=== PATIENT | male | born 1945 | race Caucasian/White ===

== ENCOUNTER → 2020-09-25 08:56 | Outpatient (BNVA) | payer OTHER, MEDICARE, SELFPAY | PROVIDERS: Visit Provider Internal Medicine Cardiovascular Disease ==

== ENCOUNTER → 2021-03-17 08:00 | Outpatient (REF) | payer OTHER, SELFPAY ==
--- NOTE | 2021-03-17 08:06 | CA_ITS ---
Transthoracic Echocardiogram Patient (Last, First, Middle): Mikal Khan L Gender: Male Date of : 1945 Age: 75 Procedure Date: 03/17/2021 Procedure Type: Transthoracic Echocardiogram Location: OP Height: 180.34 cm Weight: 126.1 kg BSA: 2.43 m2 Heart Rate: bpm BP: 122 / 60 mmHg Transit Man: Referring MD: Roberto Kemp MD Symptoms: I48.0 - Paroxysmal atrial fibrillation Study Quality: Technically Difficult due to obesity ECG Rhythm: Sinus Conclusions: - Visually estimated LVEF possibly about 50%. Due to suboptimal images in spite of contrast use, limited confidence in interpretation. - Mildly increased right ventricular cavity size. - No obvious valvular pathology seen on this study. Findings Procedure Information Contrast agent, definity, is being given per protocol without apparent complications. Left Ventricle Normal left ventricular cavity size. There is mildly increased left ventricular wall thickness. Diastolic function is normal for age. Visually estimated LVEF possibly about 50%. Due to suboptimal images in spite of contrast use, limited confidence in interpretation. Right Ventricle Mildly increased right ventricular cavity size. There is normal right ventricular systolic function. RV basal diameter 4.47cm. TAPSE 2.38cm. Atria Both atria are normal in size. Aortic Valve The aortic valve was not well visualized. There is no aortic valve stenosis. There is no aortic valve regurgitation. Mitral Valve The mitral valve appears normal. There is no mitral valve regurgitation. There is no mitral valve stenosis. Pulmonic Valve The pulmonic valve was not well visualized. Tricuspid Valve There is trace tricuspid valve regurgitation. The pulmonary artery systolic pressure is normal. Great Vessels The aortic annulus, sinuses of valsalva, and asc aorta are normal in size. Venous The inferior vena cava is mildly dilated and collapses greater than 50% with inspiration. Pericardium/Pleural There is no evidence of pericardial effusion. Prior Study Comparison No significant change compared to prior study dated: 05/03/2018. Recommendations, Care & Conclusions No obvious valvular pathology seen on this study. Measurements 2D Linear Measurements IVSd: 1.26 0.6-0.9/0.6-1.0 cm LVIDd: 4.70 3.9-5.3/4.2-5.9 cm LVIDd Index: 1.93 2.4-3.2/2.2-3.1 cm/m2 LVIDs: 3.48 2.0-3.6 cm LVPWd: 1.23 0.7-1.1 cm Ao Root: 3.70 2.1-3.5 cm LA Diam: 5.10 2.7-3.8/3.0-4.0 cm LAIDs Index: 2.10 1.5-2.3 cm/m2 LV Mass: 278.59 67-162/88-224 g LV Mass Index: 114.64 43-95/49-115 g/m2 LVOT Diam: 2.60 3.0+(-)1.3 cm 2D Systolic Function EF 4C: 46.60 >55% EF 2C: 46.10 >55% EF BiP: 46.90 >55% Mitral Valve MV Pk E: 0.72 MV PK A: 0.96 MV Decel Time: 153.00 E/A: 0.70 E'Lateral: 10.20 E'Medial: 6.74 E/E' Med: 10.60 E/E' Lat: 7.00 PHT: 45.00 MVA PHT: 4.89 Decel Mora: 4.67 Aortic Valve AoV Pk Serge: 1.19 AoV Mn Serge: 0.82 AoV VTI: 0.26 AoV Pk Grad: 6.00 Aov Mn Grad: 3.00 LVOT LVOT Diam: 2.60 LVOT Area: 5.31 Diastolic Function MV Pk E: 0.72 MV Pk A: 0.96 E/A: 0.70 E'Medial: 6.74 E/E' Med: 10.60 E' Laterial: 10.20 E/E' Lat: 7.00 Right Ventricle TAPSE (mm): 24.00 TVS' Serge: 11.00 Tricuspid Valve TR Pk Serge: 1.82 TR Pk Grad: 13.00 Great Vessels Aorta Ao Root-2D: 3.70 2.0-3.7 cm Ao Asc: 3.60 2.1-3.4 cm Pulmonary Valve PV Pk Serge: 0.96 Peak PV Grad: 4.00 Updated in Other Vendor System with Status of Final Nicola Morejon MD electronically signed on 03/17/2021 4:42:01 PM with status of Final
== END ==
LOC: HO.CARD 08:00
PROVIDERS: Visit Provider Internal Medicine Cardiovascular Disease
DX: I10 Essential (primary) hypertension (principal); I25.10 Atherosclerotic heart disease of native coronary artery without angina pectoris; I48.0 Paroxysmal atrial fibrillation
CPT/HCPCS: 93306; Q9957

== ENCOUNTER → 2021-04-02 08:20 | Outpatient (BNVA) | payer OTHER, SELFPAY | PROVIDERS: Visit Provider Internal Medicine Cardiovascular Disease | DX: I48.0 Paroxysmal atrial fibrillation (principal); I25.10 Atherosclerotic heart disease of native coronary artery without angina pectoris | CPT/HCPCS: 93005; 99212 ==

== ENCOUNTER → 2021-05-29 10:38 | Outpatient (REF) | payer OTHER, SELFPAY ==
--- NOTE | 2021-05-29 10:42 | HM_ITS ---
REASON FOR TEST: Paroxysmal atrial fibrillation. FINDINGS: The patient was monitored for a total period of 05/29/2021 to 06/28/2021 for a total period of 30 days. Only 1 rhythm strip was performed which shows sinus rhythm at 88 beats per minute. The patient, there were no reported symptoms. There were no episodes of atrial fibrillation. CONCLUSION: 1. Baseline rhythm was normal sinus rhythm. 2. No episodes of atrial fibrillation the patient underwent. Roberto Kemp MD NRS/MODL / [id number]
== END ==
LOC: HO.CARD 10:38
PROVIDERS: Visit Provider Internal Medicine Cardiovascular Disease
DX: I48.0 Paroxysmal atrial fibrillation (principal)
CPT/HCPCS: 93270

== ENCOUNTER → 2021-10-06 08:11 | Outpatient (BNVA) | payer OTHER, SELFPAY | PROVIDERS: Visit Provider Internal Medicine Cardiovascular Disease | DX: I25.10 Atherosclerotic heart disease of native coronary artery without angina pectoris (principal); I48.0 Paroxysmal atrial fibrillation | CPT/HCPCS: 99212 ==

== ENCOUNTER → 2022-03-24 07:20 | Outpatient (REF) | payer OTHER, SELFPAY ==
--- NOTE | 2022-03-24 07:23 | CA_ITS ---
Transthoracic Echocardiogram Patient (Last, First, Middle): Mikal Khan L Gender: Male Date of : 1945 Age: 76 Procedure Date: 03/24/2022 Procedure Type: Transthoracic Echocardiogram Location: OP Height: 180.34 cm Weight: 129.28 kg BSA: 2.45 m2 Heart Rate: 67 bpm BP: 145 / 75 mmHg Tanning Solution Maker: WILMER Pinon MD: Roberto Kemp MD Labor Relations Specialist: Roberto Kemp MD Symptoms: I48.0 - Paroxysmal atrial fibrillation Study Quality: Technically Difficult/Contrast ECG Rhythm: Sinus Conclusions: - 1. Technically limited study despite use of contrast agent 2. Normal LV systolic function with impaired relaxation filling pattern 3. Limited visualization of cardiac valves with mild mitral regurgitation 4. Normal measured RV systolic pressure Findings Procedure Information Contrast agent, definity, is being given per protocol without apparent complications. Left Ventricle Normal left ventricular size, thickness, and systolic function. The visually estimated ejection fraction is between 60-65%. Spectral Doppler is indicative of an impaired relaxation filling pattern. E/E prime ratio is between 8 and 15 consistent with indeterminate filling pressures. Right Ventricle The right ventricle was not well visualized. There is normal right ventricular systolic function. Atria The left atrium is likely dilated. Interatrial shunt cannot be excluded. The right atrium was not well visualized. Aortic Valve The aortic valve was not well visualized. There is no aortic valve stenosis. There is no aortic valve regurgitation. Mitral Valve The mitral valve was not well visualized. There is mild mitral valve regurgitation. There is no mitral valve stenosis. Pulmonic Valve The pulmonic valve was not well visualized. Tricuspid Valve The tricuspid valve was not well visualized. There is trace tricuspid valve regurgitation. There is no evidence of pulmonary hypertension. Great Vessels The aorta was not well visualized. The pulmonary artery was not well visualized. Venous The inferior vena cava is normal in size. Pericardium/Pleural The pericardium was not well visualized. Prior Study Comparison Changes noted compared to prior study dated: 03/17/2021. LV systolic measured on this study is 60-65% Measurements 2D Linear Measurements IVSd: 0.93 0.6-0.9/0.6-1.0 cm LVIDd: 6.03 3.9-5.3/4.2-5.9 cm LVIDd Index: 2.46 2.4-3.2/2.2-3.1 cm/m2 LVIDs: 4.70 2.0-3.6 cm LVPWd: 0.99 0.7-1.1 cm LA Diam: 5.20 2.7-3.8/3.0-4.0 cm LAIDs Index: 2.12 1.5-2.3 cm/m2 LV Mass: 294.14 67-162/88-224 g LV Mass Index: 120.06 43-95/49-115 g/m2 LVOT Diam: 2.50 3.0+(-)1.3 cm 2D Systolic Function EF 4C: 57.50 >55% EF 2C: 63.50 >55% EF BiP: 61.20 >55% Mitral Valve MV Pk E: 0.92 MV PK A: 1.08 MV Decel Time: 228.00 E/A: 0.80 E'Lateral: 9.57 E'Medial: 6.85 E/E' Med: 13.40 E/E' Lat: 9.60 PHT: 67.00 MVA PHT: 3.28 Decel [place]: 4.03 Aortic Valve AoV Pk Serge: 1.26 AoV Mn Serge: 0.81 AoV VTI: 0.29 AoV Pk Grad: 6.00 Aov Mn Grad: 3.00 EL Cont.VTI: 3.71 LVOT LVOT Pk Serge: 0.92 LVOT Mn Serge: 0.59 LVOT VTI: 0.22 LVOT Pk Grad: 3.00 LVOT Mn Grad: 2.00 LVOT Diam: 2.50 LVOT Area: 4.91 Diastolic Function MV Pk E: 0.92 MV Pk A: 1.08 E/A: 0.80 E'Medial: 6.85 E/E' Med: 13.40 E' Laterial: 9.57 E/E' Lat: 9.60 Right Ventricle TAPSE (mm): 20.30 TVS' Serge: 10.60 Tricuspid Valve TR Pk Serge: 2.05 TR Pk Grad: 17.00 RA Press: 3.00 RVSP: 20.00 Great Vessels Aorta Sinus of Valsalva: 4.30 2.0-3.5 cm Ao Asc: 3.70 2.1-3.4 cm Pulmonary Valve PV Pk Serge: 1.05 Peak PV Grad: 4.00 Updated in Other Vendor System with Status of Final Roberto Kemp MD electronically signed on 03/26/2022 10:50:23 AM with status of Final
== END ==
LOC: HO.CARD 07:20
PROVIDERS: Visit Provider Internal Medicine Cardiovascular Disease
DX: I48.0 Paroxysmal atrial fibrillation (principal)
CPT/HCPCS: 93306; Q9957

== ENCOUNTER → 2022-04-13 08:20 | Outpatient (BNVA) | payer OTHER, SELFPAY | PROVIDERS: PCP Internal Medicine; Referring Provider Internal Medicine; Visit Provider Internal Medicine Cardiovascular Disease | DX: I25.10 Atherosclerotic heart disease of native coronary artery without angina pectoris (principal); I48.0 Paroxysmal atrial fibrillation; Z79.82 Long term (current) use of aspirin; Z79.899 Other long term (current) drug therapy | CPT/HCPCS: 93005; 99212 ==

== ENCOUNTER 2022-05-27 08:45 | Outpatient (REF) | payer OTHER, SELFPAY ==
--- NOTE | ~2022-05-27 | MR_ITS ---
EXAMINATION: MR KNEE WITHOUT CONTRAST, LEFT CLINICAL INFORMATION: Left knee pain. Patient reports prior surgery 2019. COMPARISON: X-ray of the left knee 07/24/2019. MRI of the left knee 08/18/2019. TECHNIQUE: MRI of the knee without contrast was performed using routine sequences on a high-field scanner. FINDINGS: The exam is slightly limited because of image degrading motion artifact MENISCI: Medial Meniscus: Intact. Lateral Meniscus: There is heterogeneity of the medial aspect of the posterior horn at the meniscofemoral ligament attachment. Findings are compatible degenerative change or degenerative tearing. This appears new compared to prior allowing for differences in imaging technique. Findings are suspicious but not definitive for degenerative tearing. There is linear horizontal/oblique increased signal in the body of the meniscus possibly extending to the tibial articular surface. This could reflect meniscal tear or postsurgical result given the patient's history of prior surgery. LIGAMENTS: Cruciate: Intact. Collateral: Intact. EXTENSOR MECHANISM: Intact. ARTICULAR CARTILAGE/BONE: Patellofemoral Compartment: Mild cartilage heterogeneity in the lateral facet of the patella. The evaluation is slightly limited because of motion artifact. Suspect at least mild cartilage heterogeneity of the central trochlea. Findings are indicative of mild patellofemoral arthrosis, probably unchanged. Medial Compartment: Evaluation is limited because of motion artifact. There is cartilage loss along the lateral aspect of the weightbearing femoral articular cartilage similar to prior. Overall, mild arthrosis. There is also a linear focus of abnormal signal along the posterior rim of the medial plateau with surrounding edema having the appearance of a nondisplaced subchondral fracture, new compared to prior. Lateral Compartment: Mild cartilage heterogeneity with subchondral edema in the posterior weightbearing tibial articular surface. Findings are indicative of mild arthrosis which appears new compared to prior. JOINT FLUID AND BURSAE: There is a mild joint effusion. MR/MR knee LT wo con IMPRESSION: 1. The exam is slightly limited because of image degrading motion artifact. 2. Equivocal findings in the lateral meniscus could reflect meniscal tear, grade 2 signal or postsurgical result given the patient's history of prior surgery. 3. Mild arthrosis of the patellofemoral compartment and medial compartment. 4. Mild arthrosis of the lateral compartment. 5. Subchondral fracture along the posterior rim of the medial plateau with surrounding edema. This is new compared to prior. 6. Mild joint effusion.
== END 2022-05-27 08:46 | disposition home or self-care (01) ==
LOC: HO.MRI 08:45
PROVIDERS: Visit Provider Internal Medicine
DX: M25.562 Pain in left knee (principal)
CPT/HCPCS: 73721

== ENCOUNTER → 2022-06-22 09:10 | Outpatient (BNVA) | payer OTHER, SELFPAY | PROVIDERS: PCP Internal Medicine; Referring Provider Internal Medicine; Visit Provider Surgery | DX: K59.00 Constipation, unspecified (principal); K40.90 Unilateral inguinal hernia, without obstruction or gangrene, not specified as recurrent | CPT/HCPCS: 99202 ==

== ENCOUNTER 2022-07-01 07:34 | Outpatient (REF) | payer OTHER, SELFPAY | END 2022-07-01 07:35 | disposition home or self-care (01) | LOC: HO.CT 07:34 | PROVIDERS: Visit Provider Surgery | DX: Z13.89 Encounter for screening for other disorder (principal) ==

== ENCOUNTER 2022-07-07 07:11 | Outpatient (REF) | payer OTHER, SELFPAY ==
--- NOTE | ~2022-07-07 | CT_ITS ---
EXAMINATION: CT ABDOMEN AND PELVIS WITHOUT CONTRAST CLINICAL INFORMATION: Ventral hernia COMPARISON: Previous CT of the abdomen and pelvis April 2018 TECHNIQUE: Multidetector volumetric imaging was performed from the superior aspect of the liver through the pubic symphysis. Sagittal and coronal reformatted images were obtained on the technologist's workstation. This CT examination was performed using dose optimization techniques as appropriate, variously including the following: *Automated exposure control *Adjustment of mA and/or kV according to patient size (this includes techniques or standardized protocols for targeted exams where dose is matched to indication/reason for exam; i.e. extremities or head) *Use of iterative reconstruction technique DLP: 1117 mGy-cm FINDINGS: LUNG BASES: There is a 7 mm calcified right lower lobe nodule that is stable. The lung bases are otherwise clear. LIVER, GALLBLADDER, AND BILIARY TREE: The liver is normal in size, shape, and attenuation. Small calcifications in the liver probably related to old granulomatous disease. Small low-attenuation lesion measuring 8 mm in the peripheral left lobe axial image 19 series 3 is stable and may represent a small cyst. No other focal liver lesion. Dependent high attenuation material in the gallbladder probably representing gallstones. No biliary duct dilatation. PANCREAS: Unremarkable. SPLEEN: Calcifications in the spleen probably related to old granulomatous disease. ADRENAL GLANDS: Unremarkable. KIDNEYS AND URETERS: 4 cm cyst in the lower pole the right kidney. No imaging follow-up. Question tiny 1 mm stone in the upper pole of the right kidney, axial image 295 series 6 and sagittal reconstructed image 167. Kidneys are otherwise unremarkable. BLADDER: Unremarkable. GASTROINTESTINAL TRACT: Diverticulosis of the colon. The small and large bowel are otherwise unremarkable. The appendix is unremarkable. ABDOMINAL WALL: Left lateral abdominal wall or spigelian hernia containing left colon. No evidence of obstruction. Small umbilical hernia containing fat. LYMPH NODES: Normal. VASCULAR: Unremarkable. PELVIC VISCERA: Unremarkable. OSSEOUS STRUCTURES: Degenerative changes of the spine. CT/CT abdomen pelvis wo IV con IMPRESSION: Large left lateral abdominal wall or spigelian hernia containing left colon. No evidence of obstruction. Diverticulosis of the colon. Evidence of old granulomatous disease. Probable gallstones. Right renal cyst. Question small right renal stone. Fleischner guidelines were followed.
== END 2022-07-07 07:12 | disposition home or self-care (01) ==
LOC: HO.CT 07:11
PROVIDERS: Visit Provider Surgery
DX: K43.9 Ventral hernia without obstruction or gangrene (principal); K59.00 Constipation, unspecified
CPT/HCPCS: 74176

== ENCOUNTER 2022-10-18 10:40 | Inpatient (IN) | payer OTHER, SELFPAY ==
--- NOTE | ~2022-10-18 | CT_ITS ---
EXAMINATION: CT ABDOMEN AND PELVIS WITHOUT CONTRAST CLINICAL INFORMATION: Mid/right upper quadrant abdominal pain COMPARISON: CT abdomen pelvis 07/07/2022 TECHNIQUE: Multidetector volumetric imaging was performed from the superior aspect of the liver through the pubic symphysis. Sagittal and coronal reformatted images were obtained on the technologist's workstation. This CT examination was performed using dose optimization techniques as appropriate, variously including the following: *Automated exposure control *Adjustment of mA and/or kV according to patient size (this includes techniques or standardized protocols for targeted exams where dose is matched to indication/reason for exam; i.e. extremities or head) *Use of iterative reconstruction technique DLP: 1208 mGy-cm FINDINGS: Visualized lung bases are well aerated. Similar calcified granuloma the posterior right lung base. The liver is normal in size but demonstrates diffusely decreased attenuation. A few punctate calcifications are present throughout the liver. A few subcentimeter hepatic hypodensities are stable yet are too small to accurately characterize. Gallstones are noted within otherwise unremarkable appearing gallbladder. The pancreas is normal in appearance. The spleen is normal in size. Numerous calcified granulomas are scattered throughout the spleen. The adrenal glands are unremarkable. The kidneys are symmetric in size. No renal calculi or hydronephrosis of either kidney. There is a 3 cm cyst off the lower pole of the right kidney. The stomach is mildly distended and debris/fluid filled. Proximal loops of small bowel are dilated measuring up to approximately 4.8 cm and contains several scattered air-fluid levels. Distal small bowel is normal in caliber. A definitive transition zone is not well identified. There is a moderate stool burden throughout the colon. The appendix is normal. Again noted is a loop of nonobstructed descending colon within a left spigelian hernia. Mild to moderate colonic diverticulosis without CT evidence to suggest active diverticulitis. Normal caliber abdominal aorta demonstrating mild to moderate atherosclerotic disease. No retroperitoneal lymphadenopathy. The bladder is normal in appearance. The prostate gland is normal in size. No gross free pelvic fluid. No inguinal lymphadenopathy. Moderate diffuse degenerative changes of the spine. Sternotomy wires are partially visualized. CT/CT abdomen pelvis wo IV con IMPRESSION: 1. CT findings most suggestive of a partial small bowel obstruction. A definitive transition zone is not well identified. 2. Cholelithiasis. 3. Colonic diverticulosis. 4. Evidence of prior granulomatous disease. 5. Hepatic steatosis. 6. Right renal cyst. 7. Left Spigelian hernia containing a loop of nonobstructed descending colon. Fleischner guidelines were followed.
--- NOTE | ~2022-10-18 | XR_ITS ---
EXAMINATION: XR ABDOMEN KUB CLINICAL INDICATION: Partial SBO. Obstipation. COMPARISON: CT abdomen of October 18, 2022 TECHNIQUE: AP portable views of the abdomen. FINDINGS: There is a large amount stool seen within the transverse and left colon. No significantly dilated loops of bowel are appreciated. No secondary signs of free air. No pneumatosis intestinalis. Bowel is seen about the left inferior abdomen/pelvis related to bowel within left inguinal hernia. This is not completely imaged on this study. There appears be osteopenia of visualized bones. Multilevel degenerative disc disease is seen within the thoracic spine and L4 through S1. XR/XR KUB IMPRESSION: No definite findings of ileus or obstruction. Bowel seen within a left inguinal hernia. Moderate stool burden within the transverse and left colon.
[2022-10-18 10:49] VITALS: BP 160/94; PULSE 105; RESP 20; TEMP 37; O2SAT 96; BMI 40.4
--- NOTE | 2022-10-18 11:18 | ECG_ITS ---
Test Reason : epigastric pain Blood Pressure : / mmHG Vent. Rate : 095 BPM Atrial Rate : 095 BPM P-R Int : 188 ms QRS Dur : 114 ms QT Int : 396 ms P-R-T Axes : 057 -25 082 degrees QTc Int : 497 ms Normal sinus rhythm Cannot rule out Anterior infarct , age undetermined Abnormal ECG When compared with ECG of 22-NOV-2018 12:41, No significant changes seen Referred By: Rosalind Burton Electronically Signed By:SYLVESTER FLAHERTY
--- NOTE | 2022-10-18 11:19 | ED.ABDPAIN ---
HPI - Abdominal Pain General Chief Complaint: Abdominal Pain Stated Complaint: ABD PAIN,BLOATED,BURPING PER EMS Time Seen by Provider: 10/18/22 10:55 Source: patient and family () Mode of arrival: ambulatory History of Present Illness HPI narrative: 77-year-old male with presentation of abdominal discomfort since Tuesday and reports nausea but denies any fever or chills or vomiting. Patient states that he is also experiencing obstipation and endorses known left inguinal hernia. Related Data Home Medications Medication Instructions Recorded Confirmed albuterol sulfate 2.5 mg/3 mL 2.5 mg inhalation Q4-6H PRN 09/25/20 06/22/22 (0.083 %) solution for nebulization allopurinol 300 mg tablet 300 mg PO DAILY 09/25/20 06/22/22 aspirin 81 mg tablet,delayed 81 mg PO DAILY 09/25/20 06/22/22 release (Adult Aspirin Regimen) atorvastatin 80 mg tablet 40 mg PO BEDTIME 09/25/20 06/22/22 bupropion HCl 200 mg tablet,12 hr 200 mg PO BID 09/25/20 06/22/22 sustained-release cetirizine 10 mg tablet (All Day 10 mg PO DAILY PRN 09/25/20 06/22/22 Allergy (cetirizine)) dicyclomine 20 mg tablet 20 mg PO BID PRN 09/25/20 06/22/22 docusate sodium 100 mg capsule 100 mg PO DAILY 09/25/20 06/22/22 (Stool Softener) fluticasone propionate 50 1 spray intranasal DAILY 09/25/20 06/22/22 mcg/actuation nasal spray,suspension levothyroxine 50 mcg capsule 50 mcg PO DAILY 09/25/20 06/22/22 metformin 500 mg tablet 500 mg PO BID 09/25/20 06/22/22 mometasone 200 mcg/actuation HFA 1 puff inhalation BEDTIME 09/25/20 06/22/22 aerosol inhaler (Asmanex HFA) omeprazole 20 mg capsule,delayed 20 mg PO DAILY 09/25/20 06/22/22 release oxybutynin chloride 10 mg 10 mg PO DAILY 09/25/20 06/22/22 tablet,extended release 24 hr tamsulosin 0.4 mg capsule 0.4 mg PO BEDTIME 09/25/20 06/22/22 tiotropium 2.5 mcg-olodaterol 2.5 2 puff inhalation DAILY 09/25/20 06/22/22 mcg/actuation mist for inhalation (Stiolto Respimat) verapamil 360 mg 24 hr 360 mg PO .twice a day 09/25/20 06/22/22 capsule,extended release zafirlukast 20 mg tablet (Accolate) 20 mg PO BID 09/25/20 06/22/22 Allergies Allergy/AdvReac Type Severity Reaction Status Date / Time amoxicillin [From Augmentin] Allergy Mild NAUSEA & Unverified 06/22/22 09:43 VOMITING, HIVES clavulanic acid Allergy Mild NAUSEA & Unverified 06/22/22 09:43 [From Augmentin] VOMITING, HIVES piperacillin [From ZOSYN] Allergy Unknown LIVER Unverified 06/22/22 09:43 FAILURE tazobactam [From ZOSYN] Allergy Unknown LIVER Unverified 06/22/22 09:43 FAILURE Review of Systems Review of Systems Pertinent positives and negatives as stated in HPI [facility] Past Medical History Source: nursing notes reviewed Medical History CAD (coronary artery disease) COPD (chronic obstructive pulmonary disease) Diabetes mellitus HTN (hypertension) Hyperlipidemia Iron deficiency anemia FARHAD (obstructive sleep apnea) Paroxysmal atrial fibrillation Surgical History History of back surgery History of esophagogastroduodenoscopy (EGD) Hx of CABG Hx of cardiac cath Hx of colonoscopy Hx of hand surgery Hx of knee surgery Family History Family History Father Sudden cardiac Mother Sudden cardiac Social History Social History Smoked in Last 30 Days: No Use of substances other than those prescribed or required for medical reasons: No Any prior treatment program specific to substance use: No Advance Directives: Yes Advance Directives Information Provided: No Advance Directives on File: No Physical Exam ED Vital Signs: Vital Signs - 24 hr 10/18/22 10:49 Temperature 98.6 F Pulse Rate 105 H Respiratory Rate 20 Blood Pressure 160/94 H Pulse Oximetry 96 Oxygen Delivery Method Room Air BMI result Body Mass Index 40.4 VITAL SIGNS: Reviewed. GENERAL: Elevated BMI, Well developed, well nourished, in no acute distress. HEAD: Normocephalic/atraumatic EYES: PERRLA, EOMI EARS: Ext canals without abnormality OROPHARYNX: no oral lesions noted, posterior pharynx clear NECK: Supple, no adenopathy LUNGS: Normal breath sounds. No adventitious sounds or accessory muscle use. SpO2<96> CARDIOVASCULAR: Regular rate and rhythm without noted murmurs, no JVD or lower extremity edema. ABDOMEN: Soft, diffuse tenderness without rebound, distended with hypoactive bowel sounds, body habitus limits complete examination as I do not appreciate hernia. MUSCULOSKELETAL: No tenderness, deformities, or effusions noted on gross inspection. EXTREMITIES: No cyanosis, clubbing or edema. SKIN: Inspection of the skin reveals no rashes NEUROLOGIC: Alert and oriented x 4. Strength and sensation to light touch were grossly intact x 4. Medical Decision Making Medical Decision Making MDM Narrative: 77-year-old male with multiple medical comorbidities who presents with suspicion for SBO with the obstipation but given the location of the pain possibility of cholecystitis but otherwise hemodynamically stable. Review of all investigations in my interpretation is this patient has a partial small-bowel obstruction and agree with Radiology that the transition point is not clear but does not appear to be associated with patient has known hernia. He is hemodynamically stable, will give him some IV fluids, consult to surgery has been placed and I did discuss the case briefly with surgery who will follow-up on the patient. 1336: I discussed the case with inpatient hospitalist, placed med reconciliation referral and patient will be admitted. No NG at this time due to no vomiting and partial small-bowel obstruction. The mild leukocytosis is noted and felt to be secondary to stress/reactive. Differential Diagnosis Please see the discussion above Consult Healthcare Provider Please see the discussion above Lab Data Please see the discussion above 10/18/22 11:57 10/18/22 11:57 Labs: Lab Results 10/18/22 10/18/22 10/18/22 Range/Units 11:57 11:57 11:57 WBC 11.5 H (4.8-10.8) X10*3/uL RBC 4.11 L (4.60-5.80) X10*6/uL Hgb 12.5 L (14.0-18.0) g/dl Hct 38.0 L (42.0-52.0) % MCV 92.5 (80.0-98.0) fL MCH 30.4 (27.0-33.0) pg MCHC 32.9 (31.0-36.0) g/dl RDW 15.0 (11.0-16.0) % Plt Count 241 (160-400) X10*3/uL MPV 9.5 (9.4-12.4) fL Immature Gran % (Auto) 0.4 (0.0-0.4) % Neut % (Auto) 73.9 H (45-73) % Lymph % (Auto) 14.9 L (20-40) % [place] % (Auto) 9.2 (2-11) % Eos % (Auto) 1.2 (0-4) % Baso % (Auto) 0.4 (0-2) % Lymph # (Auto) 1.7 (1.2-4.9) X10*3/uL [place] # (Auto) 1.1 (0.1-1.2) X10*3/uL Eos # (Auto) 0.1 (0.0-0.4) X10*3/uL Baso # (Auto) 0.1 (0.0-0.2) X10*3/uL Abs Immat Gran (auto) 0.05 H (0.00-0.03) X10*3/uL Absolute Neuts (auto) 8.5 H (2.0-8.3) x10*3/uL Absolute Nucleated RBC 0.000 (0.0-0.012) X10*3/uL Nucleated RBC % (auto) 0.0 (0.0-0.2) /100WBC PT 11.0 (10.0-13.1) SEC INR 1.0 (0.9-1.1) Sodium 138 (135-145) mmol/L Potassium 3.7 (3.3-5.1) mmol/L Chloride 103 (96-108) mmol/L Carbon Dioxide 24 (22-29) mmol/L Anion Gap 15 (12-20) BUN 20 H (9-16) mg/dL Creatinine 1.17 (0.5-1.4) mg/dL Estim Creat Clear Calc 75.4 Estimated GFR > 60 Random Glucose 122 H (60-115) mg/dL Calcium 9.5 (8.4-10.2) mg/dL Total Bilirubin 0.8 (0.0-1.0) mg/dL AST 13 (5-37) U/L ALT 15 (0-40) U/L Alkaline Phosphatase 154 H (39-117) U/L Troponin I High Sens (<3.5-35.0) ng/L Total Protein 6.7 (6.5-8.0) g/dL Albumin 4.2 (3.5-5.0) g/dL 10/18/22 Range/Units 11:57 WBC (4.8-10.8) X10*3/uL RBC (4.60-5.80) X10*6/uL Hgb (14.0-18.0) g/dl Hct (42.0-52.0) % MCV (80.0-98.0) fL MCH (27.0-33.0) pg MCHC (31.0-36.0) g/dl RDW (11.0-16.0) % Plt Count (160-400) X10*3/uL MPV (9.4-12.4) fL Immature Gran % (Auto) (0.0-0.4) % Neut % (Auto) (45-73) % Lymph % (Auto) (20-40) % [place] % (Auto) (2-11) % Eos % (Auto) (0-4) % Baso % (Auto) (0-2) % Lymph # (Auto) (1.2-4.9) X10*3/uL [place] # (Auto) (0.1-1.2) X10*3/uL Eos # (Auto) (0.0-0.4) X10*3/uL Baso # (Auto) (0.0-0.2) X10*3/uL Abs Immat Gran (auto) (0.00-0.03) X10*3/uL Absolute Neuts (auto) (2.0-8.3) x10*3/uL Absolute Nucleated RBC (0.0-0.012) X10*3/uL Nucleated RBC % (auto) (0.0-0.2) /100WBC PT (10.0-13.1) SEC INR (0.9-1.1) Sodium (135-145) mmol/L Potassium (3.3-5.1) mmol/L Chloride (96-108) mmol/L Carbon Dioxide (22-29) mmol/L Anion Gap (12-20) BUN (9-16) mg/dL Creatinine (0.5-1.4) mg/dL Estim Creat Clear Calc Estimated GFR Random Glucose (60-115) mg/dL Calcium (8.4-10.2) mg/dL Total Bilirubin (0.0-1.0) mg/dL AST (5-37) U/L ALT (0-40) U/L Alkaline Phosphatase (39-117) U/L Troponin I High Sens < 3.5 (<3.5-35.0) ng/L Total Protein (6.5-8.0) g/dL Albumin (3.5-5.0) g/dL Independent Interpretation I performed an independent interpretation of an: EKG Interpretation: Normal sinus rhythm, HR-95, no STEMI, GA is within normal limits. Radiology Impression Radiologist Impression: My interpretation is in agreement with radiology's impression of the imaging studies. External Record Review External record reviewed: Outpatient record and Prior outpatient labs Chronic Conditions Patient?s care impacted by: Diabetes and Hypertension Medications Administered Generic Name Dose Route Start Last Admin Trade Name Freq PRN Reason Stop Dose Admin Sodium Chloride 500 mls @ 999 mls/hr 10/18/22 13:45 10/18/22 13:43 Ns IV 10/18/22 14:15 999 mls/hr .Q31M [facility] Administration Discharge Plan Discharge Clinical Impression: Partial small bowel obstruction, Abdominal distension Patient Disposition: Admitted As Inpatient Prescriptions: No Action verapamil 360 mg capsule,ext rel. pellets 24 hr 360 mg PO .twice a day cetirizine [All Day Allergy (cetirizine)] 10 mg tablet 10 mg PO DAILY PRN bupropion HCl 200 mg tablet sustained-release 12 hr 200 mg PO BID levothyroxine 50 mcg capsule 50 mcg PO DAILY metformin 500 mg tablet 500 mg PO BID zafirlukast [Accolate] 20 mg tablet 20 mg PO BID Rx Instructions: must be taken on empty stomach, at least 1 hr before or 2 hrs after a meal/food allopurinol 300 mg tablet 300 mg PO DAILY omeprazole 20 mg capsule,delayed release(DR/EC) 20 mg PO DAILY atorvastatin 80 mg tablet 40 mg PO BEDTIME albuterol sulfate 2.5 mg /3 mL (0.083 %) solution for nebulization 2.5 mg inhalation Q4-6H PRN tamsulosin 0.4 mg capsule 0.4 mg PO BEDTIME oxybutynin chloride 10 mg tablet extended release 24hr 10 mg PO DAILY dicyclomine 20 mg tablet 20 mg PO BID PRN Stiolto Respimat 2.5-2.5 mcg/actuation mist 2 puff inhalation DAILY Asmanex HFA 200 mcg/actuation HFA aerosol inhaler 1 puff inhalation BEDTIME aspirin [Adult Aspirin Regimen] 81 mg tablet,delayed release (DR/EC) 81 mg PO DAILY fluticasone propionate 50 mcg/actuation spray,suspension 1 spray intranasal DAILY Rx Instructions: administer into each nostril docusate sodium [Stool Softener] 100 mg capsule 100 mg PO DAILY
--- NOTE | 2022-10-18 11:40 | PC.NURSE ---
Patient to CT scan
[2022-10-18 12:02] LABS: MANUAL DIFF FLAG NO
[2022-10-18 12:04] LABS: Basophils Absolute Auto 0.1 X10*3/uL (0.0-0.2); Basophils Percent Auto 0.4 % (0-2); Eosinophils Absolute Auto 0.1 X10*3/uL (0.0-0.4); Eosinophils Percent Auto 1.2 % (0-4); Hemoglobin 12.5 g/dl (14.0-18.0); Imm Gran Abs Auto 0.05 X10*3/uL (0.00-0.03); Imm Gran Pct Auto 0.4 % (0.0-0.4); Lymphocytes Absolute Auto 1.7 X10*3/uL (1.2-4.9); Lymphocytes Percent Auto 14.9 % (20-40); Mean Corpuscular HGB Conc 32.9 g/dl (31.0-36.0); Mean Corpuscular Hemoglobin 30.4 pg (27.0-33.0); Mean Corpuscular Volume 92.5 fL (80.0-98.0); Mean Platelet Volume 9.5 fL (9.4-12.4); Monocytes Absolute Auto 1.1 X10*3/uL (0.1-1.2); Monocytes Percent Auto 9.2 % (2-11); Neutrophils Absolute Auto 8.5 x10*3/uL (2.0-8.3); Neutrophils Percent Auto 73.9 % (45-73); Platelet Count 241 X10*3/uL (160-400); Red Blood Count 4.11 X10*6/uL (4.60-5.80); White Blood Count 11.5 X10*3/uL (4.8-10.8)
[2022-10-18 12:21] LABS: Alanine Aminotransferase 15 U/L (0-40); Albumin Level 4.2 g/dL (3.5-5.0); Alkaline Phosphatase 154 U/L (39-117); Anion Gap 15 (12-20); Aspartate Amino Transferase 13 U/L (5-37); Bilirubin Total 0.8 mg/dL (0.0-1.0); Blood Urea Nitrogen 20 mg/dL (9-16); Calcium 9.5 mg/dL (8.4-10.2); Carbon Dioxide 24 mmol/L (22-29); Chloride 103 mmol/L (96-108); Creatinine Clr Calc Pharmacy 75.4; Estimated Glomerular Filt Rate > 60; Glucose Random 122 mg/dL (60-115); Potassium 3.7 mmol/L (3.3-5.1); Sodium 138 mmol/L (135-145); Total Protein 6.7 g/dL (6.5-8.0)
--- NOTE | 2022-10-18 12:26 | HE.PHANOTE ---
RE: medications Faxed [facility] for med list 10/18/22 @[id number]
[2022-10-18 12:40] LABS: Troponin-I High Sensitivity < 3.5 ng/L (<3.5-35.0)
[2022-10-18] MEDS: 0.9 % Sodium Chloride 500 ML 999 ML IV (13:43)
--- NOTE | 2022-10-18 13:47 | PM.IMHP ---
History of Present Illness Date of Service: 10/18/22 Attending physician on admission: Josue Salgado Chief Complaint: abd pain 77-year-old male with history of coronary artery disease s/p CABG x3, COPD, [id number] type 2 diabetes, hypertension, paroxysmal atrial fibrillation with Watchman device, hyperlipidemia, hypothyroidism, left inguinal hernia, FARHAD compliant with BiPAP presented to the ED for evaluation of diffuse severe abdominal pain ongoing for 2 days. He states the pain is worst in the right upper quadrant but is diffuse across the abdomen radiating bilaterally to the mid back. He states he feels abdominal bloating with increased reflux and belching as well as nausea and anorexia. No vomiting. Reports last BM was 3 days ago and was very small. On arrival, pt hypertensive to 160/95, mild tachycardia 105, vitals otherwise normal, patient afebrile. WBC 11.5, renal function normal, electrolytes normal. CT abdomen/pelvis with findings suggestive of a partial small-bowel obstruction without any definitive transition zone identified. There is also cholelithiasis, diverticulosis, evidence of prior granulomatous disease, hepatic steatosis, right renal cyst, and left spigelian hernia containing a loop of nonobstructed descending colon. In ED, given 500 mL IV NS. Review of Systems Review of Systems: General: No fevers, malaise, unintentional weight loss HEENT: No blurred vision, diplopia. No sore throat, nasal congestion, rhinorrhea, sinus pain, ear pain Cardiovascular: No chest pain, palpitations, or leg edema Respiratory: No shortness of breath, wheezing, cough GI: +abd pain, +nausea, +constipation. No vomiting, diarrhea, melena, hematochezia : No dysuria, hematuria, increased urinary frequency, decreased urinary output MSK: No myalgia, back pain Neuro: No headaches, weakness, paresthesias Skin: No rashes or lesions [facility] Medical History (Updated 10/18/22 @ 15:03 by EDITA Childers) Anemia, chronic disease CAD (coronary artery disease) COPD (chronic obstructive pulmonary disease) Diabetes mellitus History of iron deficiency anemia HTN (hypertension) Hyperlipidemia Hypothyroidism FARHAD (obstructive sleep apnea) Paroxysmal atrial fibrillation Family History Father Sudden cardiac Mother Sudden cardiac Surgical History History of back surgery History of esophagogastroduodenoscopy (EGD) Hx of CABG Hx of cardiac cath Hx of colonoscopy Hx of hand surgery Hx of knee surgery Social History Patient Tobacco Use Status: Never used Tobacco Smoked in Last 30 Days: No Use of substances other than those prescribed or required for medical reasons: No Any prior treatment program specific to substance use: No Advance Directives: Yes Advance Directives Information Provided: No Advance Directives on File: No Nutrition Risks: No Nutritional Risk Meds Allergies Allergy/AdvReac Type Severity Reaction Status Date / Time amoxicillin [From Augmentin] Allergy Mild NAUSEA & Verified 10/18/22 14:19 VOMITING, HIVES clavulanic acid Allergy Mild NAUSEA & Verified 10/18/22 14:19 [From Augmentin] VOMITING, HIVES piperacillin [From ZOSYN] Allergy Unknown LIVER Verified 10/18/22 14:19 FAILURE tazobactam [From ZOSYN] Allergy Unknown LIVER Verified 10/18/22 14:19 FAILURE Active Medications: Current Medications Sodium Chloride (Ns) 500 mls @ 999 mls/hr IV .Q31M CASANDRA Stop: 10/18/22 14:15 Last Admin: 10/18/22 13:43 Dose: 999 mls/hr Pharmacy Consult (Consult Rx Perform Med Rec) 1 each MISCELLANE ONCE PRN PRN Reason: Consult order Home Medications Medication Instructions Recorded Confirmed Last Taken Type albuterol sulfate 2.5 mg/3 mL 2.5 mg inhalation TID PRN Wheezing 09/25/20 10/18/22 Unknown History (0.083 %) solution for nebulization allopurinol 300 mg tablet 300 mg PO DAILY 09/25/20 10/18/22 Unknown History aspirin 81 mg tablet,delayed 81 mg PO DAILY 09/25/20 10/18/22 Unknown History release (Adult Aspirin Regimen) atorvastatin 80 mg tablet 40 mg PO BEDTIME 09/25/20 10/18/22 Unknown History bupropion HCl 200 mg tablet,12 hr 200 mg PO BID 09/25/20 10/18/22 Unknown History sustained-release cetirizine 10 mg tablet (All Day 10 mg PO BEDTIME 09/25/20 10/18/22 Unknown History Allergy (cetirizine)) dicyclomine 20 mg tablet 20 mg PO Q6H PRN Spasms 09/25/20 10/18/22 Unknown History docusate sodium 100 mg capsule 100 mg PO DAILY 09/25/20 06/22/22 Unknown History (Stool Softener) fluticasone propionate 50 1 spray intranasal BID 09/25/20 10/18/22 Unknown History mcg/actuation nasal spray,suspension levothyroxine 50 mcg capsule 50 mcg PO DAILY@0600 09/25/20 10/18/22 Unknown History metformin 500 mg tablet 500 mg PO BID 09/25/20 10/18/22 Unknown History mometasone 200 mcg/actuation HFA 2 puff inhalation BEDTIME 09/25/20 10/18/22 Unknown History aerosol inhaler (Asmanex HFA) omeprazole 20 mg capsule,delayed 20 mg PO BID@0630,1630 09/25/20 10/18/22 Unknown History release tamsulosin 0.4 mg capsule 0.4 mg PO BID 09/25/20 10/18/22 Unknown History tiotropium 2.5 mcg-olodaterol 2.5 2 puff inhalation DAILY 09/25/20 10/18/22 Unknown History mcg/actuation mist for inhalation (Stiolto Respimat) verapamil 360 mg 24 hr 360 mg PO BID 09/25/20 10/18/22 Unknown History capsule,extended release zafirlukast 20 mg tablet (Accolate) 20 mg PO BID 09/25/20 10/18/22 Unknown History albuterol sulfate 90 mcg/actuation 2 puff inhalation QID PRN Wheezing 10/18/22 10/18/22 Unknown History aerosol inhaler ascorbic acid (vitamin C) 250 mg 250 mg PO DAILY 10/18/22 10/18/22 Unknown History tablet gabapentin 600 mg tablet 1,200 mg PO DAILY@1900 10/18/22 10/18/22 Unknown History gabapentin 600 mg tablet 600 mg PO BID@0800,1200 10/18/22 10/18/22 Unknown History niacinamide 500 mg tablet 500 mg PO BID 10/18/22 10/18/22 Unknown History oxybutynin chloride 15 mg 15 mg PO BEDTIME 10/18/22 10/18/22 Unknown History tablet,extended release 24 hr triamterene 37.5 1 tab PO DAILY 10/18/22 10/18/22 Unknown History mg-hydrochlorothiazide 25 mg tablet Physical Exam Vital Signs and Narrative: Vital Signs: Last Vital Signs Temp 98.6 F 10/18/22 10:49 Pulse 105 H 10/18/22 10:49 Resp 20 10/18/22 10:49 BP 160/94 H 10/18/22 10:49 Pulse Ox 96 10/18/22 10:49 O2 Del Method Room Air 10/18/22 10:49 BMI result Body Mass Index 40.4 Constitutional - Awake and Alert, No apparent distress Eyes - PERRLA, EOMI Cardiovascular - S1S2, RRR, No edema Respiratory - Normal lung expansion, Normal respiratory effort, No respiratory distress, CTA bilaterally Gastrointestinal - mildly distended, diffuse abd ttp worse in RUQ no guarding or rebound. +BS; no palpable masses/hernias, but exam limited by body habitus Extremities - no calf tenderness bilaterally, no swelling Skin - Warm/Dry Neurological - Alert & oriented x3 Psychological - Appropriate affect Results Labs 10/18/22 11:57 10/18/22 11:57 Labs: Laboratory Results - last 24 hr 10/18/22 10/18/22 10/18/22 11:57 11:57 11:57 MCV 92.5 MCH 30.4 MCHC 32.9 RDW 15.0 Plt Count 241 MPV 9.5 Immature Gran % (Auto) 0.4 Neut % (Auto) 73.9 H Lymph % (Auto) 14.9 L [place] % (Auto) 9.2 Eos % (Auto) 1.2 Baso % (Auto) 0.4 Lymph # (Auto) 1.7 [place] # (Auto) 1.1 Eos # (Auto) 0.1 Baso # (Auto) 0.1 Abs Immat Gran (auto) 0.05 H Absolute Neuts (auto) 8.5 H Absolute Nucleated RBC 0.000 Nucleated RBC % (auto) 0.0 PT 11.0 INR 1.0 Anion Gap 15 Estim Creat Clear Calc 75.4 Estimated GFR > 60 Random Glucose 122 H Calcium 9.5 Total Bilirubin 0.8 AST 13 ALT 15 Alkaline Phosphatase 154 H Troponin I High Sens Total Protein 6.7 Albumin 4.2 10/18/22 11:57 MCV MCH MCHC RDW Plt Count MPV Immature Gran % (Auto) Neut % (Auto) Lymph % (Auto) [place] % (Auto) Eos % (Auto) Baso % (Auto) Lymph # (Auto) [place] # (Auto) Eos # (Auto) Baso # (Auto) Abs Immat Gran (auto) Absolute Neuts (auto) Absolute Nucleated RBC Nucleated RBC % (auto) PT INR Anion Gap Estim Creat Clear Calc Estimated GFR Random Glucose Calcium Total Bilirubin AST ALT Alkaline Phosphatase Troponin I High Sens < 3.5 Total Protein Albumin Imaging Radiologist's Impressions: Impressions Abdomen/Pelvis CT 10/18/22 11:48 IMPRESSION: 1. CT findings most suggestive of a partial small bowel obstruction. A definitive transition zone is not well identified. 2. Cholelithiasis. 3. Colonic diverticulosis. 4. Evidence of prior granulomatous disease. 5. Hepatic steatosis. 6. Right renal cyst. 7. Left Spigelian hernia containing a loop of nonobstructed descending colon. Fleischner guidelines were followed. Assessment and Plan (1) Partial small bowel obstruction: Status: Acute Plan 77-year-old male with history of coronary artery disease s/p CABG x3, COPD, [id number] type 2 diabetes, hypertension, paroxysmal atrial fibrillation with Watchman device, hyperlipidemia, hypothyroidism, left inguinal hernia, FARHAD compliant with BiPAP admitted for partial SBO. #Partial SBO -CT with findings suggestive of partial SBO, no definitive transition zone -keep NPO for bowel rest -hold on NG tube for now unless patient vomiting -ondansetron p.r.n. for nausea -Apprecaite gen surgery input # [id number] type 2 diabetes -POC glucose -transition to diabetic diet -Humalog on sliding scale p.r.n. for hyperglycemia -hold metformin # CAD-no anginal chest pain -continue asa, statin, CCB # paroxysmal atrial fibrillation- rate controlled -Has watchman device, no anticoagulation -continue verapamil # COPD-without acute exacerbation -continue maintenance inhalers -albuterol p.r.n. # hypothyroidism -continue levothyroxine # FARHAD -BiPAP at bedtime with 2 L O2 # left-sided inguinal hernia -nonobstructing -appreciate general surgery input DVT prophylaxis-Lovenox Full code Patient requires inpatient stay of at least 2 midnights for management partial small-bowel obstruction, patient currently NPO, requires explore consultation monitoring for any worsening obstruction Time Spent With Patient Time: Total time managing care of this patient today ____ minutes. Quality Stroke Does the patient have a stroke diagnosis?: No VTE Prior VTE?: No VTE Risk Level:: Medical - moderate - high VTE Device Contraindication: Treatment Not Indicated VTE Drug Contraindication: N/A - Med Ordered
[2022-10-18 14:11] LABS: COVID-19 Test Negative (Negative); IDNOW Serial# BCCEAD1C
--- NOTE | 2022-10-18 14:26 | HE.PHANOTE ---
RE: med list Called [facility] and left message with medical records; sent a second fax request
[2022-10-18] MEDS: Lactated Ringers 1,000 ML 100 ML IVCONT (15:18)
[2022-10-18] MEDS: Enoxaparin Sodium 40 MG/0.4 ML SYRINGE SUBCUT (15:18)
[2022-10-18] MEDS: 0.9 % Sodium Chloride Flush 3 ML SYRINGE IVFLUSH (15:18)
--- NOTE | 2022-10-18 15:20 | PHA.MEDREC ---
Pharmacy Consult ? Medication Reconciliation Pharmacy has completed the medication reconciliation. [facility], patient was able to pull up med list at bedside, but there were some duplicates. Notified second shift pharmacist to keep and eye out for fax list from [facility] to confirm
--- NOTE | 2022-10-18 15:21 | PM.CNGS ---
History of Present Illness Consult details Consult date: 10/18/22 Narrative: 77-year-old male referred for question of small-bowel obstruction. He has multiple medical problems including coronary disease, morbid obesity, paroxysmal atrial fibrillation, and obstructive sleep apnea. He has had this left inguinal hernia for years. He says that this really does not bother him. He has been seen by multiple surgeons in the past for this. He stated that he started to have abdominal pain, mostly on the upper abdomen 2 days ago. This had persisted so he came to under urgent care center this morning and he was sent to the ER for this. He denies any vomiting although he admits to having little bit of nausea. He also has a history of reflux disease so he feels he has acid in his throat. He has a history of chronic constipation. He says his last bowel movement was 4 days ago and this is not unusual for him to have no bowel movement for several days. He says he remembers passing flatus last Tuesday. He also says that he has had some relief of his pain since he came to the emergency room. He also says that he had seen Dr. Ordoñez last year for his inguinal hernia. He has a history of CABG in 2018. Review of Systems Constitutional: Constitutional: Denies chills and Denies fever(s) Cardiovascular: Cardiovascular: Denies chest pain, Denies dyspnea and Reports dyspnea on exertion Respiratory: Respiratory: Denies cough, Denies dyspnea and Reports dyspnea on exertion Gastrointestinal: Gastrointestinal: Denies hematochezia, Denies change in bowel habits and Reports constipation Genitourinary: Genitourinary: Denies hematuria and Denies difficulty urinating Musculoskeletal: Musculoskeletal: Denies back pain and Denies limited range of motion Neurologic: Denies focal weakness and Denies convulsions Psychiatric: Psychiatric: Denies depression and Denies mood swings PMFSH Past Medical History Medical History Anemia, chronic disease CAD (coronary artery disease) COPD (chronic obstructive pulmonary disease) Diabetes mellitus History of iron deficiency anemia HTN (hypertension) Hyperlipidemia Hypothyroidism FARHAD (obstructive sleep apnea) Paroxysmal atrial fibrillation Family History Family History Father Sudden cardiac Mother Sudden cardiac Surgical History Surgical History History of back surgery History of esophagogastroduodenoscopy (EGD) Hx of CABG Hx of cardiac cath Hx of colonoscopy Hx of hand surgery Hx of knee surgery Social History Social History Household Members: Spouse Housing: House Do you presently have visiting nurse or other home services: No Patient Tobacco Use Status: Never used Tobacco Advance Directives Date on File: 10/18/22 service: Yes Current occupational status: retired Meds Allergies Allergy/AdvReac Type Severity Reaction Status Date / Time amoxicillin [From Augmentin] Allergy Mild NAUSEA & Verified 10/18/22 14:19 VOMITING, HIVES clavulanic acid Allergy Mild NAUSEA & Verified 10/18/22 14:19 [From Augmentin] VOMITING, HIVES piperacillin [From ZOSYN] Allergy Unknown LIVER Verified 10/18/22 14:19 FAILURE tazobactam [From ZOSYN] Allergy Unknown LIVER Verified 10/18/22 14:19 FAILURE Active Medications: Current Medications Acetaminophen (Acetaminophen 325 Mg Tablet) 650 mg PO Q6H PRN PRN Reason: Pain, Mild (Pain Scale 1-3) Calcium Carbonate (Calcium Carbonate 750 Mg Tab.Chew) 750 mg PO Q4H PRN PRN Reason: acid reflux Enoxaparin Sodium (Enoxaparin Sodium 40 Mg/0.4 Ml Syringe) 40 mg SUBCUT Q24H [facility] Last Admin: 10/18/22 15:18 Dose: 40 mg Glucose (Glucose Gel 15 Gm Gel..Gram.) 15 gm PO Q15M PRN; Protocol PRN Reason: per Hypoglycemia Standing Ord. Lactated Ringer's (Lr) 1,000 mls @ 100 mls/hr IVCONT .Q10H [facility] Last Admin: 10/18/22 15:18 Dose: 100 mls/hr Dextrose (D10) 250 mls @ 750 mls/hr IV Q15M PRN; Protocol PRN Reason: per Hypoglycemia Standing Ord. Insulin Human Lispro (Insulin Lispro 100 Unit/Ml 3 Ml Vial) 0 unit SUBCUT QIDACHS CASANDRA; Protocol Ondansetron HCl (Ondansetron Hcl 4 Mg/2 Ml Vial) 4 mg IVPUSH Q8H PRN PRN Reason: Nausea and Vomiting Pharmacy Consult (Consult Rx Perform Med Rec) 1 each MISCELLANE ONCE PRN PRN Reason: Consult order Sodium Chloride (0.9 % Sodium Chloride Flush 3 Ml Syringe) 3 ml IVFSH QSHIFT [facility] Last Admin: 10/18/22 15:18 Dose: 3 ml Home Medications Medication Instructions Recorded Confirmed Last Taken Type albuterol sulfate 2.5 mg/3 mL 2.5 mg inhalation TID PRN Wheezing 09/25/20 10/18/22 Unknown History (0.083 %) solution for nebulization allopurinol 300 mg tablet 300 mg PO DAILY 09/25/20 10/18/22 Unknown History aspirin 81 mg tablet,delayed 81 mg PO DAILY 09/25/20 10/18/22 Unknown History release (Adult Aspirin Regimen) atorvastatin 80 mg tablet 40 mg PO BEDTIME 09/25/20 10/18/22 Unknown History bupropion HCl 200 mg tablet,12 hr 200 mg PO BID 09/25/20 10/18/22 Unknown History sustained-release cetirizine 10 mg tablet (All Day 10 mg PO BEDTIME 09/25/20 10/18/22 Unknown History Allergy (cetirizine)) dicyclomine 20 mg tablet 20 mg PO Q6H PRN Spasms 09/25/20 10/18/22 Unknown History fluticasone propionate 50 1 spray intranasal BID 09/25/20 10/18/22 Unknown History mcg/actuation nasal spray,suspension levothyroxine 50 mcg capsule 50 mcg PO DAILY@0600 09/25/20 10/18/22 Unknown History metformin 500 mg tablet 500 mg PO BID 09/25/20 10/18/22 Unknown History mometasone 200 mcg/actuation HFA 2 puff inhalation BEDTIME 09/25/20 10/18/22 Unknown History aerosol inhaler (Asmanex HFA) omeprazole 20 mg capsule,delayed 20 mg PO BID@0630,1630 09/25/20 10/18/22 Unknown History release tamsulosin 0.4 mg capsule 0.4 mg PO BID 09/25/20 10/18/22 Unknown History tiotropium 2.5 mcg-olodaterol 2.5 2 puff inhalation DAILY 09/25/20 10/18/22 Unknown History mcg/actuation mist for inhalation (Stiolto Respimat) verapamil 360 mg 24 hr 360 mg PO BID 09/25/20 10/18/22 Unknown History capsule,extended release zafirlukast 20 mg tablet (Accolate) 20 mg PO BID 09/25/20 10/18/22 Unknown History albuterol sulfate 90 mcg/actuation 2 puff inhalation QID PRN Wheezing 10/18/22 10/18/22 Unknown History aerosol inhaler ascorbic acid (vitamin C) 250 mg 250 mg PO DAILY 10/18/22 10/18/22 Unknown History tablet gabapentin 600 mg tablet 1,200 mg PO DAILY@1900 10/18/22 10/18/22 Unknown History gabapentin 600 mg tablet 600 mg PO BID@0800,1200 10/18/22 10/18/22 Unknown History niacinamide 500 mg tablet 500 mg PO BID 10/18/22 10/18/22 Unknown History oxybutynin chloride 15 mg 15 mg PO BEDTIME 10/18/22 10/18/22 Unknown History tablet,extended release 24 hr triamterene 37.5 1 tab PO DAILY 10/18/22 10/18/22 Unknown History mg-hydrochlorothiazide 25 mg tablet montelukast 10 mg tablet 10 mg PO DAILY 10/19/22 10/19/22 Unknown History Physical Exam Vital Signs: Vital Signs: Last Vital Signs Temp 98.6 F 10/18/22 10:49 Pulse 105 H 10/18/22 10:49 Resp 20 10/18/22 10:49 BP 160/94 H 10/18/22 10:49 Pulse Ox 96 10/18/22 10:49 O2 Del Method Room Air 10/18/22 10:49 BMI result Body Mass Index 40.4 Const: Other: Appears morbidly obese General: comfortable and no acute distress Orientation/consciousness: patient oriented x3 Neck: Neck: Yes no lymphadenopathy Resp: Auscultation: clear to auscultation bilaterally Cardio: Rhythm: regular rhythm GI: Other: left lower abdomen hernia, near the groin, reducible, nontender he has the very benign exam, and seems to have mild tenderness on the right side of his abdomen with deep palpation Palpation (GI): Soft to palpation, nontender, no guarding and not rigid Neuro: General: patient oriented x3 Results Labs 10/18/22 11:57 10/18/22 11:57 Labs: Abnormal lab results 10/18/22 10/18/22 Range/Units 11:57 11:57 WBC 11.5 H (4.8-10.8) X10*3/uL RBC 4.11 L (4.60-5.80) X10*6/uL Hgb 12.5 L (14.0-18.0) g/dl Hct 38.0 L (42.0-52.0) % Neut % (Auto) 73.9 H (45-73) % Lymph % (Auto) 14.9 L (20-40) % Abs Immat Gran (auto) 0.05 H (0.00-0.03) X10*3/uL Absolute Neuts (auto) 8.5 H (2.0-8.3) x10*3/uL BUN 20 H (9-16) mg/dL Random Glucose 122 H (60-115) mg/dL Alkaline Phosphatase 154 H (39-117) U/L Short CBC 10/18/22 Range/Units 11:57 WBC 11.5 H (4.8-10.8) X10*3/uL Hgb 12.5 L (14.0-18.0) g/dl Hct 38.0 L (42.0-52.0) % Plt Count 241 (160-400) X10*3/uL BMP 10/18/22 11:57 Sodium 138 Potassium 3.7 Chloride 103 Carbon Dioxide 24 BUN 20 H Creatinine 1.17 Calcium 9.5 Liver Function 10/18/22 Range/Units 11:57 Total Bilirubin 0.8 (0.0-1.0) mg/dL AST 13 (5-37) U/L ALT 15 (0-40) U/L Alkaline Phosphatase 154 H (39-117) U/L Albumin 4.2 (3.5-5.0) g/dL All other labs normal. Laboratory Results WBC 11.5 X10*3/uL (4.8-10.8) H 10/18/22 11:57 RBC 4.11 X10*6/uL (4.60-5.80) L 10/18/22 11:57 Hgb 12.5 g/dl (14.0-18.0) L 10/18/22 11:57 Hct 38.0 % (42.0-52.0) L 10/18/22 11:57 MCV 92.5 fL (80.0-98.0) 10/18/22 11:57 MCH 30.4 pg (27.0-33.0) 10/18/22 11:57 MCHC 32.9 g/dl (31.0-36.0) 10/18/22 11:57 RDW 15.0 % (11.0-16.0) 10/18/22 11:57 Plt Count 241 X10*3/uL (160-400) 10/18/22 11:57 MPV 9.5 fL (9.4-12.4) 10/18/22 11:57 Immature Gran % (Auto) 0.4 % (0.0-0.4) 10/18/22 11:57 Neut % (Auto) 73.9 % (45-73) H 10/18/22 11:57 Lymph % (Auto) 14.9 % (20-40) L 10/18/22 11:57 [place] % (Auto) 9.2 % (2-11) 10/18/22 11:57 Eos % (Auto) 1.2 % (0-4) 10/18/22 11:57 Baso % (Auto) 0.4 % (0-2) 10/18/22 11:57 Lymph # (Auto) 1.7 X10*3/uL (1.2-4.9) 10/18/22 11:57 [place] # (Auto) 1.1 X10*3/uL (0.1-1.2) 10/18/22 11:57 Eos # (Auto) 0.1 X10*3/uL (0.0-0.4) 10/18/22 11:57 Baso # (Auto) 0.1 X10*3/uL (0.0-0.2) 10/18/22 11:57 Abs Immat Gran (auto) 0.05 X10*3/uL (0.00-0.03) H 10/18/22 11:57 Absolute Neuts (auto) 8.5 x10*3/uL (2.0-8.3) H 10/18/22 11:57 Absolute Nucleated RBC 0.000 X10*3/uL (0.0-0.012) 10/18/22 11:57 Nucleated RBC % (auto) 0.0 /100WBC (0.0-0.2) 10/18/22 11:57 PT 11.0 SEC (10.0-13.1) 10/18/22 11:57 INR 1.0 (0.9-1.1) 10/18/22 11:57 Sodium 138 mmol/L (135-145) 10/18/22 11:57 Potassium 3.7 mmol/L (3.3-5.1) 10/18/22 11:57 Chloride 103 mmol/L (96-108) 10/18/22 11:57 Carbon Dioxide 24 mmol/L (22-29) 10/18/22 11:57 Anion Gap 15 (12-20) 10/18/22 11:57 BUN 20 mg/dL (9-16) H 10/18/22 11:57 Creatinine 1.17 mg/dL (0.5-1.4) 10/18/22 11:57 Estim Creat Clear Calc 75.4 10/18/22 11:57 Estimated GFR > 60 10/18/22 11:57 Random Glucose 122 mg/dL (60-115) H 10/18/22 11:57 Calcium 9.5 mg/dL (8.4-10.2) 10/18/22 11:57 Total Bilirubin 0.8 mg/dL (0.0-1.0) 10/18/22 11:57 AST 13 U/L (5-37) 10/18/22 11:57 ALT 15 U/L (0-40) 10/18/22 11:57 Alkaline Phosphatase 154 U/L (39-117) H 10/18/22 11:57 Troponin I High Sens < 3.5 ng/L (<3.5-35.0) 10/18/22 11:57 Total Protein 6.7 g/dL (6.5-8.0) 10/18/22 11:57 Albumin 4.2 g/dL (3.5-5.0) 10/18/22 11:57 COVID-19 (SUN) Negative (Negative) 10/18/22 13:42 COVID-19 Clin Com See Note 10/18/22 13:42 Impressions Abdomen/Pelvis CT 10/18/22 11:48 IMPRESSION: 1. CT findings most suggestive of a partial small bowel obstruction. A definitive transition zone is not well identified. 2. Cholelithiasis. 3. Colonic diverticulosis. 4. Evidence of prior granulomatous disease. 5. Hepatic steatosis. 6. Right renal cyst. 7. Left Spigelian hernia containing a loop of nonobstructed descending colon. Fleischner guidelines were followed. Assessment and Plan (1) Partial small bowel obstruction: Status: Acute Review of his CT scan shows that he has diffusely dilated small bowel loops, no identifiable transition point. He has good amount of air in stool in his colon as well. He does have a hernia on the left lower quadrant that does not to be inguinal but could be from the lateral abdominal wall or a spigelian but this is not obstructing. This seems to be unchanged from his previous CT scans. I am uncertain as to status also of his small-bowel obstruction but cannot rule out an ongoing ileus as well as no identifiable transition point is seen. He has a very benign exam. I would keep him NPO for now with IV fluids.He has minimal tenderness on the right side if at all. The hernia does not to be seem to be tender. We will follow along while he is in the hospital. He did state that he had requested Dr. Ordoñez to follow him has he had seen him in the past for his hernia. Time Spent With Patient Time: Total time managing care of this patient today ____ minutes. Procedures Date of Service Date of Service: 10/18/22
[2022-10-18 15:33] VITALS: BP 167/73; PULSE 97; RESP 16; TEMP 36.4; O2SAT 96
[2022-10-18 15:48] VITALS: BMI 40.7
[2022-10-18 16:30] LABS: Glucose, Whole Blood 117 mg/dL (60-115)
[2022-10-18] MEDS: Calcium Carbonate 750 MG TAB.CHEW PO ×2 (17:30→22:19)
[2022-10-18 19:16] VITALS: BP 142/71; PULSE 84; RESP 17; TEMP 36.9; O2SAT 96
[2022-10-18] MEDS: Gabapentin 600 MG TABLET 1200 MG PO (19:25)
[2022-10-18 20:51] LABS: Glucose, Whole Blood 117 mg/dL (60-115)
[2022-10-18] MEDS: oxyBUTYnin chloride ER 5 MG TAB.ER.24 15 MG PO (20:51)
[2022-10-18] MEDS: Montelukast Sodium 10 MG TABLET PO (20:52)
[2022-10-18] MEDS: Tamsulosin HCL 0.4 MG CAPSULE PO (20:52)
[2022-10-18] MEDS: VerapamiL HCL SR 180 MG TABLET.ER 360 MG PO (20:52)
[2022-10-18] MEDS: Fluticasone Propionate Nasal 16 GM SPRAY 1 SPRAY NOSTRIL-B (20:55)
[2022-10-18] MEDS: Acetaminophen 325 MG TABLET 650 MG PO (22:19)
[2022-10-18 22:31] VITALS: RESP 16; O2SAT 96
[2022-10-18 22:41] LABS: Appearance Urine Clear; Color Urine Yellow; Glucose Urine UA Negative (Negative); Leukocyte Esterase Urine Negative (Negative); Nitrite Urine Negative (Negative); Urine Blood Negative (Negative); Urine Ketones Negative (Negative); Urine Protein Negative (Neg-Trace)
[2022-10-19] MEDS: Lactated Ringers 1,000 ML 100 ML IVCONT (01:10)
[2022-10-19 03:20] VITALS: BP 107/58; PULSE 59; RESP 18; TEMP 36.4; O2SAT 96
[2022-10-19] MEDS: Levothyroxine Sodium 50 MCG TABLET PO (05:40)
[2022-10-19 06:40] LABS: MANUAL DIFF FLAG NO
[2022-10-19 06:43] LABS: Basophils Percent Auto 0.4 % (0-2); Eosinophils Absolute Auto 0.2 X10*3/uL (0.0-0.4); Hematocrit 31.9 % (42.0-52.0); Hemoglobin 10.5 g/dl (14.0-18.0); Imm Gran Abs Auto 0.03 X10*3/uL (0.00-0.03); Imm Gran Pct Auto 0.4 % (0.0-0.4); Lymphocytes Percent Auto 26.3 % (20-40); Mean Corpuscular HGB Conc 32.9 g/dl (31.0-36.0); Mean Corpuscular Hemoglobin 31.3 pg (27.0-33.0); Mean Corpuscular Volume 94.9 fL (80.0-98.0); Mean Platelet Volume 10.2 fL (9.4-12.4); Monocytes Absolute Auto 0.8 X10*3/uL (0.1-1.2); Monocytes Percent Auto 10.3 % (2-11); Neutrophils Absolute Auto 4.6 x10*3/uL (2.0-8.3); Neutrophils Percent Auto 60.6 % (45-73); Platelet Count 206 X10*3/uL (160-400); Red Blood Count 3.36 X10*6/uL (4.60-5.80); Red Cell Distribution Width 15.1 % (11.0-16.0); White Blood Count 7.6 X10*3/uL (4.8-10.8)
[2022-10-19 07:19] LABS: Anion Gap 13 (12-20); Blood Urea Nitrogen 18 mg/dL (9-16); Calcium 8.5 mg/dL (8.4-10.2); Carbon Dioxide 26 mmol/L (22-29); Chloride 107 mmol/L (96-108); Creatinine Clr Calc Pharmacy 94.3; Estimated Glomerular Filt Rate > 60; Glucose Random 99 mg/dL (60-115); Potassium 3.8 mmol/L (3.3-5.1); Sodium 142 mmol/L (135-145)
[2022-10-19 07:35] LABS: Glucose, Whole Blood 101 mg/dL (60-115)
[2022-10-19 08:00] VITALS: BP 150/66; PULSE 59; RESP 18; TEMP 36.3; O2SAT 96
--- NOTE | 2022-10-19 08:19 | PM.PNGS ---
Subjective Subjective Date of Service: 10/19/22 Interval history: Feels a little improved. No further nausea, acid reflux. Now passing some flatus. Pain somewhat improved and remains in right side, mid to upper abdomen. Physical Exam Vital Signs: Vital Signs: Last Vital Signs Temp 97.5 F 10/19/22 03:20 Pulse 59 10/19/22 03:20 Resp 18 10/19/22 03:20 BP 107/58 L 10/19/22 03:20 Pulse Ox 96 10/19/22 03:20 O2 Del Method CPAP 10/19/22 03:20 BMI result Body Mass Index 40.7 Const: General: comfortable, no acute distress, well developed and alert Orientation/consciousness: patient oriented x3 Resp: Other: CPAP on Effort & Inspection: normal respiratory effort GI: Inspection: Yes distended Palpation (GI): Soft to palpation, Tenderness to palpation present (GI) (mid to upper abdomen on right, mild) Lazar's sign negative, no guarding and not rigid Percussion: Yes tympanic to percussion Skin: General skin exam: no rashes or lesions noted Neuro: General: patient oriented x3 Objective Data Active Medications Acetaminophen (Acetaminophen 325 Mg Tablet) 650 mg PO Q6H PRN PRN Reason: Pain, Mild (Pain Scale 1-3) Last Admin: 10/18/22 22:19 Dose: 650 mg Documented By: ALEXSANDER Albuterol Sulfate (Albuterol Sulfate (0.083%) 2.5 Mg/3 Ml Vial.Neb) 2.5 mg INHALE TID PRN PRN Reason: Wheezing Allopurinol (Allopurinol 300 Mg Tablet) 300 mg PO DAILY [facility] Bupropion HCl (Bupropion Hcl Xl 150 Mg Tab.Er.24h) 450 mg PO DAILY [facility] Calcium Carbonate (Calcium Carbonate 750 Mg Tab.Chew) 750 mg PO Q4H PRN PRN Reason: acid reflux Last Admin: 10/18/22 22:19 Dose: 750 mg Documented By: ALEXSANDER Dicyclomine HCl (Dicyclomine Hcl 10 Mg Capsule) 20 mg PO Q6H PRN PRN Reason: Spasms Enoxaparin Sodium (Enoxaparin Sodium 40 Mg/0.4 Ml Syringe) 40 mg SUBCUT Q24H [facility] Last Admin: 10/18/22 15:18 Dose: 40 mg Documented By: LOIDA Fluticasone Propionate (Fluticasone Propionate Nasal 16 Gm [place]) 1 spray NOSTRIL-B BID [facility] Last Admin: 10/18/22 20:55 Dose: 1 spray Documented By: ALEXSANDER Gabapentin (Gabapentin 600 Mg Tablet) 600 mg PO BID@0800,1200 [facility] Gabapentin (Gabapentin 600 Mg Tablet) 1,200 mg PO DAILY@1900 [facility] Last Admin: 10/18/22 19:25 Dose: 1,200 mg Documented By: ALEXSANDER Glucose (Glucose Gel 15 Gm Gel..Gram.) 15 gm PO Q15M PRN; Protocol PRN Reason: per Hypoglycemia Standing Ord. Lactated Ringer's (Lr) 1,000 mls @ 100 mls/hr IVCONT .Q10H [facility] Last Admin: 10/19/22 01:10 Dose: 100 mls/hr Documented By: ALEXSANDER Dextrose (D10) 250 mls @ 750 mls/hr IV Q15M PRN; Protocol PRN Reason: per Hypoglycemia Standing Ord. Insulin Human Lispro (Insulin Lispro 100 Unit/Ml 3 Ml Vial) 0 unit SUBCUT QIDACHS [facility]; Protocol Last Admin: 10/18/22 20:59 Dose: Not Given Documented By: ALEXSANDER Non-Admin Reason: No Insulin Coverage Levothyroxine Sodium (Levothyroxine Sodium 50 Mcg Tablet) 50 mcg PO DAILY@0600 [facility] Last Admin: 10/19/22 05:40 Dose: 50 mcg Documented By: ALEXSANDER Montelukast Sodium (Montelukast Sodium 10 Mg Tablet) 10 mg PO BEDTIME [facility] Last Admin: 10/18/22 20:52 Dose: 10 mg Documented By: ALEXSANDER Non-Formulary Medication (Mometasone [Asmanex Hfa]) 2 puff INHALE BEDTIME [facility] Non-Formulary Medication (Tiotropium-Olodaterol [Stiolto Respimat]) 2 puff INHALE DAILY [facility] Ondansetron HCl (Ondansetron Hcl 4 Mg/2 Ml Vial) 4 mg IVPUSH Q8H PRN PRN Reason: Nausea and Vomiting Oxybutynin Chloride (Oxybutynin Chloride Er 5 Mg Tab.Er.24) 15 mg PO BEDTIME [facility] Last Admin: 10/18/22 20:51 Dose: 15 mg Documented By: ALEXSANDER Pharmacy Consult (Consult Rx Perform Med Rec) 1 each MISCELLANE ONCE PRN PRN Reason: Consult order Sodium Chloride (0.9 % Sodium Chloride Flush 3 Ml Syringe) 3 ml IVFLUSH QSHIFT [facility] Last Admin: 10/18/22 20:53 Dose: Not Given Documented By: ALEXSANDER Non-Admin Reason: IV Running Tamsulosin HCl (Tamsulosin Hcl 0.4 Mg Capsule) 0.4 mg PO BID [facility] Last Admin: 10/18/22 20:52 Dose: 0.4 mg Documented By: ALEXSANDER Verapamil HCl (Verapamil Hcl Sr 180 Mg Tablet.Er) 360 mg PO BID [facility]; Protocol Last Admin: 10/18/22 20:52 Dose: 360 mg Documented By: ALEXSANDER Labs 10/19/22 05:07 10/19/22 05:07 Labs: Laboratory Results - last 24 hr 10/18/22 10/18/22 10/18/22 11:57 11:57 11:57 MCV 92.5 MCH 30.4 MCHC 32.9 RDW 15.0 Plt Count 241 MPV 9.5 Immature Gran % (Auto) 0.4 Neut % (Auto) 73.9 H Lymph % (Auto) 14.9 L [place] % (Auto) 9.2 Eos % (Auto) 1.2 Baso % (Auto) 0.4 Lymph # (Auto) 1.7 [place] # (Auto) 1.1 Eos # (Auto) 0.1 Baso # (Auto) 0.1 Abs Immat Gran (auto) 0.05 H Absolute Neuts (auto) 8.5 H Absolute Nucleated RBC 0.000 Nucleated RBC % (auto) 0.0 PT 11.0 INR 1.0 Anion Gap 15 Estim Creat Clear Calc 75.4 Estimated GFR > 60 POC Glucose Random Glucose 122 H Calcium 9.5 Total Bilirubin 0.8 AST 13 ALT 15 Alkaline Phosphatase 154 H Troponin I High Sens Total Protein 6.7 Albumin 4.2 Urine Color Urine Appearance Urine pH Ur Specific [place] Urine Protein Urine Glucose (UA) Urine Ketones Urine Blood Urine Nitrite Ur Leukocyte Esterase COVID-19 (SUN) COVID-19 Clin Com 10/18/22 10/18/22 10/18/22 11:57 13:42 16:26 MCV MCH MCHC RDW Plt Count MPV Immature Gran % (Auto) Neut % (Auto) Lymph % (Auto) [place] % (Auto) Eos % (Auto) Baso % (Auto) Lymph # (Auto) [place] # (Auto) Eos # (Auto) Baso # (Auto) Abs Immat Gran (auto) Absolute Neuts (auto) Absolute Nucleated RBC Nucleated RBC % (auto) PT INR Anion Gap Estim Creat Clear Calc Estimated GFR POC Glucose 117 H Random Glucose Calcium Total Bilirubin AST ALT Alkaline Phosphatase Troponin I High Sens < 3.5 Total Protein Albumin Urine Color Urine Appearance Urine pH Ur Specific [place] Urine Protein Urine Glucose (UA) Urine Ketones Urine Blood Urine Nitrite Ur Leukocyte Esterase COVID-19 (SUN) Negative COVID-19 Clin Com See Note 10/18/22 10/18/22 10/19/22 20:34 22:30 05:07 MCV 94.9 MCH 31.3 MCHC 32.9 RDW 15.1 Plt Count 206 MPV 10.2 Immature Gran % (Auto) 0.4 Neut % (Auto) 60.6 Lymph % (Auto) 26.3 [place] % (Auto) 10.3 Eos % (Auto) 2.0 Baso % (Auto) 0.4 Lymph # (Auto) 2.0 [place] # (Auto) 0.8 Eos # (Auto) 0.2 Baso # (Auto) 0.0 Abs Immat Gran (auto) 0.03 Absolute Neuts (auto) 4.6 Absolute Nucleated RBC 0.000 Nucleated RBC % (auto) 0.0 PT INR Anion Gap Estim Creat Clear Calc Estimated GFR POC Glucose 117 H Random Glucose Calcium Total Bilirubin AST ALT Alkaline Phosphatase Troponin I High Sens Total Protein Albumin Urine Color Yellow Urine Appearance Clear Urine pH 6.0 Ur Specific [place] 1.020 Urine Protein Negative Urine Glucose (UA) Negative Urine Ketones Negative Urine Blood Negative Urine Nitrite Negative Ur Leukocyte Esterase Negative COVID-19 (SUN) COVID-19 Clin Com 10/19/22 10/19/22 05:07 07:12 MCV MCH MCHC RDW Plt Count MPV Immature Gran % (Auto) Neut % (Auto) Lymph % (Auto) [place] % (Auto) Eos % (Auto) Baso % (Auto) Lymph # (Auto) [place] # (Auto) Eos # (Auto) Baso # (Auto) Abs Immat Gran (auto) Absolute Neuts (auto) Absolute Nucleated RBC Nucleated RBC % (auto) PT INR Anion Gap 13 Estim Creat Clear Calc 94.3 Estimated GFR > 60 POC Glucose 101 Random Glucose 99 Calcium 8.5 D Total Bilirubin AST ALT Alkaline Phosphatase Troponin I High Sens Total Protein Albumin Urine Color Urine Appearance Urine pH Ur Specific [place] Urine Protein Urine Glucose (UA) Urine Ketones Urine Blood Urine Nitrite Ur Leukocyte Esterase COVID-19 (SUN) COVID-19 Clin Com Procedures Date of Service Date of Service: 10/19/22 Progress Note: A&P Assessment and plan (1) Partial small bowel obstruction: Status: Acute Plan 77 year old male who presented for right sided abd pain for [address] scan showing diffusely dilated small bowel loops without identifiable transition point. Abd pain, distention more likely secondary to ileus. Appears to be unrelated to inguinal hernia. He now has some return of GI function with resolution of nausea. VSS. Abd is relatively benign. He was encouraged OOB and ambulation. Can begin clear liquids and then advance as tolerated. Plan discussed with the patient who is in agreement. Time Spent With Patient Time: Total time managing care of this patient today ____ minutes. Quality Stroke Does the patient have a stroke diagnosis?: No VTE Prior VTE?: No VTE Risk Level:: Medical - moderate - high VTE Device Contraindication: Treatment Not Indicated VTE Drug Contraindication: N/A - Med Ordered
[2022-10-19] MEDS: buPROPion HCl XL 150 MG TAB.ER.24H 450 MG PO (09:16)
[2022-10-19] MEDS: allopurinoL 300 MG TABLET PO (09:17)
[2022-10-19] MEDS: Gabapentin 600 MG TABLET PO (09:17)
[2022-10-19] MEDS: Tamsulosin HCL 0.4 MG CAPSULE PO ×2 (09:17→19:53)
[2022-10-19] MEDS: VerapamiL HCL SR 180 MG TABLET.ER 360 MG PO ×2 (09:18→19:52)
[2022-10-19] MEDS: Fluticasone Propionate Nasal 16 GM SPRAY 1 SPRAY NOSTRIL-B ×2 (09:23→21:38)
--- NOTE | 2022-10-19 09:58 | P.PNIM_ITS ---
Subjective Subjective Date of Service: 10/19/22 Interval History: Seen in follow-up for partial small-bowel obstruction Interval history: Improvement right upper quadrant pain and bloating. Denies any ongoing nausea, reflux, belching. Still no BM. Review of Systems Review of Systems: Yes all other systems are reviewed and are negative Physical Exam Vital Signs: Vital Signs: Last Vital Signs Temp 97.4 F 10/19/22 08:00 Pulse 59 10/19/22 08:00 Resp 18 10/19/22 08:00 BP 150/66 H 10/19/22 08:00 Pulse Ox 96 10/19/22 08:00 O2 Del Method CPAP 10/19/22 08:00 BMI result Body Mass Index 40.7 Constitutional - Awake and Alert, No apparent distress Eyes - PERRLA, EOMI Cardiovascular - S1S2, RRR, No edema Respiratory - Normal lung expansion, Normal respiratory effort, No respiratory distress, CTA bilaterally Gastrointestinal - mild ruq ttp, ND; +BS; No rebound or guarding Extremities - no calf tenderness bilaterally, no swelling Skin - Warm/Dry Neurological - Alert & oriented x3 Psychological - Appropriate affect Objective Data Active Medications Acetaminophen (Acetaminophen 325 Mg Tablet) 650 mg PO Q6H PRN PRN Reason: Pain, Mild (Pain Scale 1-3) Last Admin: 10/18/22 22:19 Dose: 650 mg Documented By: ALEXSANDER Albuterol Sulfate (Albuterol Sulfate (0.083%) 2.5 Mg/3 Ml Vial.Neb) 2.5 mg INHALE TID PRN PRN Reason: Wheezing Allopurinol (Allopurinol 300 Mg Tablet) 300 mg PO DAILY [facility] Last Admin: 10/19/22 09:17 Dose: 300 mg Documented By: CHATA Bupropion HCl (Bupropion Hcl Xl 150 Mg Tab.Er.24h) 450 mg PO DAILY [facility] Last Admin: 10/19/22 09:16 Dose: 450 mg Documented By: CHATA Calcium Carbonate (Calcium Carbonate 750 Mg Tab.Chew) 750 mg PO Q4H PRN PRN Reason: acid reflux Last Admin: 10/18/22 22:19 Dose: 750 mg Documented By: ALEXSANDER Dicyclomine HCl (Dicyclomine Hcl 10 Mg Capsule) 20 mg PO Q6H PRN PRN Reason: Spasms Enoxaparin Sodium (Enoxaparin Sodium 40 Mg/0.4 Ml Syringe) 40 mg SUBCUT Q24H [facility] Last Admin: 10/18/22 15:18 Dose: 40 mg Documented By: LOIDA Fluticasone Propionate (Fluticasone Propionate Nasal 16 Gm [place]) 1 spray NOSTRIL-B BID [facility] Last Admin: 10/19/22 09:23 Dose: 1 spray Documented By: CHATA Gabapentin (Gabapentin 600 Mg Tablet) 600 mg PO BID@0800,1200 [facility] Last Admin: 10/19/22 09:17 Dose: 600 mg Documented By: CHATA Gabapentin (Gabapentin 600 Mg Tablet) 1,200 mg PO DAILY@1900 [facility] Last Admin: 10/18/22 19:25 Dose: 1,200 mg Documented By: ALEXSANDER Glucose (Glucose Gel 15 Gm Gel..Gram.) 15 gm PO Q15M PRN; Protocol PRN Reason: per Hypoglycemia Standing Ord. Lactated Ringer's (Lr) 1,000 mls @ 100 mls/hr IVCONT .Q10H [facility] Last Admin: 10/19/22 01:10 Dose: 100 mls/hr Documented By: ALEXSANDER Dextrose (D10) 250 mls @ 750 mls/hr IV Q15M PRN; Protocol PRN Reason: per Hypoglycemia Standing Ord. Insulin Human Lispro (Insulin Lispro 100 Unit/Ml 3 Ml Vial) 0 unit SUBCUT QIDACHS [facility]; Protocol Last Admin: 10/19/22 09:16 Dose: Not Given Documented By: CHATA Non-Admin Reason: No Insulin Coverage Levothyroxine Sodium (Levothyroxine Sodium 50 Mcg Tablet) 50 mcg PO DAILY@0600 [facility] Last Admin: 10/19/22 05:40 Dose: 50 mcg Documented By: ALEXSANDER Montelukast Sodium (Montelukast Sodium 10 Mg Tablet) 10 mg PO BEDTIME [facility] Last Admin: 10/18/22 20:52 Dose: 10 mg Documented By: ALEXSANDER Non-Formulary Medication (Mometasone [Asmanex Hfa]) 2 puff INHALE BEDTIME [facility] Non-Formulary Medication (Tiotropium-Olodaterol [Stiolto Respimat]) 2 puff INHALE DAILY [facility] Ondansetron HCl (Ondansetron Hcl 4 Mg/2 Ml Vial) 4 mg IVPUSH Q8H PRN PRN Reason: Nausea and Vomiting Oxybutynin Chloride (Oxybutynin Chloride Er 5 Mg Tab.Er.24) 15 mg PO BEDTIME [facility] Last Admin: 10/18/22 20:51 Dose: 15 mg Documented By: ALEXSANDER Pharmacy Consult (Consult Rx Perform Med Rec) 1 each MISCELLANE ONCE PRN PRN Reason: Consult order Sodium Chloride (0.9 % Sodium Chloride Flush 3 Ml Syringe) 3 ml IVFLUSH QSHIFT [facility] Last Admin: 10/19/22 09:18 Dose: Not Given Documented By: CHATA Non-Admin Reason: IV Running Tamsulosin HCl (Tamsulosin Hcl 0.4 Mg Capsule) 0.4 mg PO BID [facility] Last Admin: 10/19/22 09:17 Dose: 0.4 mg Documented By: CHATA Verapamil HCl (Verapamil Hcl Sr 180 Mg Tablet.Er) 360 mg PO BID [facility]; Protocol Last Admin: 10/19/22 09:18 Dose: 360 mg Documented By: CHATA Labs 10/19/22 05:07 10/19/22 05:07 Labs: Laboratory Results - last 24 hr 10/18/22 10/18/22 10/18/22 11:57 11:57 11:57 MCV 92.5 MCH 30.4 MCHC 32.9 RDW 15.0 Plt Count 241 MPV 9.5 Immature Gran % (Auto) 0.4 Neut % (Auto) 73.9 H Lymph % (Auto) 14.9 L [place] % (Auto) 9.2 Eos % (Auto) 1.2 Baso % (Auto) 0.4 Lymph # (Auto) 1.7 [place] # (Auto) 1.1 Eos # (Auto) 0.1 Baso # (Auto) 0.1 Abs Immat Gran (auto) 0.05 H Absolute Neuts (auto) 8.5 H Absolute Nucleated RBC 0.000 Nucleated RBC % (auto) 0.0 PT 11.0 INR 1.0 Anion Gap 15 Estim Creat Clear Calc 75.4 Estimated GFR > 60 POC Glucose Random Glucose 122 H Calcium 9.5 Total Bilirubin 0.8 AST 13 ALT 15 Alkaline Phosphatase 154 H Troponin I High Sens Total Protein 6.7 Albumin 4.2 Urine Color Urine Appearance Urine pH Ur Specific [place] Urine Protein Urine Glucose (UA) Urine Ketones Urine Blood Urine Nitrite Ur Leukocyte Esterase COVID-19 (SUN) COVID-19 Clin Com 10/18/22 10/18/22 10/18/22 11:57 13:42 16:26 MCV MCH MCHC RDW Plt Count MPV Immature Gran % (Auto) Neut % (Auto) Lymph % (Auto) [place] % (Auto) Eos % (Auto) Baso % (Auto) Lymph # (Auto) [place] # (Auto) Eos # (Auto) Baso # (Auto) Abs Immat Gran (auto) Absolute Neuts (auto) Absolute Nucleated RBC Nucleated RBC % (auto) PT INR Anion Gap Estim Creat Clear Calc Estimated GFR POC Glucose 117 H Random Glucose Calcium Total Bilirubin AST ALT Alkaline Phosphatase Troponin I High Sens < 3.5 Total Protein Albumin Urine Color Urine Appearance Urine pH Ur Specific [place] Urine Protein Urine Glucose (UA) Urine Ketones Urine Blood Urine Nitrite Ur Leukocyte Esterase COVID-19 (SUN) Negative COVID-19 Clin Com See Note 10/18/22 10/18/22 10/19/22 20:34 22:30 05:07 MCV 94.9 MCH 31.3 MCHC 32.9 RDW 15.1 Plt Count 206 MPV 10.2 Immature Gran % (Auto) 0.4 Neut % (Auto) 60.6 Lymph % (Auto) 26.3 [place] % (Auto) 10.3 Eos % (Auto) 2.0 Baso % (Auto) 0.4 Lymph # (Auto) 2.0 [place] # (Auto) 0.8 Eos # (Auto) 0.2 Baso # (Auto) 0.0 Abs Immat Gran (auto) 0.03 Absolute Neuts (auto) 4.6 Absolute Nucleated RBC 0.000 Nucleated RBC % (auto) 0.0 PT INR Anion Gap Estim Creat Clear Calc Estimated GFR POC Glucose 117 H Random Glucose Calcium Total Bilirubin AST ALT Alkaline Phosphatase Troponin I High Sens Total Protein Albumin Urine Color Yellow Urine Appearance Clear Urine pH 6.0 Ur Specific [place] 1.020 Urine Protein Negative Urine Glucose (UA) Negative Urine Ketones Negative Urine Blood Negative Urine Nitrite Negative Ur Leukocyte Esterase Negative COVID-19 (SUN) COVID-19 Clin Com 10/19/22 10/19/22 05:07 07:12 MCV MCH MCHC RDW Plt Count MPV Immature Gran % (Auto) Neut % (Auto) Lymph % (Auto) [place] % (Auto) Eos % (Auto) Baso % (Auto) Lymph # (Auto) [place] # (Auto) Eos # (Auto) Baso # (Auto) Abs Immat Gran (auto) Absolute Neuts (auto) Absolute Nucleated RBC Nucleated RBC % (auto) PT INR Anion Gap 13 Estim Creat Clear Calc 94.3 Estimated GFR > 60 POC Glucose 101 Random Glucose 99 Calcium 8.5 D Total Bilirubin AST ALT Alkaline Phosphatase Troponin I High Sens Total Protein Albumin Urine Color Urine Appearance Urine pH Ur Specific [place] Urine Protein Urine Glucose (UA) Urine Ketones Urine Blood Urine Nitrite Ur Leukocyte Esterase COVID-19 (SUN) COVID-19 Clin Com Assessment and Plan (1) Partial small bowel obstruction: Status: Acute Plan 77-year-old male with history of coronary artery disease s/p CABG x3, COPD, [id number] type 2 diabetes, hypertension, paroxysmal atrial fibrillation with Watchman device, hyperlipidemia, hypothyroidism, left inguinal hernia, FARHAD compliant with BiPAP admitted for partial SBO. #Partial SBO vs ileus- clinically improving -CT with findings suggestive of partial SBO, no definitive transition zone -Advance to clears. Advance as tolerated per gen surgery -ondansetron p.r.n. for nausea -Appreciate gen surgery input -Tums and simethicone prn reflux, gas/bloating #Chronic constipation -resume miralax, add miralax if tolerating clears # [id number] type 2 diabetes -POC glucose -transition to diabetic diet -Humalog on sliding scale p.r.n. for hyperglycemia -hold metformin # CAD-no anginal chest pain -continue asa, statin, CCB # paroxysmal atrial fibrillation- rate controlled -Has watchman device, no anticoagulation -continue verapamil # COPD-without acute exacerbation -continue maintenance inhalers -albuterol p.r.n. # hypothyroidism -continue levothyroxine # FARHAD -BiPAP at bedtime with 2 L O2 # left-sided inguinal hernia -nonobstructing -appreciate general surgery input DVT prophylaxis-Lovenox Full code Ongoing inpt stay: Partial SBO vs ileus requiring diet advancement and monitoring of bowel function to ensure resolution Time Spent With Patient Time: Total time managing care of this patient today ____ minutes. Quality Stroke Does the patient have a stroke diagnosis?: No VTE Prior VTE?: No VTE Risk Level:: Medical - moderate - high VTE Device Contraindication: Treatment Not Indicated VTE Drug Contraindication: N/A - Med Ordered
--- NOTE | 2022-10-19 11:01 | MHC.CM.PN ---
pt lives with his they had no previous servcies and do not expect to need services when dcd pt is covid vax x 5 has own ride hjome dc plan home no servcies
[2022-10-19 11:32] LABS: Glucose, Whole Blood 97 mg/dL (60-115)
[2022-10-19] MEDS: Enoxaparin Sodium 40 MG/0.4 ML SYRINGE SUBCUT (14:56)
[2022-10-19] MEDS: 0.9 % Sodium Chloride Flush 3 ML SYRINGE IVFLUSH ×2 (14:56→19:53)
[2022-10-19] MEDS: polyethylene glycoL 3350 17 GM POWD.PACK PO (14:56)
[2022-10-19] MEDS: Lidocaine 4 % Patch ADH..PATCH 1 PATCH TRANSDERMA (14:56)
[2022-10-19] MEDS: Sennosides 8.6 MG TABLET 17.2 MG PO (14:56)
[2022-10-19] MEDS: Simethicone 80 MG TAB.CHEW PO (15:04)
[2022-10-19 15:47] VITALS: BP 128/59; PULSE 65; RESP 18; TEMP 36.2; O2SAT 94
[2022-10-19 16:39] LABS: Glucose, Whole Blood 91 mg/dL (60-115)
[2022-10-19 19:05] VITALS: BP 149/68; PULSE 79; RESP 18; TEMP 36.5; O2SAT 96
[2022-10-19] MEDS: Montelukast Sodium 10 MG TABLET PO (19:52)
[2022-10-19] MEDS: oxyBUTYnin chloride ER 5 MG TAB.ER.24 15 MG PO (19:53)
[2022-10-19] MEDS: Gabapentin 600 MG TABLET 1200 MG PO (19:53)
[2022-10-19 20:32] LABS: Glucose, Whole Blood 87 mg/dL (60-115)
[2022-10-19 20:47] VITALS: RESP 18
--- NOTE | 2022-10-20 03:09 | PC.NURSE ---
Pt claimed he felt nauseous haflway his dinner, no vomiting, very mild right sided abdl discomfort, Dr. Mai was made aware, IVF discontinued as ordered.
[2022-10-20 03:24] VITALS: BP 145/75; PULSE 75; RESP 18; TEMP 36.8; O2SAT 96
[2022-10-20] MEDS: Levothyroxine Sodium 50 MCG TABLET PO (05:46)
[2022-10-20 06:33] LABS: Anion Gap 14 (12-20); Blood Urea Nitrogen 13 mg/dL (9-16); Calcium 8.7 mg/dL (8.4-10.2); Carbon Dioxide 25 mmol/L (22-29); Chloride 108 mmol/L (96-108); Creatinine Clr Calc Pharmacy 100.7; Estimated Glomerular Filt Rate > 60; Glucose Random 99 mg/dL (60-115); Potassium 3.6 mmol/L (3.3-5.1); Sodium 143 mmol/L (135-145)
[2022-10-20 07:39] LABS: Glucose, Whole Blood 109 mg/dL (60-115)
[2022-10-20] MEDS: VerapamiL HCL SR 180 MG TABLET.ER 360 MG PO ×2 (07:44→20:18)
[2022-10-20 07:45] VITALS: BP 141/68; PULSE 69; RESP 16; TEMP 36.6; O2SAT 96
[2022-10-20] MEDS: allopurinoL 300 MG TABLET PO (07:45)
[2022-10-20] MEDS: Tamsulosin HCL 0.4 MG CAPSULE PO ×2 (07:46→20:19)
[2022-10-20] MEDS: Sennosides 8.6 MG TABLET 17.2 MG PO (07:46)
[2022-10-20] MEDS: 0.9 % Sodium Chloride Flush 3 ML SYRINGE IVFLUSH ×3 (07:47→20:19)
[2022-10-20] MEDS: buPROPion HCl XL 150 MG TAB.ER.24H 450 MG PO (07:47)
[2022-10-20] MEDS: polyethylene glycoL 3350 17 GM POWD.PACK PO (07:49)
[2022-10-20] MEDS: Fluticasone Propionate Nasal 16 GM SPRAY 1 SPRAY NOSTRIL-B ×2 (10:18→21:20)
[2022-10-20] MEDS: Lidocaine 4 % Patch ADH..PATCH 1 PATCH TRANSDERMA (10:18)
[2022-10-20 11:45] LABS: Glucose, Whole Blood 110 mg/dL (60-115)
--- NOTE | 2022-10-20 13:39 | HO.PM.IMPN ---
Subjective Subjective Date of Service: 10/20/22 Interval History: Seen in follow-up for partial small-bowel obstruction Interval history: Improvement right upper quadrant pain and bloating. Tolerating small amount of clears, but reports fullness and has no desire to continue with meal. Denies N/V. Still no BM, but is passing flatus Review of Systems Review of Systems: Yes all other systems are reviewed and are negative Physical Exam Vital Signs: Vital Signs: Last Vital Signs Temp 97.8 F 10/20/22 07:45 Pulse 69 10/20/22 07:45 Resp 16 10/20/22 07:45 BP 141/68 H 10/20/22 07:45 Pulse Ox 96 10/20/22 07:45 O2 Del Method Nasal Cannula 10/20/22 07:45 BMI result Body Mass Index 40.7 Constitutional - Awake and Alert, No apparent distress Eyes - PERRLA, EOMI Cardiovascular - S1S2, RRR, No edema Respiratory - Normal lung expansion, Normal respiratory effort, No respiratory distress, CTA bilaterally Gastrointestinal - NT, ND; +BS; No rebound or guarding Extremities - no calf tenderness bilaterally, no swelling Skin - Warm/Dry Neurological - Alert & oriented x3 Psychological - Appropriate affect Objective Data Active Medications Acetaminophen (Acetaminophen 325 Mg Tablet) 650 mg PO Q6H PRN PRN Reason: Pain, Mild (Pain Scale 1-3) Last Admin: 10/18/22 22:19 Dose: 650 mg Documented By: ALEXSANDER Albuterol Sulfate (Albuterol Sulfate (0.083%) 2.5 Mg/3 Ml Vial.Neb) 2.5 mg INHALE TID PRN PRN Reason: Wheezing Allopurinol (Allopurinol 300 Mg Tablet) 300 mg PO DAILY [facility] Last Admin: 10/20/22 07:45 Dose: 300 mg Documented By: THANH Bupropion HCl (Bupropion Hcl Xl 150 Mg Tab.Er.24h) 450 mg PO DAILY [facility] Last Admin: 10/20/22 07:47 Dose: 450 mg Documented By: THANH Calcium Carbonate (Calcium Carbonate 750 Mg Tab.Chew) 750 mg PO Q4H PRN PRN Reason: acid reflux Last Admin: 10/18/22 22:19 Dose: 750 mg Documented By: ALEXSANDER Dicyclomine HCl (Dicyclomine Hcl 10 Mg Capsule) 20 mg PO Q6H PRN PRN Reason: Spasms Enoxaparin Sodium (Enoxaparin Sodium 40 Mg/0.4 Ml Syringe) 40 mg SUBCUT Q24H [facility] Last Admin: 10/19/22 14:56 Dose: 40 mg Documented By: CHATA Fluticasone Propionate (Fluticasone Propionate Nasal 16 Gm [place]) 1 spray NOSTRIL-B BID [facility] Last Admin: 10/20/22 10:18 Dose: 1 spray Documented By: THANH Gabapentin (Gabapentin 600 Mg Tablet) 600 mg PO BID@0800,1200 [facility] Last Admin: 10/20/22 12:36 Dose: Not Given Documented By: KWESI Non-Admin Reason: Patient Refused Gabapentin (Gabapentin 600 Mg Tablet) 1,200 mg PO DAILY@1900 [facility] Last Admin: 10/19/22 19:53 Dose: 1,200 mg Documented By: MAJOR Glucose (Glucose Gel 15 Gm Gel..Gram.) 15 gm PO Q15M PRN; Protocol PRN Reason: per Hypoglycemia Standing Ord. Dextrose (D10) 250 mls @ 750 mls/hr IV Q15M PRN; Protocol PRN Reason: per Hypoglycemia Standing Ord. Insulin Human Lispro (Insulin Lispro 100 Unit/Ml 3 Ml Vial) 0 unit SUBCUT QIDACHS [facility]; Protocol Last Admin: 10/20/22 12:21 Dose: Not Given Documented By: KWESI Non-Admin Reason: No Insulin Coverage Levothyroxine Sodium (Levothyroxine Sodium 50 Mcg Tablet) 50 mcg PO DAILY@0600 [facility] Last Admin: 10/20/22 05:46 Dose: 50 mcg Documented By: MAJOR Lidocaine (Lidocaine 4 % Patch Adh..Patch) 1 patch TRANSDERMA DAILY [facility]; Protocol Last Admin: 10/20/22 10:18 Dose: 1 patch Documented By: THANH Montelukast Sodium (Montelukast Sodium 10 Mg Tablet) 10 mg PO BEDTIME [facility] Last Admin: 10/19/22 19:52 Dose: 10 mg Documented By: MAJOR Non-Formulary Medication (Mometasone [Asmanex Hfa]) 2 puff INHALE BEDTIME [facility] Non-Formulary Medication (Tiotropium-Olodaterol [Stiolto Respimat]) 2 puff INHALE DAILY [facility] Ondansetron HCl (Ondansetron Hcl 4 Mg/2 Ml Vial) 4 mg IVPUSH Q8H PRN PRN Reason: Nausea and Vomiting Oxybutynin Chloride (Oxybutynin Chloride Er 5 Mg Tab.Er.24) 15 mg PO BEDTIME [facility] Last Admin: 10/19/22 19:53 Dose: 15 mg Documented By: MAJOR Pharmacy Consult (Consult Rx Perform Med Rec) 1 each MISCELLANE ONCE PRN PRN Reason: Consult order Polyethylene Glycol (Polyethylene Glycol 3350 17 Gm Powd.Pack) 17 gm PO DAILY [facility] Last Admin: 10/20/22 07:49 Dose: 17 gm Documented By: THANH Senna (Sennosides 8.6 Mg Tablet) 17.2 mg PO DAILY [facility] Last Admin: 10/20/22 07:46 Dose: 17.2 mg Documented By: THANH Simethicone (Simethicone 80 Mg Tab.Chew) 80 mg PO QIDWMHS PRN PRN Reason: gas and bloating Last Admin: 10/19/22 15:04 Dose: 80 mg Documented By: CHATA Sodium Chloride (0.9 % Sodium Chloride Flush 3 Ml Syringe) 3 ml IVFLUSH QSHIFT [facility] Last Admin: 10/20/22 07:47 Dose: 3 ml Documented By: THANH Tamsulosin HCl (Tamsulosin Hcl 0.4 Mg Capsule) 0.4 mg PO BID [facility] Last Admin: 10/20/22 07:46 Dose: 0.4 mg Documented By: THANH Verapamil HCl (Verapamil Hcl Sr 180 Mg Tablet.Er) 360 mg PO BID [facility]; Protocol Last Admin: 10/20/22 07:44 Dose: 360 mg Documented By: THANH Labs 10/19/22 05:07 10/20/22 05:10 Labs: Laboratory Results - last 24 hr 10/19/22 10/19/22 10/20/22 16:35 20:27 05:10 Anion Gap 14 Estim Creat Clear Calc 100.7 Estimated GFR > 60 POC Glucose 91 87 Random Glucose 99 Calcium 8.7 10/20/22 10/20/22 07:15 11:27 Anion Gap Estim Creat Clear Calc Estimated GFR POC Glucose 109 110 Random Glucose Calcium Assessment and Plan (1) Partial small bowel obstruction: Status: Acute Plan 77-year-old male with history of coronary artery disease s/p CABG x3, COPD, [id number]-wuffgxosl type 2 diabetes, hypertension, paroxysmal atrial fibrillation with Watchman device, hyperlipidemia, hypothyroidism, left inguinal hernia, FARHAD compliant with BiPAP admitted for partial SBO. #Partial SBO vs ileus- clinically improving -CT with findings suggestive of partial SBO, no definitive transition zone -Tolerating clears without n/v, but reporting fullness/bloating. Continue clears, advance as tolerated. Continue KUB tomorrow if no improvement -ondansetron p.r.n. for nausea -Appreciate gen surgery input -Tums and simethicone prn reflux, gas/bloating #Chronic constipation -Continue miralax, add miralax # [id number] type 2 diabetes -POC glucose -transition to diabetic diet -Humalog on sliding scale p.r.n. for hyperglycemia -hold metformin # CAD-no anginal chest pain -continue asa, statin, CCB # paroxysmal atrial fibrillation- rate controlled -Has watchman device, no anticoagulation -continue verapamil # COPD-without acute exacerbation -continue maintenance inhalers -albuterol p.r.n. # hypothyroidism -continue levothyroxine # FARHAD -BiPAP at bedtime with 2 L O2 # left-sided inguinal hernia -nonobstructing -appreciate general surgery input #Morbid obesity with BMI >40 -related to excess calories -Weight loss efforts encouraged DVT prophylaxis-Lovenox Full code Ongoing inpt stay: Partial SBO vs ileus requiring diet advancement and monitoring of bowel function to ensure resolution Time Spent With Patient Time: Total time managing care of this patient today ____ minutes. Quality Stroke Does the patient have a stroke diagnosis?: No VTE Prior VTE?: No VTE Risk Level:: Medical - moderate - high VTE Device Contraindication: Treatment Not Indicated VTE Drug Contraindication: N/A - Med Ordered
[2022-10-20 15:12] VITALS: BP 136/65; PULSE 65; RESP 17; TEMP 36.4; O2SAT 96
[2022-10-20] MEDS: Enoxaparin Sodium 40 MG/0.4 ML SYRINGE SUBCUT (15:20)
[2022-10-20 15:33] LABS: Glucose, Whole Blood 124 mg/dL (60-115)
--- NOTE | 2022-10-20 15:56 | MHC.CM.PN ---
per rounds pt possible dc today dc plan remains home no servceis
[2022-10-20 19:07] VITALS: BP 160/71; PULSE 73; RESP 17; TEMP 36.2; O2SAT 95
[2022-10-20 19:20] LABS: Glucose, Whole Blood 118 mg/dL (60-115)
[2022-10-20] MEDS: Montelukast Sodium 10 MG TABLET PO (20:18)
[2022-10-20] MEDS: Gabapentin 600 MG TABLET 1200 MG PO (20:18)
[2022-10-20] MEDS: oxyBUTYnin chloride ER 5 MG TAB.ER.24 15 MG PO (20:18)
[2022-10-20] MEDS: Acetaminophen 325 MG TABLET 650 MG PO (21:41)
[2022-10-20 22:23] VITALS: PULSE 75; RESP 17; O2SAT 99
[2022-10-21 03:00] VITALS: PULSE 76; RESP 17; O2SAT 99
[2022-10-21 03:45] VITALS: BP 127/66; PULSE 57; RESP 17; TEMP 36.5; O2SAT 95
[2022-10-21] MEDS: Levothyroxine Sodium 50 MCG TABLET PO (05:08)
[2022-10-21 06:11] LABS: MANUAL DIFF FLAG NO
[2022-10-21 06:18] LABS: Basophils Percent Auto 0.6 % (0-2); Eosinophils Absolute Auto 0.2 X10*3/uL (0.0-0.4); Eosinophils Percent Auto 2.8 % (0-4); Hematocrit 32.8 % (42.0-52.0); Hemoglobin 10.6 g/dl (14.0-18.0); Imm Gran Abs Auto 0.04 X10*3/uL (0.00-0.03); Imm Gran Pct Auto 0.6 % (0.0-0.4); Lymphocytes Absolute Auto 1.9 X10*3/uL (1.2-4.9); Lymphocytes Percent Auto 27.2 % (20-40); Mean Corpuscular HGB Conc 32.3 g/dl (31.0-36.0); Mean Corpuscular Hemoglobin 30.3 pg (27.0-33.0); Mean Corpuscular Volume 93.7 fL (80.0-98.0); Mean Platelet Volume 9.9 fL (9.4-12.4); Monocytes Absolute Auto 0.6 X10*3/uL (0.1-1.2); Neutrophils Absolute Auto 4.3 x10*3/uL (2.0-8.3); Neutrophils Percent Auto 59.8 % (45-73); Platelet Count 208 X10*3/uL (160-400); White Blood Count 7.1 X10*3/uL (4.8-10.8)
[2022-10-21 06:33] LABS: Anion Gap 13 (12-20); Blood Urea Nitrogen 11 mg/dL (9-16); Calcium 8.7 mg/dL (8.4-10.2); Carbon Dioxide 25 mmol/L (22-29); Chloride 109 mmol/L (96-108); Creatinine Clr Calc Pharmacy 98.5; Estimated Glomerular Filt Rate > 60; Glucose Random 100 mg/dL (60-115); Potassium 3.5 mmol/L (3.3-5.1); Sodium 143 mmol/L (135-145)
[2022-10-21 07:24] VITALS: BP 156/74; PULSE 70; RESP 16; TEMP 36.1; O2SAT 97
[2022-10-21 07:52] LABS: Glucose, Whole Blood 100 mg/dL (60-115)
[2022-10-21] MEDS: polyethylene glycoL 3350 17 GM POWD.PACK PO (08:27)
[2022-10-21] MEDS: buPROPion HCl XL 150 MG TAB.ER.24H 450 MG PO (08:28)
[2022-10-21] MEDS: Tamsulosin HCL 0.4 MG CAPSULE PO ×2 (08:28→20:03)
[2022-10-21] MEDS: Triamterene/HCTZ 37.5/25 TABLET 1 TAB PO (08:28)
[2022-10-21] MEDS: VerapamiL HCL SR 180 MG TABLET.ER 360 MG PO ×2 (08:28→20:03)
[2022-10-21] MEDS: Sennosides 8.6 MG TABLET 17.2 MG PO (08:28)
[2022-10-21] MEDS: Lidocaine 4 % Patch ADH..PATCH 1 PATCH TRANSDERMA (08:29)
[2022-10-21] MEDS: Simethicone 80 MG TAB.CHEW PO ×4 (08:29→21:14)
[2022-10-21] MEDS: 0.9 % Sodium Chloride Flush 3 ML SYRINGE IVFLUSH ×3 (08:29→20:04)
[2022-10-21] MEDS: allopurinoL 300 MG TABLET PO (08:40)
[2022-10-21] MEDS: Fluticasone Propionate Nasal 16 GM SPRAY 1 SPRAY NOSTRIL-B ×2 (09:40→20:06)
--- NOTE | 2022-10-21 10:41 | P.PNIM_ITS ---
Subjective Subjective Date of Service: 10/21/22 Interval History: Seen in follow-up for partial small-bowel obstruction Interval history: Feeling better. Tolerating clears. Large, hard BM this am. No n/v, abd pain Review of Systems Review of Systems: Yes all other systems are reviewed and are negative Physical Exam Vital Signs: Vital Signs: Last Vital Signs Temp 96.9 F 10/21/22 07:24 Pulse 70 10/21/22 07:24 Resp 16 10/21/22 07:24 BP 156/74 H 10/21/22 07:24 Pulse Ox 97 10/21/22 07:24 O2 Del Method Room Air 10/21/22 07:24 BMI result Body Mass Index 40.7 Constitutional - Awake and Alert, No apparent distress Eyes - PERRLA, EOMI Cardiovascular - S1S2, RRR, No edema Respiratory - Normal lung expansion, Normal respiratory effort, No respiratory distress, CTA bilaterally Gastrointestinal - NT, ND; +BS; No rebound or guarding Extremities - no calf tenderness bilaterally, no swelling Skin - Warm/Dry Neurological - Alert & oriented x3 Psychological - Appropriate affect Objective Data Active Medications Acetaminophen (Acetaminophen 325 Mg Tablet) 650 mg PO Q6H PRN PRN Reason: Pain, Mild (Pain Scale 1-3) Last Admin: 10/20/22 21:41 Dose: 650 mg Documented By: JANEL Albuterol Sulfate (Albuterol Sulfate (0.083%) 2.5 Mg/3 Ml Vial.Neb) 2.5 mg INHALE TID PRN PRN Reason: Wheezing Allopurinol (Allopurinol 300 Mg Tablet) 300 mg PO DAILY [facility] Last Admin: 10/21/22 08:40 Dose: 300 mg Documented By: KRISTEL Bupropion HCl (Bupropion Hcl Xl 150 Mg Tab.Er.24h) 450 mg PO DAILY [facility] Last Admin: 10/21/22 08:28 Dose: 450 mg Documented By: KRISTEL Calcium Carbonate (Calcium Carbonate 750 Mg Tab.Chew) 750 mg PO Q4H PRN PRN Reason: acid reflux Last Admin: 10/18/22 22:19 Dose: 750 mg Documented By: ALEXSANDER Dicyclomine HCl (Dicyclomine Hcl 10 Mg Capsule) 20 mg PO Q6H PRN PRN Reason: Spasms Enoxaparin Sodium (Enoxaparin Sodium 40 Mg/0.4 Ml Syringe) 40 mg SUBCUT Q24H [facility] Last Admin: 10/20/22 15:20 Dose: 40 mg Documented By: KWESI Fluticasone Propionate (Fluticasone Propionate Nasal 16 Gm [place]) 1 spray NOSTRIL-B BID [facility] Last Admin: 10/21/22 09:40 Dose: 1 spray Documented By: KRISTEL Gabapentin (Gabapentin 600 Mg Tablet) 600 mg PO BID@0800,1200 [facility] Last Admin: 10/21/22 08:28 Dose: Not Given Documented By: KRISTEL Non-Admin Reason: Patient Refused Gabapentin (Gabapentin 600 Mg Tablet) 1,200 mg PO DAILY@1900 [facility] Last Admin: 10/20/22 20:18 Dose: 1,200 mg Documented By: JANEL Glucose (Glucose Gel 15 Gm Gel..Gram.) 15 gm PO Q15M PRN; Protocol PRN Reason: per Hypoglycemia Standing Ord. Dextrose (D10) 250 mls @ 750 mls/hr IV Q15M PRN; Protocol PRN Reason: per Hypoglycemia Standing Ord. Insulin Human Lispro (Insulin Lispro 100 Unit/Ml 3 Ml Vial) 0 unit SUBCUT QIDACHS [facility]; Protocol Last Admin: 10/21/22 08:08 Dose: Not Given Documented By: KRISTEL Non-Admin Reason: No Insulin Coverage Levothyroxine Sodium (Levothyroxine Sodium 50 Mcg Tablet) 50 mcg PO DAILY@0600 [facility] Last Admin: 10/21/22 05:08 Dose: 50 mcg Documented By: JANEL Lidocaine (Lidocaine 4 % Patch Adh..Patch) 1 patch TRANSDERMA DAILY [facility]; Protocol Last Admin: 10/21/22 08:29 Dose: 1 patch Documented By: KRISTEL Montelukast Sodium (Montelukast Sodium 10 Mg Tablet) 10 mg PO BEDTIME [facility] Last Admin: 10/20/22 20:18 Dose: 10 mg Documented By: AJNEL Non-Formulary Medication (Mometasone [Asmanex Hfa]) 2 puff INHALE BEDTIME [facility] Non-Formulary Medication (Tiotropium-Olodaterol [Stiolto Respimat]) 2 puff INHALE DAILY [facility] Ondansetron HCl (Ondansetron Hcl 4 Mg/2 Ml Vial) 4 mg IVPUSH Q8H PRN PRN Reason: Nausea and Vomiting Oxybutynin Chloride (Oxybutynin Chloride Er 5 Mg Tab.Er.24) 15 mg PO BEDTIME [facility] Last Admin: 10/20/22 20:18 Dose: 15 mg Documented By: JANEL Pharmacy Consult (Consult Rx Perform Med Rec) 1 each MISCELLANE ONCE PRN PRN Reason: Consult order Polyethylene Glycol (Polyethylene Glycol 3350 17 Gm Powd.Pack) 17 gm PO DAILY [facility] Last Admin: 10/21/22 08:27 Dose: 17 gm Documented By: KRISTEL Senna (Sennosides 8.6 Mg Tablet) 17.2 mg PO DAILY [facility] Last Admin: 10/21/22 08:28 Dose: 17.2 mg Documented By: KRISTEL Simethicone (Simethicone 80 Mg Tab.Chew) 80 mg PO QIDWMHS [facility] Last Admin: 10/21/22 08:29 Dose: 80 mg Documented By: KRISTEL Sodium Chloride (0.9 % Sodium Chloride Flush 3 Ml Syringe) 3 ml IVFLUSH QSHIFT [facility] Last Admin: 10/21/22 08:29 Dose: 3 ml Documented By: KRISTEL Tamsulosin HCl (Tamsulosin Hcl 0.4 Mg Capsule) 0.4 mg PO BID [facility] Last Admin: 10/21/22 08:28 Dose: 0.4 mg Documented By: KRISTEL Triamterene/Hydrochlorothiazide (Triamterene/Hctz 37.5/25 Tablet) 1 tab PO DAILY [facility]; Protocol Last Admin: 10/21/22 08:28 Dose: 1 tab Documented By: KRISTEL Verapamil HCl (Verapamil Hcl Sr 180 Mg Tablet.Er) 360 mg PO BID [facility]; Protocol Last Admin: 10/21/22 08:28 Dose: 360 mg Documented By: KRISTEL Labs 10/21/22 05:06 10/21/22 05:06 Labs: Laboratory Results - last 24 hr 10/20/22 10/20/22 10/20/22 11:27 15:15 19:08 MCV MCH MCHC RDW Plt Count MPV Immature Gran % (Auto) Neut % (Auto) Lymph % (Auto) [place] % (Auto) Eos % (Auto) Baso % (Auto) Lymph # (Auto) [place] # (Auto) Eos # (Auto) Baso # (Auto) Abs Immat Gran (auto) Absolute Neuts (auto) Absolute Nucleated RBC Nucleated RBC % (auto) Anion Gap Estim Creat Clear Calc Estimated GFR POC Glucose 110 124 H 118 H Random Glucose Calcium 10/21/22 10/21/22 10/21/22 05:06 05:06 07:28 MCV 93.7 MCH 30.3 MCHC 32.3 RDW 15.0 Plt Count 208 MPV 9.9 Immature Gran % (Auto) 0.6 H Neut % (Auto) 59.8 Lymph % (Auto) 27.2 [place] % (Auto) 9.0 Eos % (Auto) 2.8 Baso % (Auto) 0.6 Lymph # (Auto) 1.9 [place] # (Auto) 0.6 Eos # (Auto) 0.2 Baso # (Auto) 0.0 Abs Immat Gran (auto) 0.04 H Absolute Neuts (auto) 4.3 Absolute Nucleated RBC 0.000 Nucleated RBC % (auto) 0.0 Anion Gap 13 Estim Creat Clear Calc 98.5 Estimated GFR > 60 POC Glucose 100 Random Glucose 100 Calcium 8.7 Assessment and Plan (1) Partial small bowel obstruction: Status: Acute Plan 77-year-old male with history of coronary artery disease s/p CABG x3, COPD, [id number] type 2 diabetes, hypertension, paroxysmal atrial fibrillation with Watchman device, hyperlipidemia, hypothyroidism, left inguinal hernia, FARHAD compliant with BiPAP admitted for partial SBO. #Partial SBO vs ileus- clinically improving -Tolerating clears but with nausea, large hard BM this am -ondansetron p.r.n. for nausea -Appreciate gen surgery input -Tums and simethicone prn reflux, gas/bloating -Advance diet as tolerated #Chronic constipation -Continue miralax, senna -Add 1 time dose dulcolax given hard BM this am # [id number] type 2 diabetes -POC glucose -transition to diabetic diet -Humalog on sliding scale p.r.n. for hyperglycemia -hold metformin # CAD-no anginal chest pain -continue asa, statin, CCB # paroxysmal atrial fibrillation- rate controlled -Has watchman device, no anticoagulation -continue verapamil # COPD-without acute exacerbation -continue maintenance inhalers -albuterol p.r.n. # hypothyroidism -continue levothyroxine # FARHAD -BiPAP at bedtime with 2 L O2 # left-sided inguinal hernia -nonobstructing -appreciate general surgery input #Morbid obesity with BMI >40 -related to excess calories -Weight loss efforts encouraged DVT prophylaxis-Lovenox Full code Ongoing inpt stay: Partial SBO vs ileus requiring diet advancement and monitoring of bowel function to ensure resolution, plan for discharge home tomorrow pending diet tolerance Time Spent With Patient Time: Total time managing care of this patient today ____ minutes. Quality Stroke Does the patient have a stroke diagnosis?: No VTE Prior VTE?: No VTE Risk Level:: Medical - moderate - high VTE Device Contraindication: Treatment Not Indicated VTE Drug Contraindication: N/A - Med Ordered
[2022-10-21 11:18] LABS: Glucose, Whole Blood 124 mg/dL (60-115)
[2022-10-21] MEDS: Gabapentin 600 MG TABLET PO (11:36)
[2022-10-21] MEDS: Enoxaparin Sodium 40 MG/0.4 ML SYRINGE SUBCUT (13:50)
[2022-10-21] MEDS: bisacodyL 10 MG SUPP.RECT PR (14:47)
[2022-10-21 16:00] VITALS: BP 139/62; PULSE 72; RESP 20; TEMP 36.4; O2SAT 96
[2022-10-21 17:04] LABS: Glucose, Whole Blood 93 mg/dL (60-115)
[2022-10-21 19:48] VITALS: PULSE 89; RESP 20; TEMP 36.7; O2SAT 98
[2022-10-21] MEDS: Gabapentin 600 MG TABLET 1200 MG PO (20:02)
[2022-10-21] MEDS: Montelukast Sodium 10 MG TABLET PO (20:02)
[2022-10-21] MEDS: oxyBUTYnin chloride ER 5 MG TAB.ER.24 15 MG PO (20:03)
[2022-10-21 20:24] LABS: Glucose, Whole Blood 122 mg/dL (60-115)
[2022-10-21 23:26] VITALS: PULSE 62; RESP 16; O2SAT 98
[2022-10-22 03:58] VITALS: BP 144/69; RESP 18; TEMP 36.7; O2SAT 97
[2022-10-22] MEDS: Levothyroxine Sodium 50 MCG TABLET PO (05:01)
[2022-10-22 07:24] VITALS: BP 116/59; PULSE 70; RESP 16; TEMP 36.8; O2SAT 92
[2022-10-22 07:32] LABS: Glucose, Whole Blood 123 mg/dL (60-115)
[2022-10-22] MEDS: buPROPion HCl XL 150 MG TAB.ER.24H 450 MG PO (10:45)
[2022-10-22] MEDS: Lidocaine 4 % Patch ADH..PATCH 1 PATCH TRANSDERMA (10:45)
[2022-10-22] MEDS: Triamterene/HCTZ 37.5/25 TABLET 1 TAB PO (10:45)
[2022-10-22] MEDS: allopurinoL 300 MG TABLET PO (10:45)
[2022-10-22] MEDS: polyethylene glycoL 3350 17 GM POWD.PACK PO (10:46)
[2022-10-22] MEDS: 0.9 % Sodium Chloride Flush 3 ML SYRINGE IVFLUSH ×3 (10:46→20:40)
[2022-10-22] MEDS: Sennosides 8.6 MG TABLET 17.2 MG PO (10:46)
[2022-10-22] MEDS: Fluticasone Propionate Nasal 16 GM SPRAY 1 SPRAY NOSTRIL-B ×2 (10:46→20:40)
[2022-10-22] MEDS: VerapamiL HCL SR 180 MG TABLET.ER 360 MG PO ×2 (10:46→20:43)
[2022-10-22] MEDS: Tamsulosin HCL 0.4 MG CAPSULE PO ×2 (10:46→20:42)
[2022-10-22] MEDS: Simethicone 80 MG TAB.CHEW PO ×3 (10:48→20:42)
[2022-10-22] MEDS: Gabapentin 600 MG TABLET PO (10:53)
[2022-10-22 11:33] LABS: Glucose, Whole Blood 104 mg/dL (60-115)
[2022-10-22 11:54] VITALS: BP 139/79; PULSE 76; RESP 18; TEMP 36.4; O2SAT 95
[2022-10-22] MEDS: Enoxaparin Sodium 40 MG/0.4 ML SYRINGE SUBCUT (13:51)
[2022-10-22] MEDS: bisacodyL 10 MG SUPP.RECT PR (13:51)
--- NOTE | 2022-10-22 14:42 | MHC.CM.PN ---
pt may be dcd today dc plan remains home no servcies
[2022-10-22 15:31] VITALS: BP 131/71; PULSE 80; RESP 18; TEMP 36.3; O2SAT 97
--- NOTE | 2022-10-22 15:38 | HO.PM.IMPN ---
Subjective Subjective Date of Service: 10/22/22 Interval History: seen and examined this morning follow up for partial sbo had small BM this afternoon, still very hard. tolerating diet declines enema Review of Systems Review of Systems: Yes all other systems are reviewed and are negative Constitutional Constitutional: Denies chills and Denies fever(s) Cardiovascular Cardiovascular: Denies chest pain, Denies palpitations and Denies dyspnea Respiratory Respiratory: Denies cough and Denies dyspnea Gastrointestinal Gastrointestinal: Denies abdominal pain Endocrine Endocrine: Denies palpitations Physical Exam Vital Signs: Vital Signs: Last Vital Signs Temp 97.4 F 10/22/22 15:31 Pulse 80 10/22/22 15:31 Resp 18 10/22/22 15:31 BP 131/71 10/22/22 15:31 Pulse Ox 97 10/22/22 15:31 O2 Del Method Room Air 10/22/22 15:31 BMI result Body Mass Index 40.7 Const: General: cooperative, comfortable, no acute distress, alert and awake Nutritional Appearance: overweight Orientation/consciousness: patient oriented x3 Resp: Effort & Inspection: normal respiratory effort, able to speak in complete sentences and no respiratory distress Cardio: Rate: regular rate GI: Palpation (GI): Firmness to palpation present (GI) and nontender Neuro: General: patient oriented x3 and CN's II-XI intact bilaterally Objective Data Active Medications Acetaminophen (Acetaminophen 325 Mg Tablet) 650 mg PO Q6H PRN PRN Reason: Pain, Mild (Pain Scale 1-3) Last Admin: 10/20/22 21:41 Dose: 650 mg Documented By: OZORALB Albuterol Sulfate (Albuterol Sulfate (0.083%) 2.5 Mg/3 Ml Vial.Neb) 2.5 mg INHALE TID PRN PRN Reason: Wheezing Allopurinol (Allopurinol 300 Mg Tablet) 300 mg PO DAILY [facility] Last Admin: 10/22/22 10:45 Dose: 300 mg Documented By: MILKA Bupropion HCl (Bupropion Hcl Xl 150 Mg Tab.Er.24h) 450 mg PO DAILY [facility] Last Admin: 10/22/22 10:45 Dose: 450 mg Documented By: MILKA Calcium Carbonate (Calcium Carbonate 750 Mg Tab.Chew) 750 mg PO Q4H PRN PRN Reason: acid reflux Last Admin: 10/18/22 22:19 Dose: 750 mg Documented By: ALEXSANDER Dicyclomine HCl (Dicyclomine Hcl 10 Mg Capsule) 20 mg PO Q6H PRN PRN Reason: Spasms Enoxaparin Sodium (Enoxaparin Sodium 40 Mg/0.4 Ml Syringe) 40 mg SUBCUT Q24H [facility] Last Admin: 10/22/22 13:51 Dose: 40 mg Documented By: KRISTEL Fluticasone Propionate (Fluticasone Propionate Nasal 16 Gm [place]) 1 spray NOSTRIL-B BID [facility] Last Admin: 10/22/22 10:46 Dose: 1 spray Documented By: MILKA Gabapentin (Gabapentin 600 Mg Tablet) 600 mg PO BID@0800,1200 [facility] Last Admin: 10/22/22 10:53 Dose: 600 mg Documented By: MILKA Gabapentin (Gabapentin 600 Mg Tablet) 1,200 mg PO DAILY@1900 [facility] Last Admin: 10/21/22 20:02 Dose: 1,200 mg Documented By: JANEL Glucose (Glucose Gel 15 Gm Gel..Gram.) 15 gm PO Q15M PRN; Protocol PRN Reason: per Hypoglycemia Standing Ord. Dextrose (D10) 250 mls @ 750 mls/hr IV Q15M PRN; Protocol PRN Reason: per Hypoglycemia Standing Ord. Insulin Human Lispro (Insulin Lispro 100 Unit/Ml 3 Ml Vial) 0 unit SUBCUT QIDACHS [facility]; Protocol Last Admin: 10/22/22 11:34 Dose: Not Given Documented By: KRISTEL Non-Admin Reason: No Insulin Coverage Levothyroxine Sodium (Levothyroxine Sodium 50 Mcg Tablet) 50 mcg PO DAILY@0600 [facility] Last Admin: 10/22/22 05:01 Dose: 50 mcg Documented By: JANEL Lidocaine (Lidocaine 4 % Patch Adh..Patch) 1 patch TRANSDERMA DAILY [facility]; Protocol Last Admin: 10/22/22 10:45 Dose: 1 patch Documented By: MILKA Montelukast Sodium (Montelukast Sodium 10 Mg Tablet) 10 mg PO BEDTIME [facility] Last Admin: 10/21/22 20:02 Dose: 10 mg Documented By: JANEL Non-Formulary Medication (Mometasone [Asmanex Hfa]) 2 puff INHALE BEDTIME [facility] Non-Formulary Medication (Tiotropium-Olodaterol [Stiolto Respimat]) 2 puff INHALE DAILY [facility] Ondansetron HCl (Ondansetron Hcl 4 Mg/2 Ml Vial) 4 mg IVPUSH Q8H PRN PRN Reason: Nausea and Vomiting Oxybutynin Chloride (Oxybutynin Chloride Er 5 Mg Tab.Er.24) 15 mg PO BEDTIME [facility] Last Admin: 10/21/22 20:03 Dose: 15 mg Documented By: JANEL Pharmacy Consult (Consult Rx Perform Med Rec) 1 each MISCELLANE ONCE PRN PRN Reason: Consult order Polyethylene Glycol (Polyethylene Glycol 3350 17 Gm Powd.Pack) 17 gm PO DAILY [facility] Last Admin: 10/22/22 10:46 Dose: 17 gm Documented By: MILKA Senna (Sennosides 8.6 Mg Tablet) 17.2 mg PO DAILY [facility] Last Admin: 10/22/22 10:46 Dose: 17.2 mg Documented By: MILKA Simethicone (Simethicone 80 Mg Tab.Chew) 80 mg PO QIDWMHS [facility] Last Admin: 10/22/22 10:49 Dose: Not Given Documented By: MILKA Non-Admin Reason: previous dose given late Sodium Chloride (0.9 % Sodium Chloride Flush 3 Ml Syringe) 3 ml IVFLUSH QSHIFT [facility] Last Admin: 10/22/22 10:46 Dose: 3 ml Documented By: MILKA Tamsulosin HCl (Tamsulosin Hcl 0.4 Mg Capsule) 0.4 mg PO BID [facility] Last Admin: 10/22/22 10:46 Dose: 0.4 mg Documented By: MILKA Triamterene/Hydrochlorothiazide (Triamterene/Hctz 37.5/25 Tablet) 1 tab PO DAILY [facility]; Protocol Last Admin: 10/22/22 10:45 Dose: 1 tab Documented By: MILKA Verapamil HCl (Verapamil Hcl Sr 180 Mg Tablet.Er) 360 mg PO BID [facility]; Protocol Last Admin: 10/22/22 10:46 Dose: 360 mg Documented By: MILKA Labs 10/21/22 05:06 10/21/22 05:06 Labs: Laboratory Results - last 24 hr 10/21/22 10/21/22 10/22/22 16:39 20:15 07:22 POC Glucose 93 122 H 123 H 10/22/22 11:22 POC Glucose 104 Assessment and Plan (1) Partial small bowel obstruction: Status: Acute Plan 77-year-old male with history of coronary artery disease s/p CABG x3, COPD, [id number]-obkbedxyy type 2 diabetes, hypertension, paroxysmal atrial fibrillation with Watchman device, hyperlipidemia, hypothyroidism, left inguinal hernia, FARHAD compliant with BiPAP admitted for partial SBO. #Partial SBO vs ileus- clinically improving had small bm today, still very hard per patient -ondansetron p.r.n. for nausea -Appreciate gen surgery input -Tums and simethicone prn reflux, gas/bloating -tolearting diet #Chronic constipation -Continue miralax, senna -dulcolax # [id number]-akchvlvek type 2 diabetes -POC glucose -transition to diabetic diet -Humalog on sliding scale p.r.n. for hyperglycemia -hold metformin # CAD-no anginal chest pain -continue asa, statin, CCB # paroxysmal atrial fibrillation- rate controlled -Has watchman device, no anticoagulation -continue verapamil # COPD-without acute exacerbation -continue maintenance inhalers -albuterol p.r.n. # hypothyroidism -continue levothyroxine # FARHAD -BiPAP at bedtime with 2 L O2 # left-sided inguinal hernia -nonobstructing -appreciate general surgery input #Morbid obesity with BMI >40 -related to excess calories -Weight loss efforts encouraged #chronic normocytic anemia H/H appears to be at baseline DVT prophylaxis-Lovenox attending - dr. mahmood Full code Ongoing inpt stay: Partial SBO vs ileus requiring diet advancement and monitoring of bowel function to ensure resolution Time Spent With Patient Time: Total time managing care of this patient today ____ minutes. Quality Stroke Does the patient have a stroke diagnosis?: No VTE Prior VTE?: No VTE Risk Level:: Medical - moderate - high VTE Device Contraindication: Treatment Not Indicated VTE Drug Contraindication: N/A - Med Ordered
[2022-10-22 16:32] LABS: Glucose, Whole Blood 117 mg/dL (60-115)
[2022-10-22] MEDS: Gabapentin 600 MG TABLET 1200 MG PO (18:01)
--- NOTE | 2022-10-22 18:38 | PC.NURSE ---
Soap suds enema given at 5:30pm with minimal results
[2022-10-22 19:43] VITALS: BP 156/74; PULSE 87; RESP 17; TEMP 36.3; O2SAT 94
[2022-10-22 20:31] LABS: Glucose, Whole Blood 133 mg/dL (60-115)
[2022-10-22] MEDS: Montelukast Sodium 10 MG TABLET PO (20:42)
[2022-10-22] MEDS: oxyBUTYnin chloride ER 5 MG TAB.ER.24 15 MG PO (20:42)
[2022-10-22 23:18] VITALS: PULSE 70; RESP 17; O2SAT 99
[2022-10-23 00:48] VITALS: BP 134/71; PULSE 73; RESP 18; TEMP 36.6; O2SAT 95
[2022-10-23] MEDS: Levothyroxine Sodium 50 MCG TABLET PO (05:54)
[2022-10-23 07:22] VITALS: BP 132/63; PULSE 70; RESP 20; TEMP 36; O2SAT 93
[2022-10-23 07:31] LABS: Glucose, Whole Blood 105 mg/dL (60-115)
[2022-10-23 09:05] VITALS: BP 140/60; PULSE 80
[2022-10-23] MEDS: polyethylene glycoL 3350 17 GM POWD.PACK PO (09:13)
[2022-10-23] MEDS: Gabapentin 600 MG TABLET PO (09:14)
[2022-10-23] MEDS: Triamterene/HCTZ 37.5/25 TABLET 1 TAB PO (09:15)
[2022-10-23] MEDS: Tamsulosin HCL 0.4 MG CAPSULE PO (09:15)
[2022-10-23] MEDS: allopurinoL 300 MG TABLET PO (09:15)
[2022-10-23] MEDS: Simethicone 80 MG TAB.CHEW PO (09:15)
[2022-10-23] MEDS: VerapamiL HCL SR 180 MG TABLET.ER 360 MG PO (09:15)
--- NOTE | 2022-10-23 09:16 | P.DS_ITS ---
DS: Providers Provider Date of Service: 10/23/22 Date of admission: 10/18/22 14:39 Primary care physician: Nataly Ashley MD Consults: 10/18/22 13:39 Consult to General Surgery Stat Consulting Provider: [facility] [place] General Surgeons Reason for consultation: pSBO, distended abdomen Has provider been notified: Yes DS: Diagnosis Discharge Diagnosis (1) Partial small bowel obstruction: Status: Acute DS: Summary Hospital Course Hospital Course: HP as per admitting provider 77-year-old male with history of coronary artery disease s/p CABG x3, COPD, [id number] type 2 diabetes, hypertension, paroxysmal atrial fibrillation with Watchman device, hyperlipidemia, hypothyroidism, left inguinal hernia, FARHAD compliant with BiPAP presented to the ED for evaluation of diffuse severe abdominal pain ongoing for 2 days.? He states the pain is worst in the right upper quadrant but is diffuse across the abdomen radiating bilaterally to the mid back.? He states he feels abdominal bloating with increased reflux and belching as well as nausea and anorexia.? No vomiting. Reports last BM was 3 days ago and was very small. On arrival, pt hypertensive to 160/95, mild tachycardia 105, vitals otherwise normal, patient afebrile.? WBC 11.5, renal function normal, electrolytes normal.? CT abdomen/pelvis with findings suggestive of a partial small-bowel obstruction without any definitive transition zone identified.? There is also cholelithiasis, diverticulosis, evidence of prior granulomatous disease, hepatic steatosis, right renal cyst, and left spigelian hernia containing a loop of nonobstructed descending colon.? In ED, given 500 mL IV NS . Partial SBO vs ileus- clinically improved, had small bm. Seen and evaluated by general surgery, no further rec. Diet advanced to regular. Continue home bowel regime Chronic constipation. Continue miralax, colace [id number] type 2 diabetes. Continue home medications CAD-no anginal chest pain. continue asa, statin, CCB paroxysmal atrial fibrillation- rate controlled. Has watchman device, no anticoagulation. continue verapamil COPD-without acute exacerbation. continue maintenance inhalers hypothyroidism. continue levothyroxine FARHAD.continue home therapy left-sided inguinal hernia. nonobstructing Morbid obesity with BMI >40. Weight loss efforts encouraged chronic normocytic anemia. H/H appears to be at baseline Time Spent with Patient Time attestation: Total time managing care of this patient today ____ minutes. Discharge coordination time: Greater than 30 minutes Quality: Safe Use of Opioids Does Pt have an Active Cancer Diagnosis on the Problem List?: No Quality: Stroke Does the patient have a stroke diagnosis?: No Physical Exam Vital Signs: Vital Signs: Last Vital Signs Temp 96.8 F 10/23/22 07:22 Pulse 80 10/23/22 09:05 Resp 20 10/23/22 07:22 BP 140/60 H 10/23/22 09:05 Pulse Ox 93 10/23/22 07:22 O2 Del Method Room Air 10/23/22 07:22 BMI result Body Mass Index 40.7 Appearing in no acute distress head is normocephalic atraumatic eyes pupils are PERRLA sclera is anicteric mouth throat mucous membranes are intact and moist neck is supple no lymphadenopathy, no JVD noted lung sounds are clear to auscultation heart regular rate rhythm, clear S1, S2 positive bowel sounds, abdomen is soft, nontender neuro patient is alert x3, no focal deficits DS: Data Data Completed and Pending Labs on day of discharge: Laboratory Results - last 24 hr 10/22/22 10/22/22 10/22/22 11:22 16:24 20:27 POC Glucose 104 117 H 133 H 10/23/22 07:19 POC Glucose 105 Discharge Plan Discharge Anticipated Discharge Date/Time: 10/23/22 09:07 Patient Disposition: Home, Self-Care Discharge Diagnosis: Partial SBO Referrals: Nataly Ashley MD [Primary Care Provider] - 1 Week Discharge Medications: New polyethylene glycol 3350 17 gram Powder In Packet 17 g PO DAILY Qty: 30 0RF Continued oxybutynin chloride 15 mg Tablet Extended Release 24hr 15 mg PO BEDTIME gabapentin 600 mg Tablet 1,200 mg PO DAILY@1900 gabapentin 600 mg Tablet 600 mg PO BID@0800,1200 ascorbic acid (vitamin C) 250 mg Tablet 250 mg PO DAILY niacinamide 500 mg Tablet 500 mg PO BID triamterene-hydrochlorothiazid 37.5-25 mg Tablet 1 tab PO DAILY albuterol sulfate 90 mcg/actuation Hfa Aerosol Inhaler 2 puff INHALATION QID PRN (Reason: Wheezing) montelukast 10 mg Tablet 10 mg PO DAILY verapamil 360 mg capsule,ext rel. pellets 24 hr 360 mg PO BID cetirizine [All Day Allergy (cetirizine)] 10 mg tablet 10 mg PO BEDTIME bupropion HCl 200 mg tablet sustained-release 12 hr 200 mg PO BID levothyroxine 50 mcg capsule 50 mcg PO DAILY@0600 metformin 500 mg tablet 500 mg PO BID zafirlukast [Accolate] 20 mg tablet 20 mg PO BID Rx Instructions: must be taken on empty stomach, at least 1 hr before or 2 hrs after a meal/food allopurinol 300 mg tablet 300 mg PO DAILY omeprazole 20 mg capsule,delayed release(DR/EC) 20 mg PO BID@0630,1630 atorvastatin 80 mg tablet 40 mg PO BEDTIME albuterol sulfate 2.5 mg /3 mL (0.083 %) solution for nebulization 2.5 mg inhalation TID PRN (Reason: Wheezing) tamsulosin 0.4 mg capsule 0.4 mg PO BID dicyclomine 20 mg tablet 20 mg PO Q6H PRN (Reason: Spasms) Stiolto Respimat 2.5-2.5 mcg/actuation mist 2 puff inhalation DAILY Asmanex HFA 200 mcg/actuation HFA aerosol inhaler 2 puff inhalation BEDTIME aspirin [Adult Aspirin Regimen] 81 mg tablet,delayed release (DR/EC) 81 mg PO DAILY fluticasone propionate 50 mcg/actuation spray,suspension 1 spray intranasal BID Rx Instructions: administer into each nostril Changed docusate sodium [Stool Softener] 100 mg capsule 100 mg PO BID Qty: 60 0RF Discharge Orders: Discharge Order (Routine); Ordered 10/23/22 Ordered By: Keerthi Go Diet: Advance to usual diet Activity on Discharge: As tolerated Stand Alone Forms: Patient Portal Discharge page Care Plan Goals: Complete resolution of symptoms Health Concerns: Partial SBO Plan of Treatment: Follow up with primary care provider as needeed Take all medications as prescribed Assessment: See discharge summary
--- NOTE | 2022-10-23 09:18 | MHC.CM.PN ---
PT WILL DC HOME TODAY WITH NO SERVICES PT TO ARRANGE TRANSPORT
[2022-10-23] MEDS: Fluticasone Propionate Nasal 16 GM SPRAY 1 SPRAY NOSTRIL-B (09:25)
[2022-10-23] MEDS: Sennosides 8.6 MG TABLET 17.2 MG PO (09:28)
[2022-10-23] MEDS: 0.9 % Sodium Chloride Flush 3 ML SYRINGE IVFLUSH (09:32)
== END 2022-10-23 10:45 | disposition home or self-care (01) | DRG 389 ==
LOC: HO.ED 14:07 → HO.EDOVER 14:47 → HO.S3 14:48
PROVIDERS: Physician Assistant Medical; Admitting Provider Physician Assistant; Emergency Provider Student in an Organized Health Care Education/Training Program; PCP Internal Medicine; Visit Provider Nurse Practitioner Acute Care
DX: K56.7 Ileus, unspecified (principal); Z68.41 Body mass index [BMI] 40.0-44.9, adult; Z95.811 Presence of heart assist device; K56.600 Partial intestinal obstruction, unspecified as to cause; I25.10 Atherosclerotic heart disease of native coronary artery without angina pectoris; E78.5 Hyperlipidemia, unspecified; G47.33 Obstructive sleep apnea (adult) (pediatric); E03.9 Hypothyroidism, unspecified; K59.09 Other constipation; E66.01 Morbid (severe) obesity due to excess calories; D64.9 Anemia, unspecified; K43.9 Ventral hernia without obstruction or gangrene; I48.0 Paroxysmal atrial fibrillation; Z20.822 Contact with and (suspected) exposure to COVID-19; Z95.1 Presence of aortocoronary bypass graft; Z88.0 Allergy status to penicillin; Z88.1 Allergy status to other antibiotic agents; Z79.51 Long term (current) use of inhaled steroids; Z79.82 Long term (current) use of aspirin; Z79.899 Other long term (current) drug therapy
CPT/HCPCS: 36415; 74018; 74176; 80048; 80053; 81003; 82947; 84484; 85025; 85610; 87635; 93005; 94660; 99285; J1650

== ENCOUNTER 2022-12-21 16:15 | Emergency (ER) | payer OTHER, SELFPAY ==
--- NOTE | ~2022-12-21 | US_ITS ---
EXAMINATION: US VENOUS ULTRASOUND WITH DOPPLER LOWER EXTREMITY, BILATERAL CLINICAL INFORMATION: Redness and edema. COMPARISON: None available. TECHNIQUE: Ultrasound of the deep veins is performed from the hip to the calf with compression sonography and color and pulse Doppler assessment. Spectral analysis with color-flow imaging is performed. FINDINGS: RIGHT: There is normal venous compression and respiratory variation and augmented flow. The visualized common femoral vein, superficial femoral vein, profunda femoral vein, popliteal vein, and posterior tibialis vein shows no evidence of deep venous thrombosis. The peroneal vein was not visualized. There is no significant popliteal fossa cyst. Soft tissue thickening in the calf. LEFT: There is normal venous compression and respiratory variation and augmented flow. The visualized common femoral vein, superficial femoral vein, profunda femoral vein, popliteal vein, and posterior tibialis vein shows no evidence of deep venous thrombosis. The peroneal vein was not seen. There is no significant popliteal fossa cyst. Soft tissue thickening in the calf. If the patient's symptoms persist, followup ultrasound in 5 days 7 days might be of value to exclude proximal propagation from a non-visualized calf vein. US/US venous duplex LE BI IMPRESSION: No DVT demonstrated in the bilateral lower extremity with the caveat of nonvisualization of the peroneal veins in both calves.
[2022-12-21 16:18] VITALS: BP 163/86; PULSE 92; RESP 9; TEMP 36.8; O2SAT 98; BMI 39.7
--- NOTE | 2022-12-21 16:19 | ED_ITS ---
HPI - Extremity Problem General Chief complaint: General Medical Stated complaint: swollen legs Time Seen by Provider: 12/21/22 21:06 Source: patient Mode of arrival: ambulatory History of Present Illness HPI Narrative: 77-year-old male with history of diabetes, lower extremity swelling, status post Watchman procedure a number of years ago presents with bilateral lower extremity swelling and redness with discomfort on ambulation that he states has worsened over the past 2 days. Related Data Home Medications Medication Instructions Recorded Confirmed albuterol sulfate 2.5 mg/3 mL 2.5 mg inhalation TID PRN Wheezing 09/25/20 10/18/22 (0.083 %) solution for nebulization allopurinol 300 mg tablet 300 mg PO DAILY 09/25/20 10/18/22 aspirin 81 mg tablet,delayed 81 mg PO DAILY 09/25/20 10/18/22 release (Adult Aspirin Regimen) atorvastatin 80 mg tablet 40 mg PO BEDTIME 09/25/20 10/18/22 bupropion HCl 200 mg tablet,12 hr 200 mg PO BID 09/25/20 10/18/22 sustained-release cetirizine 10 mg tablet (All Day 10 mg PO BEDTIME 09/25/20 10/18/22 Allergy (cetirizine)) dicyclomine 20 mg tablet 20 mg PO Q6H PRN Spasms 09/25/20 10/18/22 fluticasone propionate 50 1 spray intranasal BID 09/25/20 10/18/22 mcg/actuation nasal spray,suspension levothyroxine 50 mcg capsule 50 mcg PO DAILY@0600 09/25/20 10/18/22 metformin 500 mg tablet 500 mg PO BID 09/25/20 10/18/22 mometasone 200 mcg/actuation HFA 2 puff inhalation BEDTIME 09/25/20 10/18/22 aerosol inhaler (Asmanex HFA) omeprazole 20 mg capsule,delayed 20 mg PO BID@0630,1630 09/25/20 10/18/22 release tamsulosin 0.4 mg capsule 0.4 mg PO BID 09/25/20 10/18/22 tiotropium 2.5 mcg-olodaterol 2.5 2 puff inhalation DAILY 09/25/20 10/18/22 mcg/actuation mist for inhalation (Stiolto Respimat) verapamil 360 mg 24 hr 360 mg PO BID 09/25/20 10/18/22 capsule,extended release zafirlukast 20 mg tablet (Accolate) 20 mg PO BID 09/25/20 10/18/22 albuterol sulfate 90 mcg/actuation 2 puff inhalation QID PRN Wheezing 10/18/22 10/18/22 aerosol inhaler ascorbic acid (vitamin C) 250 mg 250 mg PO DAILY 10/18/22 10/18/22 tablet gabapentin 600 mg tablet 1,200 mg PO DAILY@1900 10/18/22 10/18/22 gabapentin 600 mg tablet 600 mg PO BID@0800,1200 10/18/22 10/18/22 niacinamide 500 mg tablet 500 mg PO BID 10/18/22 10/18/22 oxybutynin chloride 15 mg 15 mg PO BEDTIME 10/18/22 10/18/22 tablet,extended release 24 hr triamterene 37.5 1 tab PO DAILY 10/18/22 10/18/22 mg-hydrochlorothiazide 25 mg tablet montelukast 10 mg tablet 10 mg PO DAILY 10/19/22 10/19/22 Previous Rx's Medication Instructions Recorded docusate sodium 100 mg capsule 100 mg PO BID #60 caps 10/27/22 (Stool Softener) polyethylene glycol 3350 17 gram 17 g PO DAILY #30 ea 10/27/22 oral powder packet Allergies Allergy/AdvReac Type Severity Reaction Status Date / Time amoxicillin [From Augmentin] Allergy Mild NAUSEA & Verified 12/21/22 16:18 VOMITING, HIVES clavulanic acid Allergy Mild NAUSEA & Verified 12/21/22 16:18 [From Augmentin] VOMITING, HIVES piperacillin [From ZOSYN] Allergy Unknown LIVER Verified 12/21/22 16:18 FAILURE tazobactam [From ZOSYN] Allergy Unknown LIVER Verified 12/21/22 16:18 FAILURE Review of Systems Review of Systems: Pertinent positives and negatives as stated in [facility] Past Medical History Source: nursing notes reviewed Medical History Anemia, chronic disease CAD (coronary artery disease) COPD (chronic obstructive pulmonary disease) Diabetes mellitus History of iron deficiency anemia HTN (hypertension) Hyperlipidemia Hypothyroidism FARHAD (obstructive sleep apnea) Paroxysmal atrial fibrillation Surgical History History of back surgery History of esophagogastroduodenoscopy (EGD) Hx of CABG Hx of cardiac cath Hx of colonoscopy Hx of hand surgery Hx of knee surgery Family History Family History Father Sudden cardiac Mother Sudden cardiac Social History Social History Household Members: Spouse Housing: House Do you presently have visiting nurse or other home services: No Alcohol intake: never Patient Tobacco Use Status: Never used Tobacco Smoked in Last 30 Days: No Use of substances other than those prescribed or required for medical reasons: No Advance Directives: Yes Advance Directives on File: Yes Advance Directives Date on File: 10/18/22 service: Yes Current occupational status: retired Physical Exam Vital Signs: Vital Signs: Last Vital Signs Temp 98.3 F 12/21/22 22:59 Pulse 81 12/21/22 22:59 Resp 16 12/21/22 22:59 BP 145/77 H 12/21/22 22:59 Pulse Ox 97 12/21/22 22:59 O2 Del Method Room Air 12/21/22 22:59 BMI result Body Mass Index 39.7 VITAL SIGNS: Reviewed. GENERAL: Well developed, well nourished, in no acute distress. HEAD: Normocephalic/atraumatic EYES: PERRLA, EOMI EARS: Ext canals without abnormality NOSE: Nares patent bilateral OROPHARYNX: no oral lesions noted, posterior pharynx clear NECK: Supple, no adenopathy LUNGS: Normal breath sounds. No adventitious sounds or accessory muscle use. SpO2<97> CARDIOVASCULAR: Regular rate and rhythm without noted murmurs, no JVD but bilate ral lower extremity edema. ABDOMEN: Soft, non-tender, non-distended with bowel sounds. MUSCULOSKELETAL: No tenderness, deformities, or effusions noted on gross inspection. EXTREMITIES: No cyanosis, clubbing or edema. SKIN: Inspection of the skin reveals no rashes NEUROLOGIC: Alert and oriented x 4. Strength and sensation to light touch were grossly intact x 4. Course Course Course Narrative: RME - 77 y/o male with history of afib not on anticoagulation, s/p Watchmann procedure, HTN, DM, CAD, FARHAD, COPD who presents to the ER for evaluation of bilateral lower extremity pain, redness and swelling for the last 2 days. Told in the past it was eczema, has tried topical hydrocortisone for itching with no improvement. No weight gain. No chest pain, endorses chronic SOB due to COPD. Compliant with home HCTZ 50mg. Plan: lab workup, LE dopplers Medical Decision Making Medical Decision Making MDM Narrative: 77-year-old male with history and clinical presentation consistent with chronic venous stasis and a component of diabetic dermatopathy. I reviewed all investigations and lab work appears to be chronically stable, there is no leukocytosis, patient is afebrile, Kal wraps will be applied to bilateral lower extremities in an attempt to help with swelling in the lower extremities as he does not have the strength at baseline to apply and remove compression stockings. Differential Diagnosis Please see the discussion above Lab Data Please see the discussion above 12/21/22 16:27 12/21/22 16:27 Labs: Lab Results 12/21/22 12/21/22 12/21/22 Range/Units 16:27 16:27 16:27 WBC 10.8 (4.8-10.8) X10*3/uL RBC 3.82 L (4.60-5.80) X10*6/uL Hgb 11.6 L (14.0-18.0) g/dl Hct 35.7 L (42.0-52.0) % MCV 93.5 (80.0-98.0) fL MCH 30.4 (27.0-33.0) pg MCHC 32.5 (31.0-36.0) g/dl RDW 15.2 (11.0-16.0) % Plt Count 223 (160-400) X10*3/uL MPV 9.1 L (9.4-12.4) fL Immature Gran % (Auto) 0.3 (0.0-0.4) % Neut % (Auto) 70.4 (45-73) % Lymph % (Auto) 18.5 L (20-40) % Pl[place] % (Auto) 8.0 (2-11) % Eos % (Auto) 2.2 (0-4) % Baso % (Auto) 0.6 (0-2) % Lymph # (Auto) 2.0 (1.2-4.9) X10*3/uL [place] # (Auto) 0.9 (0.1-1.2) X10*3/uL Eos # (Auto) 0.2 (0.0-0.4) X10*3/uL Baso # (Auto) 0.1 (0.0-0.2) X10*3/uL Abs Immat Gran (auto) 0.03 (0.00-0.03) X10*3/uL Absolute Neuts (auto) 7.6 (2.0-8.3) x10*3/uL Absolute Nucleated RBC 0.000 (0.0-0.012) X10*3/uL Nucleated RBC % (auto) 0.0 (0.0-0.2) /100WBC PT 10.6 (10.0-13.1) SEC INR 0.9 (0.9-1.1) APTT 31.8 (26.0-36.4) SEC Sodium 143 (135-145) mmol/L Potassium 4.1 (3.3-5.1) mmol/L Chloride 104 (96-108) mmol/L Carbon Dioxide 26 (22-29) mmol/L Anion Gap 17 (12-20) BUN 24 H (9-16) mg/dL Creatinine 1.26 (0.5-1.4) mg/dL Estim Creat Clear Calc 69.4 Estimated GFR 56 Random Glucose 114 (60-115) mg/dL Calcium 10.0 D (8.4-10.2) mg/dL Magnesium 1.8 (1.6-2.6) mg/dL Total Bilirubin 0.5 (0.0-1.0) mg/dL Direct Bilirubin 0.2 (0.0-0.5) mg/dL AST 14 (5-37) U/L ALT 18 (0-40) U/L Alkaline Phosphatase 127 H (39-117) U/L B-Natriuretic Peptide (<100) pg/mL Total Protein 6.9 (6.5-8.0) g/dL Albumin 4.1 (3.5-5.0) g/dL 12/21/22 Range/Units 16:27 WBC (4.8-10.8) X10*3/uL RBC (4.60-5.80) X10*6/uL Hgb (14.0-18.0) g/dl Hct (42.0-52.0) % MCV (80.0-98.0) fL MCH (27.0-33.0) pg MCHC (31.0-36.0) g/dl RDW (11.0-16.0) % Plt Count (160-400) X10*3/uL MPV (9.4-12.4) fL Immature Gran % (Auto) (0.0-0.4) % Neut % (Auto) (45-73) % Lymph % (Auto) (20-40) % Plumas % (Auto) (2-11) % Eos % (Auto) (0-4) % Baso % (Auto) (0-2) % Lymph # (Auto) (1.2-4.9) X10*3/uL Pl[place] # (Auto) (0.1-1.2) X10*3/uL Eos # (Auto) (0.0-0.4) X10*3/uL Baso # (Auto) (0.0-0.2) X10*3/uL Abs Immat Gran (auto) (0.00-0.03) X10*3/uL Absolute Neuts (auto) (2.0-8.3) x10*3/uL Absolute Nucleated RBC (0.0-0.012) X10*3/uL Nucleated RBC % (auto) (0.0-0.2) /100WBC PT (10.0-13.1) SEC INR (0.9-1.1) APTT (26.0-36.4) SEC Sodium (135-145) mmol/L Potassium (3.3-5.1) mmol/L Chloride (96-108) mmol/L Carbon Dioxide (22-29) mmol/L Anion Gap (12-20) BUN (9-16) mg/dL Creatinine (0.5-1.4) mg/dL Estim Creat Clear Calc Estimated GFR Random Glucose (60-115) mg/dL Calcium (8.4-10.2) mg/dL Magnesium (1.6-2.6) mg/dL Total Bilirubin (0.0-1.0) mg/dL Direct Bilirubin (0.0-0.5) mg/dL AST (5-37) U/L ALT (0-40) U/L Alkaline Phosphatase (39-117) U/L B-Natriuretic Peptide 59 (<100) pg/mL Total Protein (6.5-8.0) g/dL Albumin (3.5-5.0) g/dL Radiology Impression Radiologist Impression: My interpretation is in agreement with radiology's impression External Record Review External record reviewed: Prior outpatient labs Discharge Plan Discharge Clinical Impression: Chronic venous stasis, 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 Resume all home medications as prescribed. 2. Recommend short follow-up with your primary care provider. 3. You may reapply the Kal wraps in the similar fashion as this evening to use instead of the compression stockings. Return to the ER for any worsening symptoms. Prescriptions: No Action docusate sodium [Stool Softener] 100 mg capsule 100 mg PO BID Qty: 60 0RF polyethylene glycol 3350 17 gram powder in packet 17 g PO DAILY Qty: 30 0RF oxybutynin chloride 15 mg Tablet Extended Release 24hr 15 mg PO BEDTIME gabapentin 600 mg Tablet 1,200 mg PO DAILY@1900 gabapentin 600 mg Tablet 600 mg PO BID@0800,1200 ascorbic acid (vitamin C) 250 mg Tablet 250 mg PO DAILY niacinamide 500 mg Tablet 500 mg PO BID triamterene-hydrochlorothiazid 37.5-25 mg Tablet 1 tab PO DAILY albuterol sulfate 90 mcg/actuation Hfa Aerosol Inhaler 2 puff INHALATION QID PRN (Reason: Wheezing) montelukast 10 mg Tablet 10 mg PO DAILY verapamil 360 mg capsule,ext rel. pellets 24 hr 360 mg PO BID cetirizine [All Day Allergy (cetirizine)] 10 mg tablet 10 mg PO BEDTIME bupropion HCl 200 mg tablet sustained-release 12 hr 200 mg PO BID levothyroxine 50 mcg capsule 50 mcg PO DAILY@0600 metformin 500 mg tablet 500 mg PO BID zafirlukast [Accolate] 20 mg tablet 20 mg PO BID Rx Instructions: must be taken on empty stomach, at least 1 hr before or 2 hrs after a meal/ food allopurinol 300 mg tablet 300 mg PO DAILY omeprazole 20 mg capsule,delayed release(DR/EC) 20 mg PO BID@0630,1630 atorvastatin 80 mg tablet 40 mg PO BEDTIME albuterol sulfate 2.5 mg /3 mL (0.083 %) solution for nebulization 2.5 mg inhalation TID PRN (Reason: Wheezing) tamsulosin 0.4 mg capsule 0.4 mg PO BID dicyclomine 20 mg tablet 20 mg PO Q6H PRN (Reason: Spasms) Stiolto Respimat 2.5-2.5 mcg/actuation mist 2 puff inhalation DAILY Asmanex HFA 200 mcg/actuation HFA aerosol inhaler 2 puff inhalation BEDTIME aspirin [Adult Aspirin Regimen] 81 mg tablet,delayed release (DR/EC) 81 mg PO DAILY fluticasone propionate 50 mcg/actuation spray,suspension 1 spray intranasal BID Rx Instructions: administer into each nostril Referrals: Nataly Ashley MD [Primary Care Provider] -
[2022-12-21 16:30] LABS: MANUAL DIFF FLAG NO
[2022-12-21 16:32] LABS: Basophils Absolute Auto 0.1 X10*3/uL (0.0-0.2); Basophils Percent Auto 0.6 % (0-2); Eosinophils Absolute Auto 0.2 X10*3/uL (0.0-0.4); Eosinophils Percent Auto 2.2 % (0-4); Hematocrit 35.7 % (42.0-52.0); Hemoglobin 11.6 g/dl (14.0-18.0); Imm Gran Abs Auto 0.03 X10*3/uL (0.00-0.03); Imm Gran Pct Auto 0.3 % (0.0-0.4); Lymphocytes Percent Auto 18.5 % (20-40); Mean Corpuscular HGB Conc 32.5 g/dl (31.0-36.0); Mean Corpuscular Hemoglobin 30.4 pg (27.0-33.0); Mean Corpuscular Volume 93.5 fL (80.0-98.0); Mean Platelet Volume 9.1 fL (9.4-12.4); Monocytes Absolute Auto 0.9 X10*3/uL (0.1-1.2); Neutrophils Absolute Auto 7.6 x10*3/uL (2.0-8.3); Neutrophils Percent Auto 70.4 % (45-73); Platelet Count 223 X10*3/uL (160-400); Red Blood Count 3.82 X10*6/uL (4.60-5.80); Red Cell Distribution Width 15.2 % (11.0-16.0); White Blood Count 10.8 X10*3/uL (4.8-10.8)
[2022-12-21 16:41] LABS: INTERNATIONAL NORM RATIO 0.9 (0.9-1.1); Prothrombin Time 10.6 SEC (10.0-13.1)
[2022-12-21 16:43] LABS: Partial Thromboplastin Time 31.8 SEC (26.0-36.4)
[2022-12-21 16:57] LABS: Alanine Aminotransferase 18 U/L (0-40); Albumin Level 4.1 g/dL (3.5-5.0); Alkaline Phosphatase 127 U/L (39-117); Anion Gap 17 (12-20); Aspartate Amino Transferase 14 U/L (5-37); Bilirubin Direct 0.2 mg/dL (0.0-0.5); Bilirubin Total 0.5 mg/dL (0.0-1.0); Blood Urea Nitrogen 24 mg/dL (9-16); Carbon Dioxide 26 mmol/L (22-29); Chloride 104 mmol/L (96-108); Creatinine Clr Calc Pharmacy 69.4; Estimated Glomerular Filt Rate 56; Glucose Random 114 mg/dL (60-115); Magnesium 1.8 mg/dL (1.6-2.6); Potassium 4.1 mmol/L (3.3-5.1); Sodium 143 mmol/L (135-145); Total Protein 6.9 g/dL (6.5-8.0)
[2022-12-21 17:02] LABS: B Type Natriuretic Peptide 59 pg/mL (<100)
[2022-12-21 20:43] VITALS: BP 145/71; PULSE 81; RESP 18; TEMP 36.7; O2SAT 99
--- NOTE | 2022-12-21 21:20 | PC.NURSE ---
Pt presenting with new onset redness and swelling in the lower legs, bilaterally. Pt stated swelling started on Tuesday. No pain at rest, but a random sharp pin-like pain will happen occasionally. Pt does have edzema at baseline. Pt reports no new shortness of breath or chest pain. Pt is A&Oxc4, GCS 15, with cool, dry skin. Pt has bilateral lower extremity edema. Pulses, sensation, and movement are all in tact bilaterally.
[2022-12-21 22:59] VITALS: BP 145/77; PULSE 81; RESP 16; TEMP 36.8; O2SAT 97
== END 2022-12-21 23:58 | disposition home or self-care (01) ==
PROVIDERS: Physician Assistant; Emergency Provider Student in an Organized Health Care Education/Training Program; PCP Internal Medicine
DX: I83.12 Varicose veins of left lower extremity with inflammation (principal); I83.11 Varicose veins of right lower extremity with inflammation; E11.69 Type 2 diabetes mellitus with other specified complication; L98.8 Other specified disorders of the skin and subcutaneous tissue; M79.605 Pain in left leg; M79.604 Pain in right leg; R60.0 Localized edema; R06.02 Shortness of breath; I10 Essential (primary) hypertension; Z79.899 Other long term (current) drug therapy
CPT/HCPCS: 36415; 80048; 80076; 83735; 83880; 85025; 85610; 85730; 93970; 99284

== ENCOUNTER → 2022-12-24 09:17 | Outpatient (REF) | payer OTHER, SELFPAY ==
--- NOTE | ~2022-12-24 | NM_ITS ---
Myocardial perfusion study Indication: CAD surveillance with prior coronary artery bypass grafting Technique: The patient was brought in for a Lexiscan perfusion study on 12/24/2022. Patient performed low-level exercise and was injected 0.4 mg of Lexiscan intravenously. Within a minute of injection, 40 mCi of sestamibi was given intravenously. Images were obtained using the SPECT gamma camera interlaced with the gating device. Images were obtained in supine position. Resting perfusion study was performed on 01/03/2023. Patient was administered 40 mCi of sestamibi intravenously at rest. Images were then obtained in supine position. Images obtained with and without CT attenuation. Total DLP 160 mGy-cm. Images were processed with the software and compared side to side in short axis, horizontal long axis and vertical long axis views. Findings: The stress perfusion study showed non attenuated images show moderately to severely reduced uptake in the inferior wall of the LV myocardium. Remainder of the LV myocardium is normally perfused. Attenuation corrected images show normal uptake of radiotracer in the inferior wall and remainder of the LV myocardium. There is suggestion of left ventricle hypertrophy.. The gated study shows normal LV systolic function with visually estimated LVEF of greater than 50%. LV cavity is normal in size. The gated study shows normal systolic wall thickening and contraction of segments. Resting study shows no change in perfusion pattern compared to stress perfusion study. Gating at rest reveals normal systolic wall motion with ejection fraction at 57%. The findings are consistent with likely normal myocardial perfusion. NM/NM mellisa perf SPECT rest & str Impression: 1. Myocardial perfusion imaging study shows likely normal myocardial perfusion 2. Gated LVEF is 57% 3. Transient ischemic dilatation not present EKG is nondiagnostic for ischemia
--- NOTE | 2022-12-24 09:21 | CA_ITS ---
Acquisition Time: 2022-12-24 09:35:34 Total Exercise Time: 00:02:00 Test Indications: CAD Medications: ALLOPURINOL ALBUTEROL ASA ATORVASTATIN VERAPAMIL Protocol: LEXISCAN Max HR: 100 BPM 68% of Pred: 145 BPM Max BP: 134/062 mmHG Max Work Load: 1.0 METS Pharmacological stress test with Lexiscan injection, while sitting and kicking legs, without anginal symptoms, without arrythmia, with normotensive response to injection, with nondiagnostic EKG for ischemia. In recovery he reported lightheadedness that was treated with aminophylline 75mg IVP to reverse Lexiscan with resolution of symptom. Nuclear images pending. Test reviewed with Dr Kemp Referred By: Roberto Kemp Overread By: MYRA RODRIGUEZ
== END ==
LOC: HO.CARD 09:17
PROVIDERS: PCP Internal Medicine; Visit Provider Internal Medicine Cardiovascular Disease
DX: I25.10 Atherosclerotic heart disease of native coronary artery without angina pectoris (principal)
CPT/HCPCS: 78452; 93017; A9500; J0280; J2785

== ENCOUNTER 2023-02-07 14:22 | Outpatient (AMB) | payer OTHER, SELFPAY ==
[2023-02-07 14:23] VITALS: BP 140/82; PULSE 82; BMI 41.5
--- NOTE | 2023-02-07 14:23 | MHC.OFFVIS ---
Intake Vital Signs 02/07/23 14:23 Height 5 ft 11 in Weight 297 lb 9.985 oz BMI 41.5 BP 140/82 H Blood Pressure Location Lt brachial Position Sitting Pulse 82 Intake Visit Reasons: 10 mth f/up s/p marla Intake Note: Follow-up post marla mibi feeling ok General Education Professor Required: No Allergies amoxicillin [From Augmentin] Allergy (Mild, Verified 12/21/22 16:18) NAUSEA & VOMITING, HIVES clavulanic acid [From Augmentin] Allergy (Mild, Verified 12/21/22 16:18) NAUSEA & VOMITING, HIVES piperacillin [From ZOSYN] Allergy (Unknown, Verified 12/21/22 16:18) LIVER FAILURE tazobactam [From ZOSYN] Allergy (Unknown, Verified 12/21/22 16:18) LIVER FAILURE Medication List - Last Reconciled 02/07/23 by Roberto Kemp MD albuterol sulfate 90 mcg/actuation 2 puffs inhalation QID PRN albuterol sulfate 2.5 mg inhalation TID PRN allopurinol 300 mg PO DAILY ascorbic acid (vitamin C) 250 mg PO DAILY aspirin (Adult Aspirin Regimen) 81 mg PO DAILY atorvastatin 40 mg PO BEDTIME bupropion HCl 200 mg PO BID cetirizine (All Day Allergy (cetirizine)) 10 mg PO BEDTIME dicyclomine 20 mg PO Q6H PRN docusate sodium (Stool Softener) 100 mg PO BID fluticasone propionate 50 mcg/actuation 1 spray intranasal BID gabapentin 1,200 mg PO DAILY@1900 gabapentin 600 mg PO BID@0800,1200 hydrochlorothiazide 50 mg PO DAILY levothyroxine 50 mcg PO DAILY@0600 metformin 500 mg PO BID mometasone 200 mcg/actuation (Asmanex HFA) 2 puffs inhalation BEDTIME montelukast 10 mg PO DAILY niacinamide 500 mg PO BID omeprazole 20 mg PO BID@0630,1630 oxybutynin chloride ER 15 mg PO BEDTIME polyethylene glycol 3350 17 grams PO DAILY tamsulosin 0.4 mg PO BID tiotropium-olodaterol 2.5-2.5 mcg/actuation (Stiolto Respimat) 2 puffs inhalation DAILY verapamil ER 360 mg PO BID zafirlukast (Accolate) 20 mg PO BID HPI HPI Comments History of Present Illness Details Mikal comes for follow-up. Patient has no obvious cardiac symptoms. Occasionally has symptoms of palpitation but these are very infrequent. His smart watch notices atrial fibrillation burden of about less than 2% overall. Recent myocardial perfusion imaging within normal limits. He denies any symptoms of angina. Takes all his medications. Scheduled to undergo teeth extraction in near future. Denies any heart failure symptoms. Did have recent bilateral lower extremity swelling below the knee diagnose as venous insufficiency. Being treated with compression stockings. No orthopnea, PND, abdominal distension. [facility]LY [facility] Medical History Anemia, chronic disease CAD (coronary artery disease) COPD (chronic obstructive pulmonary disease) Diabetes mellitus History of iron deficiency anemia HTN (hypertension) Hyperlipidemia Hypothyroidism FARHAD (obstructive sleep apnea) Paroxysmal atrial fibrillation Surgical History History of back surgery History of esophagogastroduodenoscopy (EGD) Hx of CABG Hx of cardiac cath Hx of colonoscopy Hx of hand surgery Hx of knee surgery Family History Father Sudden cardiac Mother Sudden cardiac Social History Household Members: Spouse Housing: House Do you presently have visiting nurse or other home services: No Alcohol intake: never Patient Tobacco Use Status: Never used Tobacco Advance Directives Date on File: 10/18/22 service: Yes Current occupational status: retired Review of Systems Const Denies chills, Denies fatigue, Denies fever(s), Denies frequent falls, Denies weakness, Denies weight gain and Denies weight loss ENT Denies dizziness Card Denies chest pain, Denies leg edema, Denies lightheadedness, Denies palpitations, Denies dyspnea, Denies dyspnea on exertion, Denies orthopnea and Denies other (loss of consciousness) Resp Denies cough, Denies dyspnea and Denies dyspnea on exertion GI Denies hematochezia and Denies change in stool character Musc Denies abnormal gait, Denies muscle weakness, Denies numbness, Denies radiating pain into limb and Denies tingling Neuro Denies abnormal gait, Denies dizziness, Denies frequent falls, Denies numbness, Denies tingling and Denies weakness Endo Denies fatigue and Denies palpitations Physical Exam Vital Signs: Last Vital Signs Pulse 82 02/07/23 14:23 BP 140/82 H 02/07/23 14:23 BMI result Body Mass Index 41.5 Const General: cooperative, comfortable, no acute distress, alert and awake Nutritional Appearance: obese morbidly obese Orientation/consciousness: patient oriented x3 Limitations: no limitations Neck Neck: Yes trachea midline, Yes supple and Yes no JVD Carotids: no bruits Resp Effort & Inspection: normal respiratory effort Auscultation: clear to auscultation bilaterally and diminished lung sounds Cardio Jugular venous distension: no JVD Palpation: normal PMI Rate: regular rate Rhythm: regular rhythm Heart sounds: S1 normal heart sound present, S2 normal heart sound present, no click, no gallops, no murmurs and Rub heart sound present GI Auscultation: normal bowel sounds Skin General skin exam: no rashes or lesions noted Neuro General: patient oriented x3 and no focal motor deficits Extrem General: No clubbing, No cyanosis and Yes pedal edema Assessment & Plan Assessment & Plan (1) CAD (coronary artery disease): Code(s): I25.10 - Atherosclerotic heart disease of [place] coronary artery without angina pectoris Plan: CAD with remote coronary artery bypass grafting with recent myocardial perfusion imaging within normal limits. Continue aggressive medical therapy. Currently on low-dose aspirin therapy for life. Blood pressure is currently well optimized. Continue current therapy. Importance of good blood pressure control was discussed. Continue participate in weight loss program. Continue high-intensity statin therapy with target goal LDL closer to 60 mg/dL. Continue aggressive management diabetes goal hemoglobin A1c less than 7%. Bilateral lower extremity edema appears to be secondary to venous insufficiency. Continue compression stockings. (2) Paroxysmal atrial fibrillation: Comment: Status post Watchman device due to recurrent iron deficiency anemia suspected to be GI bleed. Code(s): I48.0 - Paroxysmal atrial fibrillation Plan: Fibrillation with low burden of atrial fibrillation. Advised to monitor with EKGs. Continue current verapamil therapy. No indication for antiarrhythmic drug therapy at this point time unless has increasing burden of atrial fibrillation. Status post Watchman device. Continue low-dose aspirin therapy for life. Continue participate in weight loss program. Continue CPAP therapy. Continue aggressive blood pressure control which is currently well optimized. Follow up in the clinic in 1 year's time, sooner [email or web address]. Thank you for allowing me to partake in his care Coding Level of Care Code Est Pt Level 4 (47182) Diagnoses CAD (coronary artery disease) I25.10 Paroxysmal atrial fibrillation I48.0
== END 2023-02-07 14:54 | disposition home or self-care (01) ==
PROVIDERS: Visit Provider Internal Medicine Cardiovascular Disease
DX: I25.10 Atherosclerotic heart disease of native coronary artery without angina pectoris (principal); I48.0 Paroxysmal atrial fibrillation
CPT/HCPCS: 99214

== ENCOUNTER → 2023-02-07 14:22 | Outpatient (BNVA) | payer OTHER, SELFPAY | PROVIDERS: Visit Provider Internal Medicine Cardiovascular Disease | DX: I25.10 Atherosclerotic heart disease of native coronary artery without angina pectoris (principal); I48.0 Paroxysmal atrial fibrillation; Z79.82 Long term (current) use of aspirin; Z79.899 Other long term (current) drug therapy | CPT/HCPCS: 99212 ==

== ENCOUNTER 2023-07-07 01:02 | Inpatient (IN) | payer OTHER, SELFPAY ==
[2023-07-07] VITALS (9 sets, daily range): BP systolic 125–175; BP diastolic 59–96; PULSE 65–97; RESP 16–20; TEMP 36.4–36.8; O2SAT 93–98; BMI 39.0; BMI 40.3
--- NOTE | 2023-07-07 | ECG_ITS ---
Test Reason : ABD PAIN Blood Pressure : / mmHG Vent. Rate : 099 BPM Atrial Rate : 375 BPM P-R Int : 000 ms QRS Dur : 096 ms QT Int : 346 ms P-R-T Axes : 256 -30 048 degrees QTc Int : 444 ms Poor data quality Normal sinus rhythm Cannot rule out Anteroseptal infarct (cited on or before 18-OCT-2022) Abnormal ECG When compared with ECG of 18-OCT-2022 11:27, No significant changes when compared with the previous EKG of Referred By: Generic ED Physician Electronically Signed By:Kenny Cisneros
--- NOTE | ~2023-07-07 | US_ITS ---
EXAMINATION: US ABDOMEN LIMITED CLINICAL INFORMATION: Evaluate gallbladder and pancreas. COMPARISON: CT abdomen pelvis earlier today TECHNIQUE: Real-time imaging of the gallbladder and pancreas. Today's examination is limited secondary to patient body habitus and overlying bowel gas. FINDINGS: PANCREAS: Visualized portions of the pancreas are normal in appearance. The pancreatic tail is poorly visualized due to overlying bowel gas. GALLBLADDER: The gallbladder is physiologically distended. Gallstones are noted. There is no gallbladder wall thickening or pericholecystic fluid appreciated. Negative sonographic Lazar's sign. COMMON BILE DUCT: Normal in caliber measuring 0.5 cm in diameter. US/US abdomen limited IMPRESSION: Cholelithiasis. No other sonographic evidence to suggest acute cholecystitis.
--- NOTE | ~2023-07-07 | CT_ITS ---
EXAMINATION: CT ABDOMEN AND PELVIS WITH CONTRAST CLINICAL INFORMATION: Diffuse abdominal pain COMPARISON: 10/18/2022 TECHNIQUE: Multidetector volumetric images were obtained from the superior aspect of the liver through the pubic symphysis following administration 85 mL of Omnipaque 350 intravenous contrast. Sagittal and coronal reformatted images were obtained on the technologist's workstation. Oral contrast: No This CT examination was performed using dose optimization techniques as appropriate, variously including the following: *Automated exposure control *Adjustment of mA and/or kV according to patient size (this includes techniques or standardized protocols for targeted exams where dose is matched to indication/reason for exam; i.e. extremities or head) *Use of iterative reconstruction technique DLP: 1182 mGy-cm FINDINGS: LUNG BASES: Calcified granuloma, right lower lobe. Coronary calcifications. LIVER, GALLBLADDER, AND BILIARY TREE: The liver is normal in size, shape, and attenuation. There are couple stable benign cysts and scattered calcified granulomata. No intra or extrahepatic biliary ductal dilatation is present. Cholelithiasis. No gallbladder distention or pericholecystic fluid. PANCREAS: Unremarkable. SPLEEN: Normal size. Numerous calcified granulomata. ADRENAL GLANDS: Unremarkable. KIDNEYS AND URETERS: The kidneys are normal in size, shape, and attenuation. No hydronephrosis, hydroureter, or calculi seen. Simple cysts in the right kidney are benign. No follow-up imaging recommended. No perinephric stranding. BLADDER: Unremarkable. GASTROINTESTINAL TRACT: Multiple mildly dilated loops of small bowel redemonstrated similar to that seen on the prior examination. The bowel tapers to relatively collapsed loops in the distal jejunum in the left hemiabdomen, however a cause for this transition point is unclear. Left colonic diverticulosis without evidence of diverticulitis. Stool present throughout the colon. Normal appendix. Stomach unremarkable. ABDOMINAL WALL: Left spigelian hernia containing a nonobstructed, noninflamed segment of the sigmoid colon, stable from prior. LYMPH NODES: Normal. VASCULAR: Aorta is atherosclerotic but normal caliber. PELVIC VISCERA: Unremarkable. OSSEOUS STRUCTURES: Unremarkable. CT/CT abdomen pelvis w IV con IMPRESSION: * Multiple mildly dilated loops of small bowel redemonstrated similar to that seen on the prior examination. The bowel tapers to relatively collapsed loops in the distal jejunum in the left hemiabdomen, however a cause for this transition point is unclear. Favor chronic partial obstruction. * Left colonic diverticulosis without evidence of diverticulitis. 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 * Cholelithiasis. * Evidence of prior granulomatous disease. Fleischner guidelines were followed.
[2023-07-07 01:27] LABS: MANUAL DIFF FLAG NO
--- NOTE | 2023-07-07 01:31 | PC.NURSE ---
Pt A&O, denies any sob or chest pain, pt changed over to hospital attire, labs drawn and sent , iv placed, EkG completed. Provider aware, verbal order for normal saline and zofran.
[2023-07-07] MEDS: 0.9 % Sodium Chloride 1,000 ML 999 ML IV (01:33)
[2023-07-07] MEDS: ondansetron HCL 4 MG/2 ML VIAL IVPUSH ×3 (01:34→06:11)
[2023-07-07 01:43] LABS: Basophils Absolute Auto 0.1 X10*3/uL (0.0-0.2); Basophils Percent Auto 0.4 % (0-2); Eosinophils Absolute Auto 0.1 X10*3/uL (0.0-0.4); Eosinophils Percent Auto 0.6 % (0-4); Hematocrit 38.4 % (42.0-52.0); Hemoglobin 12.8 g/dl (14.0-18.0); Imm Gran Abs Auto 0.09 X10*3/uL (0.00-0.03); Imm Gran Pct Auto 0.6 % (0.0-0.4); Lymphocytes Absolute Auto 1.7 X10*3/uL (1.2-4.9); Lymphocytes Percent Auto 10.9 % (20-40); Mean Corpuscular HGB Conc 33.3 g/dl (31.0-36.0); Mean Corpuscular Hemoglobin 31.1 pg (27.0-33.0); Mean Corpuscular Volume 93.2 fL (80.0-98.0); Mean Platelet Volume 9.5 fL (9.4-12.4); Monocytes Absolute Auto 0.9 X10*3/uL (0.1-1.2); Monocytes Percent Auto 5.6 % (2-11); Neutrophils Percent Auto 81.9 % (45-73); Platelet Count 274 X10*3/uL (160-400); Red Blood Count 4.12 X10*6/uL (4.60-5.80); Red Cell Distribution Width 14.9 % (11.0-16.0); White Blood Count 15.8 X10*3/uL (4.8-10.8)
[2023-07-07 01:54] LABS: Alanine Aminotransferase 16 U/L (0-40); Albumin Level 4.4 g/dL (3.5-5.0); Alkaline Phosphatase 134 U/L (39-117); Anion Gap 17 (12-20); Aspartate Amino Transferase 16 U/L (5-37); Bilirubin Total 0.6 mg/dL (0.0-1.0); Blood Urea Nitrogen 17 mg/dL (9-16); Calcium 10.2 mg/dL (8.4-10.2); Carbon Dioxide 24 mmol/L (22-29); Chloride 99 mmol/L (96-108); Creatinine Clr Calc Pharmacy 65.1; Estimated Glomerular Filt Rate 52; Glucose Random 148 mg/dL (60-115); Lipase 23 U/L (8-78); Potassium 3.3 mmol/L (3.3-5.1); Sodium 137 mmol/L (135-145); Total Protein 7.9 g/dL (6.5-8.0)
[2023-07-07 01:58] LABS: Troponin-I High Sensitivity < 2.7 ng/L (<3.5-35.0)
[2023-07-07] MEDS: Morphine Sulfate 4 MG/ML CARTRIDGE IVPUSH ×2 (02:25→07:27)
[2023-07-07 02:31] LABS: Influenza A PCR NEGATIVE (Negative); Influenza B PCR NEGATIVE (Negative); Resp Syncy Virus RNA Qual PCR NEGATIVE (Negative); SARS COV2 PCR INHOUSE NEGATIVE (Negative)
--- NOTE | 2023-07-07 02:55 | PC.NURSE ---
pt medicated per mar for nausea, pt taken to CT Scan.
[2023-07-07] MEDS: iohexoL 350 MG/ML 100 ML INFUS..BTL IV (03:15)
[2023-07-07] MEDS: HYDROmorphone HCl 1 MG/ML SYRINGE IVPUSH (03:37)
--- NOTE | 2023-07-07 03:59 | ED_ITS ---
HPI - Abdominal Pain General Chief Complaint: Abdominal Pain Stated Complaint: abd pain Time Seen by Provider: 07/07/23 02:02 Source: patient and family (Keerthi) Mode of arrival: EMS Limitations: no limitations History of Present Illness HPI narrative: 77-year-old man with history of hypothyroidism, chronic anemia, FARHAD, COPD, hyperlipidemia, diabetes, hypertension, paroxysmal atrial fibrillation, coronary disease presents emergency department for evaluation of abdominal pain. Patient states that the pain started yesterday afternoon, came on suddenly and got progressively worse. He states that he currently feels bloated any feels like the pain is radiating now to the middle of his back. He had associated nausea and vomiting. He states that he did have a bowel movement yesterday. Patient states the pain is similar to the pain when he had a bowel obstruction in October of 2022. He states that his pain is currently greater than 10/10. Related Data Home Medications Medication Instructions Recorded Confirmed albuterol sulfate 2.5 mg/3 mL 2.5 mg inhalation TID PRN Wheezing 09/25/20 02/07/23 (0.083 %) solution for nebulization allopurinol 300 mg tablet 300 mg PO DAILY 09/25/20 02/07/23 aspirin 81 mg tablet,delayed 81 mg PO DAILY 09/25/20 02/07/23 release (Adult Aspirin Regimen) atorvastatin 80 mg tablet 40 mg PO BEDTIME 09/25/20 02/07/23 bupropion HCl 200 mg tablet,12 hr 200 mg PO BID 09/25/20 02/07/23 sustained-release cetirizine 10 mg tablet (All Day 10 mg PO BEDTIME 09/25/20 02/07/23 Allergy (cetirizine)) dicyclomine 20 mg tablet 20 mg PO Q6H PRN Spasms 09/25/20 02/07/23 fluticasone propionate 50 1 spray intranasal BID 09/25/20 02/07/23 mcg/actuation nasal spray,suspension levothyroxine 50 mcg capsule 50 mcg PO DAILY@0600 09/25/20 02/07/23 metformin 500 mg tablet 500 mg PO BID 09/25/20 02/07/23 mometasone 200 mcg/actuation HFA 2 puff inhalation BEDTIME 09/25/20 02/07/23 aerosol inhaler (Asmanex HFA) omeprazole 20 mg capsule,delayed 20 mg PO BID@0630,1630 09/25/20 02/07/23 release tamsulosin 0.4 mg capsule 0.4 mg PO BID 09/25/20 02/07/23 tiotropium 2.5 mcg-olodaterol 2.5 2 puff inhalation DAILY 09/25/20 02/07/23 mcg/actuation mist for inhalation (Stiolto Respimat) verapamil 360 mg 24 hr 360 mg PO BID 09/25/20 02/07/23 capsule,extended release zafirlukast 20 mg tablet (Accolate) 20 mg PO BID 09/25/20 02/07/23 albuterol sulfate 90 mcg/actuation 2 puff inhalation QID PRN Wheezing 10/18/22 02/07/23 aerosol inhaler ascorbic acid (vitamin C) 250 mg 250 mg PO DAILY 10/18/22 02/07/23 tablet gabapentin 600 mg tablet 1,200 mg PO DAILY@1900 10/18/22 02/07/23 gabapentin 600 mg tablet 600 mg PO BID@0800,1200 10/18/22 02/07/23 niacinamide 500 mg tablet 500 mg PO BID 10/18/22 02/07/23 oxybutynin chloride 15 mg 15 mg PO BEDTIME 10/18/22 02/07/23 tablet,extended release 24 hr montelukast 10 mg tablet 10 mg PO DAILY 10/19/22 02/07/23 hydrochlorothiazide 50 mg tablet 50 mg PO DAILY 02/07/23 02/07/23 Previous Rx's Medication Instructions Recorded docusate sodium 100 mg capsule 100 mg PO BID #60 caps 10/27/22 (Stool Softener) polyethylene glycol 3350 17 gram 17 g PO DAILY #30 ea 10/27/22 oral powder packet Allergies Allergy/AdvReac Type Severity Reaction Status Date / Time amoxicillin [From Augmentin] Allergy Mild NAUSEA & Verified 12/21/22 16:18 VOMITING, HIVES clavulanic acid Allergy Mild NAUSEA & Verified 12/21/22 16:18 [From Augmentin] VOMITING, HIVES piperacillin [From ZOSYN] Allergy Unknown LIVER Verified 12/21/22 16:18 FAILURE tazobactam [From ZOSYN] Allergy Unknown LIVER Verified 12/21/22 16:18 FAILURE Review of Systems Review of Systems Yes all other systems are reviewed and are negative PMFSH Past Medical History [facility]LY [facility] Narrative: Social history: He is , his John is here in the emergency department with him. He denies tobacco, alcohol and drug use. Medical History Anemia, chronic disease CAD (coronary artery disease) COPD (chronic obstructive pulmonary disease) Diabetes mellitus History of iron deficiency anemia HTN (hypertension) Hyperlipidemia Hypothyroidism FARHAD (obstructive sleep apnea) Paroxysmal atrial fibrillation Surgical History History of back surgery History of esophagogastroduodenoscopy (EGD) Hx of CABG Hx of cardiac cath Hx of colonoscopy Hx of hand surgery Hx of knee surgery Family History Family History Father Sudden cardiac Mother Sudden cardiac Social History Social History Household Members: Spouse Housing: House Do you presently have visiting nurse or other home services: No Alcohol intake: never Patient Tobacco Use Status: Never used Tobacco Use of substances other than those prescribed or required for medical reasons: No Advance Directives: Yes Advance Directives on File: Yes Advance Directives Date on File: 10/18/22 service: Yes Current occupational status: retired Physical Exam ED Vital Signs: Vital Signs - 24 hr 07/07/23 01:24 07/07/23 03:22 07/07/23 06:28 Temperature 98.0 F 98.1 F Pulse Rate 94 97 87 Respiratory Rate 20 18 17 Blood Pressure 166/88 H 156/67 H 138/69 Pulse Oximetry 97 97 95 Oxygen Delivery Method Room Air Room Air Room Air 07/07/23 07:27 Temperature Pulse Rate Respiratory Rate 20 Blood Pressure Pulse Oximetry Oxygen Delivery Method BMI result Body Mass Index 39.0 Vital signs revealed an elevated blood pressure of 166/88 Exam General: Awake, alert , in moderate distress secondary to his pain Head: Normocephalic, atraumatic EENT: PERRL, Lids normal, sclera normal, conjunctiva normal, nose normal , ears normal, throat without erythema or exudates Neck: Supple, no adenopathy, no trachea midline or C-spine tenderness Lung: breath sounds symmetric, no wheezing, rales or rhonchi Chest: symmetric movement, nontender Heart: regular rate and rhythm, normal S1, S2 no murmurs or rubs Abdomen: Obese, distended, decreased bowel sounds, moderate diffuse tenderness Back: no vertebral tenderness, no CVAT Extremities: no deformities, moves all extremities symmetrically Neuro: Awake, alert, oriented, normal speech, cranial nerves intact, moves all extremities symmetrically Psych: Pleasant, cooperative Medical Decision Making Medical Decision Making MDM Narrative: 77-year-old man with history of hypothyroidism, chronic anemia, FARHAD, COPD, hyperlipidemia, diabetes, hypertension, paroxysmal atrial fibrillation, coronary disease presents emergency department for evaluation of abdominal pain that started yesterday afternoon and got progressively worse. Patient planes of 10/10 pain, he feels bloated and he states that the pain feels similar to his bowel obstruction from October 2022. Patient's vital signs did reveal an elevated blood pressure. Abdominal exam revealed distension with moderate diffuse tenderness and diminished bowel sounds. Following evaluation was ordered: CBC, CMP, troponin, lipase, uric acid, COVID, flu, RSV, CT scan of the abdomen pelvis with IV contrast, 12 EKG. Patient was treated with morphine 4 mg IV, hydromorphone 1 mg IV, Zofran 4 mg IV x2, normal saline x1 L 04:04 Patient's laboratory evaluation was interpreted by me as follows: Elevated white blood count 77449, elevated glucose 148, alk-phos elevated 134, lipase normal. Troponin below detectable limits. EKG revealed no evidence ischemia or infarction Patient did get improvement with the above treatment CT scan of the abdomen pelvis is concerning for multiple mildly dilated loops of small bowel. Th bowel tapers to relatively collapsed loops in the distal jejunum in the left hemiabdomen without a clear cause for obstruction. Findings are similar to patient's previous CT scan. 05:32 I did discuss the patient's presentation over tiger text with the covering surgeon, Dr. White. He requested a repeat CT scan of the abdomen pelvis with IV and oral contrast with small-bowel follow-through to further evaluate the bowel obstruction. Given the patient's complex medical history, he recommended that the patient be admitted to the hospital service and he will consult for surgery. 05:43 I did discuss the patient's presentation over tiger text with the covering hospitalist, Dr. Espinoza 07:41 Patient was able to drink 1 cup of contrast but then vomited immediately after that, since then he has not been able to hold any contrast down despite getting more anti emetics therefore I canceled the CT scan and did tiger text Dr. White Differential Diagnosis Differential Diagnoses: The differential diagnosis associated with the presentation includes Differential diagnosis includes was not limited to bowel obstruction, ileus, pancreatitis, diverticulitis, kidney stone, electrolyte abnormality, anemia Lab Data See MDM above 07/07/23 01:23 07/07/23 01:23 Labs: Lab Results 07/07/23 07/07/23 Range/Units 01:23 01:51 WBC 15.8 H (4.8-10.8) X10*3/uL RBC 4.12 L (4.60-5.80) X10*6/uL Hgb 12.8 L (14.0-18.0) g/dl Hct 38.4 L (42.0-52.0) % MCV 93.2 (80.0-98.0) fL MCH 31.1 (27.0-33.0) pg MCHC 33.3 (31.0-36.0) g/dl RDW 14.9 (11.0-16.0) % Plt Count 274 (160-400) X10*3/uL MPV 9.5 (9.4-12.4) fL Immature Gran % (Auto) 0.6 H (0.0-0.4) % Neut % (Auto) 81.9 H (45-73) % Lymph % (Auto) 10.9 L (20-40) % [place] % (Auto) 5.6 (2-11) % Eos % (Auto) 0.6 (0-4) % Baso % (Auto) 0.4 (0-2) % Lymph # (Auto) 1.7 (1.2-4.9) X10*3/uL [place] # (Auto) 0.9 (0.1-1.2) X10*3/uL Eos # (Auto) 0.1 (0.0-0.4) X10*3/uL Baso # (Auto) 0.1 (0.0-0.2) X10*3/uL Abs Immat Gran (auto) 0.09 H (0.00-0.03) X10*3/uL Absolute Neuts (auto) 13.0 H (2.0-8.3) x10*3/uL Absolute Nucleated RBC 0.000 (0.0-0.012) X10*3/uL Nucleated RBC % (auto) 0.0 (0.0-0.2) /100WBC Sodium 137 (135-145) mmol/L Potassium 3.3 (3.3-5.1) mmol/L Chloride 99 (96-108) mmol/L Carbon Dioxide 24 (22-29) mmol/L Anion Gap 17 (12-20) BUN 17 H (9-16) mg/dL Creatinine 1.33 (0.5-1.4) mg/dL Estim Creat Clear Calc 65.1 Estimated GFR 52 Random Glucose 148 H (60-115) mg/dL Calcium 10.2 (8.4-10.2) mg/dL Total Bilirubin 0.6 (0.0-1.0) mg/dL AST 16 (5-37) U/L ALT 16 (0-40) U/L Alkaline Phosphatase 134 H (39-117) U/L Troponin I High Sens < 2.7 (<3.5-35.0) ng/L Total Protein 7.9 (6.5-8.0) g/dL Albumin 4.4 (3.5-5.0) g/dL Lipase 23 (8-78) U/L Influenza Type A (PCR) NEGATIVE (Negative) Influenza Type B (PCR) NEGATIVE (Negative) RSV RNA Qual (PCR) NEGATIVE (Negative) SARS-CoV-2 RNA (RT-PCR) NEGATIVE (Negative) Independent Interpretation I performed an independent interpretation of an: EKG Interpretation: My interpretation patient's 12 EKG done at 01:29 hours is as follows: Atrial fibrillation with a rate of 99, normal QRS duration QTC interval, baseline has significant artifact but I do not see any significant ST segment elevation or depression. Radiology Impression Discussion of test interpretation with radiology: I have reviewed the radiologist's reading. Radiologist Impression: CT abdomen pelvis w IV con IMPRESSION: * Multiple mildly dilated loops of small bowel redemonstrated similar to that seen on the prior examination. The bowel tapers to relatively collapsed loops in the distal jejunum in the left hemiabdomen, however a cause for this transition point is unclear. Favor chronic partial obstruction. * Left colonic diverticulosis without evidence of diverticulitis. 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 * Cholelithiasis. * Evidence of prior granulomatous disease. Fleischner guidelines were followed. Dictated By: Steve Maya MD Medications Administered Generic Name Dose Route Start Last Admin Trade Name Freq PRN Reason Stop Dose Admin Lactated Ringer's 1,000 mls @ 125 mls/hr 07/07/23 04:30 07/07/23 04:33 Lr IVCONT 125 mls/hr .Q8H CASANDRA Administration Discontinued Medications Generic Name Dose Route Start Last Admin Trade Name Freq PRN Reason Stop Dose Admin Diatrizoate Meglum/Diatrizoate Sod 30 ml 07/07/23 05:37 07/07/23 05:38 Diatrizoate Meglumine, Sodium 30 Ml Solution PO 07/07/23 05:38 30 ml ONCE ONE Administration Hydromorphone HCl 1 mg 07/07/23 03:25 07/07/23 03:37 Hydromorphone Hcl 1 Mg/Ml Syringe IVPUSH 07/07/23 03:26 1 mg ONCE STA Administration Protocol Sodium Chloride 1,000 mls @ 999 mls/hr 07/07/23 01:30 07/07/23 02:56 Ns IV 07/07/23 02:30 Infused .Q1H1M CASANDRA Infusion Promethazine HCl 12.5 mg/ 50.5 mls @ 202 mls/hr 07/07/23 07:05 07/07/23 07:29 Sodium Chloride IV 07/07/23 07:06 202 mls/hr ONCE ONE Administration Iohexol 100 ml 07/07/23 03:14 07/07/23 03:15 Iohexol 350 Mg/Ml 100 Ml Infus..Btl IV 07/07/23 03:15 100 ml ONCE ONE Administration Morphine Sulfate 4 mg 07/07/23 02:10 07/07/23 02:25 Morphine Sulfate 4 Mg/Ml Cartridge IVPUSH 07/07/23 02:11 4 mg ONCE STA Administration Protocol Morphine Sulfate 4 mg 07/07/23 07:09 07/07/23 07:27 Morphine Sulfate 4 Mg/Ml Cartridge IVPUSH 07/07/23 07:10 4 mg ONCE ONE Administration Protocol Ondansetron HCl 4 mg 07/07/23 01:28 07/07/23 01:34 Ondansetron Hcl 4 Mg/2 Ml Vial IVPUSH 07/07/23 01:29 4 mg ONCE ONE Administration Ondansetron HCl 4 mg 07/07/23 02:43 07/07/23 02:44 Ondansetron Hcl 4 Mg/2 Ml Vial IVPUSH 07/07/23 02:44 4 mg ONCE ONE Administration Ondansetron HCl 4 mg 07/07/23 06:10 07/07/23 06:11 Ondansetron Hcl 4 Mg/2 Ml Vial IVPUSH 07/07/23 06:11 4 mg ONCE ONE Administration Discharge Plan Discharge Clinical Impression: Small bowel obstruction, partial, Abdominal pain Patient Disposition: Admitted As Inpatient
--- NOTE | 2023-07-07 04:28 | PC.NURSE ---
Pt medicated per sep for pain management.
[2023-07-07] MEDS: Lactated Ringers 1,000 ML 125 ML IVCONT ×3 (04:33→19:46)
[2023-07-07] MEDS: Diatrizoate Meglumine, Sodium 30 ML SOLUTION PO (05:38)
--- NOTE | 2023-07-07 06:19 | PC.NURSE ---
Pt medicated per mar .
--- NOTE | 2023-07-07 09:57 | PHA.MEDREC ---
Pharmacy Consult ? Medication Reconciliation Pharmacy has completed the medication reconciliation. Spoke to patient and confirmed medication list. [facility] back and forth between montelukast and zafirlukast, depending on what they can get in stock.
[2023-07-07] MEDS: Enoxaparin Sodium 40 MG/0.4 ML SYRINGE SUBCUT (10:58)
--- NOTE | 2023-07-07 11:14 | PC.NURSE ---
Report given to overflow
--- NOTE | 2023-07-07 12:07 | P.CONGS_ITS ---
History of Present Illness Consult details Consult date: 07/07/23 Requesting physician: Josue Salgado Narrative: 77-year-old man with history of hypothyroidism, chronic anemia, FARHAD, COPD, hyperlipidemia, diabetes, hypertension, paroxysmal atrial fibrillation, coronary artery disease who presents to the ED for abdominal pain. Patient states that the pain started yesterday afternoon. It was in the upper abdomen and radiated to his upper back on both sides, which was different from his previous episodes. The pain is associated with nausea, vomiting and abdominal bloating. He states that he did have a bowel movement yesterday and has been passing some flatus. He [place] [facility] [place] treatment of a small bowel obstruction which resolved on its own. He denies fever, chills, diarrhea. Work up in the ED included CBC, BMP, LFTs which were significant for leukocytosis of 15.8 [address] alk phos 137. [address] scan which showed dilated loops of small bowel with tapering to collapsed loops in the distal jejunum in the left hemiabdomen. He denies previous abdominal surgery. Review of Systems 2 Constitutional: Constitutional: Denies chills and Denies fever(s) ENT: Denies dizziness Cardiovascular: Cardiovascular: Denies chest pain Gastrointestinal: Gastrointestinal: Reports as per HPI and Denies hematemesis Genitourinary: Genitourinary: Denies dysuria Integumentary/Breasts: Skin/Breast: Denies rash and Denies jaundice Neurologic: Denies dizziness PMFSH Past Medical History Medical History Anemia, chronic disease CAD (coronary artery disease) COPD (chronic obstructive pulmonary disease) Diabetes mellitus History of iron deficiency anemia HTN (hypertension) Hyperlipidemia Hypothyroidism FARHAD (obstructive sleep apnea) Paroxysmal atrial fibrillation Family History Family History Father Sudden cardiac Mother Sudden cardiac Surgical History Surgical History History of back surgery History of esophagogastroduodenoscopy (EGD) Hx of CABG Hx of cardiac cath Hx of colonoscopy Hx of hand surgery Hx of knee surgery Social History Social History Household Members: Spouse Housing: House Do you presently have visiting nurse or other home services: No Alcohol intake: never Patient Tobacco Use Status: Never used Tobacco Use of substances other than those prescribed or required for medical reasons: No Advance Directives: No Advance Directives Information Provided: Yes Advance Directives Date on File: 10/18/22 service: Yes Current occupational status: retired Meds Allergies Allergy/AdvReac Type Severity Reaction Status Date / Time amoxicillin [From Augmentin] Allergy Mild NAUSEA & Verified 12/21/22 16:18 VOMITING, HIVES clavulanic acid Allergy Mild NAUSEA & Verified 12/21/22 16:18 [From Augmentin] VOMITING, HIVES piperacillin [From ZOSYN] Allergy Unknown LIVER Verified 12/21/22 16:18 FAILURE tazobactam [From ZOSYN] Allergy Unknown LIVER Verified 12/21/22 16:18 FAILURE Active Medications: Current Medications Acetaminophen (Acetaminophen 325 Mg Tablet) 650 mg PO Q6H PRN PRN Reason: Pain, Mild (Pain Scale 1-3) Enoxaparin Sodium (Enoxaparin Sodium 40 Mg/0.4 Ml Syringe) 40 mg SUBCUT Q24H [facility] Last Admin: 07/07/23 10:58 Dose: 40 mg Lactated Ringer's (Lr) 1,000 mls @ 125 mls/hr IVCONT .Q8H [facility] Last Admin: 07/07/23 04:33 Dose: 125 mls/hr Sodium Chloride (Ns) 1,000 mls @ 100 mls/hr IVCONT .Q10H [facility] Last Admin: 07/07/23 11:15 Dose: Not Given Morphine Sulfate (Morphine Sulfate 4 Mg/Ml Cartridge) 4 mg IVPUSH Q4H PRN; Protocol PRN Reason: Pain, Severe (Pain Scale 7-10) Ondansetron HCl (Ondansetron Hcl 4 Mg/2 Ml Vial) 4 mg IVPUSH Q8H PRN PRN Reason: Nausea and Vomiting Sodium Chloride (0.9 % Sodium Chloride Flush 3 Ml Syringe) 3 ml IVFLUSH QSHIFT [facility] Home Medications Medication Instructions Recorded Confirmed Last Taken Type albuterol sulfate 2.5 mg/3 mL 2.5 mg inhalation TID PRN Wheezing 09/25/20 07/07/23 Unknown History (0.083 %) solution for nebulization allopurinol 300 mg tablet 300 mg PO DAILY 09/25/20 07/07/23 07/06/23 History aspirin 81 mg tablet,delayed 81 mg PO DAILY 09/25/20 07/07/23 07/06/23 History release (Adult Aspirin Regimen) bupropion HCl 200 mg tablet,12 hr 200 mg PO BID 09/25/20 07/07/23 07/06/23 History sustained-release cetirizine 10 mg tablet (All Day 10 mg PO BEDTIME 09/25/20 07/07/23 07/06/23 History Allergy (cetirizine)) dicyclomine 20 mg tablet 20 mg PO Q6H PRN Spasms 09/25/20 07/07/23 Unknown History fluticasone propionate 50 1 spray intranasal BID 09/25/20 07/07/23 07/06/23 History mcg/actuation nasal spray,suspension metformin 500 mg tablet 500 mg PO BID 09/25/20 07/07/23 07/06/23 History mometasone 200 mcg/actuation HFA 2 puff inhalation BEDTIME 09/25/20 07/07/23 07/06/23 History aerosol inhaler (Asmanex HFA) omeprazole 20 mg capsule,delayed 20 mg PO BID@0630,1630 09/25/20 07/07/23 07/06/23 History release tamsulosin 0.4 mg capsule 0.4 mg PO BID 09/25/20 07/07/23 07/06/23 History tiotropium 2.5 mcg-olodaterol 2.5 2 puff inhalation DAILY 09/25/20 07/07/23 07/06/23 History mcg/actuation mist for inhalation (Stiolto Respimat) verapamil 360 mg 24 hr 360 mg PO BID 09/25/20 07/07/23 07/06/23 History capsule,extended release albuterol sulfate 90 mcg/actuation 2 puff inhalation QID PRN Wheezing 10/18/22 07/07/23 Unknown History aerosol inhaler ascorbic acid (vitamin C) 250 mg 250 mg PO DAILY 10/18/22 07/07/23 07/06/23 History tablet gabapentin 600 mg tablet 1,200 mg PO DAILY@1900 10/18/22 07/07/23 07/06/23 History gabapentin 600 mg tablet 600 mg PO BID@0800,1200 10/18/22 07/07/23 07/06/23 History niacinamide 500 mg tablet 500 mg PO BID 10/18/22 07/07/23 07/06/23 History oxybutynin chloride 15 mg 15 mg PO BEDTIME 10/18/22 07/07/23 07/06/23 History tablet,extended release 24 hr montelukast 10 mg tablet 10 mg PO DAILY 10/19/22 07/07/23 Unknown History hydrochlorothiazide 50 mg tablet 50 mg PO DAILY 02/07/23 07/07/23 07/06/23 History atorvastatin 40 mg tablet 40 mg PO BEDTIME 07/07/23 07/07/23 07/06/23 History levothyroxine 50 mcg tablet 50 mcg PO DAILY 07/07/23 07/07/23 07/06/23 History polyethylene glycol 3350 17 8.5 g PO DAILY 07/07/23 07/07/23 07/06/23 History gram/dose oral powder Physical Exam 2 Vital Signs: Vital Signs: Last Vital Signs Temp 97.7 F 07/07/23 11:55 Pulse 79 07/07/23 11:55 Resp 18 07/07/23 11:55 BP 159/79 H 07/07/23 11:55 Pulse Ox 93 07/07/23 11:55 O2 Del Method Room Air 07/07/23 11:55 BMI result Body Mass Index 39.0 Const: General: comfortable, no acute distress and alert Nutritional Appearance: obese Orientation/consciousness: patient oriented x3 Resp: Effort & Inspection: normal respiratory effort GI: Other: corpulent abdomen; exam limited by body habitus Palpation (GI): Soft to palpation, Tenderness to palpation present (GI) (RUQ >LUQ ) in the LUQ and in the RUQ; Lazar's sign negative, no guarding and not rigid Skin: General skin exam: no rashes or lesions noted and no jaundice Neuro: General: patient oriented x3 and moves all extremities Results Labs 07/07/23 01:23 07/07/23 01:23 Labs: Abnormal lab results 07/07/23 Range/Units 01:23 WBC 15.8 H (4.8-10.8) X10*3/uL RBC 4.12 L (4.60-5.80) X10*6/uL Hgb 12.8 L (14.0-18.0) g/dl Hct 38.4 L (42.0-52.0) % Immature Gran % (Auto) 0.6 H (0.0-0.4) % Neut % (Auto) 81.9 H (45-73) % Lymph % (Auto) 10.9 L (20-40) % Abs Immat Gran (auto) 0.09 H (0.00-0.03) X10*3/uL Absolute Neuts (auto) 13.0 H (2.0-8.3) x10*3/uL BUN 17 H (9-16) mg/dL Random Glucose 148 H (60-115) mg/dL Alkaline Phosphatase 134 H (39-117) U/L Short CBC 07/07/23 Range/Units 01:23 WBC 15.8 H (4.8-10.8) X10*3/uL Hgb 12.8 L (14.0-18.0) g/dl Hct 38.4 L (42.0-52.0) % Plt Count 274 (160-400) X10*3/uL BMP 07/07/23 01:23 Sodium 137 Potassium 3.3 Chloride 99 Carbon Dioxide 24 BUN 17 H Creatinine 1.33 Calcium 10.2 Liver Function 07/07/23 Range/Units 01:23 Total Bilirubin 0.6 (0.0-1.0) mg/dL AST 16 (5-37) U/L ALT 16 (0-40) U/L Alkaline Phosphatase 134 H (39-117) U/L Albumin 4.4 (3.5-5.0) g/dL All other labs normal. Imaging Abdomen CT scan report/results: report reviewed and image reviewed Assessment and Plan (1) Abdominal pain: Qualifiers: Abdominal location: generalized Qualified Code(s): R10.84 - Generalized abdominal pain Status: Acute Plan 77 year old male with multiple medical comorbidites who presented with complaints of abdominal pain, nausea and vomiting with CT scan demonstrating dilated small bowel loops with tapering. The patient was admitted to the medical service for further work up. His exam is limited due to his body habitus but he was tender in the upper abdomen R>L and also c/o pain wrapping into his back suggesting possible gallbladder disease. Therefore recommend ABD US. Can continue supportive measures with bowel rest, IVF, PRN antiemetics and analgesics. NGT if vomiting continues. Will continue to follow. Further plan dependent on clinical course. Procedures Date of Service Date of Service: 07/07/23
[2023-07-07 12:46] LABS: Glucose, Whole Blood 105 mg/dL (60-115)
--- NOTE | 2023-07-07 13:17 | P.HPHOSP_ITS ---
History of Present Illness Date of Service: 07/07/23 Chief Complaint: Abdominal pain, nausea A 77 years old lady with PMH of PAF not on AC, CAD, HTN, HLD, COPD among others who presents to ED complaining of abdominal pain and vomiting. The patient reports that he started to have abdominal pain 1 day [employer] that started on the afternoon and continued to worsens. the pain is generalized, colicky associated with bloating and nausea. he vomited few times already. denies any bowel movements. No fever, chills, chest pain, palpitations, SOB, diarrhea or urinary symptoms. he is not passing gas. A CT scan of abdomen was concerning for possible small bowel obstruction. admitted for further evaluation and treatment. Review of Systems 2 Review of Systems: No fever, chills or weakness No chest pain, palpitation No shortness of breath or coughing reporting colicky abdominal pain, with nausea and vomiting No urinary symptoms No any rash or wounds PMFSH Medical History Hypothyroidism Anemia, chronic disease History of iron deficiency anemia FARHAD (obstructive sleep apnea) COPD (chronic obstructive pulmonary disease) Hyperlipidemia Diabetes mellitus HTN (hypertension) Paroxysmal atrial fibrillation CAD (coronary artery disease) Family History Father Sudden cardiac Mother Sudden cardiac Surgical History History of esophagogastroduodenoscopy (EGD) Hx of colonoscopy Hx of hand surgery Hx of knee surgery History of back surgery Hx of CABG Hx of cardiac cath Social History Household Members: Spouse Housing: House Do you presently have visiting nurse or other home services: No Alcohol intake: never Patient Tobacco Use Status: Never used Tobacco Use of substances other than those prescribed or required for medical reasons: No Advance Directives: No Advance Directives Information Provided: Yes Advance Directives Date on File: 10/18/22 Nutrition Risks: Acute nausea or vomiting x1 week service: Yes Current occupational status: retired Meds Allergies Allergy/AdvReac Type Severity Reaction Status Date / Time amoxicillin [From Augmentin] Allergy Mild NAUSEA & Verified 12/21/22 16:18 VOMITING, HIVES clavulanic acid Allergy Mild NAUSEA & Verified 12/21/22 16:18 [From Augmentin] VOMITING, HIVES piperacillin [From ZOSYN] Allergy Unknown LIVER Verified 12/21/22 16:18 FAILURE tazobactam [From ZOSYN] Allergy Unknown LIVER Verified 12/21/22 16:18 FAILURE Active Medications: Current Medications Acetaminophen (Acetaminophen 325 Mg Tablet) 650 mg PO Q6H PRN PRN Reason: Pain, Mild (Pain Scale 1-3) Enoxaparin Sodium (Enoxaparin Sodium 40 Mg/0.4 Ml Syringe) 40 mg SUBCUT Q24H [facility] Last Admin: 07/07/23 10:58 Dose: 40 mg Lactated Ringer's (Lr) 1,000 mls @ 125 mls/hr IVCONT .Q8H [facility] Last Admin: 07/07/23 12:25 Dose: 125 mls/hr Sodium Chloride (Ns) 1,000 mls @ 100 mls/hr IVCONT .Q10H [facility] Last Admin: 07/07/23 11:15 Dose: Not Given Morphine Sulfate (Morphine Sulfate 4 Mg/Ml Cartridge) 4 mg IVPUSH Q4H PRN; Protocol PRN Reason: Pain, Severe (Pain Scale 7-10) Ondansetron HCl (Ondansetron Hcl 4 Mg/2 Ml Vial) 4 mg IVPUSH Q8H PRN PRN Reason: Nausea and Vomiting Sodium Chloride (0.9 % Sodium Chloride Flush 3 Ml Syringe) 3 ml IVFLUSH QSHIFT [facility] Home Medications Medication Instructions Recorded Confirmed Last Taken Type albuterol sulfate 2.5 mg/3 mL 2.5 mg inhalation TID PRN Wheezing 09/25/20 07/07/23 Unknown History (0.083 %) solution for nebulization allopurinol 300 mg tablet 300 mg PO DAILY 09/25/20 07/07/23 07/06/23 History aspirin 81 mg tablet,delayed 81 mg PO DAILY 09/25/20 07/07/23 07/06/23 History release (Adult Aspirin Regimen) bupropion HCl 200 mg tablet,12 hr 200 mg PO BID 09/25/20 07/07/23 07/06/23 History sustained-release cetirizine 10 mg tablet (All Day 10 mg PO BEDTIME 09/25/20 07/07/23 07/06/23 History Allergy (cetirizine)) dicyclomine 20 mg tablet 20 mg PO Q6H PRN Spasms 09/25/20 07/07/23 Unknown History fluticasone propionate 50 1 spray intranasal BID 09/25/20 07/07/23 07/06/23 History mcg/actuation nasal spray,suspension metformin 500 mg tablet 500 mg PO BID 09/25/20 07/07/23 07/06/23 History mometasone 200 mcg/actuation HFA 2 puff inhalation BEDTIME 09/25/20 07/07/23 07/06/23 History aerosol inhaler (Asmanex HFA) omeprazole 20 mg capsule,delayed 20 mg PO BID@0630,1630 09/25/20 07/07/23 07/06/23 History release tamsulosin 0.4 mg capsule 0.4 mg PO BID 09/25/20 07/07/23 07/06/23 History tiotropium 2.5 mcg-olodaterol 2.5 2 puff inhalation DAILY 09/25/20 07/07/23 07/06/23 History mcg/actuation mist for inhalation (Stiolto Respimat) verapamil 360 mg 24 hr 360 mg PO BID 09/25/20 07/07/23 07/06/23 History capsule,extended release albuterol sulfate 90 mcg/actuation 2 puff inhalation QID PRN Wheezing 10/18/22 07/07/23 Unknown History aerosol inhaler ascorbic acid (vitamin C) 250 mg 250 mg PO DAILY 10/18/22 07/07/23 07/06/23 History tablet gabapentin 600 mg tablet 1,200 mg PO DAILY@1900 10/18/22 07/07/23 07/06/23 History gabapentin 600 mg tablet 600 mg PO BID@0800,1200 10/18/22 07/07/23 07/06/23 History niacinamide 500 mg tablet 500 mg PO BID 10/18/22 07/07/23 07/06/23 History oxybutynin chloride 15 mg 15 mg PO BEDTIME 10/18/22 07/07/23 07/06/23 History tablet,extended release 24 hr montelukast 10 mg tablet 10 mg PO DAILY 10/19/22 07/07/23 Unknown History hydrochlorothiazide 50 mg tablet 50 mg PO DAILY 02/07/23 07/07/23 07/06/23 History atorvastatin 40 mg tablet 40 mg PO BEDTIME 07/07/23 07/07/23 07/06/23 History levothyroxine 50 mcg tablet 50 mcg PO DAILY 07/07/23 07/07/23 07/06/23 History polyethylene glycol 3350 17 8.5 g PO DAILY 07/07/23 07/07/23 07/06/23 History gram/dose oral powder Physical Exam 2 Vital Signs and Narrative: Vital Signs: Last Vital Signs Temp 97.7 F 07/07/23 11:55 Pulse 79 07/07/23 11:55 Resp 18 07/07/23 11:55 BP 159/79 H 07/07/23 11:55 Pulse Ox 93 07/07/23 11:55 O2 Del Method Room Air 07/07/23 11:55 BMI result Body Mass Index 39.0 Results Labs 07/07/23 01:23 07/07/23 01:23 Labs: Laboratory Results - last 24 hr 07/07/23 07/07/23 07/07/23 01:23 01:51 12:43 MCV 93.2 MCH 31.1 MCHC 33.3 RDW 14.9 Plt Count 274 MPV 9.5 Immature Gran % (Auto) 0.6 H Neut % (Auto) 81.9 H Lymph % (Auto) 10.9 L [place] % (Auto) 5.6 Eos % (Auto) 0.6 Baso % (Auto) 0.4 Lymph # (Auto) 1.7 [place] # (Auto) 0.9 Eos # (Auto) 0.1 Baso # (Auto) 0.1 Abs Immat Gran (auto) 0.09 H Absolute Neuts (auto) 13.0 H Absolute Nucleated RBC 0.000 Nucleated RBC % (auto) 0.0 Anion Gap 17 Estim Creat Clear Calc 65.1 Estimated GFR 52 POC Glucose 105 Random Glucose 148 H Calcium 10.2 Total Bilirubin 0.6 AST 16 ALT 16 Alkaline Phosphatase 134 H Total Protein 7.9 Albumin 4.4 Lipase 23 Influenza Type A (PCR) NEGATIVE Influenza Type B (PCR) NEGATIVE RSV RNA Qual (PCR) NEGATIVE SARS-CoV-2 RNA (RT-PCR) NEGATIVE Imaging Radiologist's Impressions: Impressions Abdomen/Pelvis CT 07/07/23 03:15 IMPRESSION: * Multiple mildly dilated loops of small bowel redemonstrated similar to that seen on the prior examination. The bowel tapers to relatively collapsed loops in the distal jejunum in the left hemiabdomen, however a cause for this transition point is unclear. Favor chronic partial obstruction. * Left colonic diverticulosis without evidence of diverticulitis. 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 * Cholelithiasis. * Evidence of prior granulomatous disease. Fleischner guidelines were followed. Abdomen Ultrasound 07/07/23 10:01 IMPRESSION: Cholelithiasis. No other sonographic evidence to suggest acute cholecystitis. Assessment and Plan (1) Small bowel obstruction, partial: Status: Acute (2) Diabetes mellitus: Status: Acute Plan 77 years old lady with PMH of PAF not on AC, CAD, HTN, HLD, COPD among others who presents to ED complaining of abdominal pain and vomiting. Small bowel obstruction CT abd as reported Mechanical vs functional, no clear transition point bowel rest, NPO IVF surgery team following check US abd Type 2 DM Hold Metformin SSI BPH Tamsulosin CAD ASA, Statin, V PAF post Watchman procedure Verapamil ER Neuropathy Gabapentin Hypothyroid Levothyroxine DVT PPx Lovenox The patient will need 2 overnight hospital stay for treatment of SBO pending surgical eval and clinical improvement. Quality Stroke Does the patient have a stroke diagnosis?: No VTE Prior VTE?: No VTE Risk Level:: Medical - moderate - high VTE Device Contraindication: Treatment Not Indicated VTE Drug Contraindication: N/A - Med Ordered
--- NOTE | 2023-07-07 13:19 | P.CDIM_ITS ---
PROVIDER RESPONSE TEXT: To clarify, the appropriate diagnosis supported by the clinical indicators: Obesity Due to excess calories QUERY TEXT: PHYSICIAN'S DOCUMENTATION REQUEST Date of Query: 07/07/2023 12:51 PM EST Patient Name: Mikal Khan Admit Date: 07/07/2023 Dear Josue Salgado, A review of the medical record indicates additional documentation may be needed. Please review below and update the documentation accordingly. Clinical Indicators: BMI: 39.1 5ft 11in 127.006kg If possible, please provide an associated diagnosis related to the abnormal BMI, such as: Overweight Obesity Due to excess calories Obesity Drug induced Obesity Due to other cause Specify the other cause Severe or Morbid Obesity With alveolar hypoventilation Severe or Morbid Obesity Without alveolar hypoventilation Other (explain) Clinically unable to determine (explain) Thank you, Kimi Tao, CCS, CDIS Use of terms such as suspected, likely, concern for, or probable (associated with a specific diagnosi s that is being evaluated, monitored, or treated as if it exists) are acceptable and can be coded in the inpatient se tting, when documented at the time of discharge. Please use your independent medical judgment in providing your response. THIS QUERY IS PART OF THE PERMANENT MEDICAL RECORD
--- NOTE | 2023-07-07 15:08 | PHA.MEDREC ---
Pharmacy Consult ? Medication Reconciliation RE: VERAPAMIL Verified 2x with patient that he takes 2 of 180mg twice a day.
--- NOTE | 2023-07-07 15:11 | PC.NURSE ---
ADMISSION REPORT DONE.
--- NOTE | 2023-07-07 15:12 | PC.NURSE ---
PT IS A FALL RISK HAS RED SOCKS ON WITH BED ALARM.
[2023-07-07 16:28] LABS: Glucose, Whole Blood 87 mg/dL (60-115)
--- NOTE | 2023-07-07 16:39 | PC.NURSE ---
Resp paged that patient wears Bipap and HS with 2L
[2023-07-07 19:30] LABS: Appearance Urine Clear; Color Urine Yellow; Glucose Urine UA Negative (Negative); Leukocyte Esterase Urine Negative (Negative); Nitrite Urine Negative (Negative); PH 6.5 (5.0-9.0); Urine Blood Negative (Negative); Urine Ketones Negative (Negative); Urine Protein Negative (Neg-Trace)
[2023-07-07 19:35] LABS: Bacteria Urine None Seen (None Seen); Hyaline Casts Urine 0-2 /LPF (0-2); RBC Urine 0-2 /HPF (0-2); Squamous Epithelial Cell Urine 0-2 /HPF (0-2); WBC Urine 0-5 /HPF (0-5)
[2023-07-07] MEDS: VerapamiL HCL SR 180 MG TABLET.ER 360 MG PO (19:48)
[2023-07-07] MEDS: oxyBUTYnin chloride ER 5 MG TAB.ER.24 15 MG PO (19:49)
[2023-07-07] MEDS: Tamsulosin HCL 0.4 MG CAPSULE PO (19:49)
[2023-07-07] MEDS: Atorvastatin Calcium 40 MG TABLET PO (19:49)
[2023-07-07] MEDS: Gabapentin 600 MG TABLET PO (19:49)
[2023-07-07] MEDS: Fluticasone Propionate Nasal 16 GM SPRAY 1 SPRAY NOSTRIL-B (20:01)
[2023-07-07 20:11] LABS: Glucose, Whole Blood 89 mg/dL (60-115)
[2023-07-08] MEDS: Lactated Ringers 1,000 ML 125 ML IVCONT ×3 (02:39→19:50)
[2023-07-08 03:03] VITALS: BP 150/95; PULSE 61; RESP 18; TEMP 36.2; O2SAT 94
[2023-07-08] MEDS: Levothyroxine Sodium 50 MCG TABLET PO (05:46)
[2023-07-08 06:36] LABS: Anion Gap 16 (12-20); Blood Urea Nitrogen 17 mg/dL (9-16); Calcium 9.5 mg/dL (8.4-10.2); Carbon Dioxide 26 mmol/L (22-29); Chloride 105 mmol/L (96-108); Creatinine Clr Calc Pharmacy 93.7; Estimated Glomerular Filt Rate > 60; Glucose Random 98 mg/dL (60-115); Potassium 3.6 mmol/L (3.3-5.1); Sodium 143 mmol/L (135-145)
[2023-07-08 06:44] LABS: Hematocrit 33.8 % (42.0-52.0); Hemoglobin 11.2 g/dl (14.0-18.0); Mean Corpuscular HGB Conc 33.1 g/dl (31.0-36.0); Mean Corpuscular Hemoglobin 31.5 pg (27.0-33.0); Mean Corpuscular Volume 95.2 fL (80.0-98.0); Mean Platelet Volume 9.6 fL (9.4-12.4); Platelet Count 226 X10*3/uL (160-400); Red Blood Count 3.55 X10*6/uL (4.60-5.80); White Blood Count 7.7 X10*3/uL (4.8-10.8)
[2023-07-08 07:21] VITALS: BP 148/72; PULSE 69; RESP 16; TEMP 35.5; O2SAT 93
[2023-07-08 07:46] LABS: Glucose, Whole Blood 104 mg/dL (60-115)
[2023-07-08] MEDS: Fluticasone Propionate Nasal 16 GM SPRAY 1 SPRAY NOSTRIL-B ×2 (08:14→20:32)
[2023-07-08] MEDS: VerapamiL HCL SR 180 MG TABLET.ER 360 MG PO ×2 (08:15→19:51)
[2023-07-08] MEDS: allopurinoL 300 MG TABLET PO (08:15)
[2023-07-08] MEDS: Aspirin Enteric Coated 81 MG TABLET.DR PO (08:15)
[2023-07-08] MEDS: Tamsulosin HCL 0.4 MG CAPSULE PO ×2 (08:15→19:51)
[2023-07-08] MEDS: Gabapentin 600 MG TABLET PO (08:15)
[2023-07-08] MEDS: hydroCHLOROthiazide 50 MG TABLET PO (08:15)
[2023-07-08] MEDS: buPROPion HCl XL 150 MG TAB.ER.24H 450 MG PO (08:15)
[2023-07-08] MEDS: Enoxaparin Sodium 40 MG/0.4 ML SYRINGE SUBCUT (08:16)
--- NOTE | 2023-07-08 10:11 | P.PNIM_ITS ---
Subjective Subjective Date of Service: 07/08/23 Interval History: Seen and evaluated this morning Feels better with less distention and pain passing some gas, had small BM no other overnight events Review of Systems Review of Systems: Yes all other systems are reviewed and are negative Physical Exam 2 Vital Signs: Vital Signs: Last Vital Signs Temp 96 F L 07/08/23 07:21 Pulse 69 07/08/23 07:21 Resp 16 07/08/23 07:21 BP 148/72 H 07/08/23 07:21 Pulse Ox 93 07/08/23 07:21 O2 Del Method Room Air 07/08/23 07:21 BMI result Body Mass Index 40.3 Const: Other: Constitutional : Awake, interactive, not in distress Neck : Normal inspection, Supple Cardiovascular : RRR, no JVP, no lower extremity edema Respiratory : good bilateral air entry, no crackles, wheezes or rhonchi Gastrointestinal: soft, lax, decreased bowel sounds, Non tender, not distended Skin : Warm, Dry Neurological : Alert & oriented x3, No focal deficit Objective Data Active Medications Acetaminophen (Acetaminophen 325 Mg Tablet) 650 mg PO Q6H PRN PRN Reason: Pain, Mild (Pain Scale 1-3) Albuterol Sulfate (Albuterol Sulfate (0.083%) 2.5 Mg/3 Ml Vial.Neb) 2.5 mg INHALE TID PRN PRN Reason: Wheezing Albuterol Sulfate (Albuterol Sulfate 90 Mcg 8 Gm Inhaler) 2 puff INHALE QID PRN PRN Reason: Wheezing Allopurinol (Allopurinol 300 Mg Tablet) 300 mg PO DAILY ON LICENSE OF [facility] Last Admin: 07/08/23 08:15 Dose: 300 mg Documented By: DIONISIO Aspirin (Aspirin Enteric Coated 81 Mg Tablet.) 81 mg PO DAILY ON LICENSE OF [facility] Last Admin: 07/08/23 08:15 Dose: 81 mg Documented By: DIONISIO Atorvastatin Calcium (Atorvastatin Calcium 40 Mg Tablet) 40 mg PO BEDTIME ON LICENSE OF [facility] Last Admin: 07/07/23 19:49 Dose: 40 mg Documented By: CASTILKt Bupropion HCl (Bupropion Hcl Xl 150 Mg Tab.Er.24h) 450 mg PO DAILY ON LICENSE OF [facility] Last Admin: 07/08/23 08:15 Dose: 450 mg Documented By: DIONISIO Dicyclomine HCl (Dicyclomine Hcl 10 Mg Capsule) 20 mg PO Q6H PRN PRN Reason: Spasms Enoxaparin Sodium (Enoxaparin Sodium 40 Mg/0.4 Ml Syringe) 40 mg SUBCUT Q24H ON LICENSE OF [facility] Last Admin: 07/08/23 08:16 Dose: 40 mg Documented By: DIONISIO Fluticasone Propionate (Fluticasone Propionate Nasal 16 Gm [place]) 1 spray NOSTRIL-B BID ON LICENSE OF [facility] Last Admin: 07/08/23 08:14 Dose: 1 spray Documented By: DIONISIO Gabapentin (Gabapentin 600 Mg Tablet) 600 mg PO BID@0800,1200 ON LICENSE OF [facility] Last Admin: 07/08/23 08:15 Dose: 600 mg Documented By: DIONISIO Gabapentin (Gabapentin 600 Mg Tablet) 600 mg PO DAILY@1900 ON LICENSE OF [facility] Last Admin: 07/07/23 19:49 Dose: 600 mg Documented By: MAJOR Hydrochlorothiazide (Hydrochlorothiazide 50 Mg Tablet) 50 mg PO DAILY ON LICENSE OF [facility]; Protocol Last Admin: 07/08/23 08:15 Dose: 50 mg Documented By: DIONISIO Lactated Ringer's (Lr) 1,000 mls @ 125 mls/hr IVCONT .Q8H ON LICENSE OF [facility] Last Admin: 07/08/23 02:39 Dose: 125 mls/hr Documented By: MAJOR Insulin Human Lispro (Insulin Lispro 100 Unit/Ml 3 Ml Vial) 0 unit SUBCUT QIDACHS ON LICENSE OF [facility]; Protocol Last Admin: 07/08/23 07:48 Dose: Not Given Documented By: DIONISIO Non-Admin Reason: No Insulin Coverage Levothyroxine Sodium (Levothyroxine Sodium 50 Mcg Tablet) 50 mcg PO DAILY@0600 ON LICENSE OF [facility] Last Admin: 07/08/23 05:46 Dose: 50 mcg Documented By: MAJOR Morphine Sulfate (Morphine Sulfate 4 Mg/Ml Cartridge) 4 mg IVPUSH Q4H PRN; Protocol PRN Reason: Pain, Severe (Pain Scale 7-10) Non-Formulary Medication (Tiotropium-Olodaterol [Stiolto Respimat]) 2 puff INHALE DAILY ON LICENSE OF [facility] Ondansetron HCl (Ondansetron Hcl 4 Mg/2 Ml Vial) 4 mg IVPUSH Q8H PRN PRN Reason: Nausea and Vomiting Oxybutynin Chloride (Oxybutynin Chloride Er 5 Mg Tab.Er.24) 15 mg PO BEDTIME ON LICENSE OF [facility] Last Admin: 07/07/23 19:49 Dose: 15 mg Documented By: MAJOR Sodium Chloride (0.9 % Sodium Chloride Flush 3 Ml Syringe) 3 ml IVFLUSH QSHIFT ON LICENSE OF [facility] Last Admin: 07/08/23 08:10 Dose: Not Given Documented By: DIONISIO Non-Admin Reason: IV Running Tamsulosin HCl (Tamsulosin Hcl 0.4 Mg Capsule) 0.4 mg PO BID ON LICENSE OF [facility] Last Admin: 07/08/23 08:15 Dose: 0.4 mg Documented By: DIONISIO Verapamil HCl (Verapamil Hcl Sr 180 Mg Tablet.Er) 360 mg PO BID ON LICENSE OF [facility]; Protocol Last Admin: 07/08/23 08:15 Dose: 360 mg Documented By: DIONISIO Labs 07/08/23 06:01 07/08/23 06:01 Labs: Laboratory Results - last 24 hr 07/07/23 07/07/23 07/07/23 12:43 16:18 18:51 MCV MCH MCHC RDW Plt Count MPV Absolute Nucleated RBC Nucleated RBC % (auto) Anion Gap Estim Creat Clear Calc Estimated GFR POC Glucose 105 87 Random Glucose Calcium Urine Color Yellow Urine Appearance Clear Urine pH 6.5 Ur Specific [place] 1.020 Urine Protein Negative Urine Glucose (UA) Negative Urine Ketones Negative Urine Blood Negative Urine Nitrite Negative Ur Leukocyte Esterase Negative Urine RBC 0-2 Urine WBC 0-5 Ur Squamous Epith Cells 0-2 Urine Bacteria None Seen Hyaline Casts 0-2 07/07/23 07/08/23 07/08/23 20:07 06:01 07:26 MCV 95.2 MCH 31.5 MCHC 33.1 RDW 15.0 Plt Count 226 MPV 9.6 Absolute Nucleated RBC 0.000 Nucleated RBC % (auto) 0.0 Anion Gap 16 Estim Creat Clear Calc 93.7 Estimated GFR > 60 POC Glucose 89 104 Random Glucose 98 Calcium 9.5 D Urine Color Urine Appearance Urine pH Ur Specific [place] Urine Protein Urine Glucose (UA) Urine Ketones Urine Blood Urine Nitrite Ur Leukocyte Esterase Urine RBC Urine WBC Ur Squamous Epith Cells Urine Bacteria Hyaline Casts Assessment and Plan (1) Small bowel obstruction, partial: Status: Acute Plan 77 years old lady with PMH of PAF not on AC, CAD, HTN, HLD, COPD among others who presents to ED complaining of abdominal pain and vomiting. Small bowel obstruction CT abd as reported US reported GBS but no cholecystitis Mechanical vs functional, no clear transition point IVF Start clears, advance as tolerated surgery team following Type 2 DM Hold Metformin SSI BPH Tamsulosin CAD ASA, Statin, V PAF post Watchman procedure Verapamil ER Neuropathy Gabapentin Hypothyroid Levothyroxine DVT PPx Lovenox The patient will need 2 overnight hospital stay for treatment of SBO pending clinical improvement and tolerance of PO diet Quality Stroke Does the patient have a stroke diagnosis?: No VTE Prior VTE?: No VTE Risk Level:: Medical - moderate - high VTE Device Contraindication: Treatment Not Indicated VTE Drug Contraindication: N/A - Med Ordered
--- NOTE | 2023-07-08 10:57 | MHC.CM.PN ---
PT REPORTS HE LIVES WITH HIS AND IS INDEPENDENT WITH CARE HE HAS A CANE AND NO OTHER DME HE DENIES HAVING ANY SERVICES HE SAYS HE HAS A HCP NAMING HIS HIS AGENT, COPY REQUESTED PCP: DR WATKINS AT THE [facility] IN [place] PT CONFIRMS HE ALSO HAS MEDICARE A AND B IMM DELIVERED DCPl HOME NO SERVICES VIA PRIVATE TRANSPORT
[2023-07-08 11:34] LABS: Glucose, Whole Blood 120 mg/dL (60-115)
--- NOTE | 2023-07-08 12:14 | PM.PNGS ---
Subjective Subjective Date of Service: 07/08/23 Interval history: Abdominal symptoms much improved. Had BM last night. Patient is hungry. Ultrasound shows cholelithiasis but no evidence of acute cholecystitis Physical Exam Vital Signs: Vital Signs: Last Vital Signs Temp 96 F L 07/08/23 07:21 Pulse 69 07/08/23 07:21 Resp 16 07/08/23 07:21 BP 148/72 H 07/08/23 07:21 Pulse Ox 93 07/08/23 07:21 O2 Del Method Room Air 07/08/23 07:21 BMI result Body Mass Index 40.3 GI: Other: Very corpulent abdomen. Soft, benign. Objective Data Active Medications Acetaminophen (Acetaminophen 325 Mg Tablet) 650 mg PO Q6H PRN PRN Reason: Pain, Mild (Pain Scale 1-3) Albuterol Sulfate (Albuterol Sulfate (0.083%) 2.5 Mg/3 Ml Vial.[place]) 2.5 mg INHALE TID PRN PRN Reason: Wheezing Albuterol Sulfate (Albuterol Sulfate 90 Mcg 8 Gm Inhaler) 2 puff INHALE QID PRN PRN Reason: Wheezing Allopurinol (Allopurinol 300 Mg Tablet) 300 mg PO DAILY [facility] Last Admin: 07/08/23 08:15 Dose: 300 mg Documented By: DIONISIO Aspirin (Aspirin Enteric Coated 81 Mg Tablet.) 81 mg PO DAILY [facility] Last Admin: 07/08/23 08:15 Dose: 81 mg Documented By: DIONISIO Atorvastatin Calcium (Atorvastatin Calcium 40 Mg Tablet) 40 mg PO BEDTIME [facility] Last Admin: 07/07/23 19:49 Dose: 40 mg Documented By: CASTILM Bupropion HCl (Bupropion Hcl Xl 150 Mg Tab.Er.24h) 450 mg PO DAILY [facility] Last Admin: 07/08/23 08:15 Dose: 450 mg Documented By: DIONISIO Dicyclomine HCl (Dicyclomine Hcl 10 Mg Capsule) 20 mg PO Q6H PRN PRN Reason: Spasms Enoxaparin Sodium (Enoxaparin Sodium 40 Mg/0.4 Ml Syringe) 40 mg SUBCUT Q24H [facility] Last Admin: 07/08/23 08:16 Dose: 40 mg Documented By: DIONISIO Fluticasone Propionate (Fluticasone Propionate Nasal 16 Gm [place]) 1 spray NOSTRIL-B BID [facility] Last Admin: 07/08/23 08:14 Dose: 1 spray Documented By: DIONISIO Gabapentin (Gabapentin 600 Mg Tablet) 600 mg PO BID@0800,1200 [facility] Last Admin: 07/08/23 11:43 Dose: Not Given Documented By: DIONISIO Non-Admin Reason: Patient Refused Gabapentin (Gabapentin 600 Mg Tablet) 600 mg PO DAILY@1900 [facility] Last Admin: 07/07/23 19:49 Dose: 600 mg Documented By: MAJOR Hydrochlorothiazide (Hydrochlorothiazide 50 Mg Tablet) 50 mg PO DAILY [facility]; Protocol Last Admin: 07/08/23 08:15 Dose: 50 mg Documented By: DIONISIO Lactated Ringer's (Lr) 1,000 mls @ 125 mls/hr IVCONT .Q8H [facility] Last Admin: 07/08/23 11:40 Dose: 125 mls/hr Documented By: DIONISIO Insulin Human Lispro (Insulin Lispro 100 Unit/Ml 3 Ml Vial) 0 unit SUBCUT QIDACHS [facility]; Protocol Last Admin: 07/08/23 11:35 Dose: Not Given Documented By: DIONISIO Non-Admin Reason: No Insulin Coverage Levothyroxine Sodium (Levothyroxine Sodium 50 Mcg Tablet) 50 mcg PO DAILY@0600 [facility] Last Admin: 07/08/23 05:46 Dose: 50 mcg Documented By: MAJOR Morphine Sulfate (Morphine Sulfate 4 Mg/Ml Cartridge) 4 mg IVPUSH Q4H PRN; Protocol PRN Reason: Pain, Severe (Pain Scale 7-10) Non-Formulary Medication (Tiotropium-Olodaterol [Stiolto Respimat]) 2 puff INHALE DAILY [facility] Ondansetron HCl (Ondansetron Hcl 4 Mg/2 Ml Vial) 4 mg IVPUSH Q8H PRN PRN Reason: Nausea and Vomiting Oxybutynin Chloride (Oxybutynin Chloride Er 5 Mg Tab.Er.24) 15 mg PO BEDTIME [facility] Last Admin: 07/07/23 19:49 Dose: 15 mg Documented By: MAJOR Sodium Chloride (0.9 % Sodium Chloride Flush 3 Ml Syringe) 3 ml IVFLUSH QSHIFT [facility] Last Admin: 07/08/23 08:10 Dose: Not Given Documented By: DIONISIO Non-Admin Reason: IV Running Tamsulosin HCl (Tamsulosin Hcl 0.4 Mg Capsule) 0.4 mg PO BID [facility] Last Admin: 07/08/23 08:15 Dose: 0.4 mg Documented By: DIONISIO Verapamil HCl (Verapamil Hcl Sr 180 Mg Tablet.Er) 360 mg PO BID [facility]; Protocol Last Admin: 07/08/23 08:15 Dose: 360 mg Documented By: DINOISIO Labs 07/08/23 06:01 07/08/23 06:01 Labs: Laboratory Results - last 24 hr 07/07/23 07/07/23 07/07/23 12:43 16:18 18:51 MCV MCH MCHC RDW Plt Count MPV Absolute Nucleated RBC Nucleated RBC % (auto) Anion Gap Estim Creat Clear Calc Estimated GFR POC Glucose 105 87 Random Glucose Calcium Urine Color Yellow Urine Appearance Clear Urine pH 6.5 Ur Specific [place] 1.020 Urine Protein Negative Urine Glucose (UA) Negative Urine Ketones Negative Urine Blood Negative Urine Nitrite Negative Ur Leukocyte Esterase Negative Urine RBC 0-2 Urine WBC 0-5 Ur Squamous Epith Cells 0-2 Urine Bacteria None Seen Hyaline Casts 0-2 07/07/23 07/08/23 07/08/23 20:07 06:01 07:26 MCV 95.2 MCH 31.5 MCHC 33.1 RDW 15.0 Plt Count 226 MPV 9.6 Absolute Nucleated RBC 0.000 Nucleated RBC % (auto) 0.0 Anion Gap 16 Estim Creat Clear Calc 93.7 Estimated GFR > 60 POC Glucose 89 104 Random Glucose 98 Calcium 9.5 D Urine Color Urine Appearance Urine pH Ur Specific [place] Urine Protein Urine Glucose (UA) Urine Ketones Urine Blood Urine Nitrite Ur Leukocyte Esterase Urine RBC Urine WBC Ur Squamous Epith Cells Urine Bacteria Hyaline Casts 07/08/23 11:18 MCV MCH MCHC RDW Plt Count MPV Absolute Nucleated RBC Nucleated RBC % (auto) Anion Gap Estim Creat Clear Calc Estimated GFR POC Glucose 120 H Random Glucose Calcium Urine Color Urine Appearance Urine pH Ur Specific [place] Urine Protein Urine Glucose (UA) Urine Ketones Urine Blood Urine Nitrite Ur Leukocyte Esterase Urine RBC Urine WBC Ur Squamous Epith Cells Urine Bacteria Hyaline Casts Procedures Date of Service Date of Service: 07/08/23 Progress Note: A&P Assessment and plan (1) Abdominal pain: Status: Acute Plan Advanced diet as tolerated, out of bed, incentive spirometry. Time Spent With Patient Time: Total time managing care of this patient today ____ minutes. Quality Stroke Does the patient have a stroke diagnosis?: No VTE Prior VTE?: No VTE Risk Level:: Medical - moderate - high VTE Device Contraindication: Treatment Not Indicated VTE Drug Contraindication: N/A - Med Ordered
[2023-07-08 15:15] VITALS: BP 147/74; PULSE 69; RESP 18; TEMP 36.5; O2SAT 93
[2023-07-08 16:08] LABS: Glucose, Whole Blood 92 mg/dL (60-115)
[2023-07-08 19:37] VITALS: BP 157/78; PULSE 80; RESP 18; TEMP 36.1; O2SAT 95
[2023-07-08 19:50] LABS: Glucose, Whole Blood 102 mg/dL (60-115)
[2023-07-08] MEDS: oxyBUTYnin chloride ER 5 MG TAB.ER.24 15 MG PO (19:50)
[2023-07-08] MEDS: Gabapentin 600 MG TABLET 1200 MG PO (19:51)
[2023-07-08] MEDS: Atorvastatin Calcium 40 MG TABLET PO (19:51)
[2023-07-09] MEDS: Lactated Ringers 1,000 ML 125 ML IVCONT (03:09)
[2023-07-09 03:10] VITALS: BP 152/74; PULSE 60; RESP 14; TEMP 36.1; O2SAT 95
[2023-07-09] MEDS: Levothyroxine Sodium 50 MCG TABLET PO (05:33)
[2023-07-09 07:18] VITALS: BP 165/82; PULSE 74; RESP 18; TEMP 36.2; O2SAT 94
[2023-07-09 07:28] LABS: Glucose, Whole Blood 107 mg/dL (60-115)
[2023-07-09] MEDS: buPROPion HCl XL 150 MG TAB.ER.24H 450 MG PO (09:05)
[2023-07-09] MEDS: VerapamiL HCL SR 180 MG TABLET.ER 360 MG PO (09:05)
[2023-07-09] MEDS: Enoxaparin Sodium 40 MG/0.4 ML SYRINGE SUBCUT (09:05)
[2023-07-09] MEDS: 0.9 % Sodium Chloride Flush 3 ML SYRINGE IVFLUSH (09:05)
[2023-07-09] MEDS: hydroCHLOROthiazide 50 MG TABLET PO (09:06)
[2023-07-09] MEDS: Tamsulosin HCL 0.4 MG CAPSULE PO (09:06)
[2023-07-09] MEDS: Gabapentin 600 MG TABLET PO ×2 (09:06→13:18)
[2023-07-09] MEDS: allopurinoL 300 MG TABLET PO (09:06)
[2023-07-09] MEDS: Aspirin Enteric Coated 81 MG TABLET.DR PO (09:06)
[2023-07-09 11:12] LABS: Glucose, Whole Blood 120 mg/dL (60-115)
--- NOTE | 2023-07-09 13:23 | P.DS_ITS ---
DS: Providers Provider Date of Service: 07/09/23 Date of admission: 07/07/23 09:24 Primary care physician: Nataly Ashley MD Consults: 07/07/23 05:33 Consult to General Surgery Stat Consulting Provider: [facility] Sur[facility] Reason for consultation: Partial small-bowel obstruction Has provider been notified: Yes 07/07/23 09:10 Consult to General Surgery Routine Consulting Provider: [facility] Sur[facility] Reason for consultation: Intestinal obstruction for eval and recommendations DS: Diagnosis Discharge Diagnosis (1) Abdominal pain: Status: Acute (2) Small bowel obstruction, partial: Status: Acute DS: Summary Hospital Course Hospital Course: Admission note HPI 77-year-old male with history of coronary artery disease s/p CABG x3, COPD, [id number] type 2 diabetes, hypertension, paroxysmal atrial fibrillation with Watchman device, hyperlipidemia, hypothyroidism, left inguinal hernia, FARHAD compliant with BiPAP presented to the ED for evaluation of diffuse severe abdominal pain ongoing for 2 days. He states the pain is worst in the right upper quadrant but is diffuse across the abdomen radiating bilaterally to the mid back. He states he feels abdominal bloating with increased reflux and belching as well as nausea and anorexia. No vomiting. Reports last BM was 3 days ago and was very small. On arrival, pt hypertensive to 160/95, mild tachycardia 105, vitals otherwise normal, patient afebrile. WBC 11.5, renal function normal, electrolytes normal. CT abdomen/pelvis with findings suggestive of a partial small-bowel obstruction without any definitive transition zone identified. There is also cholelithiasis, diverticulosis, evidence of prior granulomatous disease, hepatic steatosis, right renal cyst, and left spigelian hernia containing a loop of nonobstructed descending colon. In ED, given 500 mL IV NS. Hospital course Admitted for partial Small bowel obstruction with no transitional point per CT abd report as he was evaluated by surgical team who recommended conservative measures after a US reported GBS but no cholecystitis as well. Treated with IVF and bowel rest along with supportive measures. symptoms improved and nausea relieved as diet was advanced with good tolerance. he was able to ambulate with no reported pain or nausea. Discussed about the need of good bowel habit and goal of 1-2 BM daily. Will follow with surgery as outpatient. Stay well hydrated and increase physical activity Discuss with Primary physician the need to decrease Gabapentin, Bupropion, Dicyclomine and Oxybutynin as they might slow your bowel movement and cause constipation Start Metamucil with target of 1-2 bowel movements daily, hold for diarrhea. Time Attestation Discharge coordination time: Greater than 30 minutes Quality: Safe Use of Opioids Does Pt have an Active Cancer Diagnosis on the Problem List?: No Quality: Stroke Does the patient have a stroke diagnosis?: No Physical Exam Vital Signs: Vital Signs: Last Vital Signs Temp 97.1 F 07/09/23 07:18 Pulse 74 07/09/23 07:18 Resp 18 07/09/23 07:18 BP 165/82 H 07/09/23 07:18 Pulse Ox 94 07/09/23 07:18 O2 Del Method Room Air 07/09/23 07:18 O2 Flow Rate 2 07/09/23 03:10 BMI result Body Mass Index 40.3 Const: Other: Constitutional : Awake, interactive, not in distress Neck : Normal inspection, Supple Cardiovascular : RRR, no JVP, no lower extremity edema Respiratory : good bilateral air entry, no crackles, wheezes or rhonchi Gastrointestinal: soft, lax, normal bowel sounds, Non tender, not distended Skin : Warm, Dry Neurological : Alert & oriented x3, No focal deficit DS: Data Data Completed and Pending Labs on day of discharge: Laboratory Results - last 24 hr 07/08/23 07/08/23 07/09/23 16:03 19:39 07:23 POC Glucose 92 102 107 07/09/23 11:08 POC Glucose 120 H Imaging Chest x-ray: Radiologist's impression: ITS Impressions Abdomen/Pelvis CT 07/07/23 03:15 IMPRESSION: * Multiple mildly dilated loops of small bowel redemonstrated similar to that seen on the prior examination. The bowel tapers to relatively collapsed loops in the distal jejunum in the left hemiabdomen, however a cause for this transition point is unclear. Favor chronic partial obstruction. * Left colonic diverticulosis without evidence of diverticulitis. 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 * Cholelithiasis. * Evidence of prior granulomatous disease. Fleischner guidelines were followed. Abdomen Ultrasound 07/07/23 10:01 IMPRESSION: Cholelithiasis. No other sonographic evidence to suggest acute cholecystitis. Discharge Plan Discharge Anticipated Discharge Date/Time: 07/09/23 13:11 Patient Disposition: Home, Self-Care Discharge Diagnosis: Partial bowel obstruction Referrals: Larry Ordoñez MD [Physician] - 2 Weeks (Inguinal hernia, recurrent SBO for evaluation and management. ) PhysicianMckinley [Physician] - 1 Week Discharge Medications: New psyllium husk [Metamucil] 0.4 gram capsule 0.4 g PO DAILY Qty: 30 2RF Continued docusate sodium [Stool Softener] 100 mg capsule 100 mg PO BID Qty: 60 0RF oxybutynin chloride 15 mg Tablet Extended Release 24hr 15 mg PO BEDTIME gabapentin 600 mg Tablet 1,200 mg PO DAILY@1900 gabapentin 600 mg Tablet 600 mg PO BID@0800,1200 ascorbic acid (vitamin C) 250 mg Tablet 250 mg PO DAILY niacinamide 500 mg Tablet 500 mg PO BID albuterol sulfate 90 mcg/actuation Hfa Aerosol Inhaler 2 puff INHALATION QID PRN (Reason: Wheezing) montelukast 10 mg Tablet 10 mg PO DAILY atorvastatin 40 mg Tablet 40 mg PO BEDTIME levothyroxine 50 mcg Tablet 50 mcg PO DAILY polyethylene glycol 3350 17 gram/dose Powder 8.5 g PO DAILY verapamil 360 mg capsule,ext rel. pellets 24 hr 360 mg PO BID cetirizine [All Day Allergy (cetirizine)] 10 mg tablet 10 mg PO BEDTIME bupropion HCl 200 mg tablet sustained-release 12 hr 200 mg PO BID metformin 500 mg tablet 500 mg PO BID allopurinol 300 mg tablet 300 mg PO DAILY omeprazole 20 mg capsule,delayed release(DR/EC) 20 mg PO BID@0630,1630 albuterol sulfate 2.5 mg /3 mL (0.083 %) solution for nebulization 2.5 mg inhalation TID PRN (Reason: Wheezing) tamsulosin 0.4 mg capsule 0.4 mg PO BID dicyclomine 20 mg tablet 20 mg PO Q6H PRN (Reason: Spasms) Stiolto Respimat 2.5-2.5 mcg/actuation mist 2 puff inhalation DAILY Asmanex HFA 200 mcg/actuation HFA aerosol inhaler 2 puff inhalation BEDTIME aspirin [Adult Aspirin Regimen] 81 mg tablet,delayed release (DR/EC) 81 mg PO DAILY fluticasone propionate 50 mcg/actuation spray,suspension 1 spray intranasal BID Rx Instructions: administer into each nostril hydrochlorothiazide 50 mg tablet 50 mg PO DAILY Discharge Orders: Discharge Order (Routine); Ordered 07/09/23 Ordered By: Josue Salgado Diet: Advance to usual diet Activity on Discharge: As tolerated Stand Alone Forms: Patient Portal Discharge page Care Plan Goals: Read below Health Concerns: Read below Plan of Treatment: Read below Assessment: You were admitted to the hospital for evaluation of abdominal pain and vomiting. found to have a partial intestinal obstruction treated with IV fluids and supportave measures with good response as you were evaluated by surgery team and tolerated diet well with no recurrence of pain or vomiting. Stay well hydrated and increase physical activity Discuss with Primary physician the need to decrease Gabapentin, Bupropion, Dicyclomine and Oxybutynin as they might slow your bowel movement and cause constipation Start Metamucil with target of 1-2 bowel movements daily, hold for diarrhea. Patient Instructions: Bowel Obstruction (GEN)
--- NOTE | 2023-07-09 13:51 | MHC.CM.PN ---
HOME TODAY WITH NO SERVICES NEEDED. TO TRANSPORT. IMM 07/08 PREVIOUSLY COMPLETED AND IN CHART
== END 2023-07-09 14:14 | disposition home or self-care (01) | DRG 389 ==
LOC: HO.ED 08:14 → HO.EDOVER 09:25 → HO.S3 14:36
PROVIDERS: Admitting Provider Student in an Organized Health Care Education/Training Program; Emergency Provider Emergency Medicine Emergency Medical Services; PCP Internal Medicine; Visit Provider Student in an Organized Health Care Education/Training Program
DX: K56.600 Partial intestinal obstruction, unspecified as to cause (principal); Z68.41 Body mass index [BMI] 40.0-44.9, adult; I25.10 Atherosclerotic heart disease of native coronary artery without angina pectoris; J44.9 Chronic obstructive pulmonary disease, unspecified; E66.09 Other obesity due to excess calories; G47.33 Obstructive sleep apnea (adult) (pediatric); N40.0 Benign prostatic hyperplasia without lower urinary tract symptoms; I48.0 Paroxysmal atrial fibrillation; E11.40 Type 2 diabetes mellitus with diabetic neuropathy, unspecified; D64.9 Anemia, unspecified; E03.9 Hypothyroidism, unspecified; I10 Essential (primary) hypertension; E78.5 Hyperlipidemia, unspecified; Z20.822 Contact with and (suspected) exposure to COVID-19; Z95.818 Presence of other cardiac implants and grafts; Z95.1 Presence of aortocoronary bypass graft; Z79.51 Long term (current) use of inhaled steroids; Z79.82 Long term (current) use of aspirin; Z79.84 Long term (current) use of oral hypoglycemic drugs; Z79.890 Hormone replacement therapy; Z79.899 Other long term (current) drug therapy
CPT/HCPCS: 0241U; 36415; 74177; 76705; 80048; 80053; 81001; 82947; 83690; 84484; 85025; 85027; 93005; 94660; 99285; J1170; J1650; J2270; J2405; J2550; J7120; Q9967

== ENCOUNTER → 2023-07-07 01:29 | Outpatient (BNV) | payer OTHER, SELFPAY | PROVIDERS: Admitting Provider Student in an Organized Health Care Education/Training Program; Emergency Provider Emergency Medicine Emergency Medical Services; Visit Provider Internal Medicine Cardiovascular Disease | DX: R94.31 Abnormal electrocardiogram [ECG] [EKG] (principal) | CPT/HCPCS: 93010 ==

== ENCOUNTER → 2023-07-07 09:24 | Outpatient (BNV) | payer OTHER, SELFPAY | PROVIDERS: Admitting Provider Student in an Organized Health Care Education/Training Program; Emergency Provider Emergency Medicine Emergency Medical Services; Visit Provider Student in an Organized Health Care Education/Training Program | DX: R10.84 Generalized abdominal pain (principal); K56.600 Partial intestinal obstruction, unspecified as to cause | CPT/HCPCS: 99222; 99232; 99239 ==

== ENCOUNTER → 2023-07-07 09:24 | Outpatient (BNV) | payer OTHER, SELFPAY | PROVIDERS: Admitting Provider Student in an Organized Health Care Education/Training Program; Emergency Provider Emergency Medicine Emergency Medical Services; Visit Provider Physician Assistant Surgical | DX: R10.84 Generalized abdominal pain (principal) | CPT/HCPCS: 99222; 99232 ==

== ENCOUNTER 2023-07-29 09:45 | Outpatient (AMB) | payer OTHER, SELFPAY ==
--- NOTE | 2023-07-29 09:53 | MHC.OFFVIS ---
Intake Vital Signs 07/29/23 10:01 Height 5 ft 11 in Weight 285 lb 6 oz BMI 39.8 BP 164/77 H Blood Pressure Location Lt brachial Position Sitting Pulse 93 Intake Visit Reasons: hospital follow-up small bowel obstruction Intake Note: Patient is seen in office for ER follow up visit, following small bowel obstruction. Pt c/o: was re admitted earlier this year due to the same issues, taking stool softener for the past 3 yrs, was Rx Metamucil is unsure if he should take it since he is taking another script already ER:07/08/23 Printing Estimator Required: No Accompanied by: Self / Same As Patient Allergies amoxicillin [From Augmentin] Allergy (Mild, Verified 07/29/23 09:56) NAUSEA & VOMITING, HIVES clavulanic acid [From Augmentin] Allergy (Mild, Verified 07/29/23 09:56) NAUSEA & VOMITING, HIVES piperacillin [From ZOSYN] Allergy (Unknown, Verified 07/29/23 09:56) LIVER FAILURE tazobactam [From ZOSYN] Allergy (Unknown, Verified 07/29/23 09:56) LIVER FAILURE Medication List - Last Reconciled 07/29/23 by Larry Ordoñez MD albuterol sulfate 90 mcg/actuation 2 puffs inhalation QID PRN albuterol sulfate 2.5 mg inhalation TID PRN allopurinol 300 mg PO DAILY ascorbic acid (vitamin C) 250 mg PO DAILY aspirin (Adult Aspirin Regimen) 81 mg PO DAILY atorvastatin 40 mg PO BEDTIME bupropion HCl 200 mg PO BID cetirizine (All Day Allergy (cetirizine)) 10 mg PO BEDTIME dicyclomine 20 mg PO Q6H PRN fluticasone propionate 50 mcg/actuation 1 spray intranasal BID gabapentin 1,200 mg PO DAILY@1900 gabapentin 600 mg PO BID@0800,1200 hydrochlorothiazide 50 mg PO DAILY levothyroxine 50 mcg PO DAILY metformin 500 mg PO BID mometasone 200 mcg/actuation (Asmanex HFA) 2 puffs inhalation BEDTIME montelukast 10 mg PO DAILY niacinamide 500 mg PO BID omeprazole 20 mg PO BID@0630,1630 oxybutynin chloride ER 15 mg PO BEDTIME polyethylene glycol 3350 8.5 grams PO DAILY psyllium husk (Metamucil) 0.4 grams PO DAILY psyllium husk (Metamucil) 0.4 grams PO DAILY tamsulosin 0.4 mg PO BID tiotropium-olodaterol 2.5-2.5 mcg/actuation (Stiolto Respimat) 2 puffs inhalation DAILY verapamil ER 360 mg PO BID HPI HPI Comments History of Present Illness Details 77-year-old male patient recently discharged the hospital service on 07/09/2023 after an admission for small-bowel obstruction. Patient has a known history of a left inguinal hernia as well as CAD, s/p CABG x3, COPD, type 2 diabetes, hypertension, PAF, s/p Watchman device, hyperlipidemia, hypothyroidism, FARHAD BiPAP. CT abdomen pelvis obtained emergency department revealed dilated loops of small bowel with no transition point. He was treated non operatively with bowel rest and subsequently resolved his bowel obstruction. He was discharged home with Metamucil and instructions to decrease gabapentin, Gabapentin, Bupropion, Dicyclomine and Oxybutynin as they might slow your bowel movement and cause constipation. He was also started on Metamucil. He returns today for follow-up examination reports no further abdominal pain, nausea or vomiting. He does continue to have narrowing of his stools. He denies any bleeding per rectum. He is eating mainly soft foods due to recent extraction of both upper and lower teeth. He is awaiting placement of dental implants. He feels he has lost weight due to his restricted diet. [facility] Medical History Hypothyroidism Anemia, chronic disease History of iron deficiency anemia FARHAD (obstructive sleep apnea) COPD (chronic obstructive pulmonary disease) Hyperlipidemia Diabetes mellitus HTN (hypertension) Paroxysmal atrial fibrillation CAD (coronary artery disease) Surgical History History of esophagogastroduodenoscopy (EGD) Hx of colonoscopy Hx of hand surgery Hx of knee surgery History of back surgery Hx of CABG Hx of cardiac cath Family History Father Sudden cardiac Mother Sudden cardiac Social History Household Members: Family Housing: House Do you presently have visiting nurse or other home services: No Alcohol intake: never Comment: pt agrees to ring to assistance getting out of bed. Patient Tobacco Use Status: Never used Tobacco Advance Directives Date on File: 10/18/22 service: Yes Current occupational status: retired Review of Systems Const All systems reviewed & are unremarkable except as noted in HPI and below Denies chills, Denies fever(s), Denies poor appetite and Reports weight gain Card Denies chest pain, Reports irregular heart rhythm, Reports dyspnea on exertion and Denies slow heart rate Resp Denies cough, Denies hemoptysis and Reports dyspnea on exertion GI Denies abdominal pain, Denies hematochezia, Reports change in bowel habits, Reports constipation, Denies diarrhea, Denies nausea and Denies vomiting Denies hematuria Skin/Breast Denies furuncle and Denies lesions Tyson/Lymph Denies lymphadenopathy Physical Exam Vital Signs: Last Vital Signs Pulse 93 07/29/23 10:01 BP 164/77 H 07/29/23 10:01 BMI result Body Mass Index 39.8 Const General: no acute distress Nutritional Appearance: obese Orientation/consciousness: patient oriented x3 Limitations: no limitations and ambulation with cane HEENT Head: Yes normocephalic and Yes atraumatic Ears: hearing grossly normal bilaterally Eyes Sclerae: sclerae normal Resp Effort & Inspection: normal respiratory effort Auscultation: clear to auscultation bilaterally GI Other: Non reducible spigelian hernia left lower quadrant 8 cm diameter (see below). Inspection: Yes Abdominal panniculus present and Yes obesity Palpation (GI): Soft to palpation, nontender, no guarding, not rigid and Hernia present (Left lower quadrant consistent with left spigelian hernia, 8 cm diameter ) Percussion: Yes normal to percussion Auscultation: normal bowel sounds Rectal Exam - Male: Yes deferred Abdomen image: 1. Hernia site Skin General skin exam: no rashes or lesions noted Neuro General: patient oriented x3 Extrem General: Yes no clubbing, cyanosis or edema Results Reviewed Results Reviewed: CT abdomen and pelvis images reviewed in detail with the patient Assessment & Plan Assessment & Plan (1) Irreducible Spigelian hernia: Code(s): K43.6 - Other and unspecified ventral hernia with obstruction, without gangrene Plan 77-year-old male patient presenting with a known history of a spigelian hernia in the left abdomen presenting with a recent history of small-bowel obstruction which resolved non operatively. Patient denies any current obstructive symptoms although does have narrowing of the stool as reported previously. This certainly may be the results of his large spigelian hernia in the left abdomen. We discussed repair of the spigelian hernia including the risks, alternatives and benefits. After discussion of the risks, alternatives and benefits, he consents to repair of the spigelian hernia left abdomen with mesh. This will be performed as a short-stay admit due to the large hernia size and the patient's comorbidities. Coding Level of Care Code Est Pt Level 4 (94506) Diagnoses Irreducible Spigelian hernia K43.6
[2023-07-29 10:01] VITALS: BP 164/77; PULSE 93; BMI 39.8
== END 2023-07-29 10:56 | disposition home or self-care (01) ==
PROVIDERS: PCP Internal Medicine; Visit Provider Surgery
DX: K43.6 Other and unspecified ventral hernia with obstruction, without gangrene (principal)
CPT/HCPCS: 99214

== ENCOUNTER → 2023-07-29 09:45 | Outpatient (BNVA) | payer OTHER, SELFPAY | PROVIDERS: PCP Internal Medicine; Visit Provider Surgery | DX: K43.6 Other and unspecified ventral hernia with obstruction, without gangrene (principal) | CPT/HCPCS: 99212 ==

== ENCOUNTER 2023-08-10 06:05 | Inpatient (IN) | payer OTHER, SELFPAY ==
--- NOTE | 2023-08-08 11:51 | HO.ANESPROP2 ---
HPI - Anesthesia Eval Consult details Narrative: 77yo M for Incarcerated Left Spigelian Hernia Repair Ventral Irreducible with mesh No recent illness No CP/SOB with minimal CAD with remote coronary artery bypass grafting with recent myocardial perfusion imaging within normal limits. Follows [facility] cardiology. Last office visit 01/2023 stable with 1 year f/u. Cardiac optimized per workload. COPD. Well controlled on daily inhalers. Albuterol ~ 1 x monthly. 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 1 x 2019 Afib s/p watchman. No anticoag d/t gi blood loss anemia FARHAD with bipap/2L uses QHS. Unable to bring machine. Will bring settings for post op. Bilat hearing aides [facility] Active Problems Active Problems: All Active Problems (Updated 07/29/23 @ 11:06 by Larry Ordoñez MD) Irreducible Spigelian hernia (Acute) Left inguinal hernia (Acute) Constipation (Acute) Ventral hernia (Acute) FARHAD (obstructive sleep apnea) (Acute) Hyperlipidemia (Acute) HTN (hypertension) (Acute) Paroxysmal atrial fibrillation (Acute) CAD (coronary artery disease) (Acute) Past Medical History Medical History (Updated 08/08/23 @ 14:02 by Tonja Jenkins, GRACIELA) History of transesophageal echocardiography (MIKHAIL) History of Mohs micrographic surgery for skin cancer Wears hearing aid in both ears FARHAD treated with BiPAP Asthma Thyroid nodule Gout IBS (irritable bowel syndrome) Balance problem CVA (cerebral vascular accident) History of skin cancer Psoriasis Eczema Peripheral neuropathy Hypothyroidism Anemia, chronic disease History of iron deficiency anemia FARHAD (obstructive sleep apnea) COPD (chronic obstructive pulmonary disease) Hyperlipidemia Diabetes mellitus HTN (hypertension) Paroxysmal atrial fibrillation CAD (coronary artery disease) Family History Family History Father Sudden cardiac Mother Sudden cardiac Family history of problems with anesthesia: No Surgical History Surgical History (Updated 08/08/23 @ 13:45 by Tonja Jenkins, RN) Hx of bilateral cataract extraction History of dental surgery History of dental surgery History of esophagogastroduodenoscopy (EGD) Hx of colonoscopy Hx of hand surgery Hx of knee surgery History of back surgery Hx of CABG Hx of cardiac cath History of Problems with Anesthesia: No Social History Social History (Updated 08/08/23 @ 13:41 by Tonja Jenkins RN) Household Members: Family Housing: House Are you a primary healthcare economics manager to a significant other at home: No Do you presently have visiting nurse or other home services: No Alcohol intake: never Comment: pt agrees to ring to assistance getting out of bed. Patient Tobacco Use Status: Former Tobacco user Quit Date: 1980 Tobacco use type: Cigarette Use of substances other than those prescribed or required for medical reasons: No Have you been hit, kicked, punched, or otherwise hurt by someone within the past year? If so, by whom?: No Are you DNR?: No Advance Directives: Yes Advance Directives Information Provided: No Advance Directives on File: Yes Advance Directives Date on File: 10/18/22 Recently lost weight without trying: No Nutrition Risks: Surgical patient >75years service: Yes Current occupational status: retired [employer] Allergies Allergy/AdvReac Type Severity Reaction Status Date / Time amoxicillin [From Augmentin] Allergy Severe NAUSEA & Verified 08/08/23 13:13 VOMITING, HIVES clavulanic acid Allergy Severe NAUSEA & Verified 08/08/23 13:13 [From Augmentin] VOMITING, HIVES piperacillin [From ZOSYN] Allergy Severe LIVER Verified 08/08/23 13:13 FAILURE tazobactam [From ZOSYN] Allergy Severe LIVER Verified 08/08/23 13:13 FAILURE Home Medications Medication Instructions Recorded Confirmed Last Taken Type albuterol sulfate 2.5 mg/3 mL 2.5 mg inhalation TID PRN Wheezing 09/25/20 08/08/23 Unknown History (0.083 %) solution for nebulization allopurinol 300 mg tablet 300 mg PO DAILY 09/25/20 08/08/23 07/06/23 History aspirin 81 mg tablet,delayed 81 mg PO DAILY 09/25/20 08/08/23 07/06/23 History release (Adult Aspirin Regimen) bupropion HCl 200 mg tablet,12 hr 200 mg PO BID 09/25/20 08/08/23 07/06/23 History sustained-release cetirizine 10 mg tablet (All Day 10 mg PO BEDTIME 09/25/20 08/08/23 07/06/23 History Allergy (cetirizine)) dicyclomine 20 mg tablet 20 mg PO Q6H PRN Spasms 09/25/20 08/08/23 Unknown History fluticasone propionate 50 2 spray intranasal BID 09/25/20 08/08/23 07/06/23 History mcg/actuation nasal spray,suspension metformin 500 mg tablet 500 mg PO BID 09/25/20 08/08/23 07/06/23 History mometasone 200 mcg/actuation HFA 2 puff inhalation BEDTIME 09/25/20 08/08/23 07/06/23 History aerosol inhaler (Asmanex HFA) omeprazole 20 mg capsule,delayed 20 mg PO BID@0630,1630 09/25/20 08/08/23 07/06/23 History release tamsulosin 0.4 mg capsule 0.4 mg PO BID 09/25/20 08/08/23 07/06/23 History tiotropium 2.5 mcg-olodaterol 2.5 2 puff inhalation DAILY 09/25/20 08/08/23 07/06/23 History mcg/actuation mist for inhalation (Stiolto Respimat) verapamil 360 mg 24 hr 360 mg PO BID 09/25/20 08/08/23 07/06/23 History capsule,extended release albuterol sulfate 90 mcg/actuation 2 puff inhalation QID PRN Wheezing 10/18/22 08/08/23 Unknown History aerosol inhaler ascorbic acid (vitamin C) 250 mg 250 mg PO DAILY 10/18/22 08/08/23 07/06/23 History tablet gabapentin 600 mg tablet 1,200 mg PO DAILY@2100 10/18/22 08/08/23 07/06/23 History gabapentin 600 mg tablet 600 mg PO BID@0800,1200 10/18/22 08/08/23 07/06/23 History niacinamide 500 mg tablet 500 mg PO BID 10/18/22 08/08/23 07/06/23 History hydrochlorothiazide 50 mg tablet 50 mg PO DAILY 02/07/23 08/08/23 07/06/23 History atorvastatin 40 mg tablet 40 mg PO BID 07/07/23 08/08/23 07/06/23 History levothyroxine 50 mcg tablet 50 mcg PO DAILY 07/07/23 08/08/23 07/06/23 History polyethylene glycol 3350 17 8.5 g PO DAILY 07/07/23 08/08/23 07/06/23 History gram/dose oral powder oxybutynin chloride 10 mg 10 mg PO DAILY 08/08/23 08/08/23 Unknown History tablet,extended release 24 hr zafirlukast 20 mg tablet 20 mg PO BID 08/08/23 08/08/23 Unknown History Exam Height,Weight and Vital Signs: Vital Signs Pulse Rate 86 08/08/23 13:22 Respiratory Rate 16 08/08/23 13:22 Blood Pressure 140/71 H 08/08/23 13:22 Pulse Oximetry 97 08/08/23 13:22 Oxygen Delivery Method Room Air 08/08/23 13:22 Pertinent Lab Results Pertinent Lab Results: Laboratory Tests 07/08/23 06:01 WBC 7.7 Hgb 11.2 L Hct 33.8 L Plt Count 226 Sodium 143 Potassium 3.6 Chloride 105 Carbon Dioxide 26 BUN 17 H Creatinine 0.94 Narrative Narrative: EKG 06/2023 Vent. Rate : 099 BPM Atrial Rate : 375 BPM P-R Int : 000 ms QRS Dur : 096 ms QT Int : 346 ms P-R-T Axes : 256 -30 048 degrees QTc Int : 444 ms Poor data quality Normal sinus rhythm Cannot rule out Anteroseptal infarct (cited on or before 18-OCT-2022) Abnormal ECG When compared with ECG of 18-OCT-2022 11:27, No significant changes when compared with the previous EKG NM mellisa perf SPECT rest & str 12/2022 Impression: 1. Myocardial perfusion imaging study shows likely normal myocardial perfusion 2. Gated LVEF is 57% 3. Transient ischemic dilatation not present EKG is nondiagnostic for ischemia ECHO 2021 Conclusions: - 1. Technically limited study despite use of contrast agent 2. Normal LV systolic function with impaired relaxation filling pattern 3. Limited visualization of cardiac valves with mild mitral regurgitation 4. Normal measured RV systolic pressure Airway Mallampati Class: II TM Dist: >3cm Neck ROM: Limited (s/p cspine surgery. No plates) Loose/Missing/Broken Teeth: Yes (Edentulous. 4 x capped posts on top and 4 x on bottom) Heart: RRR Lungs: CTAB Assessment and Plan Assessment Anesthesia Assessment: Anesthesia Plan Discussed and PAT Visit Final Anesthetic Review Family History of Problems with Anesthesia: No History of Problems with Anesthesia: No
[2023-08-08 13:22] VITALS: BP 140/71; PULSE 86; RESP 16; O2SAT 97; BMI 38.8
[2023-08-10] VITALS (16 sets, daily range): BP systolic 124–153; BP diastolic 67–83; PULSE 61–81; RESP 10–18; TEMP 36–36.5; O2SAT 94–97
--- OUTSIDE RECORDS SUMMARY | 2023-08-10 06:22 | XMS_ITS | Continuity of Care Document ---
Author Name Unknown Organization [facility] Address [address] [place] [id number] Care Team Providers Care Hearing Impaired Teacher Name Role Phone Madison Ashley MD, I Primary Care Physician Encounter [facility] Date(s): 01/21/22 - 05/21/22 [facility] [address] [place] [id number] Attending Physician: Ricky Caldwell MD Admitting Physician: Ricky Caldwell MD Referring Physician: Madison Ashley MD, I Allergies, Adverse Reactions, Alerts Substance Reaction Severity Status Zosyn Liver failure Active Augmentin 1 Active 1Of note, patient tolerated ZOSYN and AMOXICILLIN Medications Accolate 20 mg oral tablet 1 tablet = 20 mg, By Mouth, 2 times a day, 0 Refills, Maintenance, 05/21/22 8:22:00 EDT, Partial fill upon patient request if the prescription is for a schedule II opioid drug. Start Date: 05/21/22 Status: Ordered Accolate 20 mg oral tablet 1 tablet = 20 mg, By Mouth, 2 times a day, # 180 tablet, 0 Refills, Maintenance, 12/15/13 0:34:26, Tablet Start Date: 12/15/13 Status: Ordered acetaminophen 325 mg oral tablet 975 mg, By Mouth, prn, Refills 0, Maintenance, 01/16/18 15:44:07 EDT Start Date: 01/16/18 Status: Ordered Albuterol 0.083% inhalation michelle Neb, prn, Refills 0, Maintenance, 02/22/20 10:11:00 EDT Start Date: 02/22/20 Status: Ordered Albuterol/Ipratropium 2, puffs, Inhalation, 0, 0, 12/05/07 0:01:57, Print ABDOULAYE Number, Constant Indicator Start Date: 12/05/07 Status: Ordered allopurinol 300 mg oral tablet 1 tablet = 300 mg, By Mouth, Daily, # 30 tablet, 0 Refills, Maintenance, 12/15/13 0:44:57, Tablet Start Date: 12/15/13 Status: Ordered Asmanex 220 mcg Inhaler 220 mcg 2 puffs, Inhalation, Daily, Maintenance, 12/15/13 0:35:01 EDT Start Date: 12/15/13 Status: Ordered aspirin 325 mg oral tablet 325 mg, 1, tablet, By Mouth, Daily, # 30 tablet, Refills 0, Maintenance, 09/12/19 13:39:00 EST Start Date: 09/12/19 Status: Ordered aspirin 81 mg oral tablet 1 tablet = 81 mg, By Mouth, Daily, # 30 tablet, 0 Refills, Maintenance, 11/20/19 11:44:00 EDT, Tablet Start Date: 11/20/19 Status: Ordered baclofen 10 mg oral tablet 10 mg, 1, tablet, By Mouth, 3 times a day, PRN, leg apin, # 42 tablet, Refills 0, Tot. Refills 0, Maintenance, Other, 01/16/18 15:44:11 EDT, Print Requisition Start Date: 01/16/18 Stop Date: 01/30/18 Status: Ordered BIPAP w/ O2 BIPAP w/ O2, Refills 0, Maintenance, 2L of o2, 11/20/19 12:00:00 EDT, Supply Start Date: 11/20/19 Status: Ordered BuPROpion = 200 mg, By Mouth, 2 times a day, 0 Refills, Maintenance, 12/15/13 0:43:59 Start Date: 12/15/13 Status: Ordered cetirizine 10 mg oral tablet 1 tablet = 10 mg, By Mouth, Daily, # 30 tablet, 0 Refills, Maintenance, 12/15/13 0:38:05, Tablet Start Date: 12/15/13 Status: Ordered clobetasol 0.025% topical cream 1 application, Topically, Daily, PRN Other, 0 Refills, Maintenance, 08/21/18 1:36:40 EST, Cream Start Date: 08/21/18 Status: Ordered clobetasol 0.05% topical cream 1 applicator, Topically, 2 times a day, PRN psoriasis, 0 Refills, Maintenance, 01/06/18 6:28:40 EDT Start Date: 01/06/18 Status: Ordered clopidogrel 75 mg oral tablet 75 mg, 1, tablet, By Mouth, Daily, # 30 tablet, Refills 0, Maintenance, 09/12/19 13:42:00 EST Start Date: 09/12/19 Status: Ordered Colace sodium 100 mg oral capsule 100 mg, 1, capsule, By Mouth, 2 times a day, PRN, # 20 capsule, Refills 0, Maintenance, for constipation, 01/26/18 17:35:57 EDT Start Date: 01/26/18 Status: Ordered dicyclomine 10 mg oral capsule 1 capsule = 10 mg, By Mouth, 4 times a day, # 28 capsule, 0 Refills, Maintenance, 01/26/18 17:31:11EDT, Capsule Start Date: 01/26/18 Stop Date: 02/02/18 Status: Ordered flunisolide 25 mcg/inh nasal spray 2 puffs, Nares, Both, 2 times a day, # 25 mL, 0 Refills, Maintenance, 12/15/13 0:38:35, [place] Start Date: 12/15/13 Status: Ordered fluticasone 50 mcg/inh nasal spray 1 sprays, Nares, Both, 2 times a day, # 16 Gm, 5 Refills, Maintenance, 12/14/19 13:26:00 EDT, [place], 1 sprays Nares, Both 2 times a day, 180.34, cm, 11/20/19 11:43:00 EDT, Height, 128, kg, 09/18/19 7:12:00 EST, Dry Weight Start Date: 12/14/19 Status: Ordered Gabapentin = 2,400 mg, By Mouth, 1 in am 1 at noon 2 at bedtime, 0 Refills, Maintenance, 05/21/22 8:31:00 EDT,Partial fill upon patient request if the prescription is for a schedule II opioid drug. Start Date: 05/21/22 Status: Ordered Gabapentin By Mouth, pt takes 600 mg in am, 600 mg at noon and 1200 mg at 07:30 pm, 0 Refills, Maintenance, 02/22/20 10:17:00 EDT Start Date: 02/22/20 Status: Ordered gabapentin 300 mg oral capsule 1,200 mg, 4, capsule, By Mouth, Daily, 1 in the AM , 1 at noon , and 2 bedtime., Refills 0, Maintenance, 01/06/18 6:31:12 EDT Start Date: 01/06/18 Status: Ordered hydrochlorothiazide 50 mg oral tablet 50 mg, 1, tablet, By Mouth, Daily, # 30 tablet, Refills 0, Maintenance, 08/21/18 1:32:28 EST Start Date: 08/21/18 Status: Ordered imiquimod 5% topical cream Topically, when needed, 0 Refills, Maintenance, 02/22/20 10:19:00 EDT Start Date: 02/22/20 Status: Ordered ImiQuiMod Cream ImiQuiMod Cream, 0 Refills, Maintenance, 5 days a week for 6 weeks, 05/21/22 8:29:00 EDT Start Date: 05/21/22 Status: Ordered levothyroxine 0.025 mg oral tablet 2 tablets, By Mouth, Daily, # 30 tablet, 0 Refills, Maintenance, 12/15/13 0:46:27 EDT, Tablet Start Date: 12/15/13 Status: Ordered levothyroxine 0.05 mg oral tablet 1 tablet = 50 mcg, By Mouth, Daily, 0 Refills, Maintenance, 05/21/22 8:26:00 EDT, Partial fill uponpatient request if the prescription is for a schedule II opioid drug. Start Date: 05/21/22 Status: Ordered Lipitor 40 mg oral tablet 1 tablet = 40 mg, By Mouth, Daily at bedtime, # 90 tablet, 0 Refills, Maintenance, Tablet Start Date: 02/20/18 Status: Ordered Metformin = 1,000 mg, By Mouth, 2 times a day, 1/2 tab in AM and 1 tab in the Evnenning., 0 Refills, Maintenance, 01/06/18 6:31:39 EDT Start Date: 01/06/18 Status: Ordered Metformin = 500 mg, By Mouth, 2 times a day, 0 Refills, Maintenance, 09/08/20 14:05:00 EST, Partial fill uponpatient request if the prescription is for a schedule II opioid drug. Start Date: 09/08/20 Status: Ordered Multi Vitamin+ 0 Refills, Maintenance, 01/06/18 6:25:29 EDT Start Date: 01/06/18 Status: Ordered Niacinamide 500 mg oral tablet 1 tab, By Mouth, 2 times a day, 0 Refills, Maintenance, 11/20/19 11:59:00 EDT Start Date: 11/20/19 Status: Ordered omeprazole 20 mg oral enteric coated capsule 1 capsule = 20 mg, By Mouth, 2 times a day, # 30 capsule, 0 Refills, Maintenance, 12/15/13 0:45:40 EDT, EC Capsule Start Date: 12/15/13 Status: Ordered Oxybutynin = 10 mg, By Mouth, Daily, 0 Refills, Maintenance, 12/15/13 0:47:42 Start Date: 12/15/13 Status: Ordered ProAir HFA 90 mcg/inh inhalation aerosol Inhalation, prn, 0 Refills, Maintenance, 02/22/20 10:12:00 EDT Start Date: 02/22/20 Status: Ordered Stiolto Respimat 2.5 mcg-2.5 mcg inhalation aerosol 2 puffs, Inhalation, Every 24 hours, # 60 inhalation, 0 Refills, Maintenance, 01/06/18 6:20:46 EDT,Aerosol Start Date: 01/06/18 Status: Ordered Tamsulosin Capsule 0.4 mg, By Mouth, 2 times a day, Maintenance, 12/15/13 0:48:33 EDT Start Date: 12/15/13 Status: Ordered Triamcinolone prn, 0 Refills, Maintenance, 05/21/22 8:28:00 EDT, Partial fill upon patient request if the prescription is for a schedule II opioid drug. Start Date: 05/21/22 Status: Ordered Verapamil = 360 mg, By Mouth, 2 a day, 0 Refills, Maintenance, 05/21/22 8:25:00 EDT, Partial fill upon patient request if the prescription is for a schedule II opioid drug. Start Date: 05/21/22 Status: Ordered Verapamil = 600 mg, By Mouth, 2 times a day, 2 in the AM and 2 in the evenning., 0 Refills, Maintenance, 08/21/18 9:15:35 EST Start Date: 08/21/18 Status: Ordered Problem List Condition Confirmation Course Effective Dates Status Health St atus Informant Anxiety Confirmed Active Basal cell carcinoma Confirmed Active BPH (benign prostatic hyperplasia) Confirmed Active COPD (chronic obstructive pulmonary disease) Confirmed Active Depression Confirmed Active Diabetes mellitus Confirmed Active Gout Confirmed Active HLD (hyperlipidemia) Confirmed Active HTN (hypertension) Confirmed Active Hypothyroidism, unspecified Confirmed Active FARHAD treated with BiPAP Confirmed Active Psoriasis Confirmed Active Severe obesity Confirmed Active Social History Social History Type Response Smoking Status Former smoker entered on: 01/24/18 Sex Patient Care team information Personnel Name: Madison Ashley MD, I Address: Address: [address] [place] [address]
--- OUTSIDE RECORDS SUMMARY | 2023-08-10 06:22 | XMS_ITS | Continuity of Care Document ---
Author Name Unknown Organization [facility] ter Address [address] [place] [address]- Care Team Providers Care Doctor'S Assistant Name Role Phone Dion FRANKLIN, Madison Mari Primary Care Physician [phone] [place] [facility] [place] - 05/15/[address] [address]- Attending Physician: Cyndy Burger MD Admitting Physician: Cyndy Burger MD Referring Physician: Cyndy Burger MD Allergies, Adverse Reactions, Alerts Substance Reaction Severity [...] 25 mL, 0 Refills, Maintenance, 12/15/13 0:38:35, [place] Start Date: 12/15/13 Status: Ordered fluticasone 50 mcg/inh nasal spray 1 sprays, Nares, Both, 2 times a day, # 16 Gm, 5 Refills, Maintenance, 12/14/19 13:26:00 EDT, [place], 1 sprays Nares, Both 2 times a day, 180.34, cm, 11/20/19 11:43:00 EDT, Height, 128, kg, 09/18/19 7:12:00 EST, Dry Weight Start Date: 12/14/19 Status: Ordered Gabapentin By Mouth, pt takes [...] 10:19:00 EDT Start Date: 02/22/20 Status: Ordered levothyroxine 0.025 mg oral tablet 2 tablets, By Mouth, Daily, # 30 tablet, 0 Refills, Maintenance, 12/15/13 0:46:27 EDT, Tablet Start Date: 12/15/13 Status: Ordered Lipitor 40 mg oral tablet [...] 0:48:33 EDT Start Date: 12/15/13 Status: Ordered Verapamil = 600 mg, By Mouth, 2 times a day, 2 in the AM and 2 in the evenning., 0 Refills, Maintenance, 08/21/18 9:15:35 EST Start Date: 08/21/18 Status: Ordered Problem List Condition Effective Dates Status Health Status Inform ant Anxiety(Confirmed) Active Basal cell carcinoma(Confirmed) Active BPH (benign prostatic hyperplasia)(Confirmed) Active COPD (chronic obstructive pu lmonary disease)(Confirmed) Active Depression(Confirmed) Active Diabetes mellitus(Confirmed) Active Gout(Confirmed) Active HLD (hyperlipidemia)(Confirmed) Active HTN (hypertension)(Confirmed) Active Hypothyroidism, unspecified(Confirmed) Active FARHAD treated with BiPAP(Confirmed) Active Psoriasis(Confirmed) Active Social History Social History Type Response Smoking Status Former smoker entered on: 01/24/18 Sex
--- OUTSIDE RECORDS SUMMARY | 2023-08-10 06:22 | XMS_ITS | Continuity of Care Document ---
Author Name Unknown Organization [facility] Address [address] [place] [address]- Care Team Providers Care Laundry Attendant Name Role Phone Dion FRANKLIN, Madison Mari Primary Care Physician [phone] Encounter [facility] [place] Date(s): 04/01/21 - 05/10/21 [facility] [address] [place] [id number] Attending Physician: Not on Staff, Attending MD Allergies, Adverse Reactions, Alerts Substance Reaction [...] 25 mL, 0 Refills, Maintenance, 12/15/13 0:38:35, [place] Start Date: 12/15/13 Status: Ordered fluticasone 50 mcg/inh nasal spray 1 sprays, Nares, Both, 2 times a day, # 16 Gm, 5 Refills, Maintenance, 12/14/19 13:26:00 EDT, [place], 1 sprays Nares, Both 2 times a [...]
--- OUTSIDE RECORDS SUMMARY | 2023-08-10 06:22 | XMS_ITS | Continuity of Care Document ---
Author Name Unknown Organization [facility] Address [address] [place] [address]- Care Team Providers Care Commercial Assistant Name Role Phone Dion FRANKLIN, Madison Mari Primary Care Physician [phone] [place] [facility] [place]19[place]22 - 12/19/22 [facility] [address] [place] [address]- Allergies, Adverse Reactions, Alerts Substance Reaction Severity Status Zosyn Liver failure Active Augmentin 1 Active 1Of note, patient tolerated ZOSYN and AMOXICILLIN Medications Accolate 20 mg oral tablet 1 tablet = 20 mg, By Mouth, 2 times a day, # 180 tablet, 3 Refills, Maintenance, 11/19/22 14:51:00 EDT, Tablet, [facility], Partial fill upon patient request if the prescription is fora schedule II opioid drug., 180.34, cm, 10/26/22 9:... Start Date: 11/19/22 Status: Ordered acetaminophen 325 mg oral tablet 975 mg, By Mouth, prn, Refills 0, Maintenance, 01/16/18 15:44:07 EDT Start Date: 01/16/18 Status: Ordered albuterol 0.083% inhalation solution 3 mL = 2.5 mg, Neb, Every 6 hours, PRN Wheezing/Shortness of Breath, J45.909, # 1,080 mL, 3 Refills, Maintenance, 11/19/22 14:51:00 EDT, Inhalation Solution, [facility], Partial fill upon patient request if the prescription is for a santana... Start Date: 11/19/22 Status: Ordered Albuterol/Ipratropium 2, puffs, Inhalation, 0, 0, 12/05/07 0:01:57, Print ABDOULAYE Number, Constant Indicator Start Date: 12/05/07 Status: Ordered allopurinol 300 mg oral tablet 1 tablet = 300 mg, By Mouth, Daily, # 30 tablet, 0 Refills, Maintenance, 12/15/13 0:44:57, Tablet Start Date: 12/15/13 Status: Ordered Asmanex Twisthaler 60 Dose 220 mcg/inh inhalation aerosol powder 2 puffs, Inhalation, Daily before dinner, j45.40, # 3 each, 3 Refills, Maintenance, 11/19/22 15:05:00 EDT, [facility], Partial fill upon patient request if the prescription is for a schedule II opioid drug., 2 puffs Inhalation Daily bef... Start Date: 11/19/22 Status: Ordered aspirin 325 mg oral tablet [...] = 10 mg, By Mouth, Daily, # 90 tablet, 3 Refills, Maintenance, 11/19/22 14:51:00 EDT, Tablet, [facility], Partial fill upon patient request if the prescription is for a schedule II opioid drug., 180.34, cm, 10/26/22 9:27:00 EDT... Start Date: 11/19/22 Status: Ordered clobetasol 0.025% topical cream 1 [...] 25 mL, 0 Refills, Maintenance, 12/15/13 0:38:35, [place] Start Date: 12/15/13 Status: Ordered fluticasone 50 mcg/inh nasal spray 1 sprays, Nares, Both, 2 times a day, # 3 each, 3 Refills, Maintenance, 11/19/22 14:51:00 EDT, [place], [facility], 1 sprays Nares, Both 2 times a day, 180.34, cm, 10/26/22 9:27:00 EDT, [place] Start Date: 11/19/22 Status: Ordered Gabapentin = 2,400 mg, By [...] Ordered ProAir HFA 90 mcg/inh inhalation aerosol 2 puffs, Inhalation, Every 4 hours, PRN Wheezing/Shortness of Breath, # 3 each, 3 Refills, Maintenance, 11/19/22 14:51:00 EDT, Inhaler, [facility], Partial fill upon patient request ifthe prescription is for a schedule II opioid drug.,... Start Date: 11/19/22 Status: Ordered Stiolto Respimat 60 ACT 2.5 mcg-2.5 mcg/inh inhalation aerosol 2 puffs, Inhalation, Every 24 hours, # 3 each, 3 Refills, Maintenance, 11/19/22 14:51:00 EDT, Aerosol, [facility], Partial fill upon patient request if the prescription is for a schedule II opioid drug., 180.34, cm, 10/26/22 9:27:00 EDT... Start Date: 11/19/22 Status: Ordered Tamsulosin Capsule 0.4 mg, By [...] Confirmed Active Psoriasis Confirmed Active Severe obesity (BMI 35.0-39.9) with comorbidity Confirmed Active Social History Social History Type Response Smoking Status Former smoker entered on: 01/24/18 Sex Patient Care team information Care Team Personnel Name: Ana Maria Keane RN Position: [facility] Hospital Numerical Control Machine Operator Member Role: Primary Care Nurse Name: Madison Ashley MD, I Position: Reference Physician Member Role: PCP Address: Address: [address] [place] [address] Name: Ellen Avila RN Position: [facility] SN RN Member Role: Primary Care Nurse Name: Torsten Davis RN Position: S RN Member Role: Primary Care Nurse Name: Brittany Alexander RN Position: [facility] RN Member Role: Primary Care Nurse Care Team Related Persons Name: PETE GARCIA Address: home [address] [place] [address] Name: HALLIE BANDA Address: home [address] [place] [address]
--- OUTSIDE RECORDS SUMMARY | 2023-08-10 06:22 | XMS_ITS | Continuity of Care Document ---
Author Name Unknown Organization [facility] Address [address] [place] [address]- Care Team Providers Care Credit Processor Name Role Phone Dion FRANKLIN, Madison Mari Primary Care Physician Encounter [facility] [place] Date(s): 04/10/21 - 05/10/21 [facility] [address] [place] [id number] Attending Physician: Admtr, Ar8 Admitting Physician: Admtr, Ar8 Referring Physician: Admtr, Ar8 Allergies, Adverse Reactions, Alerts Substance Reaction Severity [...] 25 mL, 0 Refills, Maintenance, 12/15/13 0:38:35, [place] Start Date: 12/15/13 Status: Ordered fluticasone 50 mcg/inh nasal spray 1 sprays, Nares, Both, 2 times a day, # 16 Gm, 5 Refills, Maintenance, 12/14/19 13:26:00 EDT, [place], 1 sprays Nares, Both 2 times a [...]
--- OUTSIDE RECORDS SUMMARY | 2023-08-10 06:22 | XMS_ITS | Continuity of Care Document ---
Author Name Unknown Organization [facility] Address [address] [place] [address]- Care Team Providers Care Oncology Social Worker Name Role Phone Dion FRANKLIN, Madison Mari Primary Care Physician En[place] [facility] [place] Date(s): 04/02/21 - 05/02/21 [facility] Diabetes [address] [place] [id number] Allergies, Adverse Reactions, Alerts Substance Reaction Severity [...] 25 mL, 0 Refills, Maintenance, 12/15/13 0:38:35, [place] Start Date: 12/15/13 Status: Ordered fluticasone 50 mcg/inh nasal spray 1 sprays, Nares, Both, 2 times a day, # 16 Gm, 5 Refills, Maintenance, 12/14/19 13:26:00 EDT, [place], 1 sprays Nares, Both 2 times a [...]
--- OUTSIDE RECORDS SUMMARY | 2023-08-10 06:22 | XMS_ITS | Continuity of Care Document ---
Author Name Unknown Organization [facility] Address [address] [place] [address]- Care Team Providers Care Livestock Laborer Name Role Phone Fransisco FRANKLIN, Anival Moreno Primary Care Physician Encounter [facility] Date(s): 01/27/21 - 02/26/21 [facility] [address] [place] [address]- Allergies, Adverse Reactions, Alerts Substance Reaction Severity [...] 25 mL, 0 Refills, Maintenance, 12/15/13 0:38:35, [place] Start Date: 12/15/13 Status: Ordered fluticasone 50 mcg/inh nasal spray 1 sprays, Nares, Both, 2 times a day, # 16 Gm, 5 Refills, Maintenance, 12/14/19 13:26:00 EDT, [place], 1 sprays Nares, Both 2 times a [...]
--- OUTSIDE RECORDS SUMMARY | 2023-08-10 06:22 | XMS_ITS | Continuity of Care Document ---
Author Name Unknown Organization [facility] Address [address] [address]- Care Team Providers Care Geothermal Production Manager Name Role Phone Fransisco FRANKLIN, Anival Moreno Primary Care Physician [facility] [place] Date(s): 09/09/20 - 10/09/20 [facility] [address] [place] [id number] Attending Physician: Admtr, Saul8 Admitting Physician: Admtr, Ar8 Referring Physician: Admtr, [...] 25 mL, 0 Refills, Maintenance, 12/15/13 0:38:35, [place] Start Date: 12/15/13 Status: Ordered fluticasone 50 mcg/inh nasal spray 1 sprays, Nares, Both, 2 times a day, # 16 Gm, 5 Refills, Maintenance, 12/14/19 13:26:00 EDT, [place], 1 sprays Nares, Both 2 times a [...]
--- OUTSIDE RECORDS SUMMARY | 2023-08-10 06:22 | XMS_ITS | Continuity of Care Document ---
Author Name Unknown Organization [facility] Address [address] [place] [address]- Care Team Providers Care Seater Assembler Name Role Phone Dion FRANKLIN, Madison Mari Primary Care Physician [place] [facility] [place]21 - 04/30/21 [facility] [address] [place] [address]- Attending Physician: Kitty Barajas Admitting Physician: AdmtrKitty Referring Physician: Admtr ArJonn Allergies, Adverse Reactions, Alerts Substance Reaction Severity [...] 25 mL, 0 Refills, Maintenance, 12/15/13 0:38:35, [place] Start Date: 12/15/13 Status: Ordered fluticasone 50 mcg/inh nasal spray 1 sprays, Nares, Both, 2 times a day, # 16 Gm, 5 Refills, Maintenance, 12/14/19 13:26:00 EDT, [place], 1 sprays Nares, Both 2 times a [...]
--- OUTSIDE RECORDS SUMMARY | 2023-08-10 06:22 | XMS_ITS | Continuity of Care Document ---
Author Name Unknown Organization [facility] Address [address] [place] [address]- Care Team Providers Care Broadcast Systems Engineer Name Role Phone Fransisco FRANKLIN, Anival Moreno Primary Care Physician [phone] [place] [facility] [place] 04/20/20 [facility] [address] [place] [address]- [facility] Allergies, Adverse Reactions, Alerts Substance Reaction Severity [...] 25 mL, 0 Refills, Maintenance, 12/15/13 0:38:35, [place] Start Date: 12/15/13 Status: Ordered fluticasone 50 mcg/inh nasal spray 1 sprays, Nares, Both, 2 times a day, # 16 Gm, 5 Refills, Maintenance, 12/14/19 13:26:00 EDT, [place], 1 sprays Nares, Both 2 times a [...] 6:31:39 EDT Start Date: 01/06/18 Status: Ordered Multi Vitamin+ 0 Refills, Maintenance, [...]
--- OUTSIDE RECORDS SUMMARY | 2023-08-10 06:22 | XMS_ITS | Continuity of Care Document ---
Author Name Unknown Organization [facility] Address [address] [place] [address]- Care Team Providers Care Bag Builder Name Role Phone Fransisco FRANKLIN, Anival Moreno Primary Care Physician [phone] Encounter [facility] [place] Date(s): 11/20/19 - 11/27/19 [facility] [address] [place] [address] [facility] Attending Physician: Larry Villafuerte II, MD Referring Physician: Anival Moody MD Allergies, Adverse Reactions, Alerts Substance Reaction Severity Status Zosyn Liver failure Active Augmentin 1 Active 1Of note, patient tolerated ZOSYN and AMOXICILLIN Medications Accolate 20 mg oral tablet 1 tablet = 20 mg, By Mouth, 2 times a day, # 180 tablet, 0 Refills, Maintenance, 12/15/13 0:34:26, Tablet Start Date: 12/15/13 Status: Ordered acetaminophen 325 mg oral tablet 975 mg, By Mouth, Every 6 hours, Refills 0, Maintenance, 01/16/18 15:44:07 EDT Start Date: 01/16/18 Status: Ordered Albuterol/Ipratropium 2, puffs, Inhalation, 0, 0, 12/05/07 0:01:57, Print ABDOULAYE Number, Constant Indicator Start Date: 12/05/07 Status: Ordered allopurinol 300 mg oral tablet 1 tablet = 300 mg, By Mouth, Daily, # 30 tablet, 0 Refills, Maintenance, 12/15/13 0:44:57, Tablet Start Date: 12/15/13 Status: Ordered Asmanex 220 mcg Inhaler 220 mcg 2 puffs, Inhalation, 2 times a day, Maintenance, 12/15/13 0:35:01 Start Date: 12/15/13 Status: Ordered aspirin 325 [...] 25 mL, 0 Refills, Maintenance, 12/15/13 0:38:35, [place] Start Date: 12/15/13 Status: Ordered gabapentin 300 mg oral capsule [...] 08/21/18 Status: Ordered imiquimod 5% topical cream 1 applicator, Topically, Daily at bedtime, 0 Refills, Maintenance, 01/26/18 17:31:44 EDT Start Date: 01/26/18 Status: Ordered levothyroxine 0.025 mg oral tablet [...] 1 capsule = 20 mg, By Mouth, Daily, # 30 capsule, 0 Refills, Maintenance, 12/15/13 0:45:40, [place] Capsule Start Date: 12/15/13 Status: Ordered Oxybutynin = 10 mg, By Mouth, Daily, 0 Refills, Maintenance, 12/15/13 0:47:42 Start Date: 12/15/13 Status: Ordered Stiolto Respimat 2.5 mcg-2.5 mcg [...] FARHAD treated with BiPAP(Confirmed) Active Psoriasis(Confirmed) Active Vital Signs Most recent to oldest [Reference Range]: 1 Height 180.34 cm (11/20/19 11:43 AM) Weight 122.72 kg (11/20/19 11:43 AM) Body Mass Index [18.5-24.99] 37.73 *>HHI* (11/20/19 11:43 AM) Weight Obtained Via Patient/family state d (11/20/19 11:43 AM) Social History Social History Type Response Smoking Status Former smoker entered on: 01/24/18 Sex
--- OUTSIDE RECORDS SUMMARY | 2023-08-10 06:22 | XMS_ITS | Continuity of Care Document ---
Author Name Unknown Organization [facility] Address [address] [place] [address]- Care Team Providers Care Chemist Pharmaceutical Name Role Phone Madison Ashley MD, I Primary Care Physician [phone] Encounter [facility] [place]CT R [id number] Date(s): 04/07/22 - 07/16/22 [facility] [address] [place] [id number] Attending Physician: Ricky Caldwell MD Admitting Physician: Ricky Caldwell MD Allergies, Adverse Reactions, Alerts Substance Reaction [...] 25 mL, 0 Refills, Maintenance, 12/15/13 0:38:35, [place] Start Date: 12/15/13 Status: Ordered fluticasone 50 mcg/inh nasal spray 1 sprays, Nares, Both, 2 times a day, # 16 Gm, 5 Refills, Maintenance, 12/14/19 13:26:00 EDT, [place], 1 sprays Nares, Both 2 times a [...] Personnel Name: Ana Maria Keane RN Position: [facility] Hospital Vendor Quality Supervisor Member Role: Primary Care Nurse Name: Madison Ashley MD, I Position: Reference Physician Member Role: PCP Address: Address: [address] [place] [id number] Name: Ellen Avila RN Position: [facility] SN RN Member Role: Primary Care Nurse Name: Torsten Davis RN Position: [facility] RN Member Role: Primary Care Nurse Name: Brittany Alexander RN Position: [facility] RN Member Role: Primary Care Nurse Care Team Related Persons Name: PETE GARCIA Address: [address] [place] [address] Name: HALLIE BANDA Address: home [address] [place] [address]
--- OUTSIDE RECORDS SUMMARY | 2023-08-10 06:22 | XMS_ITS | Continuity of Care Document ---
Author Name Unknown Organization [facility] Address [address] [place] [address]- Care Team Providers Care Manager Validation Name Role Phone Fransisco FRANKLIN, Anival Moreno Primary Care Physician En[place] [facility] [place] Date(s): 02/22/20 - 03/23/20 [facility] [address] [place] [address] [facility] Attending Physician: Kitty Barajas Admitting Physician: AdmKitty velez Referring Physician: Admtr ArJonn Allergies, Adverse Reactions, [...] 25 mL, 0 Refills, Maintenance, 12/15/13 0:38:35, [place] Start Date: 12/15/13 Status: Ordered fluticasone 50 mcg/inh nasal spray 1 sprays, Nares, Both, 2 times a day, # 16 Gm, 5 Refills, Maintenance, 12/14/19 13:26:00 EDT, [place], 1 sprays Nares, Both 2 times a [...]
--- OUTSIDE RECORDS SUMMARY | 2023-08-10 06:22 | XMS_ITS | Continuity of Care Document ---
Author Name Unknown Organization [facility] Address [address] [place] [address]- Care Team Providers Care Agricultural Production Engineer Name Role Phone Madison Ashley MD, I Primary Care Physician Encounter [facility] [place] ACCT R [id number] Date(s): 04/26/22 - 06/19/22 [facility] [address] [place] [id number] Attending Physician: Coco Alejandro MD Admitting Physician: Coco Alejandro MD Referring Physician: Madison Ashley MD, I [...] 25 mL, 0 Refills, Maintenance, 12/15/13 0:38:35, [place] Start Date: 12/15/13 Status: Ordered fluticasone 50 mcg/inh nasal spray 1 sprays, Nares, Both, 2 times a day, # 16 Gm, 5 Refills, Maintenance, 12/14/19 13:26:00 EDT, [place], 1 sprays Nares, Both 2 times a [...] Personnel Name: Ana Maria Keane RN Position: [facility] Bell Attendant Member Role: Primary Care Nurse Name: Madison Ashley MD, I Position: Reference Physician Member Role: PCP Address: Address: [address] [place] [address] Name: Ellen Avila RN Position: [facility] SN RN Member Role: Primary Care Nurse Name: Torsten Davis RN Position: [facility] RN Member Role: Primary Care Nurse Name: Brittany Alexander RN Position: [facility] RN Member Role: Primary Care Nurse Care Team Related Persons Name: PETE GARCIA Address: home [address] [place] [address] Name: HALLIE BANDA Address: home [address] [place] [address]
--- OUTSIDE RECORDS SUMMARY | 2023-08-10 06:22 | XMS_ITS | Continuity of Care Document ---
Author Name Unknown Organization [facility] Address [address] [place] [address]- Care Team Providers Care Die Out Worker Name Role Phone Dion FRANKLIN, Madison Mari Primary Care Physician Encounter [facility] [place] Date(s): 03/26/21 - 04/25/21 [facility] Diabetes [address] [place] [id number] Allergies, Adverse Reactions, Alerts Substance Reaction Severity [...] 25 mL, 0 Refills, Maintenance, 12/15/13 0:38:35, [place] Start Date: 12/15/13 Status: Ordered fluticasone 50 mcg/inh nasal spray 1 sprays, Nares, Both, 2 times a day, # 16 Gm, 5 Refills, Maintenance, 12/14/19 13:26:00 EDT, [place], 1 sprays Nares, Both 2 times a [...]
[2023-08-10] MEDS: Lactated Ringers 1,000 ML 100 ML IVCONT (06:56)
[2023-08-10 07:01] LABS: Glucose, Whole Blood 124 mg/dL (60-115)
--- NOTE | 2023-08-10 07:26 | HO.ANESPROP2 ---
FORMERLY [facility], 1928–1983 Active Problems Active Problems: All Active Problems (Updated 08/08/23 @ 14:02 by Tonja Jenkins RN) Irreducible Spigelian hernia (Acute) Left inguinal hernia (Acute) Constipation (Acute) Ventral hernia (Acute) FARHAD (obstructive sleep apnea) (Acute) Hyperlipidemia (Acute) HTN (hypertension) (Acute) Paroxysmal atrial fibrillation (Acute) CAD (coronary artery disease) (Acute) Past Medical History Medical History (Updated 08/08/23 @ 14:02 by Tonja Jenkins, GRACIELA) History of transesophageal echocardiography (MIKHAIL) History of Mohs micrographic surgery for skin cancer Wears hearing aid in both ears FARHAD treated with BiPAP Asthma Thyroid nodule Gout IBS (irritable bowel syndrome) Balance problem CVA (cerebral vascular accident) History of skin cancer Psoriasis Eczema Peripheral neuropathy Hypothyroidism Anemia, chronic disease History of iron deficiency anemia FARHAD (obstructive sleep apnea) COPD (chronic obstructive pulmonary disease) Hyperlipidemia Diabetes mellitus HTN (hypertension) Paroxysmal atrial fibrillation CAD (coronary artery disease) Family History Family History Father Sudden cardiac Mother Sudden cardiac Family history of problems with anesthesia: No Surgical History Surgical History (Updated 08/08/23 @ 13:45 by Tonja Jenkins RN) Hx of bilateral cataract extraction History of dental surgery History of dental surgery History of esophagogastroduodenoscopy (EGD) Hx of colonoscopy Hx of hand surgery Hx of knee surgery History of back surgery Hx of CABG Hx of cardiac cath History of Problems with Anesthesia: No Social History Social History (Updated 08/08/23 @ 13:41 by Tonja Jenkins RN) Household Members: Family Housing: House Are you a primary landcare officer to a significant other at home: No Do you presently have visiting nurse or other home services: No Alcohol intake: never Comment: pt agrees to ring to assistance getting out of bed. Patient Tobacco Use Status: Former Tobacco user Quit Date: 1980 Tobacco use type: Cigarette Use of substances other than those prescribed or required for medical reasons: No Have you been hit, kicked, punched, or otherwise hurt by someone within the past year? If so, by whom?: No Are you DNR?: No Advance Directives: Yes Advance Directives Information Provided: No Advance Directives on File: Yes Advance Directives Date on File: 10/18/22 Recently lost weight without trying: No Nutrition Risks: Surgical patient >75years service: Yes Current occupational status: retired Meds Allergies Allergy/AdvReac Type Severity Reaction Status Date / Time amoxicillin [From Augmentin] Allergy Severe NAUSEA & Verified 08/08/23 13:13 VOMITING, HIVES clavulanic acid Allergy Severe NAUSEA & Verified 08/08/23 13:13 [From Augmentin] VOMITING, HIVES piperacillin [From ZOSYN] Allergy Severe LIVER Verified 08/08/23 13:13 FAILURE tazobactam [From ZOSYN] Allergy Severe LIVER Verified 08/08/23 13:13 FAILURE Active Medications: Current Medications Albuterol Sulfate (Albuterol Sulfate (0.083%) 2.5 Mg/3 Ml Vial.Neb) 2.5 mg INHALE ONCE PRN PRN Reason: Shortness of Breath/Wheezing Lactated Ringer's (Lr) 1,000 mls @ 100 mls/hr IVCONT .Q10H CASANDRA Vancomycin HCl (Vancomycin/Ns) 2,000 mg in 520 mls @ 250 mls/hr IV PREOP ONE Stop: 08/10/23 08:34 Pharmacy Consult (Consult Rx Vancomycin Dosing) 1 each MISCELLANE DAILY PRN PRN Reason: Consult order Home Medications Medication Instructions Recorded Confirmed Last Taken Type albuterol sulfate 2.5 mg/3 mL 2.5 mg inhalation TID PRN Wheezing 09/25/20 08/08/23 Unknown History (0.083 %) solution for nebulization allopurinol 300 mg tablet 300 mg PO DAILY 09/25/20 08/08/23 08/09/23 History aspirin 81 mg tablet,delayed 81 mg PO DAILY 09/25/20 08/08/23 08/08/23 History release (Adult Aspirin Regimen) bupropion HCl 200 mg tablet,12 hr 200 mg PO BID 09/25/20 08/08/23 08/10/23 History sustained-release cetirizine 10 mg tablet (All Day 10 mg PO BEDTIME 09/25/20 08/08/23 08/09/23 History Allergy (cetirizine)) dicyclomine 20 mg tablet 20 mg PO Q6H PRN Spasms 09/25/20 08/08/23 08/09/23 History fluticasone propionate 50 2 spray intranasal BID 09/25/20 08/08/23 08/09/23 History mcg/actuation nasal spray,suspension metformin 500 mg tablet 500 mg PO BID 09/25/20 08/08/23 08/09/23 History mometasone 200 mcg/actuation HFA 2 puff inhalation BEDTIME 09/25/20 08/08/23 08/09/23 History aerosol inhaler (Asmanex HFA) omeprazole 20 mg capsule,delayed 20 mg PO BID@0630,1630 09/25/20 08/08/23 08/10/23 History release tamsulosin 0.4 mg capsule 0.4 mg PO BID 09/25/20 08/08/23 08/09/23 History tiotropium 2.5 mcg-olodaterol 2.5 2 puff inhalation DAILY 09/25/20 08/08/23 08/09/23 History mcg/actuation mist for inhalation (Stiolto Respimat) verapamil 360 mg 24 hr 360 mg PO BID 09/25/20 08/08/23 08/10/23 History capsule,extended release albuterol sulfate 90 mcg/actuation 2 puff inhalation QID PRN Wheezing 10/18/22 08/08/23 08/10/23 History aerosol inhaler ascorbic acid (vitamin C) 250 mg 250 mg PO DAILY 10/18/22 08/08/23 08/09/23 History tablet gabapentin 600 mg tablet 1,200 mg PO DAILY@2100 10/18/22 08/08/23 08/09/23 History gabapentin 600 mg tablet 600 mg PO BID@0800,1200 10/18/22 08/08/23 08/10/23 History niacinamide 500 mg tablet 500 mg PO BID 10/18/22 08/08/23 07/06/23 History hydrochlorothiazide 50 mg tablet 50 mg PO DAILY 02/07/23 08/08/23 08/09/23 History atorvastatin 40 mg tablet 40 mg PO BID 07/07/23 08/08/23 08/09/23 History levothyroxine 50 mcg tablet 50 mcg PO DAILY 07/07/23 08/08/23 08/10/23 History polyethylene glycol 3350 17 8.5 g PO DAILY 07/07/23 08/08/23 07/06/23 History gram/dose oral powder oxybutynin chloride 10 mg 10 mg PO DAILY 08/08/23 08/08/23 08/09/23 History tablet,extended release 24 hr zafirlukast 20 mg tablet 20 mg PO BID 08/08/23 08/08/23 08/10/23 History Exam Height,Weight and Vital Signs: Height 5 ft 11 in Weight 126.099 kg Last Vital Signs Pulse 86 08/08/23 13:22 Resp 16 08/08/23 13:22 BP 140/71 H 08/08/23 13:22 Pulse Ox 97 08/08/23 13:22 O2 Del Method Room Air 08/08/23 13:22 Pertinent Lab Results Pertinent Lab Results: Laboratory Tests 08/08/23 08/10/23 14:12 06:58 POC Glucose 124 H Blood Type O Negative Antibody Screen NEGATIVE Airway Mallampati Class: III TM Dist: >3cm Neck ROM: Full Heart: rrr Lungs: clear Assessment and Plan Final Anesthetic Review Family History of Problems with Anesthesia: No History of Problems with Anesthesia: No NPO: Yes ASA Class: IV and V Final Preanesthetic Review: No Changes in Pt Med Stat, Meds/Allgs Chart Reviewed, Consent Obtained/Reviewed and Anes Risks/Benef Reviewed Patient Risk: High Procedure Risk: Intermediate Anesthetic Plan Anesthetic Plan: GA Disposition: Standard PACU
--- NOTE | 2023-08-10 07:33 | MHC.SHP ---
Pre-Procedural Eval Section A Date of Service: 08/10/23 The patient is an INPATIENT: No Changes since office visit: Yes Patient answered all questions; No Cold of Flu in the past 2 weeks, No New Medical Problems and No Changes in Medication The History & Physical has been completed within 30 days and I have reviewed it.: Yes Section B Chief Complaint: spigelian hernia repair, CAD, PAF Allergies: Allergies Allergy/AdvReac Type Severity Reaction Status Date / Time amoxicillin [From Augmentin] Allergy Severe NAUSEA & Verified 08/08/23 13:13 VOMITING, HIVES clavulanic acid Allergy Severe NAUSEA & Verified 08/08/23 13:13 [From Augmentin] VOMITING, HIVES piperacillin [From ZOSYN] Allergy Severe LIVER Verified 08/08/23 13:13 FAILURE tazobactam [From ZOSYN] Allergy Severe LIVER Verified 08/08/23 13:13 FAILURE Plan Diagnosis/Plan: Unchanged I have reviewed the history and physical and performed a pertinent physical examination on my patient. No changes have occurred unless specified. Time Spent With Patient Time: Total time managing care of this patient today ____ minutes.
--- NOTE | 2023-08-10 09:23 | P.OP_ITS ---
Operative Note Operative Note Date of Service: 08/10/23 Narrative: Preoperative diagnosis: Spigelian hernia left lower quadrant Postoperative diagnosis: Same Procedure: Repair of spigelian hernia with mesh left lower quadrant Surgeon: Larry Ordoñez MD Swing Saw Operator: Lucia Mendez PA-C, LIBORIO El Anesthesia: General LMA Indications for procedure: 77-year-old male patient presenting with a recent history small-bowel obstruction and a long history of constipation found to have a spigelian hernia in the left lower quadrant. Operative findings: Large spigelian hernia, 5 cm diameter, left lower quadrant containing incarcerated sigmoid colon Specimen: None Estimated blood loss: 5 mL Complications: None Procedure details: Patient was brought to the OR and placed in a supine position. After administering general anesthesia patient's abdomen was prepped with ChloraPrep and draped in a sterile fashion. A surgical time-out was called the consent confirmed. Patient received preoperative antibiotics and Venodyne boots were in place. Local anesthesia consisting of 0.5% Sensorcaine was infiltrated in oblique fashion over the left lower quadrant palpable hernia. Incision was then made with a scalpel carried out through subcutaneous tissue, past Sourav's fascia up to the external oblique aponeurosis. The external oblique aponeurosis was then incised with a scalpel and widened with electrocautery. Hernia sac was identified and opened. Incarcerated sigmoid colon was identified within the hernia sac. An extensive lysis of adhesions was required to free the sigmoid colon from the hernia sac. Once this was completed the sigmoid colon was reduced into the abdominal cavity. The peritoneal sac was then plicated and sutured using a running 0 Polysorb suture. A preperitoneal space was then created using blunt and sharp dissection. Hemostasis was assured using electrocautery and free ties of 3-0 Polysorb. An 8 cm round Ventralex mesh was then obtained. The mesh was secured in 4 quadrants using a 1 Tycron suture. Wounds were then irrigated with saline solution and suctioned dry. Fascia was then closed using combination of running 0 Polysorb suture and [id number] 1 Tycron sutures. Wounds were irrigated with saline solution and suctioned dry. Sourav's fascia was then closed using interrupted 3-0 Polysorb sutures. Dermis was reapproximated using interrupted 3-0 Polysorb sutures. Skin was then closed using skin steve. Sterile dressings consisting of 4 x 4 gauze and Tegaderm were then applied. The patient tolerated the procedure well. Sponge, instrument, needle counts reported as correct. The patient was transferred to PACU in stable condition.
[2023-08-10] MEDS: fentaNYL citrate/PF 100 MCG/2 ML VIAL 25 MCG IVPUSH ×3 (10:09→10:29)
[2023-08-10 10:48] LABS: Glucose, Whole Blood 140 mg/dL (60-115)
--- NOTE | 2023-08-10 11:31 | P.CONHOSP_ITS ---
History of Present Illness Data of Consult Service Date: 08/10/23 Requesting physician: Larry Ordoñez Primary Care Provider: Nataly Ashley MD HPI Reason for consult: medical management 77 year old male with history of non insulin dependent type 2 diabetes, cad, htn, hld, copd, hypothyroidism, farhad compliance with bipap, cva, asthma, PAF with watchman device in place admitted to general surgery with consult placed to hospitalist service for medical management. He is not oxygen dependent during the day but does use oxygen with bipap nightly. He remains on 2L supplemental O2 post operatively but denies any sob or cp. NO etoh use, illicit drug use or cigarette smoking. Review of Systems Review of Systems: General: No fevers, malaise, unintentional weight loss HEENT: No blurred vision, diplopia. No sore throat, nasal congestion, rhinorrhea, sinus pain, ear pain Cardiovascular: No chest pain, palpitations, or leg edema Respiratory: No shortness of breath, wheezing, cough GI: +abd pain. No nausea, vomiting, diarrhea, constipation, melena, hematochezia : No dysuria, hematuria, increased urinary frequency, decreased urinary output MSK: No myalgia, back pain Neuro: No headaches, weakness, paresthesias Skin: No rashes or lesions [facility] Medical History History of transesophageal echocardiography (MIKHAIL) History of Mohs micrographic surgery for skin cancer Wears hearing aid in both ears FARHAD treated with BiPAP Asthma Thyroid nodule Gout IBS (irritable bowel syndrome) Balance problem CVA (cerebral vascular accident) History of skin cancer Psoriasis Eczema Peripheral neuropathy Hypothyroidism Anemia, chronic disease History of iron deficiency anemia FARHAD (obstructive sleep apnea) COPD (chronic obstructive pulmonary disease) Hyperlipidemia Diabetes mellitus HTN (hypertension) Paroxysmal atrial fibrillation CAD (coronary artery disease) Family History Father Sudden cardiac Mother Sudden cardiac Surgical History Hx of bilateral cataract extraction History of dental surgery History of dental surgery History of esophagogastroduodenoscopy (EGD) Hx of colonoscopy Hx of hand surgery Hx of knee surgery History of back surgery Hx of CABG Hx of cardiac cath Social History Household Members: Family Housing: House Are you a primary child adolescent care to a significant other at home: No Do you presently have visiting nurse or other home services: No Alcohol intake: never Comment: pt agrees to ring to assistance getting out of bed. Patient Tobacco Use Status: Former Tobacco user Quit Date: 1980 Tobacco use type: Cigarette Use of substances other than those prescribed or required for medical reasons: No Have you been hit, kicked, punched, or otherwise hurt by someone within the past year? If so, by whom?: No Are you DNR?: No Advance Directives: Yes Advance Directives Information Provided: No Advance Directives on File: Yes Advance Directives Date on File: 10/18/22 Recently lost weight without trying: No Nutrition Risks: Surgical patient >75years service: Yes Current occupational status: retired Meds Allergies Allergy/AdvReac Type Severity Reaction Status Date / Time amoxicillin [From Augmentin] Allergy Severe NAUSEA & Verified 08/08/23 13:13 VOMITING, HIVES clavulanic acid Allergy Severe NAUSEA & Verified 08/08/23 13:13 [From Augmentin] VOMITING, HIVES piperacillin [From ZOSYN] Allergy Severe LIVER Verified 08/08/23 13:13 FAILURE tazobactam [From ZOSYN] Allergy Severe LIVER Verified 08/08/23 13:13 FAILURE Active Medications: Current Medications Enoxaparin Sodium (Enoxaparin Sodium 40 Mg/0.4 Ml Syringe) 40 mg SUBCUT Q24H CASANDRA Hydromorphone HCl (Hydromorphone Hcl 1 Mg/Ml Syringe) 0.5 mg IVPUSH Q4H PRN; Protocol PRN Reason: Pain, Severe (Pain Scale 7-10) Acetaminophen (Ofirmev) 1,000 mg in 100 mls @ 400 mls/hr IV Q6H CASANDRA Stop: 08/11/23 05:42 Dextrose/Lactated Ringer's (D5lr) 1,000 mls @ 100 mls/hr IVCONT .Q10H CASANDRA Magnesium Hydroxide (Milk Of Magnesia 30 Ml Oral.Susp) 30 ml PO DAILY PRN PRN Reason: Constipation Ondansetron HCl (Ondansetron Hcl 4 Mg/2 Ml Vial) 4 mg IVPUSH QID PRN PRN Reason: Nausea Oxycodone HCl (Oxycodone Hcl Immed Release 5 Mg Tablet) 5 mg PO Q6H PRN PRN Reason: Pain, Moderate(Pain Scale 4-6) Sodium Chloride (0.9 % Sodium Chloride Flush 3 Ml Syringe) 3 ml IVFLUSH QSHIFT [facility] Home Medications Medication Instructions Recorded Confirmed Last Taken Type albuterol sulfate 2.5 mg/3 mL 2.5 mg inhalation Q6H PRN Wheezing 09/25/20 08/10/23 Unknown History (0.083 %) solution for nebulization allopurinol 300 mg tablet 300 mg PO DAILY 09/25/20 08/08/23 08/09/23 History aspirin 81 mg tablet,delayed 81 mg PO DAILY 09/25/20 08/08/23 08/08/23 History release (Adult Aspirin Regimen) bupropion HCl 200 mg tablet,12 hr 200 mg PO BID 09/25/20 08/08/23 08/10/23 History sustained-release cetirizine 10 mg tablet (All Day 10 mg PO BEDTIME 09/25/20 08/08/23 08/09/23 History Allergy (cetirizine)) dicyclomine 20 mg tablet 20 mg PO Q6H PRN Spasms 09/25/20 08/08/23 08/09/23 History fluticasone propionate 50 2 spray intranasal BID 09/25/20 08/08/23 08/09/23 History mcg/actuation nasal spray,suspension metformin 500 mg tablet 500 mg PO BID 09/25/20 08/08/23 08/09/23 History omeprazole 20 mg capsule,delayed 20 mg PO BID@0630,1630 09/25/20 08/08/23 08/10/23 History release tamsulosin 0.4 mg capsule 0.4 mg PO BID 09/25/20 08/08/23 08/09/23 History tiotropium 2.5 mcg-olodaterol 2.5 2 puff inhalation DAILY 09/25/20 08/08/23 08/09/23 History mcg/actuation mist for inhalation (Stiolto Respimat) verapamil 360 mg 24 hr 360 mg PO BID 09/25/20 08/08/23 08/10/23 History capsule,extended release albuterol sulfate 90 mcg/actuation 2 puff inhalation Q4H PRN Wheezing 10/18/22 08/10/23 08/10/23 History aerosol inhaler ascorbic acid (vitamin C) 250 mg 250 mg PO DAILY 10/18/22 08/08/23 08/09/23 History tablet gabapentin 600 mg tablet 1,200 mg PO DAILY@2100 10/18/22 08/08/23 08/09/23 History gabapentin 600 mg tablet 600 mg PO BID@0800,1200 10/18/22 08/08/23 08/10/23 History niacinamide 500 mg tablet 500 mg PO BID 10/18/22 08/08/23 07/06/23 History atorvastatin 40 mg tablet 40 mg PO BID 07/07/23 08/08/23 08/09/23 History levothyroxine 50 mcg tablet 50 mcg PO DAILY 07/07/23 08/08/23 08/10/23 History polyethylene glycol 3350 17 8.5 g PO DAILY 07/07/23 08/08/23 07/06/23 History gram/dose oral powder zafirlukast 20 mg tablet 20 mg PO BID 08/08/23 08/08/23 08/10/23 History mometasone 220 mcg/actuation(120 2 inh inhalation BEDTIME 08/10/23 08/10/23 Unknown History doses)breath activated powder inhaler oxybutynin chloride 15 mg 15 mg PO DAILY 08/10/23 08/10/23 Unknown History tablet,extended release 24 hr triamcinolone acetonide 0.1 % 1 appl topical BID PRN Rash 08/10/23 08/10/23 Unknown History topical ointment triamterene 75 1 tab PO DAILY 08/10/23 08/10/23 Unknown History mg-hydrochlorothiazide 50 mg tablet Physical Exam Vital Signs and Narrative: Vital Signs: Last Vital Signs Temp 97.7 F 08/10/23 11:11 Pulse 77 08/10/23 11:11 Resp 16 08/10/23 11:11 BP 137/74 08/10/23 11:11 Pulse Ox 96 08/10/23 11:11 O2 Del Method Nasal Cannula wit h Capnography 08/10/23 11:11 O2 Flow Rate 3 08/10/23 11:11 BMI result Body Mass Index 38.8 Constitutional - Awake and Alert, No apparent distress Eyes - PERRLA, EOMI Cardiovascular - S1S2, RRR, No edema Respiratory - Normal lung expansion, Normal respiratory effort, No respiratory distress, CTA bilaterally Extremities - no calf tenderness bilaterally, no swelling Skin - Warm/Dry Neurological - Alert & oriented x3 Psychological - Appropriate affect Results Labs Labs: Laboratory Results - last 24 hr 08/10/23 08/10/23 06:58 10:43 POC Glucose 124 H 140 H Assessment and Plan (1) Irreducible Spigelian hernia: Status: Acute Plan 77 year old male with history of non insulin dependent type 2 diabetes, cad, htn, hld, copd, hypothyroidism, farhad compliance with bipap, cva, asthma, PAF with watchman device in place admitted to general surgery with consult placed to hospitalist service for medical management. #Spigelian hernia s/p repair -plan per general surgery -continue suppelemental O2 to maintain oximetry around 92%, wean as tolerated for post-op hypoxia. Consider IS #CAD -no anginal chest pain, s/p cabg 2017 -resume asa per general surgery -continue statin #non insulin-dependent type 2 diabetes -poc glucose, diabetic diet -humalog on sliding scale -hold metformin, resume on dc #hypothyroidism -continue synthroid #Asthma/COPD overlap -no acute exacerbation -continue maintenance inhalers, albuterol prn #FARHAD -bipap/O2 at bedtime #htn -bp reasonably controlled -continue verapamil, triamterene-hctz #Paroxysmal afib -rate controlled -watchman in place -continue verapamil #Unspecified mood disorder -continue home meds Thank you for this consult, will continue following along with you
[2023-08-10 11:41] LABS: Glucose, Whole Blood 147 mg/dL (60-115)
[2023-08-10] MEDS: HYDROmorphone HCl 1 MG/ML SYRINGE 0.5 MG IVPUSH ×2 (11:48→20:28)
--- NOTE | 2023-08-10 11:53 | PHA.MEDREC ---
Pharmacy Consult ? Medication Reconciliation Pharmacy has completed the medication reconciliation. spoke with patient to confirm medications and used list [facility] to verify as well.
[2023-08-10] MEDS: Dextrose 5 % and Lactated Ring 1,000 ML 100 ML IVCONT ×2 (12:00→22:35)
[2023-08-10] MEDS: 0.9 % Sodium Chloride Flush 3 ML SYRINGE IVFLUSH ×2 (12:01→15:37)
[2023-08-10] MEDS: Gabapentin 600 MG TABLET PO (12:16)
[2023-08-10 13:15] LABS: Creatinine Clr Calc Pharmacy 78.4; Estimated Glomerular Filt Rate > 60
[2023-08-10] MEDS: Acetaminophen 1,000 MG/100 ML PIGGYBACK 400 MG IV ×2 (13:51→20:09)
[2023-08-10] MEDS: oxyCODONE HCl Immed Release 5 MG TABLET PO (15:48)
[2023-08-10 16:18] LABS: Glucose, Whole Blood 211 mg/dL (60-115)
[2023-08-10] MEDS: Insulin Lispro 100 UNIT/ML 3 ML VIAL SUBCUT ×2 (17:09→20:36)
--- NOTE | 2023-08-10 17:30 | PC.NURSE ---
Patient has not voided since 0500,no urge to urinate,bladder scanned for 570 ml,patient reports enlarged prostate and stating last time someone attempted to place a cath he started bleeding,EDITA Adame notified
--- NOTE | 2023-08-10 17:55 | PC.NURSE ---
Explained str cath procedure to patient,patient stating he will try to urinate on his own
[2023-08-10] MEDS: Tamsulosin HCL 0.4 MG CAPSULE PO (20:15)
[2023-08-10] MEDS: Atorvastatin Calcium 40 MG TABLET PO (20:15)
[2023-08-10] MEDS: Montelukast Sodium 10 MG TABLET PO (20:15)
[2023-08-10] MEDS: VerapamiL HCL SR 180 MG TABLET.ER 360 MG PO (20:16)
[2023-08-10] MEDS: Gabapentin 600 MG TABLET 1200 MG PO (20:16)
[2023-08-10 20:38] LABS: Glucose, Whole Blood 183 mg/dL (60-115)
[2023-08-11] MEDS: Acetaminophen 1,000 MG/100 ML PIGGYBACK 400 MG IV ×2 (01:57→07:50)
[2023-08-11 03:43] VITALS: BP 119/65; PULSE 67; RESP 16; TEMP 36.1; O2SAT 96
[2023-08-11] MEDS: Levothyroxine Sodium 50 MCG TABLET PO (05:56)
[2023-08-11] MEDS: HYDROmorphone HCl 1 MG/ML SYRINGE 0.5 MG IVPUSH ×3 (06:08→16:55)
[2023-08-11 06:55] LABS: Alanine Aminotransferase 11 U/L (0-40); Albumin Level 3.4 g/dL (3.5-5.0); Alkaline Phosphatase 94 U/L (39-117); Anion Gap 12 (12-20); Aspartate Amino Transferase 11 U/L (5-37); Bilirubin Total 0.3 mg/dL (0.0-1.0); Blood Urea Nitrogen 12 mg/dL (9-16); Carbon Dioxide 25 mmol/L (22-29); Chloride 103 mmol/L (96-108); Estimated Glomerular Filt Rate > 60; Glucose Random 174 mg/dL (60-115); Potassium 3.4 mmol/L (3.3-5.1); Sodium 137 mmol/L (135-145); Total Protein 5.9 g/dL (6.5-8.0)
[2023-08-11 07:11] VITALS: BP 134/63; PULSE 68; RESP 18; TEMP 36.2; O2SAT 95
[2023-08-11 07:25] LABS: Glucose, Whole Blood 168 mg/dL (60-115)
--- NOTE | 2023-08-11 07:37 | P.PNGS_ITS ---
Subjective Subjective Date of Service: 08/11/23 Interval history: Patient reports incisional pain. Denies nausea or vomiting. Was able to tolerate a regular diet yesterday. Reports urinating frequently with large volumes. Passing flatus but no BM yet Physical Exam 2 Vital Signs: Vital Signs: Last Vital Signs Temp 97.1 F 08/11/23 07:11 Pulse 68 08/11/23 07:11 Resp 18 08/11/23 07:11 BP 134/63 08/11/23 07:11 Pulse Ox 95 08/11/23 07:11 O2 Del Method Nasal Cannula 08/11/23 07:11 O2 Flow Rate 2 08/11/23 07:11 BMI result Body Mass Index 38.8 Const: General: healthy appearing and no acute distress Nutritional Appearance: well nourished Orientation/consciousness: patient oriented x3 Resp: Effort & Inspection: normal respiratory effort GI: Other: Left lower quadrant incision dressings are clean, dry, and intact without redness or discharge. No seroma or hematoma appreciated. Neuro: General: patient oriented x3 Extrem: General: Yes no clubbing, cyanosis or edema Objective Data Active Medications Albuterol Sulfate (Albuterol Sulfate 90 Mcg 8 Gm Inhaler) 2 puff INHALE Q4H PRN PRN Reason: Wheezing Albuterol Sulfate (Albuterol Sulfate (0.083%) 2.5 Mg/3 Ml Vial.Neb) 2.5 mg INHALE Q6H PRN PRN Reason: Wheezing Allopurinol (Allopurinol 300 Mg Tablet) 300 mg PO DAILY [facility] Atorvastatin Calcium (Atorvastatin Calcium 40 Mg Tablet) 40 mg PO BID [facility] Last Admin: 08/10/23 20:15 Dose: 40 mg Documented By: KATARZYNA Bupropion HCl (Bupropion Hcl Xl 150 Mg Tab.Er.24h) 450 mg PO DAILY [facility] Dextrose (Dextrose 50 % 25 Gm/50 Ml Syringe) 25 gm IVPUSH Q15M PRN; Protocol PRN Reason: per Hypoglycemia Standing Ord. Enoxaparin Sodium (Enoxaparin Sodium 40 Mg/0.4 Ml Syringe) 40 mg SUBCUT Q24H [facility] Gabapentin (Gabapentin 600 Mg Tablet) 1,200 mg PO DAILY@2100 [facility] Last Admin: 08/10/23 20:16 Dose: 1,200 mg Documented By: KATARZYNA Gabapentin (Gabapentin 600 Mg Tablet) 600 mg PO BID@0800,1200 [facility] Last Admin: 08/10/23 12:16 Dose: 600 mg Documented By: JIMMIE Glucose (Glucose Gel 15 Gm Gel..Gram.) 15 gm PO Q15M PRN; Protocol PRN Reason: per Hypoglycemia Standing Ord. Hydromorphone HCl (Hydromorphone Hcl 1 Mg/Ml Syringe) 0.5 mg IVPUSH Q4H PRN; Protocol PRN Reason: Pain, Severe (Pain Scale 7-10) Last Admin: 08/11/23 06:08 Dose: 0.5 mg Documented By: JAVIER Acetaminophen (Ofirmev) 1,000 mg in 100 mls @ 400 mls/hr IV Q6H [facility] Stop: 08/11/23 08:14 Last Infusion: 08/11/23 02:12 Dose: Infused Documented By: JAVIER Dextrose/Lactated Ringer's (D5lr) 1,000 mls @ 100 mls/hr IVCONT .Q10H [facility] Last Admin: 08/10/23 22:35 Dose: 100 mls/hr Documented By: KATARZYNA Insulin Human Lispro (Insulin Lispro 100 Unit/Ml 3 Ml Vial) 0 unit SUBCUT QIDACHS [facility]; Protocol Last Admin: 08/10/23 20:36 Dose: 2 unit Documented By: KATARZYNA Levothyroxine Sodium (Levothyroxine Sodium 50 Mcg Tablet) 50 mcg PO DAILY@0600 [facility] Last Admin: 08/11/23 05:56 Dose: 50 mcg Documented By: JAVIER Magnesium Hydroxide (Milk Of Magnesia 30 Ml Oral.Susp) 30 ml PO DAILY PRN PRN Reason: Constipation Montelukast Sodium (Montelukast Sodium 10 Mg Tablet) 10 mg PO BEDTIME [facility] Last Admin: 08/10/23 20:15 Dose: 10 mg Documented By: KATARZYNA Non-Formulary Medication (Mometasone) 2 inhalation INHALE BEDTIME [facility] Non-Formulary Medication (Tiotropium-Olodaterol [Stiolto Respimat]) 2 puff INHALE DAILY [facility] Ondansetron HCl (Ondansetron Hcl 4 Mg/2 Ml Vial) 4 mg IVPUSH QID PRN PRN Reason: Nausea Oxycodone HCl (Oxycodone Hcl Immed Release 5 Mg Tablet) 5 mg PO Q6H PRN PRN Reason: Pain, Moderate(Pain Scale 4-6) Last Admin: 08/10/23 15:48 Dose: 5 mg Documented By: KATARZYNA Sodium Chloride (0.9 % Sodium Chloride Flush 3 Ml Syringe) 3 ml IVFLUSH QSHIFT [facility] Last Admin: 08/11/23 00:06 Dose: Not Given Documented By: JAVIER Non-Admin Reason: IV Running Tamsulosin HCl (Tamsulosin Hcl 0.4 Mg Capsule) 0.4 mg PO BID [facility] Last Admin: 08/10/23 20:15 Dose: 0.4 mg Documented By: KATARZYNA Triamterene/Hydrochlorothiazide (Triamterene/Hctz 75/50 Tablet) 1 tab PO DAILY [facility]; Protocol Verapamil HCl (Verapamil Hcl Sr 180 Mg Tablet.Er) 360 mg PO BID [facility]; Protocol Last Admin: 08/10/23 20:16 Dose: 360 mg Documented By: KATARZYNA Labs 08/11/23 05:50 Labs: Laboratory Results - last 24 hr 08/10/23 08/10/23 08/10/23 10:43 11:36 12:40 Anion Gap Estim Creat Clear Calc 78.4 Estimated GFR > 60 POC Glucose 140 H 147 H Random Glucose Calcium Total Bilirubin AST ALT Alkaline Phosphatase Total Protein Albumin 08/10/23 08/10/23 08/11/23 16:15 20:30 05:50 Anion Gap 12 Estim Creat Clear Calc 83.0 Estimated GFR > 60 POC Glucose 211 H 183 H Random Glucose 174 H Calcium 9.0 Total Bilirubin 0.3 AST 11 ALT 11 Alkaline Phosphatase 94 Total Protein 5.9 L Albumin 3.4 L 08/11/23 07:14 Anion Gap Estim Creat Clear Calc Estimated GFR POC Glucose 168 H Random Glucose Calcium Total Bilirubin AST ALT Alkaline Phosphatase Total Protein Albumin Procedures Date of Service Date of Service: 08/11/23 Progress Note: A&P Assessment and plan (1) Irreducible Spigelian hernia: Status: Acute Plan Pod 1 following repair of a spigelian hernia left lower quadrant. Patient has incisional pain but otherwise is stable. Encouraged out of bed with ambulation, incentive spirometry. Will stop IV fluids. Start MiraLax. Await return of bowel function. Time Spent With Patient Time: Total time managing care of this patient today ____ minutes. Quality Stroke Does the patient have a stroke diagnosis?: No VTE Prior VTE?: No VTE Risk Level:: Surgical - moderate VTE Device Contraindication: N/A - Device Ordered VTE Drug Contraindication: N/A - Med Ordered
[2023-08-11] MEDS: buPROPion HCl XL 150 MG TAB.ER.24H 450 MG PO (07:51)
[2023-08-11] MEDS: 0.9 % Sodium Chloride Flush 3 ML SYRINGE IVFLUSH ×3 (07:51→21:12)
[2023-08-11] MEDS: Atorvastatin Calcium 40 MG TABLET PO ×2 (07:51→21:11)
[2023-08-11] MEDS: allopurinoL 300 MG TABLET PO (07:51)
[2023-08-11] MEDS: VerapamiL HCL SR 180 MG TABLET.ER 360 MG PO ×2 (07:51→21:10)
[2023-08-11] MEDS: Tamsulosin HCL 0.4 MG CAPSULE PO ×2 (07:52→21:10)
[2023-08-11] MEDS: Triamterene/HCTZ 75/50 TABLET 1 TAB PO (07:52)
[2023-08-11] MEDS: Gabapentin 600 MG TABLET PO ×2 (07:52→14:09)
[2023-08-11] MEDS: polyethylene glycoL 3350 17 GM POWD.PACK 8.5 GM PO (07:52)
[2023-08-11] MEDS: Insulin Lispro 100 UNIT/ML 3 ML VIAL SUBCUT ×2 (07:53→16:56)
[2023-08-11] MEDS: oxyCODONE HCl Immed Release 5 MG TABLET PO ×2 (08:00→14:09)
[2023-08-11 10:27] VITALS: BP 134/63; PULSE 68; O2SAT 95
[2023-08-11 11:10] LABS: Glucose, Whole Blood 142 mg/dL (60-115)
--- NOTE | 2023-08-11 12:43 | HO.POSTANES ---
Post Anesthesia Evaluation Post Anesthesia Evaluation Date of Service: 08/11/23 Vital Signs: Vital Signs Temp Pulse Resp BP Pulse Ox O2 Del Method O2 Flow Rate 08/11/23 10:27 68 134/63 95 08/11/23 07:11 97.1 F 68 18 134/63 95 Nasal Cannula 2 08/11/23 03:43 97.0 F 67 16 119/65 96 Nasal Cannula 2 Anesthesia: General Mental Status: Awake Pain Control: Satisfactory Nausea/Vomiting: None Hydration: Adequate Anesthesia-Related Issues: No Anes. Related Issues
[2023-08-11] MEDS: Enoxaparin Sodium 40 MG/0.4 ML SYRINGE SUBCUT (14:10)
--- NOTE | 2023-08-11 14:56 | MHC.CM.PN ---
Male 77 S/P Hernia repair. He lives with his . He is independent with equipment. He uses a wheeled walker for unsteady gait. PT patrick recommends home with PT. [facility]W spoke with [facility], the [facility] transitions coordinator. She states that the [facility] will pay for Home services. Clinical information was [facility] to the [facility] at Carolina's request. Home care preferences obtained DP home with services. Patients will provide transportation home.
[2023-08-11 16:00] VITALS: BP 137/69; PULSE 61; RESP 20; TEMP 35.8; O2SAT 92
[2023-08-11 16:16] LABS: Glucose, Whole Blood 164 mg/dL (60-115)
[2023-08-11 19:33] VITALS: BP 140/65; PULSE 63; RESP 14; TEMP 36.1; O2SAT 94
[2023-08-11 19:47] LABS: Glucose, Whole Blood 137 mg/dL (60-115)
[2023-08-11] MEDS: Gabapentin 600 MG TABLET 1200 MG PO (21:11)
[2023-08-11] MEDS: Montelukast Sodium 10 MG TABLET PO (21:11)
[2023-08-12 03:32] VITALS: BP 140/76; PULSE 73; RESP 16; TEMP 36.6; O2SAT 95
[2023-08-12] MEDS: Levothyroxine Sodium 50 MCG TABLET PO (05:28)
[2023-08-12 07:28] VITALS: BP 143/66; PULSE 77; RESP 18; TEMP 36.7; O2SAT 95
[2023-08-12 07:33] LABS: Glucose, Whole Blood 117 mg/dL (60-115)
[2023-08-12 09:20] VITALS: BP 143/66; PULSE 77; O2SAT 95
[2023-08-12] MEDS: buPROPion HCl XL 150 MG TAB.ER.24H 450 MG PO (09:46)
[2023-08-12] MEDS: VerapamiL HCL SR 180 MG TABLET.ER 360 MG PO ×2 (09:46→20:07)
[2023-08-12] MEDS: Atorvastatin Calcium 40 MG TABLET PO ×2 (09:46→20:08)
[2023-08-12] MEDS: Tamsulosin HCL 0.4 MG CAPSULE PO ×2 (09:47→20:07)
[2023-08-12] MEDS: 0.9 % Sodium Chloride Flush 3 ML SYRINGE IVFLUSH ×2 (09:47→15:23)
[2023-08-12] MEDS: Triamterene/HCTZ 75/50 TABLET 1 TAB PO (09:47)
[2023-08-12] MEDS: Gabapentin 600 MG TABLET PO ×2 (09:47→13:13)
[2023-08-12] MEDS: allopurinoL 300 MG TABLET PO (09:47)
[2023-08-12] MEDS: HYDROmorphone HCl 1 MG/ML SYRINGE 0.5 MG IVPUSH ×2 (10:20→15:33)
[2023-08-12 11:30] LABS: Glucose, Whole Blood 127 mg/dL (60-115)
[2023-08-12] MEDS: Enoxaparin Sodium 40 MG/0.4 ML SYRINGE SUBCUT (13:12)
--- NOTE | 2023-08-12 13:23 | MHC.CM.PN ---
DP home with [facility]. The Medicare number has been sent to [facility] via Track. DP Home with [facility]. The patient's will transport home.
[2023-08-12 15:21] VITALS: BP 131/62; PULSE 80; RESP 18; TEMP 36.6; O2SAT 97
--- NOTE | 2023-08-12 15:35 | HO.PM.IMPN ---
Subjective Subjective Date of Service: 08/12/23 Interval History: No acute issues overnight Review of Systems Denies chest pain Denies shortness of breath Denies nausea vomiting diarrhea Denies fever chills Physical Exam Vital Signs: Vital Signs: Last Vital Signs Temp 97.9 F 08/12/23 15:21 Pulse 80 08/12/23 15:21 Resp 18 08/12/23 15:21 BP 131/62 08/12/23 15:21 Pulse Ox 97 08/12/23 15:21 O2 Del Method Room Air 08/12/23 15:21 O2 Flow Rate 2 08/12/23 07:28 BMI result Body Mass Index 38.8 Const: Other: Awake alert no acute distress Resp: Other: Clear to auscultation bilaterally no rales rhonchi or wheezes Cardio: Other: No S4; positive S1-S2; no S3 murmurs rubs or gallops GI: Other: Soft nontender nondistended normoactive bowel sounds Extrem: Other: No edema bilaterally Objective Data Active Medications Albuterol Sulfate (Albuterol Sulfate 90 Mcg 8 Gm Inhaler) 2 puff INHALE Q4H PRN PRN Reason: Wheezing Albuterol Sulfate (Albuterol Sulfate (0.083%) 2.5 Mg/3 Ml Vial.Neb) 2.5 mg INHALE Q6H PRN PRN Reason: Wheezing Allopurinol (Allopurinol 300 Mg Tablet) 300 mg PO DAILY [facility] Last Admin: 08/12/23 09:47 Dose: 300 mg Documented By: JAGUAR Atorvastatin Calcium (Atorvastatin Calcium 40 Mg Tablet) 40 mg PO BID [facility] Last Admin: 08/12/23 09:46 Dose: 40 mg Documented By: JAGUAR Bupropion HCl (Bupropion Hcl Xl 150 Mg Tab.Er.24h) 450 mg PO DAILY [facility] Last Admin: 08/12/23 09:46 Dose: 450 mg Documented By: JAGUAR Dextrose (Dextrose 50 % 25 Gm/50 Ml Syringe) 25 gm IVPUSH Q15M PRN; Protocol PRN Reason: per Hypoglycemia Standing Ord. Enoxaparin Sodium (Enoxaparin Sodium 40 Mg/0.4 Ml Syringe) 40 mg SUBCUT Q24H [facility] Last Admin: 08/12/23 13:12 Dose: 40 mg Documented By: CHATA Gabapentin (Gabapentin 600 Mg Tablet) 1,200 mg PO DAILY@2100 [facility] Last Admin: 08/11/23 21:11 Dose: 1,200 mg Documented By: LORENA Gabapentin (Gabapentin 600 Mg Tablet) 600 mg PO BID@0800,1200 [facility] Last Admin: 08/12/23 13:13 Dose: 600 mg Documented By: CHATA Glucose (Glucose Gel 15 Gm Gel..Gram.) 15 gm PO Q15M PRN; Protocol PRN Reason: per Hypoglycemia Standing Ord. Hydromorphone HCl (Hydromorphone Hcl 1 Mg/Ml Syringe) 0.5 mg IVPUSH Q4H PRN; Protocol PRN Reason: Pain, Severe (Pain Scale 7-10) Last Admin: 08/12/23 15:33 Dose: 0.5 mg Documented By: KATARZYNA Insulin Human Lispro (Insulin Lispro 100 Unit/Ml 3 Ml Vial) 0 unit SUBCUT QIDACHS [facility]; Protocol Last Admin: 08/12/23 11:40 Dose: Not Given Documented By: JAGUAR Non-Admin Reason: No Insulin Coverage Levothyroxine Sodium (Levothyroxine Sodium 50 Mcg Tablet) 50 mcg PO DAILY@0600 [facility] Last Admin: 08/12/23 05:28 Dose: 50 mcg Documented By: LORENA Magnesium Hydroxide (Milk Of Magnesia 30 Ml Oral.Susp) 30 ml PO DAILY PRN PRN Reason: Constipation Montelukast Sodium (Montelukast Sodium 10 Mg Tablet) 10 mg PO BEDTIME [facility] Last Admin: 08/11/23 21:11 Dose: 10 mg Documented By: LORENA Non-Formulary Medication (Mometasone) 2 inhalation INHALE BEDTIME [facility] Non-Formulary Medication (Tiotropium-Olodaterol [Stiolto Respimat]) 2 puff INHALE DAILY [facility] Ondansetron HCl (Ondansetron Hcl 4 Mg/2 Ml Vial) 4 mg IVPUSH QID PRN PRN Reason: Nausea Oxycodone HCl (Oxycodone Hcl Immed Release 5 Mg Tablet) 5 mg PO Q6H PRN PRN Reason: Pain, Moderate(Pain Scale 4-6) Last Admin: 08/11/23 14:09 Dose: 5 mg Documented By: BASIM Polyethylene Glycol (Polyethylene Glycol 3350 17 Gm Powd.Pack) 8.5 gm PO DAILY [facility] Last Admin: 08/12/23 09:51 Dose: Not Given Documented By: JAGUAR Non-Admin Reason: loose stools Sodium Chloride (0.9 % Sodium Chloride Flush 3 Ml Syringe) 3 ml IVFLUSH QSHIFT [facility] Last Admin: 08/12/23 15:23 Dose: 3 ml Documented By: KATARZYNA Tamsulosin HCl (Tamsulosin Hcl 0.4 Mg Capsule) 0.4 mg PO BID [facility] Last Admin: 08/12/23 09:47 Dose: 0.4 mg Documented By: JAGUAR Triamterene/Hydrochlorothiazide (Triamterene/Hctz 75/50 Tablet) 1 tab PO DAILY [facility]; Protocol Last Admin: 08/12/23 09:47 Dose: 1 tab Documented By: JAGUAR Verapamil HCl (Verapamil Hcl Sr 180 Mg Tablet.Er) 360 mg PO BID [facility]; Protocol Last Admin: 08/12/23 09:46 Dose: 360 mg Documented By: JAGUAR Labs 08/11/23 05:50 Labs: Laboratory Results - last 24 hr 08/11/23 08/11/23 08/12/23 15:53 19:35 07:27 POC Glucose 164 H 137 H 117 H 08/12/23 11:26 POC Glucose 127 H Assessment and Plan (1) Irreducible Spigelian hernia: Status: Acute Plan 77 year old male with history of non insulin dependent type 2 diabetes, cad, htn, hld, copd, hypothyroidism, andres compliance with bipap, cva, asthma, PAF with watchman device in place admitted to general surgery with consult placed to hospitalist service for medical management. 1.Spigelian hernia s/p repair -plan per general surgery -continue suppelemental O2 to maintain oximetry around 92%, wean as tolerated for post-op hypoxia. Consider IS 2.CAD -no anginal chest pain, s/p cabg 2017 -resume asa per general surgery -continue statin 3.Non insulin-dependent type 2 diabetes -poc glucose, diabetic diet -humalog on sliding scale -hold metformin, resume on dc 4.Htn -bp reasonably controlled -continue verapamil, triamterene-hctz 5.Paroxysmal afib -rate controlled -watchman in place -continue verapamil Quality Stroke Does the patient have a stroke diagnosis?: No VTE Prior VTE?: No VTE Risk Level:: Surgical - moderate VTE Device Contraindication: N/A - Device Ordered VTE Drug Contraindication: N/A - Med Ordered
[2023-08-12 16:31] LABS: Glucose, Whole Blood 123 mg/dL (60-115)
[2023-08-12 19:34] VITALS: BP 136/62; PULSE 82; RESP 18; TEMP 36.4; O2SAT 93
--- NOTE | 2023-08-12 20:04 | PC.NURSE ---
Ambulated with assist and a walker ,patient reports passing lg amt of flatus
[2023-08-12] MEDS: Montelukast Sodium 10 MG TABLET PO (20:07)
[2023-08-12] MEDS: Gabapentin 600 MG TABLET 1200 MG PO (20:08)
[2023-08-12] MEDS: oxyCODONE HCl Immed Release 5 MG TABLET PO (20:08)
[2023-08-12 20:15] VITALS: O2SAT 96
[2023-08-12 20:22] LABS: Glucose, Whole Blood 125 mg/dL (60-115)
[2023-08-13] MEDS: 0.9 % Sodium Chloride Flush 3 ML SYRINGE IVFLUSH ×4 (00:09→22:17)
[2023-08-13 03:45] VITALS: BP 132/74; PULSE 60; RESP 19; TEMP 36.2; O2SAT 96
[2023-08-13] MEDS: Levothyroxine Sodium 50 MCG TABLET PO (06:37)
[2023-08-13 07:22] VITALS: BP 132/63; PULSE 70; RESP 18; TEMP 36.2; O2SAT 96
[2023-08-13 07:26] LABS: Glucose, Whole Blood 105 mg/dL (60-115)
--- NOTE | 2023-08-13 09:29 | P.PNGS_ITS ---
Subjective Subjective Date of Service: 08/13/23 Interval history: says he feels ok states he still has some incisional pain does not feel ready to go home tolerating diet Physical Exam 2 Vital Signs: Vital Signs: Last Vital Signs Temp 97.2 F 08/13/23 07:22 Pulse 70 08/13/23 07:22 Resp 18 08/13/23 07:22 BP 132/63 08/13/23 07:22 Pulse Ox 96 08/13/23 07:22 O2 Del Method Nasal Cannula 08/13/23 07:22 O2 Flow Rate 2 08/13/23 07:22 BMI result Body Mass Index 38.8 Const: General: comfortable and no acute distress Resp: Effort & Inspection: normal respiratory effort Cardio: Rate: regular rate GI: Other: repair site clean,healing well, repair intact, no signs of infection Objective Data Active Medications Albuterol Sulfate (Albuterol Sulfate 90 Mcg 8 Gm Inhaler) 2 puff INHALE Q4H PRN PRN Reason: Wheezing Albuterol Sulfate (Albuterol Sulfate (0.083%) 2.5 Mg/3 Ml Vial.Neb) 2.5 mg INHALE Q6H PRN PRN Reason: Wheezing Allopurinol (Allopurinol 300 Mg Tablet) 300 mg PO DAILY [facility] Last Admin: 08/12/23 09:47 Dose: 300 mg Documented By: JAGUAR Atorvastatin Calcium (Atorvastatin Calcium 40 Mg Tablet) 40 mg PO BID [facility] Last Admin: 08/12/23 20:08 Dose: 40 mg Documented By: KATARZYNA Bupropion HCl (Bupropion Hcl Xl 150 Mg Tab.Er.24h) 450 mg PO DAILY [facility] Last Admin: 08/12/23 09:46 Dose: 450 mg Documented By: JAGUAR Dextrose (Dextrose 50 % 25 Gm/50 Ml Syringe) 25 gm IVPUSH Q15M PRN; Protocol PRN Reason: per Hypoglycemia Standing Ord. Enoxaparin Sodium (Enoxaparin Sodium 40 Mg/0.4 Ml Syringe) 40 mg SUBCUT Q24H [facility] Last Admin: 08/12/23 13:12 Dose: 40 mg Documented By: CHATA Gabapentin (Gabapentin 600 Mg Tablet) 1,200 mg PO DAILY@2100 [facility] Last Admin: 08/12/23 20:08 Dose: 1,200 mg Documented By: KATARZYNA Gabapentin (Gabapentin 600 Mg Tablet) 600 mg PO BID@0800,1200 [facility] Last Admin: 08/12/23 13:13 Dose: 600 mg Documented By: CHATA Glucose (Glucose Gel 15 Gm Gel..Gram.) 15 gm PO Q15M PRN; Protocol PRN Reason: per Hypoglycemia Standing Ord. Hydromorphone HCl (Hydromorphone Hcl 1 Mg/Ml Syringe) 0.5 mg IVPUSH Q4H PRN; Protocol PRN Reason: Pain, Severe (Pain Scale 7-10) Last Admin: 08/12/23 15:33 Dose: 0.5 mg Documented By: KATARZYNA Insulin Human Lispro (Insulin Lispro 100 Unit/Ml 3 Ml Vial) 0 unit SUBCUT QIDACHS [facility]; Protocol Last Admin: 08/13/23 07:35 Dose: Not Given Levothyroxine Sodium (Levothyroxine Sodium 50 Mcg Tablet) 50 mcg PO DAILY@0600 [facility] Last Admin: 08/13/23 06:37 Dose: 50 mcg Documented By: DANISH Magnesium Hydroxide (Milk Of Magnesia 30 Ml Oral.Susp) 30 ml PO DAILY PRN PRN Reason: Constipation Montelukast Sodium (Montelukast Sodium 10 Mg Tablet) 10 mg PO BEDTIME [facility] Last Admin: 08/12/23 20:07 Dose: 10 mg Documented By: KATARZYNA Non-Formulary Medication (Mometasone) 2 inhalation INHALE BEDTIME [facility] Non-Formulary Medication (Tiotropium-Olodaterol [Stiolto Respimat]) 2 puff INHALE DAILY [facility] Ondansetron HCl (Ondansetron Hcl 4 Mg/2 Ml Vial) 4 mg IVPUSH QID PRN PRN Reason: Nausea Oxycodone HCl (Oxycodone Hcl Immed Release 5 Mg Tablet) 5 mg PO Q6H PRN PRN Reason: Pain, Moderate(Pain Scale 4-6) Last Admin: 08/12/23 20:08 Dose: 5 mg Documented By: KATARZYNA Polyethylene Glycol (Polyethylene Glycol 3350 17 Gm Powd.Pack) 8.5 gm PO DAILY [facility] Last Admin: 08/12/23 09:51 Dose: Not Given Documented By: JAGUAR Non-Admin Reason: loose stools Sodium Chloride (0.9 % Sodium Chloride Flush 3 Ml Syringe) 3 ml IVFLUSH QSHIFT [facility] Last Admin: 08/13/23 00:09 Dose: 3 ml Documented By: DANISH Tamsulosin HCl (Tamsulosin Hcl 0.4 Mg Capsule) 0.4 mg PO BID [facility] Last Admin: 08/12/23 20:07 Dose: 0.4 mg Documented By: KATARZYNA Triamterene/Hydrochlorothiazide (Triamterene/Hctz 75/50 Tablet) 1 tab PO DAILY [facility]; Protocol Last Admin: 08/12/23 09:47 Dose: 1 tab Documented By: JAGUAR Verapamil HCl (Verapamil Hcl Sr 180 Mg Tablet.Er) 360 mg PO BID [facility]; Protocol Last Admin: 08/12/23 20:07 Dose: 360 mg Documented By: KATARZYNA Labs 08/11/23 05:50 Labs: Laboratory Results - last 24 hr 08/12/23 08/12/23 08/12/23 11:26 16:13 20:16 POC Glucose 127 H 123 H 125 H 08/13/23 07:20 POC Glucose 105 Procedures Date of Service Date of Service: 08/13/23 Progress Note: A&P Assessment and plan (1) Irreducible Spigelian hernia: Status: Acute Assessment and Plan: s/p repair with mesh doing well repir site clean, intact he says he is not ready to go home today - plan dc home tomorrow ambulating Time Spent With Patient Time: Total time managing care of this patient today ____ minutes. Quality Stroke Does the patient have a stroke diagnosis?: No VTE Prior VTE?: No VTE Risk Level:: Surgical - moderate VTE Device Contraindication: N/A - Device Ordered VTE Drug Contraindication: N/A - Med Ordered
[2023-08-13] MEDS: buPROPion HCl XL 150 MG TAB.ER.24H 450 MG PO (09:44)
[2023-08-13] MEDS: Triamterene/HCTZ 75/50 TABLET 1 TAB PO (09:44)
[2023-08-13] MEDS: Atorvastatin Calcium 40 MG TABLET PO ×2 (09:45→22:15)
[2023-08-13] MEDS: allopurinoL 300 MG TABLET PO (09:45)
[2023-08-13] MEDS: VerapamiL HCL SR 180 MG TABLET.ER 360 MG PO ×2 (09:45→22:15)
[2023-08-13] MEDS: oxyCODONE HCl Immed Release 5 MG TABLET PO ×2 (09:45→17:21)
[2023-08-13] MEDS: Gabapentin 600 MG TABLET PO ×2 (09:45→13:11)
[2023-08-13] MEDS: Tamsulosin HCL 0.4 MG CAPSULE PO ×2 (09:46→22:13)
[2023-08-13 11:17] LABS: Glucose, Whole Blood 134 mg/dL (60-115)
[2023-08-13] MEDS: Enoxaparin Sodium 40 MG/0.4 ML SYRINGE SUBCUT (13:11)
--- NOTE | 2023-08-13 14:07 | P.PNIM_ITS ---
Subjective Subjective Date of Service: 08/13/23 Interval History: Still feels weak. No acute issues overnight Review of Systems Denies chest pain Denies shortness of breath Denies nausea vomiting diarrhea Denies fever chills Physical Exam 2 Vital Signs: Vital Signs: Last Vital Signs Temp 97.2 F 08/13/23 07:22 Pulse 70 08/13/23 07:22 Resp 18 08/13/23 07:22 BP 132/63 08/13/23 07:22 Pulse Ox 96 08/13/23 07:22 O2 Del Method Nasal Cannula 08/13/23 07:22 O2 Flow Rate 2 08/13/23 07:22 BMI result Body Mass Index 38.8 Const: Other: Awake alert no acute distress Resp: Other: Clear to auscultation bilaterally no rales rhonchi or wheezes Cardio: Other: No S4; positive S1-S2; no S3 murmurs rubs or gallops GI: Other: Soft nontender nondistended normoactive bowel sounds Extrem: Other: No edema bilaterally Objective Data Active Medications Albuterol Sulfate (Albuterol Sulfate 90 Mcg 8 Gm Inhaler) 2 puff INHALE Q4H PRN PRN Reason: Wheezing Albuterol Sulfate (Albuterol Sulfate (0.083%) 2.5 Mg/3 Ml Vial.Neb) 2.5 mg INHALE Q6H PRN PRN Reason: Wheezing Allopurinol (Allopurinol 300 Mg Tablet) 300 mg PO DAILY [facility] Last Admin: 08/13/23 09:45 Dose: 300 mg Documented By: KANE Atorvastatin Calcium (Atorvastatin Calcium 40 Mg Tablet) 40 mg PO BID [facility] Last Admin: 08/13/23 09:45 Dose: 40 mg Documented By: KANE Bupropion HCl (Bupropion Hcl Xl 150 Mg Tab.Er.24h) 450 mg PO DAILY [facility] Last Admin: 08/13/23 09:44 Dose: 450 mg Documented By: KANE Dextrose (Dextrose 50 % 25 Gm/50 Ml Syringe) 25 gm IVPUSH Q15M PRN; Protocol PRN Reason: per Hypoglycemia Standing Ord. Enoxaparin Sodium (Enoxaparin Sodium 40 Mg/0.4 Ml Syringe) 40 mg SUBCUT Q24H [facility] Last Admin: 08/13/23 13:11 Dose: 40 mg Documented By: KANE Gabapentin (Gabapentin 600 Mg Tablet) 1,200 mg PO DAILY@2100 [facility] Last Admin: 08/12/23 20:08 Dose: 1,200 mg Documented By: KATARZYNA Gabapentin (Gabapentin 600 Mg Tablet) 600 mg PO BID@0800,1200 [facility] Last Admin: 08/13/23 13:11 Dose: 600 mg Documented By: KANE Glucose (Glucose Gel 15 Gm Gel..Gram.) 15 gm PO Q15M PRN; Protocol PRN Reason: per Hypoglycemia Standing Ord. Hydromorphone HCl (Hydromorphone Hcl 1 Mg/Ml Syringe) 0.5 mg IVPUSH Q4H PRN; Protocol PRN Reason: Pain, Severe (Pain Scale 7-10) Last Admin: 08/12/23 15:33 Dose: 0.5 mg Documented By: KATARZYNA Insulin Human Lispro (Insulin Lispro 100 Unit/Ml 3 Ml Vial) 0 unit SUBCUT QIDACHS [facility]; Protocol Last Admin: 08/13/23 11:27 Dose: Not Given Documented By: KANE Non-Admin Reason: No Insulin Coverage Levothyroxine Sodium (Levothyroxine Sodium 50 Mcg Tablet) 50 mcg PO DAILY@0600 [facility] Last Admin: 08/13/23 06:37 Dose: 50 mcg Documented By: DANISH Magnesium Hydroxide (Milk Of Magnesia 30 Ml Oral.Susp) 30 ml PO DAILY PRN PRN Reason: Constipation Montelukast Sodium (Montelukast Sodium 10 Mg Tablet) 10 mg PO BEDTIME [facility] Last Admin: 08/12/23 20:07 Dose: 10 mg Documented By: KATARZYNA Non-Formulary Medication (Mometasone) 2 inhalation INHALE BEDTIME [facility] Non-Formulary Medication (Tiotropium-Olodaterol [Stiolto Respimat]) 2 puff INHALE DAILY [facility] Ondansetron HCl (Ondansetron Hcl 4 Mg/2 Ml Vial) 4 mg IVPUSH QID PRN PRN Reason: Nausea Oxycodone HCl (Oxycodone Hcl Immed Release 5 Mg Tablet) 5 mg PO Q6H PRN PRN Reason: Pain, Moderate(Pain Scale 4-6) Last Admin: 08/13/23 09:45 Dose: 5 mg Documented By: KANE Polyethylene Glycol (Polyethylene Glycol 3350 17 Gm Powd.Pack) 8.5 gm PO DAILY [facility] Last Admin: 08/13/23 09:46 Dose: Not Given Documented By: KANE Non-Admin Reason: Patient Refused Sodium Chloride (0.9 % Sodium Chloride Flush 3 Ml Syringe) 3 ml IVFLUSH QSHIFT [facility] Last Admin: 08/13/23 09:44 Dose: 3 ml Documented By: KANE Tamsulosin HCl (Tamsulosin Hcl 0.4 Mg Capsule) 0.4 mg PO BID [facility] Last Admin: 08/13/23 09:46 Dose: 0.4 mg Documented By: KANE Triamterene/Hydrochlorothiazide (Triamterene/Hctz 75/50 Tablet) 1 tab PO DAILY [facility]; Protocol Last Admin: 08/13/23 09:44 Dose: 1 tab Documented By: KANE Verapamil HCl (Verapamil Hcl Sr 180 Mg Tablet.Er) 360 mg PO BID [facility]; Protocol Last Admin: 08/13/23 09:45 Dose: 360 mg Documented By: KANE Labs 08/11/23 05:50 Labs: Laboratory Results - last 24 hr 08/12/23 08/12/23 08/13/23 16:13 20:16 07:20 POC Glucose 123 H 125 H 105 08/13/23 11:14 POC Glucose 134 H Assessment and Plan (1) Irreducible Spigelian hernia: Status: Acute (2) Ventral hernia: Status: Acute (3) CAD (coronary artery disease): Status: Acute Plan 77 year old male with history of non insulin dependent type 2 diabetes, cad, htn, hld, copd, hypothyroidism, andres compliance with bipap, cva, asthma, PAF with watchman device in place admitted to general surgery with consult placed to hospitalist service for medical management. 1.Spigelian hernia s/p repair -plan per general surgery -continue suppelemental O2 to maintain oximetry around 92%, wean as tolerated for post-op hypoxia. Consider IS 2.CAD -no anginal chest pain, s/p cabg 2017 -resume asa per general surgery -continue statin 3.Non insulin-dependent type 2 diabetes -acceptable control on current therapies -poc glucose, diabetic diet -humalog on sliding scale -hold metformin, resume on dc 4.Htn -bp reasonably controlled -continue verapamil, triamterene-hctz 5.Paroxysmal afib -rate controlled -watchman in place -continue verapamil Quality Stroke Does the patient have a stroke diagnosis?: No VTE Prior VTE?: No VTE Risk Level:: Surgical - moderate VTE Device Contraindication: N/A - Device Ordered VTE Drug Contraindication: N/A - Med Ordered
[2023-08-13 15:36] VITALS: BP 140/63; PULSE 69; RESP 18; TEMP 36.6; O2SAT 92
[2023-08-13 16:23] LABS: Glucose, Whole Blood 117 mg/dL (60-115)
[2023-08-13 19:43] VITALS: BP 141/78; PULSE 80; RESP 18; TEMP 36.4; O2SAT 94
[2023-08-13 20:36] LABS: Glucose, Whole Blood 119 mg/dL (60-115)
[2023-08-13] MEDS: Montelukast Sodium 10 MG TABLET PO (22:14)
[2023-08-13] MEDS: Gabapentin 600 MG TABLET 1200 MG PO (22:15)
--- NOTE | 2023-08-13 23:51 | PC.RT ---
pt refusing Bipap; states he will use 2L O2
[2023-08-14 00:15] VITALS: BP 139/75; PULSE 79; RESP 19; TEMP 36.3; O2SAT 95
[2023-08-14] MEDS: Levothyroxine Sodium 50 MCG TABLET PO (06:28)
[2023-08-14 07:24] VITALS: BP 141/70; PULSE 64; RESP 18; TEMP 36.2; O2SAT 97
[2023-08-14 07:29] LABS: Glucose, Whole Blood 115 mg/dL (60-115)
[2023-08-14] MEDS: VerapamiL HCL SR 180 MG TABLET.ER 360 MG PO ×2 (09:36→21:15)
[2023-08-14] MEDS: Tamsulosin HCL 0.4 MG CAPSULE PO ×2 (09:36→21:15)
[2023-08-14] MEDS: 0.9 % Sodium Chloride Flush 3 ML SYRINGE IVFLUSH ×3 (09:36→21:33)
[2023-08-14] MEDS: Triamterene/HCTZ 75/50 TABLET 1 TAB PO (09:36)
[2023-08-14] MEDS: buPROPion HCl XL 150 MG TAB.ER.24H 450 MG PO (09:36)
[2023-08-14] MEDS: Atorvastatin Calcium 40 MG TABLET PO ×2 (09:37→21:16)
[2023-08-14] MEDS: allopurinoL 300 MG TABLET PO (09:37)
[2023-08-14] MEDS: Gabapentin 600 MG TABLET PO ×2 (09:37→13:00)
[2023-08-14] MEDS: oxyCODONE HCl Immed Release 5 MG TABLET PO (09:42)
--- NOTE | 2023-08-14 10:11 | PM.PNGS ---
Subjective Subjective Date of Service: 08/14/23 Interval history: no events reported now says he had multiple loose stools yesterday only one loose BM today so far has incisional pain Physical Exam Vital Signs: Vital Signs: Last Vital Signs Temp 97.1 F 08/14/23 07:24 Pulse 64 08/14/23 07:24 Resp 18 08/14/23 07:24 BP 141/70 H 08/14/23 07:24 Pulse Ox 97 08/14/23 07:24 O2 Del Method Nasal Cannula 08/14/23 07:24 O2 Flow Rate 2 08/14/23 07:24 BMI result Body Mass Index 38.8 Const: Other: on recliner General: comfortable and no acute distress Resp: Effort & Inspection: normal respiratory effort Cardio: Rate: regular rate GI: Other: large pannus, incision clean, repair site intact Palpation (GI): Soft to palpation, not firm and no guarding Objective Data Active Medications Acetaminophen (Acetaminophen 325 Mg Tablet) 650 mg PO Q6H PRN PRN Reason: Pain, Mild (Pain Scale 1-3) Albuterol Sulfate (Albuterol Sulfate 90 Mcg 8 Gm Inhaler) 2 puff INHALE Q4H PRN PRN Reason: Wheezing Albuterol Sulfate (Albuterol Sulfate (0.083%) 2.5 Mg/3 Ml Vial.Neb) 2.5 mg INHALE Q6H PRN PRN Reason: Wheezing Allopurinol (Allopurinol 300 Mg Tablet) 300 mg PO DAILY [facility] Last Admin: 08/14/23 09:37 Dose: 300 mg Documented By: KANE Atorvastatin Calcium (Atorvastatin Calcium 40 Mg Tablet) 40 mg PO BID [facility] Last Admin: 08/14/23 09:37 Dose: 40 mg Documented By: KANE Bupropion HCl (Bupropion Hcl Xl 150 Mg Tab.Er.24h) 450 mg PO DAILY [facility] Last Admin: 08/14/23 09:36 Dose: 450 mg Documented By: KANE Dextrose (Dextrose 50 % 25 Gm/50 Ml Syringe) 25 gm IVPUSH Q15M PRN; Protocol PRN Reason: per Hypoglycemia Standing Ord. Enoxaparin Sodium (Enoxaparin Sodium 40 Mg/0.4 Ml Syringe) 40 mg SUBCUT Q24H [facility] Last Admin: 08/13/23 13:11 Dose: 40 mg Documented By: KANE Gabapentin (Gabapentin 600 Mg Tablet) 1,200 mg PO DAILY@2100 [facility] Last Admin: 08/13/23 22:15 Dose: 1,200 mg Documented By: FAISAL Gabapentin (Gabapentin 600 Mg Tablet) 600 mg PO BID@0800,1200 [facility] Last Admin: 08/14/23 09:37 Dose: 600 mg Documented By: KANE Glucose (Glucose Gel 15 Gm Gel..Gram.) 15 gm PO Q15M PRN; Protocol PRN Reason: per Hypoglycemia Standing Ord. Hydromorphone HCl (Hydromorphone Hcl 1 Mg/Ml Syringe) 0.5 mg IVPUSH Q4H PRN; Protocol PRN Reason: Pain, Severe (Pain Scale 7-10) Last Admin: 08/12/23 15:33 Dose: 0.5 mg Documented By: KATARZYNA Insulin Human Lispro (Insulin Lispro 100 Unit/Ml 3 Ml Vial) 0 unit SUBCUT QIDACHS [facility]; Protocol Last Admin: 08/14/23 07:23 Dose: Not Given Documented By: KANE Non-Admin Reason: No Insulin Coverage Levothyroxine Sodium (Levothyroxine Sodium 50 Mcg Tablet) 50 mcg PO DAILY@0600 [facility] Last Admin: 08/14/23 06:28 Dose: 50 mcg Documented By: DANISH Magnesium Hydroxide (Milk Of Magnesia 30 Ml Oral.Susp) 30 ml PO DAILY PRN PRN Reason: Constipation Montelukast Sodium (Montelukast Sodium 10 Mg Tablet) 10 mg PO BEDTIME [facility] Last Admin: 08/13/23 22:14 Dose: 10 mg Documented By: FAISAL Non-Formulary Medication (Mometasone) 2 inhalation INHALE BEDTIME [facility] Non-Formulary Medication (Tiotropium-Olodaterol [Stiolto Respimat]) 2 puff INHALE DAILY [facility] Ondansetron HCl (Ondansetron Hcl 4 Mg/2 Ml Vial) 4 mg IVPUSH QID PRN PRN Reason: Nausea Oxycodone HCl (Oxycodone Hcl Immed Release 5 Mg Tablet) 5 mg PO Q6H PRN PRN Reason: Pain, Moderate(Pain Scale 4-6) Last Admin: 08/14/23 09:42 Dose: 5 mg Documented By: KANE Polyethylene Glycol (Polyethylene Glycol 3350 17 Gm Powd.Pack) 8.5 gm PO DAILY [facility] Last Admin: 08/14/23 09:37 Dose: Not Given Documented By: KANE Non-Admin Reason: Patient Refused Sodium Chloride (0.9 % Sodium Chloride Flush 3 Ml Syringe) 3 ml IVFLUSH QSHIFT [facility] Last Admin: 08/14/23 09:36 Dose: 3 ml Documented By: KANE Tamsulosin HCl (Tamsulosin Hcl 0.4 Mg Capsule) 0.4 mg PO BID [facility] Last Admin: 08/14/23 09:36 Dose: 0.4 mg Documented By: KANE Triamterene/Hydrochlorothiazide (Triamterene/Hctz 75/50 Tablet) 1 tab PO DAILY [facility]; Protocol Last Admin: 08/14/23 09:36 Dose: 1 tab Documented By: KANE Verapamil HCl (Verapamil Hcl Sr 180 Mg Tablet.Er) 360 mg PO BID [facility]; Protocol Last Admin: 08/14/23 09:36 Dose: 360 mg Documented By: KANE Labs 08/11/23 05:50 Labs: Laboratory Results - last 24 hr 08/13/23 08/13/23 08/13/23 11:14 16:16 20:26 POC Glucose 134 H 117 H 119 H 08/14/23 07:22 POC Glucose 115 Procedures Date of Service Date of Service: 08/14/23 Progress Note: A&P Assessment and plan (1) Irreducible Spigelian hernia: Status: Acute Assessment and Plan: s/p repair with mesh now says he does not feel ready to go home - he is anxious about loose stools yesterday, although has only one BM so far today he wants to stay another day otherwise looks well incision clean doing well postop benjie Turner Time Spent With Patient Time: Total time managing care of this patient today ____ minutes. Quality Stroke Does the patient have a stroke diagnosis?: No VTE Prior VTE?: No VTE Risk Level:: Surgical - moderate VTE Device Contraindication: N/A - Device Ordered VTE Drug Contraindication: N/A - Med Ordered
[2023-08-14] MEDS: Acetaminophen 325 MG TABLET 650 MG PO ×2 (11:11→17:17)
[2023-08-14 11:15] LABS: Glucose, Whole Blood 111 mg/dL (60-115)
[2023-08-14] MEDS: Enoxaparin Sodium 40 MG/0.4 ML SYRINGE SUBCUT (13:00)
--- NOTE | 2023-08-14 13:46 | P.PNIM_ITS ---
Subjective Subjective Date of Service: 08/14/23 Interval History: No acute events overnight. Describes passing mucus rectally .... does not describe stool Review of Systems Denies chest pain Denies shortness of breath Denies nausea vomiting diarrhea Denies fever chills Physical Exam 2 Vital Signs: Vital Signs: Last Vital Signs Temp 97.1 F 08/14/23 07:24 Pulse 64 08/14/23 07:24 Resp 18 08/14/23 07:24 BP 141/70 H 08/14/23 07:24 Pulse Ox 97 08/14/23 07:24 O2 Del Method Nasal Cannula 08/14/23 07:24 O2 Flow Rate 2 08/14/23 07:24 BMI result Body Mass Index 38.8 Const: Other: Awake alert no acute distress Resp: Other: Clear to auscultation bilaterally no rales rhonchi or wheezes Cardio: Other: No S4; positive S1-S2; no S3 murmurs rubs or gallops GI: Other: Soft nontender nondistended normoactive bowel sounds Extrem: Other: No edema bilaterally Objective Data Active Medications Acetaminophen (Acetaminophen 325 Mg Tablet) 650 mg PO Q6H PRN PRN Reason: Pain, Mild (Pain Scale 1-3) Last Admin: 08/14/23 11:11 Dose: 650 mg Documented By: KANE Albuterol Sulfate (Albuterol Sulfate 90 Mcg 8 Gm Inhaler) 2 puff INHALE Q4H PRN PRN Reason: Wheezing Albuterol Sulfate (Albuterol Sulfate (0.083%) 2.5 Mg/3 Ml Vial.Neb) 2.5 mg INHALE Q6H PRN PRN Reason: Wheezing Allopurinol (Allopurinol 300 Mg Tablet) 300 mg PO DAILY [facility] Last Admin: 08/14/23 09:37 Dose: 300 mg Documented By: KANE Atorvastatin Calcium (Atorvastatin Calcium 40 Mg Tablet) 40 mg PO BID [facility] Last Admin: 08/14/23 09:37 Dose: 40 mg Documented By: KANE Bupropion HCl (Bupropion Hcl Xl 150 Mg Tab.Er.24h) 450 mg PO DAILY [facility] Last Admin: 08/14/23 09:36 Dose: 450 mg Documented By: KANE Dextrose (Dextrose 50 % 25 Gm/50 Ml Syringe) 25 gm IVPUSH Q15M PRN; Protocol PRN Reason: per Hypoglycemia Standing Ord. Enoxaparin Sodium (Enoxaparin Sodium 40 Mg/0.4 Ml Syringe) 40 mg SUBCUT Q24H [facility] Last Admin: 08/14/23 13:00 Dose: 40 mg Documented By: KANE Gabapentin (Gabapentin 600 Mg Tablet) 1,200 mg PO DAILY@2100 [facility] Last Admin: 08/13/23 22:15 Dose: 1,200 mg Documented By: FAISAL Gabapentin (Gabapentin 600 Mg Tablet) 600 mg PO BID@0800,1200 [facility] Last Admin: 08/14/23 13:00 Dose: 600 mg Documented By: KANE Glucose (Glucose Gel 15 Gm Gel..Gram.) 15 gm PO Q15M PRN; Protocol PRN Reason: per Hypoglycemia Standing Ord. Hydromorphone HCl (Hydromorphone Hcl 1 Mg/Ml Syringe) 0.5 mg IVPUSH Q4H PRN; Protocol PRN Reason: Pain, Severe (Pain Scale 7-10) Last Admin: 08/12/23 15:33 Dose: 0.5 mg Documented By: KATARZYNA Insulin Human Lispro (Insulin Lispro 100 Unit/Ml 3 Ml Vial) 0 unit SUBCUT QIDACHS [facility]; Protocol Last Admin: 08/14/23 11:12 Dose: Not Given Documented By: KANE Non-Admin Reason: No Insulin Coverage Levothyroxine Sodium (Levothyroxine Sodium 50 Mcg Tablet) 50 mcg PO DAILY@0600 [facility] Last Admin: 08/14/23 06:28 Dose: 50 mcg Documented By: DANISH Magnesium Hydroxide (Milk Of Magnesia 30 Ml Oral.Susp) 30 ml PO DAILY PRN PRN Reason: Constipation Montelukast Sodium (Montelukast Sodium 10 Mg Tablet) 10 mg PO BEDTIME [facility] Last Admin: 08/13/23 22:14 Dose: 10 mg Documented By: FAISAL Non-Formulary Medication (Mometasone) 2 inhalation INHALE BEDTIME ON [facility] Non-Formulary Medication (Tiotropium-Olodaterol [Stiolto Respimat]) 2 puff INHALE DAILY [facility] Ondansetron HCl (Ondansetron Hcl 4 Mg/2 Ml Vial) 4 mg IVPUSH QID PRN PRN Reason: Nausea Oxycodone HCl (Oxycodone Hcl Immed Release 5 Mg Tablet) 5 mg PO Q6H PRN PRN Reason: Pain, Moderate(Pain Scale 4-6) Last Admin: 08/14/23 09:42 Dose: 5 mg Documented By: KANE Polyethylene Glycol (Polyethylene Glycol 3350 17 Gm Powd.Pack) 8.5 gm PO DAILY [facility] Last Admin: 08/14/23 09:37 Dose: Not Given Documented By: KANE Non-Admin Reason: Patient Refused Sodium Chloride (0.9 % Sodium Chloride Flush 3 Ml Syringe) 3 ml IVFLUSH QSHIFT ON [facility] Last Admin: 08/14/23 09:36 Dose: 3 ml Documented By: KANE Tamsulosin HCl (Tamsulosin Hcl 0.4 Mg Capsule) 0.4 mg PO BID [facility] Last Admin: 08/14/23 09:36 Dose: 0.4 mg Documented By: KANE Triamterene/Hydrochlorothiazide (Triamterene/Hctz 75/50 Tablet) 1 tab PO DAILY [facility]; Protocol Last Admin: 08/14/23 09:36 Dose: 1 tab Documented By: KANE Verapamil HCl (Verapamil Hcl Sr 180 Mg Tablet.Er) 360 mg PO BID [facility]; Protocol Last Admin: 08/14/23 09:36 Dose: 360 mg Documented By: KANE Labs 08/11/23 05:50 Labs: Laboratory Results - last 24 hr 08/13/23 08/13/23 08/14/23 16:16 20:26 07:22 POC Glucose 117 H 119 H 115 08/14/23 11:07 POC Glucose 111 Assessment and Plan (1) Irreducible Spigelian hernia: Status: Acute Plan 77 year old male with history of non insulin dependent type 2 diabetes, cad, htn, hld, copd, hypothyroidism, andres compliance with bipap, cva, asthma, PAF with watchman device in place admitted to general surgery with consult placed to hospitalist service for medical management. 1.Spigelian hernia s/p repair -plan per general surgery -continue suppelemental O2 to maintain oximetry around 92%, wean as tolerated for post-op hypoxia. Consider IS 2.CAD -no anginal chest pain, s/p cabg 2017 -resume asa per general surgery -continue statin 3.Non insulin-dependent type 2 diabetes -acceptable control on current therapies -poc glucose, diabetic diet -humalog on sliding scale -hold metformin, resume on dc 4.Htn -bp reasonably controlled -continue verapamil, triamterene-hctz 5.Paroxysmal afib -rate controlled -watchman in place -continue verapamil Quality Stroke Does the patient have a stroke diagnosis?: No VTE Prior VTE?: No VTE Risk Level:: Surgical - moderate VTE Device Contraindication: N/A - Device Ordered VTE Drug Contraindication: N/A - Med Ordered
[2023-08-14 15:28] VITALS: BP 138/63; PULSE 71; RESP 18; TEMP 36.3; O2SAT 94
[2023-08-14 16:20] LABS: Glucose, Whole Blood 116 mg/dL (60-115)
[2023-08-14 19:49] VITALS: BP 125/68; PULSE 68; RESP 18; TEMP 36.3; O2SAT 94
[2023-08-14 20:37] LABS: Glucose, Whole Blood 121 mg/dL (60-115)
[2023-08-14] MEDS: Montelukast Sodium 10 MG TABLET PO (21:15)
[2023-08-14] MEDS: Gabapentin 600 MG TABLET 1200 MG PO (21:16)
[2023-08-15 03:38] VITALS: BP 154/65; PULSE 68; RESP 16; TEMP 36.3; O2SAT 96
[2023-08-15] MEDS: Levothyroxine Sodium 50 MCG TABLET PO (06:20)
[2023-08-15 07:12] VITALS: BP 134/74; PULSE 80; RESP 20; TEMP 37; O2SAT 93
[2023-08-15 07:18] LABS: Glucose, Whole Blood 108 mg/dL (60-115)
[2023-08-15] MEDS: polyethylene glycoL 3350 17 GM POWD.PACK 8.5 GM PO (09:06)
[2023-08-15] MEDS: Gabapentin 600 MG TABLET PO ×2 (09:07→11:59)
[2023-08-15] MEDS: buPROPion HCl XL 150 MG TAB.ER.24H 450 MG PO (09:07)
[2023-08-15] MEDS: Triamterene/HCTZ 75/50 TABLET 1 TAB PO (09:07)
[2023-08-15] MEDS: Tamsulosin HCL 0.4 MG CAPSULE PO (09:08)
[2023-08-15] MEDS: 0.9 % Sodium Chloride Flush 3 ML SYRINGE IVFLUSH (09:08)
[2023-08-15] MEDS: allopurinoL 300 MG TABLET PO (09:08)
[2023-08-15] MEDS: VerapamiL HCL SR 180 MG TABLET.ER 360 MG PO (09:08)
[2023-08-15] MEDS: Atorvastatin Calcium 40 MG TABLET PO (09:08)
[2023-08-15 11:05] LABS: Glucose, Whole Blood 114 mg/dL (60-115)
[2023-08-15] MEDS: Enoxaparin Sodium 40 MG/0.4 ML SYRINGE SUBCUT (11:59)
--- NOTE | 2023-08-15 12:36 | MHC.CM.PN ---
Addendum entered by Thania Harmon 08/15/23 13:26: Patient is discharged today. His will provide transportation home. Original Note: Per MD rounds patient may discharge today pending General surgery assessment. [facility]. Patients will provide transportation home.
--- NOTE | 2023-08-16 14:40 | PM.DS ---
DS: Providers Provider Date of Service: 08/16/23 Date of admission: 08/10/23 06:05 Date of discharge: 08/15/23 Primary care physician: Nataly Ashley MD Admitting clinician: Larry Ordoñez Consults: 08/10/23 11:28 Consult to Hospitalist Routine Comment: Consulting Provider: Hospitalist Reason For Exam: CAD, PAF, FARHAD s/p hernia repair Med Management Discharging clinician: Larry Ordoñez DS: Diagnosis Discharge Diagnosis (1) Irreducible Spigelian hernia: Status: Acute DS: Summary Hospital Course Hospital Course: 77-year-old male patient recently discharged the hospital service on 07/09/2023 after an admission for small-bowel obstruction. Patient has a known history of a left inguinal hernia as well as CAD, s/p CABG x3, COPD, type 2 diabetes, hypertension, PAF, s/p Watchman device, hyperlipidemia, hypothyroidism, FARHAD BiPAP. CT abdomen pelvis obtained emergency department revealed dilated loops of small bowel with no transition point. He was treated non operatively with bowel rest and subsequently resolved his bowel obstruction. He was discharged home with Metamucil and instructions to decrease gabapentin, Gabapentin, Bupropion, Dicyclomine and Oxybutynin as they might slow your bowel movement and cause constipation. He was also started on Metamucil. He returns today for follow-up examination reports no further abdominal pain, nausea or vomiting. He does continue to have narrowing of his stools. He denies any bleeding per rectum. He is eating mainly soft foods due to recent extraction of both upper and lower teeth. He is awaiting placement of dental implants. He feels he has lost weight due to his restricted diet. He underwent repair of the left lower quadrant spigelian hernia on 08/10/2023. This was performed with mesh. He was admitted postoperatively for pain control. He remained hemodynamically stable postoperatively but did complain of significant left lower quadrant abdominal pain. Physical therapy was consulted for assistance with ambulation. Hospitalist consultation was also obtained for medical management. Over the next several days he was advanced to regular diet and was tolerating this well without nausea or vomiting. He reported a large bowel movement on postoperative day 2 but then developed diarrhea over the next several days due to oral cathartics. These were stopped in his bowels returned to normal. He was subsequently discharged home on 08/15/2023. Discharge instructions were to avoid lifting greater than 10 lb for the next month. He will return to the office in approximately 1 week for wound examination. He should call sooner for any nausea, vomiting, or increased abdominal pain. Status at Discharge Functional status at discharge: independent ambulation Overall status at discharge: patient is not back to baseline Time Attestation Discharge coordination time: Less than 30 minutes Quality: Safe Use of Opioids Does Pt have an Active Cancer Diagnosis on the Problem List?: No Quality: Stroke Does the patient have a stroke diagnosis?: No Physical Exam Vital Signs: Vital Signs: Last Vital Signs Temp 98.6 F 08/15/23 07:12 Pulse 80 08/15/23 07:12 Resp 20 08/15/23 07:12 BP 134/74 08/15/23 07:12 Pulse Ox 93 08/15/23 07:12 O2 Del Method Room Air 08/15/23 07:12 O2 Flow Rate 2 08/14/23 07:24 BMI result Body Mass Index 38.8 Const: Other: on recliner General: comfortable and no acute distress Resp: Effort & Inspection: normal respiratory effort Cardio: Rate: regular rate GI: Other: large pannus, incision clean, repair site intact Palpation (GI): Soft to palpation, not firm and no guarding Discharge Plan Discharge Anticipated Discharge Date/Time: 08/15/23 12:40 Patient Disposition: Home, Self-Care Discharge Diagnosis: s/p repair of spigelian hernia with mesh Referrals: Nataly Ashley MD [Primary Care Provider] - 1 Week Larry Ordoñez MD [Physician] - 1 Week Discharge Medications: New oxycodone 5 mg tablet 5 mg PO Q4H PRN (Reason: pain (scale score 7-10)) Qty: 24 0RF Rx Instructions: Partial Fill upon patient request. Continued zafirlukast 20 mg Tablet 20 mg PO BID Rx Instructions: must be taken on empty stomach, at least 1 hr before or 2 hrs after a meal/food oxybutynin chloride 15 mg Tablet Extended Release 24hr 15 mg PO DAILY triamcinolone acetonide 0.1 % Ointment 1 appl TOPICAL BID PRN (Reason: Rash) triamterene-hydrochlorothiazid 75-50 mg Tablet 1 tab PO DAILY mometasone 220 mcg/ actuation (120) Aerosol Powdr Breath Activated 2 inh INHALATION BEDTIME gabapentin 600 mg Tablet 1,200 mg PO DAILY@2100 gabapentin 600 mg Tablet 600 mg PO BID@0800,1200 ascorbic acid (vitamin C) 250 mg Tablet 250 mg PO DAILY niacinamide 500 mg Tablet 500 mg PO BID albuterol sulfate 90 mcg/actuation Hfa Aerosol Inhaler 2 puff INHALATION Q4H PRN (Reason: Wheezing) atorvastatin 40 mg Tablet 40 mg PO BID levothyroxine 50 mcg Tablet 50 mcg PO DAILY polyethylene glycol 3350 17 gram/dose Powder 8.5 g PO DAILY verapamil 360 mg capsule,ext rel. pellets 24 hr 360 mg PO BID cetirizine [All Day Allergy (cetirizine)] 10 mg tablet 10 mg PO BEDTIME bupropion HCl 200 mg tablet sustained-release 12 hr 200 mg PO BID metformin 500 mg tablet 500 mg PO BID allopurinol 300 mg tablet 300 mg PO DAILY omeprazole 20 mg capsule,delayed release(DR/EC) 20 mg PO BID@0630,1630 albuterol sulfate 2.5 mg /3 mL (0.083 %) solution for nebulization 2.5 mg inhalation Q6H PRN (Reason: Wheezing) tamsulosin 0.4 mg capsule 0.4 mg PO BID dicyclomine 20 mg tablet 20 mg PO Q6H PRN (Reason: Spasms) Stiolto Respimat 2.5-2.5 mcg/actuation mist 2 puff inhalation DAILY aspirin [Adult Aspirin Regimen] 81 mg tablet,delayed release (DR/EC) 81 mg PO DAILY fluticasone propionate 50 mcg/actuation spray,suspension 2 spray intranasal BID Rx Instructions: administer into each nostril Discharge Orders: Discharge Order (Routine); Ordered 08/15/23 Ordered By: Larry Ordoñez Diet: Advance to usual diet Activity on Discharge: No heavy lifting Stand Alone Forms: Patient Portal Discharge page Activity Restrictions/Additional Instructions: If the incision area is tender, you may apply an ice pack for short intervals (No more than 20 minutes on, followed by at least 20 minutes off). Do not apply heat. Do not use creams, lotions, or topical antibiotics. These can cause infection or allergic reaction. Ok to shower. Remove clear dressings 3 days following your procedure. You have steri strips (small white cloth strips) covering your incision- these will fall off ~1 week. No heavy lifting (>10lbs) or strenuous activity! Follow up in office with Dr. Ordoñez in 1 week. ([phone]) Call Your Doctor If: -Your temperature exceeds 101.5? F -You experience excessive pain or swelling -You have an unexpected reaction to medication -You have excessive bleeding -You experience continued vomiting/nausea -Your incision begins to separate -Your incision shows signs of infection such as increased redness, swelling, excessive pain, drainage (light blood or clear fluid is normal) or heat Care Plan Goals: Return to baseline health and resume normal activities following recovery period. Health Concerns: spigelian hernia FARHAD CAD PAF Plan of Treatment: s/p repair of spigelian hernia with mesh f/u in office in 1 week Assessment: Doing well post op. Discharge Date/Time: 08/15/23 13:44
== END 2023-08-15 13:44 | disposition home or self-care (01) | DRG 355 ==
LOC: HO.SSSA 06:20 → HO.S3 10:26
PROVIDERS: Admitting Provider Surgery; PCP Internal Medicine; Visit Provider Surgery
PROC: 0WUF0JZ Supplement Abdominal Wall with Synthetic Substitute, Open Approach (ICD-10-PCS; principal; 2023-08-10 07:30)
DX: K43.6 Other and unspecified ventral hernia with obstruction, without gangrene (principal); I25.10 Atherosclerotic heart disease of native coronary artery without angina pectoris; J44.9 Chronic obstructive pulmonary disease, unspecified; I69.398 Other sequelae of cerebral infarction; H53.9 Unspecified visual disturbance; I48.0 Paroxysmal atrial fibrillation; F39 Unspecified mood [affective] disorder; G47.33 Obstructive sleep apnea (adult) (pediatric); E03.9 Hypothyroidism, unspecified; Z95.818 Presence of other cardiac implants and grafts; E11.42 Type 2 diabetes mellitus with diabetic polyneuropathy; Z79.51 Long term (current) use of inhaled steroids; Z79.84 Long term (current) use of oral hypoglycemic drugs; Z79.890 Hormone replacement therapy; Z79.899 Other long term (current) drug therapy
CPT/HCPCS: 36415; 80053; 82565; 82947; 86850; 86900; 86901; 94660; 97116; 97162; 99024; C1781; J0131; J0665; J1100; J1170; J1650; J2250; J2405; J2704; J3010; J3370

== ENCOUNTER → 2023-08-10 06:05 | Outpatient (BNV) | payer OTHER, SELFPAY | PROVIDERS: Admitting Provider Surgery; PCP Internal Medicine; Visit Provider Surgery | DX: K43.6 Other and unspecified ventral hernia with obstruction, without gangrene (principal) | CPT/HCPCS: 49594; 99232; 99238 ==

== ENCOUNTER → 2023-08-10 06:05 | Outpatient (BNV) | payer OTHER, SELFPAY | PROVIDERS: Admitting Provider Surgery; PCP Internal Medicine; Visit Provider Physician Assistant | DX: K43.6 Other and unspecified ventral hernia with obstruction, without gangrene (principal) | CPT/HCPCS: 99222; 99232; 99233 ==

== ENCOUNTER 2023-08-19 09:15 | Outpatient (AMB) | payer OTHER, SELFPAY ==
--- NOTE | 2023-08-19 09:37 | A.OFFVIS_ITS ---
Intake Vital Signs 08/19/23 09:51 Height 5 ft 11 in Weight 277 lb 12.519 oz BMI 38.7 BP 128/78 Blood Pressure Location Lt brachial Position Sitting Intake Visit Reasons: S/p left spigelian hernia repair w/mesh Intake Note: Patient is seen in office for post op assessment post left Spigelian hernia repair. Pt c/o: geovanni in place healing as expected, eating fair, denies diarrhea, constipation, nausea, vomit, feels the are might be a bit swollen Op:08/10/23 Asbestos Removal Worker Required: No Accompanied by: Spouse Allergies amoxicillin [From Augmentin] Allergy (Severe, Verified 08/19/23 09:52) NAUSEA & VOMITING, HIVES clavulanic acid [From Augmentin] Allergy (Severe, Verified 08/19/23 09:52) NAUSEA & VOMITING, HIVES piperacillin [From ZOSYN] Allergy (Severe, Verified 08/19/23 09:52) LIVER FAILURE tazobactam [From ZOSYN] Allergy (Severe, Verified 08/19/23 09:52) LIVER FAILURE HPI HPI Comments History of Present Illness Details 77-year-old male patient returning 1 wee k following discharge from hospital after repair of a spigelian hernia in the left lower quadrant 1 week ago. Overall he feels okay but does have a lack of energy and low appetite. His bowels are moving normally and better than prior to surgery. He denies any diarrhea or mucus. He denies any problems at the incision and now has no abdominal pain. He returns today for suture removal. [facility] Medical History History of transesophageal echocardiography (MIKHAIL) History of Mohs micrographic surgery for skin cancer Wears hearing aid in both ears FARHAD treated with BiPAP Asthma Thyroid nodule Gout IBS (irritable bowel syndrome) Balance problem CVA (cerebral vascular accident) History of skin cancer Psoriasis Eczema Peripheral neuropathy Hypothyroidism Anemia, chronic disease History of iron deficiency anemia FARHAD (obstructive sleep apnea) COPD (chronic obstructive pulmonary disease) Hyperlipidemia Diabetes mellitus HTN (hypertension) Paroxysmal atrial fibrillation CAD (coronary artery disease) Surgical History S/P spigelian hernia repair, follow-up exam (08/10/23) Hx of bilateral cataract extraction History of dental surgery History of dental surgery History of esophagogastroduodenoscopy (EGD) Hx of colonoscopy Hx of hand surgery Hx of knee surgery History of back surgery Hx of CABG Hx of cardiac cath Family History Father Sudden cardiac Mother Sudden cardiac Social History Household Members: Spouse Housing: House Are you a primary progressive care nurse to a significant other at home: No Do you presently have visiting nurse or other home services: No Alcohol intake: never Comment: pt agrees to ring to assistance getting out of bed. Patient Tobacco Use Status: Former Tobacco user Quit Date: 1980 Tobacco use type: Cigarette Advance Directives Date on File: 10/18/22 service: Yes Current occupational status: retired Physical Exam Vital Signs: Last Vital Signs BP 128/78 08/19/23 09:51 BMI result Body Mass Index 38.7 Const General: alert Nutritional Appearance: obese Orientation/consciousness: patient oriented x3 Limitations: wheelchair Resp Effort & Inspection: normal respiratory effort GI Other: Incision in the left lower quadrant is clean, dry, and intact. Geovanni removed and Steri-Strips applied. Skin Other: Warm, dry, no rash Neuro General: patient oriented x3 Assessment & Plan Assessment & Plan (1) Irreducible Spigelian hernia: Code(s): K43.6 - Other and unspecified ventral hernia with obstruction, without gangrene Plan Patient returns 1 week following repair of a spigelian hernia in the left lower quadrant. His wounds are clean, dry, and intact without redness or discharge. Dixon removed and Steri-Strips applied. I recommended he increase his activity at home and try adding a supplement such as ensure or fair life to increase his endurance. She will return in 1 month for wound check but should call sooner for any new concerns. Coding Level of Care Code Global (30014) Diagnoses Irreducible Spigelian hernia K43.6
[2023-08-19 09:51] VITALS: BP 128/78; BMI 38.7
== END 2023-08-19 10:02 | disposition home or self-care (01) ==
PROVIDERS: PCP Internal Medicine; Visit Provider Surgery
DX: K43.6 Other and unspecified ventral hernia with obstruction, without gangrene (principal); Z48.02 Encounter for removal of sutures
CPT/HCPCS: 99212

== ENCOUNTER → 2023-08-19 09:15 | Outpatient (BNVA) | payer OTHER, SELFPAY | PROVIDERS: PCP Internal Medicine; Visit Provider Surgery | DX: Z48.815 Encounter for surgical aftercare following surgery on the digestive system (principal) | CPT/HCPCS: 99212 ==

== ENCOUNTER 2023-09-15 12:56 | Outpatient (AMB) | payer OTHER, SELFPAY ==
--- NOTE | 2023-09-15 13:10 | A.OFFVIS_ITS ---
Intake Vital Signs 09/15/23 13:13 Height 5 ft 11 in Weight 277 lb 12.519 oz BMI 38.7 Respiration 18 Intake Visit Reasons: one month post left spigelian hernia repair Intake Note: Patient is seen in office for one month follow up visit, post left Spigelian hernia repair. Pt c/o: after surgery was having normal bm, however for the past 5 days has not had a bm, is taking Miralax for the past 3 days with no relief, denies any other concerns Data Processing Systems Consultant Required: No Accompanied by: Spouse Allergies amoxicillin [From Augmentin] Allergy (Severe, Verified 09/15/23 13:12) NAUSEA & VOMITING, HIVES clavulanic acid [From Augmentin] Allergy (Severe, Verified 09/15/23 13:12) NAUSEA & VOMITING, HIVES piperacillin [From ZOSYN] Allergy (Severe, Verified 09/15/23 13:12) LIVER FAILURE tazobactam [From ZOSYN] Allergy (Severe, Verified 09/15/23 13:12) LIVER FAILURE HPI HPI Comments History of Present Illness Details Patient returns 1 month following repair of a spigelian hernia with mesh. And generally feels well with no further abdominal pain. His bowels have been regular up until approximately 5 days ago but has recently started taking MiraLax. She denies any abdominal pain, nausea, vomiting, fever or chills. He denies any problems with his incision. [facility] Medical History Irreducible Spigelian hernia Ventral hernia History of transesophageal echocardiography (MIKHAIL) History of Mohs micrographic surgery for skin cancer Wears hearing aid in both ears FARHAD treated with BiPAP Asthma Thyroid nodule Gout IBS (irritable bowel syndrome) Balance problem CVA (cerebral vascular accident) History of skin cancer Psoriasis Eczema Peripheral neuropathy Hypothyroidism Anemia, chronic disease History of iron deficiency anemia FARHAD (obstructive sleep apnea) COPD (chronic obstructive pulmonary disease) Hyperlipidemia Diabetes mellitus HTN (hypertension) Paroxysmal atrial fibrillation CAD (coronary artery disease) Surgical History S/P spigelian hernia repair, follow-up exam (08/10/23) Hx of bilateral cataract extraction History of dental surgery History of dental surgery History of esophagogastroduodenoscopy (EGD) Hx of colonoscopy Hx of hand surgery Hx of knee surgery History of back surgery Hx of CABG Hx of cardiac cath Family History Father Sudden cardiac Mother Sudden cardiac Social History Household Members: Spouse Housing: House Are you a primary care asst to a significant other at home: No Do you presently have visiting nurse or other home services: No Alcohol intake: never Comment: pt agrees to ring to assistance getting out of bed. Patient Tobacco Use Status: Former Tobacco user Quit Date: 1980 Tobacco use type: Cigarette Advance Directives Date on File: 10/18/22 service: Yes Current occupational status: retired Physical Exam Vital Signs: Last Vital Signs Resp 18 09/15/23 13:13 BMI result Body Mass Index 38.7 Const General: comfortable Nutritional Appearance: well nourished Orientation/consciousness: patient oriented x3 Limitations: ambulation with cane Resp Effort & Inspection: normal respiratory effort GI Other: Incision is clean, dry, and intact in the left lower quadrant. No redness or discharge appreciated. No hernia noted with Valsalva maneuvers. Neuro General: patient oriented x3 Extrem General: No edema Assessment & Plan Assessment & Plan (1) Irreducible Spigelian hernia: Code(s): K43.6 - Other and unspecified ventral hernia with obstruction, without gangrene Plan Patient returns 1 month following repair of a spigelian hernia with mesh. His wounds are clean, dry, and intact without evidence of hernia recurrence. He may resume normal activity without restriction and should follow up as needed. Coding Level of Care Code Global (93648) Diagnoses Irreducible Spigelian hernia K43.6
[2023-09-15 13:13] VITALS: RESP 18; BMI 38.7
== END 2023-09-15 13:23 | disposition home or self-care (01) ==
PROVIDERS: PCP Internal Medicine; Referring Provider Surgery; Visit Provider Surgery
DX: K43.6 Other and unspecified ventral hernia with obstruction, without gangrene (principal)
CPT/HCPCS: 99212

== ENCOUNTER → 2023-09-15 12:56 | Outpatient (BNVA) | payer OTHER, SELFPAY | PROVIDERS: PCP Internal Medicine; Visit Provider Surgery | DX: Z48.815 Encounter for surgical aftercare following surgery on the digestive system (principal); Z98.890 Other specified postprocedural states | CPT/HCPCS: 99212 ==

== ENCOUNTER 2023-12-05 08:08 | Emergency (ER) | payer OTHER, SELFPAY ==
--- NOTE | ~2023-12-05 | XR_ITS ---
EXAMINATION: XR ELBOW, RIGHT XR WRIST, RIGHT CLINICAL INFORMATION: Fall COMPARISON: None available. TECHNIQUE: AP, lateral, and oblique views of the right elbow. 4 views of the right wrist FINDINGS: The bones and soft tissues are normal. No fractures or joint effusions. Alignment is anatomic. Joint spaces are maintained. XR/XR elbow RT min 3V IMPRESSION: No evidence of a traumatic injury involving the elbow or wrist
--- NOTE | ~2023-12-05 | XR_ITS ---
EXAMINATION: XR ELBOW, RIGHT XR WRIST, RIGHT CLINICAL INFORMATION: Fall COMPARISON: None available. TECHNIQUE: AP, lateral, and oblique views of the right elbow. 4 views of the right wrist FINDINGS: The bones and soft tissues are normal. No fractures or joint effusions. Alignment is anatomic. Joint spaces are maintained. XR/XR wrist RT w scaphoid IMPRESSION: No evidence of a traumatic injury involving the elbow or wrist
[2023-12-05 08:19] VITALS: BP 150/68; PULSE 86; RESP 19; TEMP 36.6; O2SAT 98; BMI 37.7
--- NOTE | 2023-12-05 09:49 | ED.GENADULT ---
HPI - General Adult General Chief complaint: Fall Stated complaint: Fall R arm/wrist pain Time Seen by Provider: 12/05/23 09:20 Source: patient Mode of arrival: ambulatory Limitations: no limitations History of Present Illness HPI narrative: 78-year-old male history of atrial fibrillation, hypertension, obstructive sleep apnea, constipation, a corneal artery disease presents to ED for right wrist and right elbow pain after falling yesterday. Patient states yesterday he was in the driveway doing some work on a RV when he lost his balance and fell onto his right elbow right wrist. Patient states the drive way is not level and there is a crack when he tripped over. This was confirmed by who show me the video. Patient denies hitting head or loss of consciousness. Patient denies any chest pain, abdominal pain, dizziness, nausea, vomiting, headache, rectal bleeding, vomiting blood, bloody urine, or pain in lower extremities or left upper extremity. Related Data Home Medications ?Medication ?Instructions ?Recorded ?Confirmed albuterol sulfate 2.5 mg/3 mL 2.5 mg inhalation Q6H PRN Wheezing 09/25/20 08/10/23 (0.083 %) solution for nebulization allopurinol 300 mg tablet 300 mg PO DAILY 09/25/20 08/08/23 aspirin 81 mg tablet,delayed 81 mg PO DAILY 09/25/20 08/08/23 release (Adult Aspirin Regimen) bupropion HCl 200 mg tablet,12 hr 200 mg PO BID 09/25/20 08/08/23 sustained-release cetirizine 10 mg tablet (All Day 10 mg PO BEDTIME 09/25/20 08/08/23 Allergy (cetirizine)) dicyclomine 20 mg tablet 20 mg PO Q6H PRN Spasms 09/25/20 08/08/23 fluticasone propionate 50 2 spray intranasal BID 09/25/20 08/08/23 mcg/actuation nasal spray,suspension metformin 500 mg tablet 500 mg PO BID 09/25/20 08/08/23 omeprazole 20 mg capsule,delayed 20 mg PO BID@0630,1630 09/25/20 08/08/23 release tamsulosin 0.4 mg capsule 0.4 mg PO BID 09/25/20 08/08/23 tiotropium 2.5 mcg-olodaterol 2.5 2 puff inhalation DAILY 09/25/20 08/08/23 mcg/actuation mist for inhalation (Stiolto Respimat) verapamil 360 mg 24 hr 360 mg PO BID 09/25/20 08/08/23 capsule,extended release albuterol sulfate 90 mcg/actuation 2 puff inhalation Q4H PRN Wheezing 10/18/22 08/10/23 aerosol inhaler ascorbic acid (vitamin C) 250 mg 250 mg PO DAILY 10/18/22 08/08/23 tablet gabapentin 600 mg tablet 1,200 mg PO DAILY@2100 10/18/22 08/08/23 gabapentin 600 mg tablet 600 mg PO BID@0800,1200 10/18/22 08/08/23 niacinamide 500 mg tablet 500 mg PO BID 10/18/22 08/08/23 atorvastatin 40 mg tablet 40 mg PO BID 07/07/23 08/08/23 levothyroxine 50 mcg tablet 50 mcg PO DAILY 07/07/23 08/08/23 polyethylene glycol 3350 17 8.5 g PO DAILY 07/07/23 08/08/23 gram/dose oral powder zafirlukast 20 mg tablet 20 mg PO BID 08/08/23 08/08/23 mometasone 220 mcg/actuation(120 2 inh inhalation BEDTIME 08/10/23 08/10/23 doses)breath activated powder inhaler oxybutynin chloride 15 mg 15 mg PO DAILY 08/10/23 08/10/23 tablet,extended release 24 hr triamcinolone acetonide 0.1 % 1 appl topical BID PRN Rash 08/10/23 08/10/23 topical ointment triamterene 75 1 tab PO DAILY 08/10/23 08/10/23 mg-hydrochlorothiazide 50 mg tablet Previous Rx's ?Medication ?Instructions ?Recorded oxycodone 5 mg tablet 5 mg PO Q4H PRN pain (scale score 08/11/23 7-10) #24 tabs acetaminophen 325 mg tablet 325 mg PO QID PRN pain 7 days #28 12/05/23 (Tylenol) tabs Allergies Allergy/AdvReac Type Severity Reaction Status Date / Time amoxicillin [From Augmentin] Allergy Severe NAUSEA & Verified 12/05/23 08:22 VOMITING, HIVES clavulanic acid Allergy Severe NAUSEA & Verified 12/05/23 08:22 [From Augmentin] VOMITING, HIVES piperacillin [From ZOSYN] Allergy Severe LIVER Verified 12/05/23 08:22 FAILURE tazobactam [From ZOSYN] Allergy Severe LIVER Verified 12/05/23 08:22 FAILURE Review of Systems Review of Systems: Right elbow right wrist pain Yes all other systems are reviewed and are negative [facility] Past Medical History Medical History Irreducible Spigelian hernia Ventral hernia History of transesophageal echocardiography (MIKHAIL) History of Mohs micrographic surgery for skin cancer Wears hearing aid in both ears FARHAD treated with BiPAP Asthma Thyroid nodule Gout IBS (irritable bowel syndrome) Balance problem CVA (cerebral vascular accident) History of skin cancer Psoriasis Eczema Peripheral neuropathy Hypothyroidism Anemia, chronic disease History of iron deficiency anemia FARHAD (obstructive sleep apnea) COPD (chronic obstructive pulmonary disease) Hyperlipidemia Diabetes mellitus HTN (hypertension) Paroxysmal atrial fibrillation CAD (coronary artery disease) Surgical History S/P spigelian hernia repair, follow-up exam (08/10/23) Hx of bilateral cataract extraction History of dental surgery History of dental surgery History of esophagogastroduodenoscopy (EGD) Hx of colonoscopy Hx of hand surgery Hx of knee surgery History of back surgery Hx of CABG Hx of cardiac cath Family History Family History Father Sudden cardiac Mother Sudden cardiac Social History Social History Household Members: Spouse Housing: House Are you a primary career development associate to a significant other at home: No Do you presently have visiting nurse or other home services: No Alcohol intake: never Comment: pt agrees to ring to assistance getting out of bed. Patient Tobacco Use Status: Former Tobacco user Quit Date: 1980 Tobacco use type: Cigarette Advance Directives: Yes Advance Directives on File: Yes Advance Directives Date on File: 10/18/22 service: Yes Current occupational status: retired Physical Exam ED Vital Signs: Vital Signs - 24 hr 12/05/23 08:19 12/05/23 10:02 12/05/23 10:29 Temperature 98 F 98 F 0 F L Pulse Rate 86 84 0 L Respiratory Rate 19 16 16 Blood Pressure 150/68 H 132/59 L 00/00 L Pulse Oximetry 98 94 Oxygen Delivery Method Room Air Room Air BMI result Body Mass Index 37.7 Const General: cooperative, healthy appearing, comfortable, no acute distress, well developed, alert, awake and Physically active Orientation/consciousness: oriented to person, oriented to place, oriented to time and patient oriented x3 [facility] Head: Yes normal to inspection, Yes No palpable skull fracture present, Yes normocephalic, Yes atraumatic and No abrasion Ears: hearing grossly normal bilaterally, external ears normal, TM's normal bilaterally, TM normal on the right, TM normal on the left, EAC's normal, mastoids normal and no periauricular adenopathy Eyes General: appearance normal, both eyes and all related structures Neck Neck: Yes normal visual inspection, Yes full ROM, Yes no lymphadenopathy, Yes no meningeal signs, Yes trachea midline, Yes supple, No anterior neck swelling and No tender Chest Chest palpation & inspection: normal inspection of the chest and normal palpation of entire chest wall Resp Effort & Inspection: normal respiratory effort and able to speak in complete sentences Auscultation: clear to auscultation bilaterally Cardio Jugular venous distension: no JVD Heart sounds: S1 normal heart sound present and S2 normal heart sound present GI Inspection: Yes normal to inspection Palpation (GI): Soft to palpation, not firm, nontender, no guarding and not rigid General: No CVA tenderness and Yes no CVA tenderness Back/Spine/Pelvis Back: no CVA tenderness, No CVA tenderness and No back tenderness Skin General skin exam: no rashes or lesions noted, elasticity normal and turgor normal Neuro General: oriented to person, oriented to place, oriented to time, patient oriented x3, gait normal, tone normal, moves all extremities, Normal light touch and pain sensation, no meningeal signs, no focal motor deficits, CN's II-XI intact bilaterally and normal sensation to monofilament Extrem General: Yes normal to inspection, Yes full ROM and Yes capillary refill normal Elbow/forearm/wrist images: 1. positive for abrasion. Negative for tenderness on palpation. Negative for ecchymosis, erythema, swelling, crepitus, or deformity. Motor/neuro /vascular exam intact. Hand/finger images: 1. tenderness on palpation without any deformity, ecchymosis, crepitus, redness, or swelling. Motor/neuro/ vascular exam intact Psych Appearance: grossly normal, well kempt and not disheveled Course Course Course Narrative: Medications Administered Discontinued Medications Generic Name Dose Route Start Last Admin Trade Name Angelina PRN Reason Stop Dose Admin Acetaminophen 975 mg 12/05/23 10:09 12/05/23 10:15 Acetaminophen 325 Mg Tablet PO 12/05/23 10:10 975 mg ONCE ONE Administration Medical Decision Making Medical Decision Making [facility] Narrative: 78-year-old male presents to ED for mechanical fall. showed me a video of patient falling was mechanical. Patient denies any prodrome of dizziness, headache, chest pain, shortness of breath, or abdominal pain before falling. On video there was no head trauma. X-ray of right upper extremity ordered. Whole-body evaluated and negative for signs of life-threatening injuries. No need for laceration repair. 10:10am: X-rays negative for fracture. Patient is up-to-date with tetanus. Right wrist placed in Kal wrap. Right elbow abrasion cleaned and placed a new nonstick dressing. patient explained worrisome signs informed to return to the ED if he has them. not suspecting any cardiac etiology, pulmonary eitiology, pneurmothroax, hemothorax brain breed, skull fracture, internal organ bleeding/injuries, or neck fractures Differential Diagnosis Differential Diagnoses: The differential diagnosis associated with the presentation includes ( Fracture of wrist, dislocation, elbow fracture, elbow dislocation) Admission/Observation Consideration of admission/observation: Escalation of care including admission/observation considered Independent Interpretation I performed an independent interpretation of an: Plain X-Ray Radiology Impression Discussion of test interpretation with radiology: I have reviewed the radiologist's reading. Independent Historian Clinical information obtained from an independent historian. History obtained from or confirmed by: Other (patient) External Record Review External record reviewed: Other (prior visits) Prescription Management I considered prescription management with: Pain Medication Discharge Plan Discharge Clinical Impression: Abrasion, Sprain of wrist Patient Disposition: Home, Self-Care Instructions: Abrasion (ED), Wrist Sprain (ED) Additional Instructions: return to the ED for any headache, nausea, vomiting, swelling, redness, bluish black discoloration, chest pain, shortness of breath, abdominal pain, rectal bleeding, vomiting blood, weakness, dizziness, coolness, hotness, numbness, tingling, paralysis or any other concerning symptoms. Recommend follow-up with primary care provider. Prescriptions: New acetaminophen [Tylenol] 325 mg tablet 325 mg PO QID PRN (Reason: pain) 7 Days Qty: 28 0RF No Action zafirlukast 20 mg Tablet 20 mg PO BID Rx Instructions: must be taken on empty stomach, at least 1 hr before or 2 hrs after a meal/food oxybutynin chloride 15 mg Tablet Extended Release 24hr 15 mg PO DAILY triamcinolone acetonide 0.1 % Ointment 1 appl TOPICAL BID PRN (Reason: Rash) triamterene-hydrochlorothiazid 75-50 mg Tablet 1 tab PO DAILY mometasone 220 mcg/ actuation (120) Aerosol Powdr Breath Activated 2 inh INHALATION BEDTIME oxycodone 5 mg tablet 5 mg PO Q4H PRN (Reason: pain (scale score 7-10)) Qty: 24 0RF Rx Instructions: Partial Fill upon patient request. gabapentin 600 mg Tablet 1,200 mg PO DAILY@2100 gabapentin 600 mg Tablet 600 mg PO BID@0800,1200 ascorbic acid (vitamin C) 250 mg Tablet 250 mg PO DAILY niacinamide 500 mg Tablet 500 mg PO BID albuterol sulfate 90 mcg/actuation Hfa Aerosol Inhaler 2 puff INHALATION Q4H PRN (Reason: Wheezing) atorvastatin 40 mg Tablet 40 mg PO BID levothyroxine 50 mcg Tablet 50 mcg PO DAILY polyethylene glycol 3350 17 gram/dose Powder 8.5 g PO DAILY verapamil 360 mg capsule,ext rel. pellets 24 hr 360 mg PO BID cetirizine [All Day Allergy (cetirizine)] 10 mg tablet 10 mg PO BEDTIME bupropion HCl 200 mg tablet sustained-release 12 hr 200 mg PO BID metformin 500 mg tablet 500 mg PO BID allopurinol 300 mg tablet 300 mg PO DAILY omeprazole 20 mg capsule,delayed release(DR/EC) 20 mg PO BID@0630,1630 albuterol sulfate 2.5 mg /3 mL (0.083 %) solution for nebulization 2.5 mg inhalation Q6H PRN (Reason: Wheezing) tamsulosin 0.4 mg capsule 0.4 mg PO BID dicyclomine 20 mg tablet 20 mg PO Q6H PRN (Reason: Spasms) Stiolto Respimat 2.5-2.5 mcg/actuation mist 2 puff inhalation DAILY aspirin [Adult Aspirin Regimen] 81 mg tablet,delayed release (DR/EC) 81 mg PO DAILY fluticasone propionate 50 mcg/actuation spray,suspension 2 spray intranasal BID Rx Instructions: administer into each nostril Interventions: ED Discharge Assessment Last Done: 12/05/23 10:29 Discharge Date/Time: 12/05/23 10:29 Print Language: Puerto Rican
[2023-12-05 10:02] VITALS: BP 132/59; PULSE 84; RESP 16; TEMP 36.6; O2SAT 94
[2023-12-05] MEDS: Acetaminophen 325 MG TABLET 975 MG PO (10:15)
[2023-12-05 10:29] VITALS: BP 00/00; PULSE 0; RESP 16; TEMP -17.7; TEMP 0
== END 2023-12-05 10:29 | disposition home or self-care (01) ==
PROVIDERS: Emergency Provider Emergency Medicine; PCP Internal Medicine
DX: S50.311A Abrasion of right elbow, initial encounter (principal); S63.501A Unspecified sprain of right wrist, initial encounter; M79.601 Pain in right arm; W01.10XA Fall on same level from slipping, tripping and stumbling with subsequent striking against unspecified object, initial encounter; Y93.9 Activity, unspecified; Y92.007 Garden or yard of unspecified non-institutional (private) residence as the place of occurrence of the external cause; Y99.8 Other external cause status
CPT/HCPCS: 73080; 73110; 99283; 99284

== ENCOUNTER 2024-02-07 14:28 | Outpatient (AMB) | payer OTHER, SELFPAY ==
--- NOTE | 2024-02-07 15:02 | MHC.OFFVIS ---
Vital Signs 02/07/24 15:03 Height 5 ft 11 in Weight 271 lb 2.697 oz BMI 37.8 BP 120/80 Blood Pressure Location Lt brachial Position Sitting Pulse 93 Intake Visit Reasons: 1 yr f/up Intake Note: 1 year follow-up with ekg c/o memory issues have carotid u/s next wk Senior Chemist Required: No Allergies amoxicillin [From Augmentin] Allergy (Severe, Verified 12/05/23 08:22) NAUSEA & VOMITING, HIVES clavulanic acid [From Augmentin] Allergy (Severe, Verified 12/05/23 08:22) NAUSEA & VOMITING, HIVES piperacillin [From ZOSYN] Allergy (Severe, Verified 12/05/23 08:22) LIVER FAILURE tazobactam [From ZOSYN] Allergy (Severe, Verified 12/05/23 08:22) LIVER FAILURE Medication List - Last Reconciled 02/07/24 by Roberto Kemp MD acetaminophen (Tylenol) 325 mg PO QID PRN 7 days albuterol sulfate 90 mcg/actuation 2 puffs inhalation Q4H PRN albuterol sulfate 2.5 mg inhalation Q6H PRN aspirin (Adult Aspirin Regimen) 81 mg PO DAILY atorvastatin 40 mg PO BID bupropion HCl SR 200 mg PO BID cetirizine (All Day Allergy (cetirizine)) 10 mg PO BEDTIME cholecalciferol (vitamin D3) 25 mcg PO DAILY cyanocobalamin (vitamin B-12) 1,000 mcg PO DAILY fenofibrate 40 mg PO DAILY fluticasone propionate 50 mcg/actuation 2 sprays intranasal BID gabapentin 600 mg PO BID@0800,1200 levothyroxine 50 mcg PO DAILY metformin 500 mg PO BID mometasone 2 inhalations inhalation BEDTIME niacinamide 500 mg PO BID omeprazole 20 mg PO BID@0630,1630 oxybutynin chloride ER 15 mg PO DAILY polyethylene glycol 3350 8.5 grams PO DAILY tamsulosin 0.4 mg PO BID tiotropium-olodaterol 2.5-2.5 mcg/actuation (Stiolto Respimat) 2 puffs inhalation DAILY triamcinolone acetonide 0.1% 1 appl topical BID PRN triamterene-hydrochlorothiazid 75-50 mg 1 tab PO DAILY verapamil ER 360 mg PO BID zafirlukast 20 mg PO BID HPI Comments Details: Mikal comes for follow-up. Overall he has been doing well, says that he had a fall last year and has had multiple falls. Currently working with physical therapy. He also says he has had some cognitive and memory issues. Otherwise he is doing well. No exertional chest pain or shortness of breath. No prolonged palpitation irregular heartbeat. He had recent recurrent I stroke he says. He is currently being evaluated with carotid duplex. He is currently on aspirin therapy. Further treatment based on the findings. He is taking all his medications otherwise. [facility] Medical History Irreducible Spigelian hernia Ventral hernia History of transesophageal echocardiography (MIKHAIL) History of Mohs micrographic surgery for skin cancer Wears hearing aid in both ears FARHAD treated with BiPAP Asthma Thyroid nodule Gout IBS (irritable bowel syndrome) Balance problem CVA (cerebral vascular accident) History of skin cancer Psoriasis Eczema Peripheral neuropathy Hypothyroidism Anemia, chronic disease History of iron deficiency anemia FARHAD (obstructive sleep apnea) COPD (chronic obstructive pulmonary disease) Hyperlipidemia Diabetes mellitus HTN (hypertension) Paroxysmal atrial fibrillation CAD (coronary artery disease) Surgical History S/P spigelian hernia repair, follow-up exam (08/10/23) Hx of bilateral cataract extraction History of dental surgery History of dental surgery History of esophagogastroduodenoscopy (EGD) Hx of colonoscopy Hx of hand surgery Hx of knee surgery History of back surgery Hx of CABG Hx of cardiac cath Family History Father Sudden cardiac Mother Sudden cardiac Social History Household Members: Spouse Housing: House Are you a primary childcare center administrator to a significant other at home: No Do you presently have visiting nurse or other home services: No Alcohol intake: never Comment: pt agrees to ring to assistance getting out of bed. Patient Tobacco Use Status: Former Tobacco user Tobacco use type: Cigarette Advance Directives Date on File: 10/18/22 service: Yes Current occupational status: retired Review of Systems Const Denies chills, Denies fatigue, Denies fever(s), Denies frequent falls, Denies weakness, Denies weight gain and Denies weight loss ENT Denies dizziness Card Denies chest pain, Denies leg edema, Denies lightheadedness, Denies palpitations, Denies dyspnea, Denies dyspnea on exertion, Denies orthopnea and Denies other (loss of consciousness) Resp Denies cough, Denies dyspnea and Denies dyspnea on exertion GI Denies hematochezia and Denies change in stool character Musc Denies abnormal gait, Denies muscle weakness, Denies numbness, Denies radiating pain into limb and Denies tingling Neuro Denies abnormal gait, Denies dizziness, Denies frequent falls, Denies numbness, Denies tingling and Denies weakness Endo Denies fatigue and Denies palpitations Physical Exam Vital Signs: Last Vital Signs Pulse 93 02/07/24 15:03 BP 120/80 02/07/24 15:03 BMI result Body Mass Index 37.8 Const General: cooperative, comfortable, no acute distress, alert and awake Nutritional Appearance: obese morbidly obese Orientation/consciousness: patient oriented x3 Limitations: no limitations Neck Neck: Yes trachea midline, Yes supple and Yes no JVD Carotids: no bruits Resp Effort & Inspection: normal respiratory effort Auscultation: clear to auscultation bilaterally and diminished lung sounds Cardio Jugular venous distension: no JVD Palpation: normal PMI Rate: regular rate Rhythm: regular rhythm Heart sounds: S1 normal heart sound present, S2 normal heart sound present, no click, no gallops, no murmurs and Rub heart sound present GI Auscultation: normal bowel sounds Skin General skin exam: no rashes or lesions noted Neuro General: patient oriented x3 and no focal motor deficits Extrem General: No clubbing, No cyanosis and Yes pedal edema Office Procedures EKG Details: EKG shows normal sinus rhythm with nonspecific IVCD and nonspecific ST T wave changes [id number], Complete Assessment & Plan Assessment & Plan (1) CAD (coronary artery disease): Code(s): I25.10 - Atherosclerotic heart disease of unga coronary artery without angina pectoris Category: Medical Plan: CAD status post remote coronary artery bypass grafting for crescendo angina and left main stenosis, with myocardial perfusion imaging with the last 2 years within normal limits. Currently not having any symptoms suggestive angina. No further cardiac workup is indicated. Continue aspirin therapy. Although if he has significant atherosclerotic disease with recurrent TIA or ophthalmic events may require dual antiplatelet therapy. This was discussed with him. Further treatment based on finding of carotid duplex. Continue high-intensity statin therapy. Target goal LDL closer to 60 mg/dL. Blood pressure is well optimized. Continue aggressive diabetes management goal hemoglobin A1c less than 7%. He is encouraged to participate in regular physical activity with aggressive weight loss program. (2) Paroxysmal atrial fibrillation: Comment: Status post Watchman device due to recurrent iron deficiency anemia suspected to be GI bleed. Code(s): I48.0 - Paroxysmal atrial fibrillation Category: Medical Plan: Paroxysmal atrial fibrillation which has remained suppressed on current verapamil therapy. He has not had any recurrent episodes. Continue the verapamil therapy. No indication for antiarrhythmic drug therapy at this point time. Avoidance of stimulants was discussed. Status post Watchman device and currently on aspirin therapy. Will follow up in the clinic in 1 year's time, sooner p.r.n.. Thank you for allowing me to partake in his care Coding Level of Care Code Est Pt Level 4 (36433) Diagnoses CAD (coronary artery disease) I25.10 Paroxysmal atrial fibrillation I48.0 CPT Codes EKG - CPT: 45545-[id number], Complete ([id number])
[2024-02-07 15:03] VITALS: BP 120/80; PULSE 93; BMI 37.8
== END 2024-02-07 15:32 | disposition home or self-care (01) ==
PROVIDERS: PCP Internal Medicine; Referring Provider Internal Medicine; Visit Provider Internal Medicine Cardiovascular Disease
DX: I25.10 Atherosclerotic heart disease of native coronary artery without angina pectoris (principal); I48.0 Paroxysmal atrial fibrillation
CPT/HCPCS: 93010; 99214

== ENCOUNTER → 2024-02-07 14:28 | Outpatient (BNVA) | payer OTHER, SELFPAY | PROVIDERS: PCP Internal Medicine; Visit Provider Internal Medicine Cardiovascular Disease | DX: I25.10 Atherosclerotic heart disease of native coronary artery without angina pectoris (principal); I48.0 Paroxysmal atrial fibrillation; Z91.81 History of falling | CPT/HCPCS: 93005; 99212 ==

== ENCOUNTER 2025-02-05 08:46 | Outpatient (REF) | payer OTHER, SELFPAY ==
--- OUTSIDE RECORDS SUMMARY | 2024-05-21 07:30 | XMS_ITS | Encounter Summary ---
Author Name [facility] [place] [facility] [place] [facility] [place] Address [address] [place] [address] Care Team Providers Care Ccie Name Role Phone TOI BAUGH Primary Care Provider Unavail able Insurance Providers: All historical and current Section Date Range: From patient's date of to the date document was created. This section includes the names of all active insurance providers for the patient. Insurance Provider Type of Coverage Plan Name Start of Policy Coverage End of Policy Coverage Group Number Member ID Insurance Provider's Telephone Number Policy Perez's Name Patient's Relationship to Policy Perez APWU (SECONDARY ) PREFERRED PROVIDER ORGANIZAT ION (PPO) APWU- [place] Jul 29, 2007 [id number] [phone] HAKEEM ALTMAN PATIENT [facility] APWU Jul 25, 2017 [id number] HAKEEM ALTMAN PATIENT [employer] ([id number]) PRESCRIPT ION APWU Aug 06, 2011 [id number] HAKEEM ALTMAN PATIENT MEDICARE (WNR) MEDICARE (M) PART A Mar 25, 2011 PART A [id number] HAKEEM ALTMAN PATIENT MEDICARE (WNR) MEDICARE (M) PART B Mar 25, 2011 PART B [id number] HAKEEM ALTMAN PATIENT MEDICARE (WNR) MEDICARE (M) PART A Mar 25, 2011 PART A [id number] HAKEEM ALTMAN PATIENT MEDICARE (WNR) MEDICARE (M) PART B Mar 25, 2011 PART B [id number] [phone] HAKEEM ALTMAN PATIENT MEDICARE (WNR) MEDICARE (M) PART A Mar 25, 2011 PART A [id number] HAKEEM ALTMAN PATIENT MEDICARE (WNR) MEDICARE (M) PART B Mar 25, 2011 PART B [id number] [phone] HAKEEM ALTMAN PATIENT MEDICARE (WNR) MEDICARE (M) PART A Mar 25, 2011 PART A [id number] HAKEEM ALTMAN PATIENT MEDICARE (WNR) MEDICARE (M) PART B Mar 25, 2011 PART B [id number] [phone] HAKEEM ALTMAN PATIENT Selected Encounter This section includes the information on record at [place] for the Encounter. Date/Time Encounter Type Encounter Description Reason Provider Source May 21, 2024 11:30 AM OFFICE O/P EST LOW 20 MIN PRIMARY CARE/MEDICINE ICD-10-CM H93.8X1 Other specified disorders of right ear CARMEN ESPARZA Lina Encounter Template Text not used by [place] Assessments - Encounter Diagnoses This section includes the primary and secondary diagnoses documented for the Encounter. Date/Time Primary/Secondary Diagnosis Diagnosis Name Provider Source May 22, 2024 11:29 AM PRIMARY Other specified disorders of right ear CARMEN ESPARZA [facility] Plan of Treatment: Future Appointments (+ 6 months) and Future Tests (+/- 45 days) The Plan of Treatment section includes future care activities for the patient from all VA treatmentfacilities. This section includes future appointments and future orders which are active, pending or scheduled. Future Appointments This section includes appointments that were scheduled to occur 6 months from the date of the Encounter, up to a maximum of 20 appointments. The data comes from all [place] treatment facilities. Appointment Date/Time Appointment Type Appointme nt Facility Name May 23, 2024 01:00 PM [facility]UL[facility]ORY [facility]ICINE [facility] [place] [facility] Jun 13, 2024 01:15 PM AMBULATORY - NONE [facility] [place] [facility] Jun 19, 2024 08:00 AM [facility]ULATORY [facility] MEDICINE [facility] [place] [facility] Jul 04, 2024 09:30 AM [facility]ULATORY [facility] MEDICINE [facility] [place] [facility] Aug 16, 2024 02:30 PM AMBULATORY - PSYCHIATRY [facility] Aug 31, 2024 08:00 AM [facility]IC[facility] Sep 06, 2024 09:00 AM [facility] MEDICINE [facility] Sep 27, 2024 08:00 AM [facility]ORY - MEDICINE [facility] Oct 04, 2024 01:30 PM AMBULATORY - PSYCHIATRY [facility] Vital Signs: All taken on the encounter date This section contains inpatient and outpatient Vital Signs collected on the date of the Encounter. Date/Time Temperature Pulse Blood Pressure Respiratory Rate SP02 Pain Height Weight Body Mass Index Source May 21, 2024 11:56 AM 98 79 155/83 19 95 71 283 40 [facility] Social History: Smoking Status (Most current) and Tobacco Use (All prior to encounter date) This section includes the most current, and the historical, smoking and tobacco- related health factors from the [place] facility where the Encounter took place. Current Smoking Status This section includes the most current smoking, or tobacco-related health factor, from the [place] facility where the Encounter took place. Date/Time Current Smoking Status Comment Facil ity December 07, 2023 02:00 PM VA-TOBACCO NEVER USED [facility] Tobacco Use History This section includes a history of the smoking, or tobacco-related health factors, that were collected on or before the date of the Encounter. The data comes from the [place] facility where the Encounter took place. Date/Time Smoking Status/Tobacco Use Comment F acility Jan 04, 2023 08:30 AM VA-TOBACCO FORMER USER [facility] Jan 04, 2023 08:30 AM [place]-TO[place]AC[place] QUIT 15 YRS OR MORE [facility] Jan 08, 2022 09:30 AM VA-TOBACCO NEVER USED [facility] Oct 28, 2020 10:00 AM VA-TOBACCO FORMER USER [facility] Oct 28, 2020 10:00 AM VA-TOBACCO QUIT 15 YRS OR MORE [facility] Sep 06, 2019 11:10 AM VA-TOBACCO FORMER USER [facility] Sep 06, 2019 11:10 AM VA-TOBACCO QUIT 15 YRS OR MORE [facility] Aug 04, 2018 11:07 AM VA-TOBACCO FORMER USER [facility] Aug 04, 2018 11:07 AM VA-TOBACCO QUIT 15 YRS OR MORE [facility] Sep 05, 2017 08:52 AM QUIT TOBACCO USE > 7 YEARS AGO 1981 reports quitting [facility] Aug 02, 2016 08:37 AM QUIT TOBACCO USE > 7 YEARS AGO quit 1981 [facility] Jul 29, 2015 08:11 AM QUIT TOBACCO USE > 7 YEARS AGO [facility] Sep 13, 2003 01:00 PM HISTORY OF SMOKING stopped tobacco 23 years ago [facility] Jul 04, 2002 02:50 PM HISTORY OF SMOKING quit in 1980 [facility] Jan 17, 2002 03:16 PM QUIT TOBACCO USE > 7 YEARS AGO stopped tobacco 21 years ago [facility] Jul 04, 2001 03:30 PM HISTORY OF SMOKING quit 1980 [facility] Advance Directives: All historical and current Section Date Range: From patient's date of to the date document was created. This section includes ALL of a patient's completed or amended [place] Advance and Rescinded Directives. The entries below indicate that a directive exists for the patient, but an actual copy is not included with this document. The data comes from all [facility]. Date Advance Directives Provider Source December 02, 2011 ADVANCE DIRECTIVE [facility] December 12, 2007 ADVANCE DIRECTIVE [facility]N [facility] FLANAGAN [facility] Encounter Notes: All associated encounter notes This section contains the clinical notes associated to the Encounter. Date/Time Encounter Note(s) Provider Source May 21, 2024 11:22 AM PRIMARY CARE NURSE PRACTITIONER OUTPATIENT NOTE: LOCAL TITLE: NURSE PRACTITIONER OUTPATIENT NOTE STANDARD TITLE: PRIMARY CARE NURSE PRACTITIONER OUTPATIENT NOTE DATE OF NOTE: MAY 21, 2024@11:22 ENTRY DATE: MAY 21, 2024@11:22:21 AUTHOR: CARMEN ESPARZA COSIGNER: URGENCY: STATUS: COMPLETED PRIMARY CARE VISIT ANTONINA LEO JOSE, is a 78 y/o WHITE MALE who [facility] today [facility] the [place] [facility]. TYPE OF VISIT: Face to face HPI: Left ear discomfort - about a month ago saw audiology and they informed him he had a bump in his right ear. Subsequently he felt something pop in his ear and he noted some clear discharge. No discharge now. Site is now tender deep in the ear but hearing aid does not seem to be irritating it. Has not affected hearing; PAUMA at baseline. Recent labs reviewed and all medications were reconciled during this visit. HISTORY: PERIOD OF SERVICE - itzat FROM Dec TO Oct COMBAT SERVICE INDICATED: No VITAL SIGNS: Blood Pressure: 155/83 (05/21/2024 11:56) Pain: 0 (01/24/2024 11:22) Patient Height: 71 in [180.3 cm] (05/21/2024 11:56) Patient Weight: 283 lb [128.37 kg] (05/21/2024 11:56) Pulse: 79 (05/21/2024 11:56) Respiration: 19 (05/21/2024 11:56) Temperature: 98 F [36.7 C] (05/21/2024 11:56) ASSISTIVE DEVICES: cane REVIEW OF SYSTEMS: see HPI PHYSICAL EXAMINATION: General: Well-appearing in no obvious distress. Mental Status: Alert and oriented x3. ENT: small lesion, possibly a scab but unable to fully visualize, noted right ear canal. Mild erythema of canal. No active bleeding or discharge. Tenderness noted with insertion of ear speculum. Lungs: respirations easy and unlabored Psych: Normal mood and affect. Normal judgment. Cooperative with exam, follows commands. ALLERGIES: AUGMENTIN, WALNUTS, ALMONDS, CLAVULANATE/TICARCILLIN HEALTH MAINTENANCE - see end of note PREVENTIVE MEDICINE GOALS Info Only: [facility] Video Connect Capable DUE NOW Homelessness/Food Insecurity Screen Mar 24 Follow Up Colonoscopy Jul 26 Home Telehealth ([facility]) Referral Mar 12 Influenza Immunization DUE NOW Medication Reconciliation DUE NOW (Optional) Whole Health Documentation DUE NOW ASSESSMENT/PLAN: lesion right ear canal - referral made to ENT for eval FOLLOW UP: Return to clinic as noted below and/or sooner PRN UPCOMING APPOINTMENTS: 05/21/2024 11:30 CWM/SO/PACT 7 06/13/2024 13:15 COM CARE-COLO [facility] 06/19/2024 08:00 CWM/NO/OPTOMETRY/JOSE LUIS 08/16/2024 14:30 CWM/SO/VVC/MHC/POWELL 09/06/2024 09:00 CWM/SO/PACT 7 09/27/2024 08:00 CWM/SO/PODIATRY/ROSS No barriers noted; patient understands and agrees to current treatment plan. If patient has any questions, concerns or changes in current health status he/she will call or come in to the VA. HM: Info Only: [facility] Video Connect Capable: Medication Reconciliation: Outpatient: Has the patient been taking medications as documented in the EMLR? YES: The patient has been taking medications as documented in the EMLR. Essential Medication List for Review used to complete this medication reconciliation. INCLUDED IN THIS LIST: Alphabetical list of active outpatient prescriptions dispensed from this VA (local) and dispensed from another VA or DoD facility (remote) as well as inpatient orders (local, pending and active), local clinic medications, locally documented non-VA medications, and local prescriptions that have or been discontinued in the past 90 days. - All changes in medications, including all non-VA/Herbal/OTC medications were entered into CPRS. - If there were any medications the patient should no longer take, they were discontinued. - The patient/caregiver was instructed to update this list, discard old lists, and take this list to the next appointment, whether with a VA or non-VA provider. /juana/ ORA LÓPEZ CERTIFIED NURSE PRACTITIONER Signed: 05/22/2024 11:29 [facility] ESPARZA [facility]
[2025-02-05 11:07] LABS: B Type Natriuretic Peptide 53 pg/mL (<100)
[2025-02-05 11:13] LABS: Anion Gap 14 (12-20); Blood Urea Nitrogen 29 mg/dL (9-16); Calcium 9.6 mg/dL (8.4-10.2); Carbon Dioxide 23 mmol/L (22-29); Chloride 108 mmol/L (96-108); Estimated Glomerular Filt Rate 44; Potassium 3.8 mmol/L (3.3-5.1); Sodium 141 mmol/L (135-145)
== END 2025-02-05 08:47 | disposition home or self-care (01) ==
LOC: HO.LAB 08:46
PROVIDERS: PCP Internal Medicine; Visit Provider Internal Medicine Cardiovascular Disease
DX: I48.0 Paroxysmal atrial fibrillation (principal); I25.10 Atherosclerotic heart disease of native coronary artery without angina pectoris; R60.0 Localized edema
CPT/HCPCS: 36415; 80048; 83880; 93005; 99212

== ENCOUNTER 2025-02-05 08:46 | Outpatient (AMB) | payer OTHER, SELFPAY ==
--- NOTE | 2025-02-05 08:56 | A.OFFVIS_ITS ---
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 Allergies amoxicillin (From Augmentin) Allergy (Severe, Verified 12/05/23 08:22) NAUSEA & VOMITING, HIVES clavulanic acid (From Augmentin) Allergy (Severe, Verified 12/05/23 08:22) NAUSEA & VOMITING, HIVES piperacillin (From ZOSYN) Allergy (Severe, Verified 12/05/23 08:22) LIVER FAILURE tazobactam (From ZOSYN) Allergy (Severe, Verified 12/05/23 08:22) LIVER FAILURE Medication List - Last Reconciled 02/05/25 by Roberto Kemp MD acetaminophen (Tylenol) 325 mg PO QID PRN 7 days albuterol sulfate 90 mcg/actuation 2 puffs inhalation Q4H PRN albuterol sulfate 2.5 mg inhalation Q6H PRN allopurinol 100 mg PO DAILY aspirin (Adult Aspirin Regimen) 81 mg PO DAILY atorvastatin 40 mg PO BID bupropion HCl SR 200 mg PO BID buspirone 5 mg PO BID cetirizine (All Day Allergy (cetirizine)) 10 mg PO BEDTIME cholecalciferol (vitamin D3) 25 mcg PO DAILY cyanocobalamin (vitamin B-12) 1,000 mcg PO DAILY dicyclomine 20 mg PO ONCE empagliflozin (Jardiance) 25 mg PO DAILY fenofibrate 40 mg PO DAILY fluticasone propionate 50 mcg/actuation 2 sprays intranasal BID gabapentin 600 mg PO TID levothyroxine 50 mcg PO DAILY mirabegron ER (Myrbetriq) 25 mg PO DAILY mometasone 2 inhalations inhalation BEDTIME niacinamide 500 mg PO BID omeprazole 20 mg PO BID@0630,1630 polyethylene glycol 3350 8.5 grams PO DAILY tamsulosin 0.4 mg PO BID tiotropium-olodaterol 2.5-2.5 mcg/actuation (Stiolto Respimat) 2 puffs inhalation DAILY triamcinolone acetonide 0.1% 1 appl topical BID PRN triamterene-hydrochlorothiazid 75-50 mg 1 tab PO DAILY verapamil ER 360 mg PO BID zafirlukast 20 mg PO BID HPI Comments Details: Marino comes for follow-up. He continues to have intermittent episodes of atrial fibrillation says overall the watch says burden in his less than 2%. Sudden of the symptoms he feels and has symptoms of palpitation although these are not life limiting or bothersome to him. He has notice some cognitive dysfunction since her last year. He has not had any major neurologic events otherwise. Denies any exertional chest pain or shortness of breath. Has slowed down. Does not have any orthopnea, PND but does have bilateral lower extremity edema. Blood pressures been generally well controlled. He is having his blood work drawn at [facility] Medical History Irreducible Spigelian hernia Ventral hernia History of transesophageal echocardiography (MIKHAIL) History of Mohs micrographic surgery for skin cancer Wears hearing aid in both ears FARHAD treated with BiPAP Asthma Thyroid nodule Gout IBS (irritable bowel syndrome) Balance problem CVA (cerebral vascular accident) History of skin cancer Psoriasis Eczema Peripheral neuropathy Hypothyroidism Anemia, chronic disease History of iron deficiency anemia FARHAD (obstructive sleep apnea) COPD (chronic obstructive pulmonary disease) Hyperlipidemia Diabetes mellitus HTN (hypertension) Paroxysmal atrial fibrillation CAD (coronary artery disease) Surgical History S/P spigelian hernia repair, follow-up exam (08/10/23) Hx of bilateral cataract extraction History of dental surgery History of dental surgery History of esophagogastroduodenoscopy (EGD) Hx of colonoscopy Hx of hand surgery Hx of knee surgery History of back surgery Hx of CABG Hx of cardiac cath Family History Father Sudden cardiac Mother Sudden cardiac Social History Household Members: Spouse Housing: House Are you a primary life care planner to a significant other at home: No Do you presently have visiting nurse or other home services: No Alcohol intake: never Comment: pt agrees to ring to assistance getting out of bed. Patient Tobacco Use Status: Former Tobacco user Tobacco use type: Cigarette Advance Directives Date on File: 10/18/22 service: Yes Current occupational status: retired Review of Systems Const Denies chills, Denies fatigue, Denies fever(s), Denies frequent falls, Denies weakness, Denies weight gain and Denies weight loss ENT Denies dizziness Card Denies chest pain, Denies leg edema, Denies lightheadedness, Denies palpitations, Denies dyspnea, Denies dyspnea on exertion, Denies orthopnea and Denies other (loss of consciousness) Resp Denies cough, Denies dyspnea and Denies dyspnea on exertion GI Denies hematochezia and Denies change in stool character Musc Denies abnormal gait, Denies muscle weakness, Denies numbness, Denies radiating pain into limb and Denies tingling Neuro Denies abnormal gait, Denies dizziness, Denies frequent falls, Denies numbness, Denies tingling and Denies weakness Endo Denies fatigue and Denies palpitations Physical Exam Vital Signs: Last Vital Signs Pulse 80 02/05/25 08:57 BP 110/74 02/05/25 08:57 BMI result Body Mass Index 38.8 Const General: cooperative, comfortable, no acute distress, alert and awake Nutritional Appearance: obese morbidly obese Orientation/consciousness: patient oriented x3 Limitations: no limitations Neck Neck: Yes trachea midline, Yes supple and Yes no JVD Carotids: no bruits Resp Effort & Inspection: normal respiratory effort Auscultation: clear to auscultation bilaterally and diminished lung sounds Cardio Jugular venous distension: no JVD Palpation: normal PMI Rate: regular rate Rhythm: regular rhythm Heart sounds: S1 normal heart sound present, S2 normal heart sound present, no click, no gallops, no murmurs and Rub heart sound present GI Auscultation: normal bowel sounds Skin General skin exam: no rashes or lesions noted Neuro General: patient oriented x3 and no focal motor deficits Extrem General: No clubbing, No cyanosis and Yes pedal edema Office Procedures EKG Details: EKG shows normal sinus rhythm with low-voltage QRS with poor R-wave progression most likely due to body habitus with nonspecific STT wave changes [id number], Complete Assessment & Plan Assessment & Plan (1) Paroxysmal atrial fibrillation: Comment: Status post Watchman device due to recurrent iron deficiency anemia suspected to be GI bleed. Code(s): I48.0 - Paroxysmal atrial fibrillation Category: Medical Plan: Paroxysmal atrial fibrillation with persistent intermittent episodes with less than 2% burden which are not life altering or symptom limiting at this point time. He does have occasional symptoms of palpitation. No change in therapy as symptoms are pretty well controlled. Continue verapamil therapy which has helped him significantly. No indication for antiarrhythmic drug therapy at this point time. Status post Watchman device and currently on aspirin therapy. He does have some cognitive dysfunction which can be seen in patients atrial fibrillation which I am thinking is not completely dissipated by Watchman device. (2) CAD (coronary artery disease): Code(s): I25.10 - Atherosclerotic heart disease of [place] coronary artery without angina pectoris Category: Medical Plan: Patient with CAD with coronary artery bypass grafting remotely. No symptoms suggestive of angina. Continue aggressive medical therapy. Blood pressure is currently well optimized. Continue high-intensity statin therapy along with fenofibrate therapy. Target goal LDL less than 70 mg/dL and triglycerides less than 150 mg/dL. Encouraged to continue to participate in regular physical activity. Continue aggressive diabetes management goal hemoglobin A1c less than 7%. (3) Leg edema: Code(s): R60.0 - Localized edema Plan: Bilateral leg edema appears to be more likely related to venous insufficiency rather than heart failure. However will check for BNP as well as update an echocardiogram. No change in therapy but advised leg elevation when resting and compression stocking. Will follow up in the clinic otherwise in 1 year's time. Thank you for allowing me to partake in his care Orders: Orders CA echo transthoracic complete Today I48.0 - Paroxysmal atrial fibrillation Basic Metabolic Panel Today I48.0 - Paroxysmal atrial fibrillation B Type Natriuretic Peptide Today I48.0 - Paroxysmal atrial fibrillation Coding Level of Care Code Est Pt Level 4 (34455) Complex EM visit Add On G2211 Diagnoses Paroxysmal atrial fibrillation I48.0 CAD (coronary artery disease) I25.10 Leg edema R60.0 CPT Codes EKG - CPT: 14254-[id number], Complete ([id number])
--- OUTSIDE RECORDS SUMMARY | 2025-02-05 08:56 | XMS_ITS | Clinical Summary ---
Author Organization [facility] it Address [address] [place] [address] Care Team Providers Care Technical Programs Manager Name Role Phone Anival Moody MD Primary Care Provider Unavaila ble Social History Tobacco Use Types Packs/Day Years Used Date Smoking Tobacco: Never Assessed Sex and Gender Information Value Date Recorded Sex Assigned at Not on file Legal Sex Male 5:03 PM EST Gender Identity Not on file Sexual Orientation Not on file Plan of Treatment Health Maintenance Due Date Last Done Comments DTaP,Tdap,and Td Vaccines (1 - Tdap) 10/10/1966 Pneumococcal Vaccine: 50+ Ye ars (1 of 1 - PCV) 10/10/1997 Zoster Vaccines (1 of 2) 10/10/1997 RSV Immunization Adult Patie nts (1 - 1-dose 75+ series) 10/10/2022 COVID-19 Vaccine (2023-2 5 season) 2024 Influenza Vaccine (#1) 2025 HIB Vaccines Aged Out No longer eligi ble based on patient's age to complete this topic HPV Vaccines Aged Out No longer eligi ble based on patient's age to complete this topic Hepatitis A Vaccines Aged Out No long er eligible based on patient's age to complete this topic Hepatitis B Vaccines Aged Out No long er eligible based on patient's age to complete this topic IPV Vaccines Aged Out No longer eligi ble based on patient's age to complete this topic MMR Vaccines Aged Out No longer eligi ble based on patient's age to complete this topic Meningococcal ACWY Vaccine Aged Out N o longer eligible based on patient's age to complete this topic Meningococcal B Vaccine Aged Out No l onger eligible based on patient's age to complete this topic RSV Immunization Patients Un presley 20 months Aged Out No longer eligible b ased on patient's age to complete this topic Varicella Vaccines Aged Out No longer eligible based on patient's age to complete this topic Care Teams Technical Programs Manager Relationship Specialty Start Date End Date Anival Moody MD PCP - [facility] 12/30/17
--- OUTSIDE RECORDS SUMMARY | 2025-02-05 08:56 | XMS_ITS | Data Portability ---
Author Organization [facility] [address] Address [address] [place] [address] Assessment No assessment recorded. Plan of Treatment Reminders Order Date Submit Date Provider Last Modified By Organization Details Last Modified Time Details Appointments None recorded. Lab None recorded. Referral emergency medicine referral - abdominal pain x 2 days. more prononced epigastric and RUQ pain . complex medical history. Need further evaluation and treatment. 2022 023 [facility] [address] [place] [address], [address], 10:15:21 Procedures None recorded. Surgeries None recorded. Imaging None recorded. Medication Orders None recorded. Patient TargetsNo targets recorded. Patient Instructions Encounter Date Encounter Id Patient Instructions Last Modified By Organization Details Last Modified Time 10/18/2022 [id number] Abdominal pain can have a wide variety of causes. we cannot totally exclude the possibility of your symptoms being due a serious underlying problem. Unless ALL of your symptoms have COMPLETELY resolved, you should follow up at the nearest Emergency Department in 6 hours to be rechecked. If your pain worsens, you should not hesitate to go to the Emergency Department to have your condition further evaluated. You should also follow up immediately if you develop any new symptoms which concern you, such as fever, nausea, vomiting, rectal bleeding, or any other symptom that concerns you. Failure to follow up as instructed above may result in serious adverse health consequences, including permanent disability or . [email or web address] Not available 10/18/2022 09:46:21 Reason for Referral Emergency Medicine Referral for Abdominal pain abdominal pain x 2 days. more prononced epigastric and RUQ pain . complex medical history. Need fur abdominal pain x 2 days. more prononced epigastric and RUQ pain . complex medical history. Need further evaluation and treatment. Referring Physician: London Gavin, Urgent Care, Encounter Date: 10/18/2022 Problems Name Problem SNOMED Code Status Onset Date Resolution Date Notes Provider Name and Address Organization Details Recorded Time Chronic obstructive pulmonary disease 47137305 Active 2022 IRIS COUVERTIE R null, PA - [facility] 3 08:43:07 Asthma 373897073 Active 2022 IRIS COUVERTIE R null, PA - [facility] 3 08:43:13 Diabetes mellitus 65916060 Active 2022 IRIS COUVERTIE R null, PA - [facility] 3 08:43:39 History of cerebellar stroke 9708415665186 00 Active 2022 IRIS COUVERTIE R null, PA - [facility] 3 08:44:24 Gout 61611933 Active 2022 IRIS COUVERTIE R null, PA - [facility] 3 08:50:04 Sleep apnea 23487223 Active 2022 IRIS COUVERTIE R null, PA - [facility] 3 08:56:14 Problem Notes None recorded. Medical Equipment None Reported. Allergies Allergen ID Allergen Name Allergen Category Reaction Reaction Severity Criticality Documentation Date Start Date Code Code System Note Provider Name and Address Organization Details Recorded Time 994659 Augmentin medicatio n vomiting Not available Not available 10/18/2022 69466 2 RxNorm IRIS COUVERTIE R null, PA - [facility] 3 08:41:24 121266 Zosyn medicatio n vomiting Not available Not available 10/18/2022 70397 RxNorm IRIS COUVERTIE R null, PA - [facility] 3 08:41:50 Medications Name Sig Start Date Stop Date Status Note LastModified by Organization Details LastModified Time albuterol sulfate 1.25 mg/3 mL solution for nebulization Inhale 3 mL 3 times a day by inhalation route. active Not Available Not Available No t Available hydrochlorot hiazide 25 mg tablet Take 1 tablet every day by oral route. active Not Available Not Available No t Available atorvastatin active Not Available Not Available Not Available aspirin active Not Available Not Avail able Not Available levothyroxin e active Not Available Not Available Not Available tamsulosin active Not Available Not Av ailable Not Available omeprazole active Not Available Not Av ailable Not Available mometasone active Not Available Not Av ailable Not Available montelukast active Not Available Not A vailable Not Available niacinamide active Not Available Not A vailable Not Available verapamil active Not Available Not Corrine ilable Not Available allopurinol active Not Available Not A vailable Not Available metformin active Not Available Not Corrine ilable Not Available cetirizine active Not Available Not Av ailable Not Available bupropion HCl active Not Available Not Available Not Available gabapentin active Not Available Not Av ailable Not Available Dyclomine active Not Available Not Corrine ilable Not Available oxybutynin active Not Available Not Av ailable Not Available albuterol 90 mcg-budesoni de 80 mcg/actuatio n HFA aerosol inhaler Inhale by inhalation route. active Not Available Not Available No t Available Vitals Date Recorded Body height Body mass index (BMI) Body weight Body temperature Respiratory rate Oxygen saturation Oxygen saturation in Arterial blood by Pulse oximetry Heart rate Systolic And Diastolic Provider Name and Address Organization Details Last Updated DateTime 3 180.34 cm 40.4 kg/m2 376483. 79 g 97.8 [degF] 20 /min 98 % 98 % 96 /min 122/83 mm[Hg] LON Hansen PA - [facility] 3 08:55:00 Social History Question Answer Notes LastModified by Organizat ion Details LastModified Time Tobacco Smoking Status Former Smoker LON urbano PA - [facility] 10/18/2022 08:44:42 What Is Your Water Source? City Information not available 10/18/2022 What Is Your Heat Source? Other Information not available 10/18/2022 Have You Had Direct Contact, Or Contact During Intimacy, With Monkeypox Rash, Scabs, Or Body Fluids From A Person With Monkeypox? No Information not available 10/18/2022 Have You Recently Traveled Abroad? No Information not available 10/18/2022 Sex: Unknown Functional Status Question Answer Note LastModified by Organizat ion Details LastModified Time Do you use any illicit or recreational drugs? No Information not available 10/18/2022 Do you or have you ever used any other forms of tobacco or nicotine? No Information not available 10/18/2022 What is your level of alcohol consumption? None Information not available 10/18/2022 Mental Status None recorded. Family History Relationship Description Onset Age of this Age Resolved Age Notes LastModified by Organization Details LastModified Time Father No current problems or disability Not available 08:44:29 Mother No current problems or disability Not available 08:44:29 Medical History No medical history recorded. Past Encounters Encounter ID Performer Location Encounter Start Date Encounter Closed Date Diagnosis/Indication Diagnosis SNOMED-CT Code Diagnosis ICD10 Code Diagnosis Note [id number] [address] [place] [address] 05/04/2022 13:02:04 05/04/2022 13:51:28 [id number] [address] [place] [address] 06/20/2019 16:16:23 06/20/2019 17:26:26 [id number] [address] [place] [address] 07/01/2021 11:15:41 07/01/2021 11:42:24 [id number] [place] [address] [place] [address] 10/18/2022 08:09:48 10/18/2022 09:59:50 Abdominal pain 87171416 R10.9 AMA signed, pt has elected to go by ambulance EM RN Health Concerns Section Related Observation LastModified by Organization Detai ls LastModified Time None Recorded Concern Status LastModified by Organization Details LastModified Time None Recorded Advance Directives Directive None Recorded Payers Insurance Date Sequence Insurance Name Policy Number Policy Perez Covered Member ID Perez Member ID Guarantor Name 10/18/2022 [facility] - [facility] ([facility] Mikal Stephenszpatrick [id number] Mikal Stephenszpatrick Notes Date Note Type Note Provider Name and Address Organization Details Recorded Time 10/18/2022 text/html Abdominal Pain UCReported bypatient.source of patient information; Patient arrived at Urgent Care ambulatory; learning styles: auditory Location:radiatin g; epigastric Quality:pain;bloa ting;aching;sharp ;tender Severity:mild Duration:constant Onset/Timing:wors e; gradual Context:no travel Modifying Factors:nothing gives relief Associated Symptoms:no fever; no chills; no blood in the urine; no shortness of breath; no change in bowel/bladder habits;heartburn; nausea;constipati on Other:denies possible London Gavin NP [address] [place], [address], [place] - [facility] 10/18/2022 19:11:29
--- OUTSIDE RECORDS SUMMARY | 2025-02-05 08:56 | XMS_ITS | Clinical Summary ---
Author Organization [address] Address [address] [place] [address] Care Team Providers Care Learning Program Manager Name Role Phone None Primary Care Provider Unavailabl e Active Problems No known active problems Social History Tobacco Use Types Packs/Day Years Used Date Smoking Tobacco: Never Assessed Sex and Gender Information Value Date Recorded Sex Assigned at Not on file Legal Sex Male 3:14 PM EST Gender Identity Not on file Sexual Orientation Not on file Plan of Treatment Health Maintenance Due Date Last Done Comments HIV screening 10/10/1960 Hepatitis C screening 10/10/1965 Tetanus adult (Td q 10,TDAP once) 1967 Lipid disorder screening 1987 Diabetes screening 10/10/1992 Pneumococcal Vaccine (50+ ye ars) (1 of 1 - PCV) 10/10/1997 Shingles vaccine (Shingrix) (1 of 2 - Shingrix (RZV) 2 Dose Standard Series) 10/10/1997 RSV Immunization (1 - 1-dose 75+ series) 10/10/2022 Covid-19 vaccine series ( - season) 2024 Influenza vaccine 03/25/2025 Colon cancer screening, Colonoscopy Discontinued Meningococcal Vaccine Aged Out No iam ana maria eligible based on patient's age to complete this topic Insurance MEDICARE Member Subscriber Plan / Payer (Ef fective 2011-Present) Name:Mikal Khan Member ID:[id number] Relation to Subscriber:Self Name:Mikal Khan Subscriber ID:[id number] Payer ID:[id number] Group ID:Not on file Type:Not on file Address: [address] MEDICARE Member Subscriber Plan / Payer (Ef fective 2011-Present) Name:Erin Mikal Member ID:[id number] Relation to Subscriber:Self Name:Mikal Khan Subscriber ID:[id number] Payer ID:[id number] Group ID:Not on file Type:Not on file Address: [address] MEDICARE Member Subscriber Plan / Payer (Ef fective 2011-Present) Name:Mikal Khan Member ID:[id number] Relation to Subscriber:Self Name:Reddy Khanh Subscriber ID:[id number] Payer ID:[id number] Group ID:Not on file Type:Not on file Address: [address] [facility]IC[facility] Care Teams Learning Program Manager Relationship Specialty Start Date End Date None PCP - General 12/25/13
--- OUTSIDE RECORDS SUMMARY | 2025-02-05 08:56 | XMS_ITS | Patient Health Record ---
[facility] Address [address] [place] [address] Care Team Providers Care Mill Recorder Name Role Phone Anival Moody MD Primary Care Provider Edward Cummins Unavailable [phone] Allergies Allergen (clinical drug ingredient) Drug/Non Drug Allergy documented on EMR Reaction Allergy Type Onset Date Status amoxicillin / clavulanate Augmentin rash Drug Allergy Active Reason For Referral No Information Medications Medication SIG (Take, Route, Frequency, Duration) Notes Start Date End Date Status Accolate Active Albuterol Sulfate Ac tive Clobetasol Propionate Active Fluocinolone Acetonide Active Extra-Depth Diabetic Shoes with 3 Pair Custom heat-molded multi-density innersoles . for 1 year . Dx:foot deformity and preulcerative skin lesions; Duration: . 12/19/2014 Active Cozaar Active NitroQuick Active Asmanex 14 Metered Doses Active Gabapentin Active Albuterol Active Symbicort Active Verapamil HCl 120 MG 1 tablet Orally Thr ee times a day Active Spiriva HandiHaler A ctive Imdur 30 MG 1 tablet Orally Once a day Active Omeprazole Active oxyBUTYnin Chloride 5 MG Orally Active Testosterone Cypionate Active Melatonin Active Indomethacin Active Vardenafil HCl Activ e LORazepam Active Simvastatin Active Vitamin B-6 Active Allopurinol Active Naproxen Active Extra-Depth Diabetic Shoes with 3 Pair Custom heat-molded multi-density innersoles Active Nitro-Dur Active buPROPion HCl Active Levothyroxine Sodium Active Aspirin Active Meclizine HCl Active dilTIAZem HCl Active Flunisolide Active Extra-Depth Diabetic Shoes with 3 Pair Custom heat-molded multi-density innersoles . for 1 year . Dx:niddm with neuropathy, foot deformity and preulcerative skin lesions; Duration: . 01/02/2014 Active hydroCHLOROthiazide Active Cetirizine HCl Activ e Problems Problem Type SNOMED Code ICD Code Onset Dates Problem Status W/U Status Risk Notes Problem Diabetic - NIDDM/Neuropat hy (250.60) Active confirmed Plan Of Treatment Pending Test Test Name Order Date 21279-LOOWIXD NAIL, 6 OR MORE 03/27/2014 21759-XDLQTPF NAIL, 6 OR MORE 05/27/2014 39780-FISXELD NAIL, -08/07/2014 28156-PNUTBJV NAIL, -10/16/2014 29333-XFBXHUS NAIL, -12/19/2014 24848-GHLWBEV NAIL, -04/05/2011 44140-OJRHZBH NAIL, -06/14/2011 31350-LCGRFYX NAIL, -08/25/2011 91175-KBTKFIO NAIL, -11/03/2011 13341-DDJHFNA NAIL, -01/12/2012 18494-IXNENQS NAIL, -03/22/2012 35578-TTKRULZ NAIL, -06/07/2012 78130-YOAOFNN NAIL, -08/23/2012 72929-HXGEFYG NAIL, -11/01/2012 63956-CLKGJPN NAIL, -03/21/2013 90640-TENKQOB NAIL, -06/11/2013 93205-UYQMMKI NAIL, -08/22/2013 00272-FJAAOSB NAIL, -10/31/2013 96846-MGOVRYH NAIL, -01/02/2014 98497-RFIB SKIN LESIONS, OVER 4 01/03/20 14 27257-ZZJS SKIN LESIONS, OVER 4 08/25/19 12 31264-KTNJ SKIN LESIONS, OVER 4 03/27/20 14 30895-MEXE SKIN LESIONS, OVER 4 11/01/19 14 71037-QJEE SKIN LESIONS, OVER 4 08/22/19 14 05579-POYF SKIN LESIONS, OVER 4 06/11/20 13 03927-EQEF SKIN LESIONS, OVER 4 03/21/20 13 68858-FCMN SKIN LESIONS, OVER 4 11/02/19 13 77880-PZUR SKIN LESIONS, OVER 4 08/23/19 13 06720-UVCT SKIN LESIONS, OVER 4 06/07/20 12 04763-DKQJ SKIN LESIONS, OVER 4 03/22/20 12 18828-MDCQ SKIN LESIONS, OVER 4 01/12/20 12 83533-IWTO SKIN LESIONS, OVER 4 11/03/19 12 26981-RATB SKIN LESIONS, OVER 4 04/05/20 11 56985-TDYO SKIN LESIONS, OVER 4 06/14/20 11 08010-ZNTH SKIN LESIONS, OVER 4 12/20/19 15 48518-SEON SKIN LESIONS, OVER 4 10/17/19 15 39058-HAKP SKIN LESIONS, OVER 4 05/27/20 14 28645-TSLV SKIN LESIONS, OVER 4 08/07/19 15 97264-XBHH NAIL(S) 10/16/2014 88588-BOLT NAIL(S) 08/07/2014 92609-EFPM NAIL(S) 12/19/2014 62701-MFXH NAIL(S) 04/05/2011 14463-RLXM NAIL(S) 08/25/2011 42727-TEXM NAIL(S) 06/14/2011 32747-BEGO NAIL(S) 11/03/2011 82145-TZJS NAIL(S) 01/12/2012 77959-SMEG NAIL(S) 03/22/2012 23413-YOQP NAIL(S) 06/07/2012 34970-KZKV NAIL(S) 08/23/2012 11551-AVIQ NAIL(S) 11/01/2012 32019-IKWW NAIL(S) 03/21/2013 05290-LWFT NAIL(S) 06/11/2013 19430-AYNH NAIL(S) 08/22/2013 38169-NVPO NAIL(S) 10/31/2013 90903-OVXC NAIL(S) 01/02/2014 Insurance Providers Payer Name Payer Address Payer Phone Subscriber Number Group Number Insured Name Patient Relationship to Insured Coverage Start Date Coverage End Date Medicare National [employer] [address] [place] [address] [id number] Mikal Jones Self - patient is the insured AP [address] [place] [address] [id number] Mikal Jones Self - patient is the insured Medical (General) History Medical History History ICD Code sinus conditions reflux psoriasis eczema measles hypertension Gout diabetes mellitus chicken pox skin cancer asthma Surgical History Surgery Date(Month/Year) 130 skin cancer removal surgeries cervical disc surgery 04/03/2013 Hospitalization History Reason Date(Month/Year) [facility] 6[facility] 11/2013
--- OUTSIDE RECORDS SUMMARY | 2025-02-05 08:56 | XMS_ITS | Patient Health Record ---
Author Organization [facility] Address [address] [place] [address] Care Team Providers Care Funeral Home Manager Name Role Phone Cathy Taylor Primary Care Provider UnaLuis Eduardo Hong Unavailable [phone] Allergies Allergen (clinical drug ingredient) Drug/Non Drug Allergy documented on EMR Reaction Allergy Type Onset Date Status piperacillin / tazobactam Zosyn LIVER FAILURE Drug Allergy Active amoxicillin / clavulanate Augmentin RASH/VOMIT Drug Allergy Active Reason For Referral Referring Provider First Name JARRET Referring Provider Last Name DAYSI Referring Provider Speciality Internal M edicine Referred Organization [facility] Referred Provider Luis Eduardo Siddiqui Referred Address [address],[place], [place],[address], Referred Provider Specialty Gastroentero logy Referral Priority Routine Medications Medication SIG (Take, Route, Frequency, Duration) Notes Start Date End Date Status Omeprazole 20 MG 1 capsule Orally twi ce a day Active Aspir-81 Active hydroCHLOROthiazide 50 MG 1 tablet in th e morning Orally Once a day Active Verapamil HCl ER 360 MG 1 tablet Orally twice a day Active Cetirizine HCl 10 MG 1 tablet Orally Onc e a day Active metFORMIN HCl 500 MG 500 mg in am 1000mg in evening Orally twice a day Active Levothyroxine Sodium 50 MCG 1 tablet on an empty stomach in the morning Orally Once a day Active Fluocinolone Acetonide 0.01 % 1 applicat ion to affected area Externally prn Active Imiquimod 5 % as directed External ly Two times a Week/prn Active Triamcinolone Acetonide 0.1 % 1 applicat ion to affected area Externally Once a day/prn Active oxyBUTYnin Chloride 5 MG 2 tablet Orally Once a day Active Asmanex 120 Metered Doses 22 0 MCG/INH 1 puff in the evening Inhalation Once a day Active buPROPion HCl 100 MG 1 tablet Orally Twi ce a day for 30 day(s) Active Atorvastatin Calcium 80 MG 1 tablet Oral ly Once a day Active Fluticasone Propionate 50 MCG/ACT 1 spray in each nostril Nasally Once a day for 30 day(s) Active Stiolto Respimat 2.5-2.5 MCG/ACT 2 puffs Inhalation Once a day Active Senna Lax 8.6 MG 2 tablets at bedtime as needed Orally Once a day for 30 day(s) Active Dicyclomine HCl 20 MG 1 tablet Orally Fo ur times a day/prn Active Multi Vitamin/Minerals - as directed Ora lly once a day Active Albuterol Sulfate 108 (90 Base) MCG/ACT 2 puffs as needed Inhalation every 6 hrs Active Gabapentin 600 MG 600am 600 noon 1200 evening Orally Three times a day Active Accolate 20 MG 1 tablet after meals Orally Twice a day Active Niacinamide 500 MG as directed Orally BID Active Vitamin D Active Clobetasol Propionate 0.05 % 1 applicati on to affected area Externally Twice a day/prn Active Stool Softener 100 MG 1 capsule as neede d Orally Once a day Active Immunizations Vaccine Route Administration Date Status Comme nts Flu vaccine no Preserv 3 and > Unknown 05/06/2014 Admin istered Influenza Unknown 03/25/2018 Administered Influenza Unknown 03/25/2019 Administered Influenza Unknown 04/29/2020 Administered Problems Problem Type SNOMED Code ICD Code Onset Dates Problem Status W/U Status Risk Notes Problem Screening for malignant neoplasm of colon (000726980) Encounter for screening for malignant neoplasm of colon (Z12.11) Active confirmed Problem 595343461 Elevated liver enzymes (R74.8) Active confirmed Problem 009456931 Gastroesophageal reflux disease, esophagitis presence not specified (K21.9) Active confirmed Problem 597109235 Iron deficiency anemia due to chronic blood loss (D50.0) Active confirmed Problem 70447206 Constipation, unspecified constipation type (K59.00) Active confirmed Problem 34261382 Iron deficiency anemia, unspecified iron deficiency anemia type (D50.9) Active confirmed Vital Signs Blood pressure diastolic 00 mm Hg 06/13/2024 Height 70 in 06/13/2024 Blood pressure systolic 00 mm Hg 06/13/2024 Weight 271 lbs 06/13/2024 BMI 38.88 kg/m2 06/13/2024 Encounters Encounter Location Date Provider Diagnosis [facility] [address] [place] [address] 06/13/2024 Luis Eduardo Siddiqui Gastroesophageal ref lux disease, esophagitis presence not specified K21.9 ; Iron deficiency anemia, unspecified iron deficiency anemia type D50.9 and Encounter for screening for malignant neoplasm of colon Z12.11 Assessments Encounter Date Diagnosis (ICD Code) Assessment Notes Treatment Notes Treatment Clinical Notes Section Notes 06/13/2024 Gastroesophageal reflux disease, esophagitis presence not specified (ICD-10 - K21.9) Overall, Marino appears well from a GI standpoint and is not having any new nor worrisome GI complaints. We did review all of his past history regarding all his previous colonoscopies. At this time I advised him that I do not feel strongly about putting him through another colonoscopy at this point simply for screening purposes as he is asymptomatic, has had multiple previous colonoscopies, has multiple comorbidities, has no family history of colorectal cancer, and the most recent colonoscopy in 2019 revealed only a single tubular adenoma. As such I advised him that I think the yield on a followup screening colonoscopy would be low and at this point the benefits of the procedure may not outweigh any theoretical potential risks of the procedure. Marino was in complete agreement with this as well. Rather than having him do a screening colonoscopy, I recommended that he speak with you at his next appointment to obtain a screening home Cologuard test.I advised him to let me know the results and if it is positive I would then recommend a colonoscopy for that purpose, rather than simply for screening. However, hopefully the test will be negative and he could then just see me on a p.r.n. basis. Of note, his reflux seems to be quite stable on his daily omeprazole. I did advise him to continue that as well. His previous anemia seems to be stable as well based on the most recent laboratories that I have available to review. Again, Marino was in complete agreement with this plan. If the Cologuard test is negative he will then see me on a p.r.n. basis. I did advise him to certainly call if he has any problems or questions I can be of assistance with in the future. Thank you again for allowing me to have participated in Marino's care. Please do not hesitate to contact me if I can be of any further assistance in the future. 06/13/2024 Iron deficiency anemia, unspecified iron deficiency anemia type (ICD-10 - D50.9) Overall, Marino appears well from a GI standpoint and is not having any new nor worrisome GI complaints. We did review all of his past history regarding all his previous colonoscopies. At this time I advised him that I do not feel strongly about putting him through another colonoscopy at this point simply for screening purposes as he is asymptomatic, has had multiple previous colonoscopies, has multiple comorbidities, has no family history of colorectal cancer, and the most recent colonoscopy in 2019 revealed only a single tubular adenoma. As such I advised him that I think the yield on a followup screening colonoscopy would be low and at this point the benefits of the procedure may not outweigh any theoretical potential risks of the procedure. Marino was in complete agreement with this as well. Rather than having him do a screening colonoscopy, I recommended that he speak with you at his next appointment to obtain a screening home Cologuard test.I advised him to let me know the results and if it is positive I would then recommend a colonoscopy for that purpose, rather than simply for screening. However, hopefully the test will be negative and he could then just see me on a p.r.n. basis. Of note, his reflux seems to be quite stable on his daily omeprazole. I did advise him to continue that as well. His previous anemia seems to be stable as well based on the most recent laboratories that I have available to review. Again, Marino was in complete agreement with this plan. If the Cologuard test is negative he will then see me on a p.r.n. basis. I did advise him to certainly call if he has any problems or questions I can be of assistance with in the future. Thank you again for allowing me to have participated in Marino's care. Please do not hesitate to contact me if I can be of any further assistance in the future. 06/13/2024 Encounter for screening for malignant neoplasm of colon (ICD-10 - Z12.11) Ask your PCP about doing a Cologuard test for screening for colon cancer. Let me know the results either way. If it is positive then we would want to do a colonoscopy. If it is negative then you can see me as needed. Overall, Marino appears well from a GI standpoint and is not having any new nor worrisome GI complaints. We did review all of his past history regarding all his previous colonoscopies. At this time I advised him that I do not feel strongly about putting him through another colonoscopy at this point simply for screening purposes as he is asymptomatic, has had multiple previous colonoscopies, has multiple comorbidities, has no family history of colorectal cancer, and the most recent colonoscopy in 2019 revealed only a single tubular adenoma. As such I advised him that I think the yield on a followup screening colonoscopy would be low and at this point the benefits of the procedure may not outweigh any theoretical potential risks of the procedure. Marino was in complete agreement with this as well. Rather than having him do a screening colonoscopy, I recommended that he speak with you at his next appointment to obtain a screening home Cologuard test.I advised him to let me know the results and if it is positive I would then recommend a colonoscopy for that purpose, rather than simply for screening. However, hopefully the test will be negative and he could then just see me on a p.r.n. basis. Of note, his reflux seems to be quite stable on his daily omeprazole. I did advise him to continue that as well. His previous anemia seems to be stable as well based on the most recent laboratories that I have available to review. Again, Marino was in complete agreement with this plan. If the Cologuard test is negative he will then see me on a p.r.n. basis. I did advise him to certainly call if he has any problems or questions I can be of assistance with in the future. Thank you again for allowing me to have participated in Marino's care. Please do not hesitate to contact me if I can be of any further assistance in the future. Plan Of Treatment Pending Test Test Name Order Date IRON + IBC (FE) 11/26/2018 IRON + IBC (FE) 04/29/2020 IRON + IBC (FE) 12/20/2018 FERRITIN 11/26/2018 FERRITIN 04/29/2020 FERRITIN 12/20/2018 CBC w DIFF 12/20/2018 CBC w DIFF 11/26/2018 CBC w DIFF 04/29/2020 CELIAC PANEL #10 01/10/2015 Future Test Test Name Order Date COLONOSCOPY 03/25/2015 UPPER GI ENDOSCOPY 10/05/2018 Insurance Providers Payer Name Payer Address Payer Phone Subscriber Number Group Number Insured Name Patient Relationship to Insured Coverage Start Date Coverage End Date [facility] [employer] [address] [place] [phone] [id number] KOMAL DURAN ANTONINA Self - patient is the insured Medical (General) History Medical History History ICD Code Colonoscopies in 1999 and 2005, with the removal of tubular adenomas He had a WA in 2007 with an angioplasty-he denies any subsequent cardiac problems COPD NIDDM Hypertension Sleep apnea for which he uses a CPAP mac mindy Hyperlipidemia Gout He denies any history of kidney disease Chest pain-hospitalized at [facility] in 11/2012-neg. cardiac cath; had a Barium swallow with some mild esophageal dysmotiliity and a small HH--no stricture and no reflux. He had an upper endoscopy in July of 1999 with the finding of some esophagitis, with biopsies negative for Neil's esophagus Colonoscopy 05/2011 and 2014 --small tubular adenomas removed, no IBD and biopsies were negative for microscopic colitis. Psoriasis BPH Retinal artery occlusion of left eye 09/23 019 Groin abscess-IV antibx at [facility] in 8 Epididymitis [facility] antib[facility] at [facility] in 08/2018 Transient elevated LFT's in 08/2018- 9--normal LFTs in October of 2018 TIA Iron def. anemia in 2018--up per endoscopy in September of 2018 revealed a question of gastric antral vascular ectasia, but there was no active bleeding noted; colonoscopy in October of 2018 revealed only a small tubular adenoma; he had a negative small bowel video capsule study in November of 2018. SVT/Paroxysmal atrial fibril lation--he has been on aspirin and Eliquis, but may be having a Watchman procedure at [facility] in March of 2019 Watchman procedure in 03/2019-Dr. Anand Maria in [place] Surgical History Surgery Date(Month/Year) Skin cancers Neck surgery--C-spine-Dr. Jackson 3 3 V-BYPASS SURGERY 12/2017 KNEE-RIGHT 07/2017 BACK SURGERY--DISC DISEASE-SCIATICA 06/24 ABSCESS YKJFI-Maxbzmv-NO antibiotics [facility] [place] 04/2018 INFECTION EPIDIDYMIS @ [facility] and [facility] ORAL AND IV ANTIBIOTICS 07/2018 Left inguinal hernia - Dr. Ordoñez 07/26 024
[2025-02-05 08:57] VITALS: BP 110/74; PULSE 80; BMI 38.8
== END 2025-02-05 09:32 | disposition home or self-care (01) ==
LOC: HO.HCS 08:47
PROVIDERS: PCP Nurse Practitioner Family; Visit Provider Internal Medicine Cardiovascular Disease
DX: I48.0 Paroxysmal atrial fibrillation (principal); I25.10 Atherosclerotic heart disease of native coronary artery without angina pectoris; R60.0 Localized edema
CPT/HCPCS: 93010; 99214; G2211

== ENCOUNTER → 2025-03-06 07:46 | Outpatient (REF) | payer OTHER, SELFPAY ==
--- OUTSIDE RECORDS SUMMARY | 2025-03-06 07:48 | XMS_ITS | Clinical Summary ---
Author Organization [address] Address [address] [place] [address] Care Team Providers Care Medical Staff Specialist Name Role Phone None Primary Care Provider [...] Payer (Ef fective 2011-Present) Name:Mikal Khan Member ID:[id number] Relation to Subscriber:Self Name:Mikal Khan Subscriber ID:[id number] Payer ID:[id number] Group ID:Not on file Type:Not on file Address: [address] MEDICARE Member Subscriber Plan / Payer (Ef fective 2011-Present) Name:Erin Mikal Member ID:[id number] Relation to Subscriber:Self Name:Mikal Khan Subscriber ID:[id number] Payer ID:[id number] Group ID:Not on file Type:Not on file Address: [address] MEDICARE Member Subscriber Plan / Payer (Ef fective 2011-Present) Name:Mikal Khan Member ID:[id number] Relation to Subscriber:Self Name:Reddy Khanh Subscriber ID:[id number] Payer ID:[id number] Group ID:Not on file Type:Not on file Address: [address] MEDICARE [facility] Care Teams Medical Staff Specialist Relationship Specialty Start Date End Date None PCP - General 12/25/13
--- OUTSIDE RECORDS SUMMARY | 2025-03-06 07:49 | XMS_ITS | Patient Health Record ---
Author Organization [facility] Address [address] [place] [address] Care Team Providers Care Roll Edge Machine Operator Name Role Phone Anival Moody MD Primary Care Provider Edward Cummins Unavailable [phone] Allergies Allergen (clinical drug ingredient) Drug/Non Drug [...] Treatment Pending Test Test Name Order Date [id number] NAIL, 6 OR MORE 03/27/2014 10257-BFRAQCR NAIL, 6 OR MORE 05/27/2014 40555-STDFUDL NAIL, -08/07/2014 84932-LYYANXX NAIL, -10/16/2014 93043-NFBHBIM NAIL, -12/19/2014 42253-YFXYYRY NAIL, -04/05/2011 98579-EZUIUPG NAIL, -06/14/2011 58320-DMQMFJK NAIL, -08/25/2011 92602-RMAKZPY NAIL, -11/03/2011 58278-LSTPDMT NAIL, -01/12/2012 85528-BPQDBNM NAIL, -03/22/2012 94644-NQDYOVY NAIL, -06/07/2012 87660-CSEWLHV NAIL, -08/23/2012 06984-JPHMUAO NAIL, -11/01/2012 02922-EVOJQDU NAIL, -03/21/2013 35585-IJYJSLN NAIL, -06/11/2013 92683-LQWGBPX NAIL, -08/22/2013 42707-MANKHQZ NAIL, -10/31/2013 73606-ZVDQUPN NAIL, -01/02/2014 89759-SWHE SKIN LESIONS, OVER 4 01/03/20 14 78893-MPHE SKIN LESIONS, OVER 4 08/25/19 12 78491-LMTS SKIN LESIONS, OVER 4 03/27/20 14 84250-JPHP SKIN LESIONS, OVER 4 11/01/19 14 79695-WAOM SKIN LESIONS, OVER 4 08/22/19 14 44706-HGBP SKIN LESIONS, OVER 4 06/11/20 13 18320-XUNU SKIN LESIONS, OVER 4 03/21/20 13 30318-GAJA SKIN LESIONS, OVER 4 11/02/19 13 35607-LRAY SKIN LESIONS, OVER 4 08/23/19 13 01238-LXEP SKIN LESIONS, OVER 4 06/07/20 12 18721-FGHK SKIN LESIONS, OVER 4 03/22/20 12 50521-SRKH SKIN LESIONS, OVER 4 01/12/20 12 53568-TAPB SKIN LESIONS, OVER 4 11/03/19 12 94814-LJUR SKIN LESIONS, OVER 4 04/05/20 11 09518-WAHD SKIN LESIONS, OVER 4 06/14/20 11 53711-UGVH SKIN LESIONS, OVER 4 12/20/19 15 25517-KTFZ SKIN LESIONS, OVER 4 10/17/19 15 79505-VMPY SKIN LESIONS, OVER 4 05/27/20 14 02349-ADWA SKIN LESIONS, OVER 4 08/07/19 15 97549-DXWL NAIL(S) 10/16/2014 00263-FDNG NAIL(S) 08/07/2014 95196-XJSY NAIL(S) 12/19/2014 95549-XYXX NAIL(S) 04/05/2011 10766-VQNK NAIL(S) 08/25/2011 02432-ZHJZ NAIL(S) 06/14/2011 30176-UIYX NAIL(S) 11/03/2011 40736-QNNT NAIL(S) 01/12/2012 66676-INCL NAIL(S) 03/22/2012 42578-QGQD NAIL(S) 06/07/2012 84345-MMYT NAIL(S) 08/23/2012 52706-RXXS NAIL(S) 11/01/2012 20151-BZOL NAIL(S) 03/21/2013 68652-IIBL NAIL(S) 06/11/2013 01473-LHRR NAIL(S) 08/22/2013 13219-FMNM NAIL(S) 10/31/2013 06502-COAW NAIL(S) 01/02/2014 Insurance Providers Payer Name Payer Address Payer Phone Subscriber Number Group Number Insured Name Patient Relationship to Insured Coverage Start Date Coverage End Date [employer] [address] [place] [address] [id number] Mikal Jones Self - patient is the insured AP [address] [place] [address] [id number] Mikal Jones Self - patient is the insured Medical (General) History Medical History History ICD Code sinus conditions reflux psoriasis eczema measles hypertension Gout diabetes mellitus chicken pox skin cancer asthma Surgical History Surgery Date(Month/Year) 130 skin cancer removal surgeries cervical disc surgery 04/03/2013 Hospitalization History Reason Date(Month/Year) admitted to [facility] ches t pain x 6days 11/2013
--- OUTSIDE RECORDS SUMMARY | 2025-03-06 07:49 | XMS_ITS | Patient Health Record ---
Author Organization [facility] Address [address] [place] [address] Care Team Providers Care Family Dinner Service Specialist Name Role Phone Cathy Taylor Primary Care Provider UnaLuis Eduardo Hong Unavailable [phone] Allergies Allergen (clinical drug ingredient) Drug/Non Drug Allergy documented on EMR Reaction Allergy Type Onset Date Status piperacillin / tazobactam Zosyn LIVER FAILURE Drug Allergy Active amoxicillin / clavulanate Augmentin RASH/VOMIT Drug Allergy Active Reason For Referral Referring Provider First Name JARRET Referring Provider Last Name DAYSI Referring Provider Speciality Internal M edicine Referred Organization [facility] Referred Provider Luis Eduardo Siddiqui Referred Address [address],[place], [place],[address], Referred Provider Specialty Gastroentero logy Referral Priority [...] Problem Screening for malignant neoplasm of colon (658848796) Encounter for screening for malignant neoplasm of colon (Z12.11) Active confirmed Problem 547284111 Elevated liver enzymes (R74.8) Active confirmed Problem 042598101 Gastroesophageal reflux disease, esophagitis presence not specified (K21.9) Active confirmed Problem 476373019 Iron deficiency anemia due to chronic blood loss (D50.0) Active confirmed Problem 71847510 Constipation, unspecified constipation type (K59.00) Active confirmed Problem 84988768 Iron deficiency anemia, unspecified iron deficiency anemia type (D50.9) Active confirmed Vital Signs Blood pressure diastolic 00 mm Hg 06/13/2024 Height 70 in 06/13/2024 Blood pressure systolic 00 mm Hg 06/13/2024 Weight 271 lbs 06/13/2024 BMI 38.88 kg/m2 06/13/2024 Encounters Encounter Location Date Provider Diagnosis [facility] [address] [place] [address] 06/13/2024 Luis Eduardo Siddiqui Gastroesophageal ref lux [...] Insured Coverage Start Date Coverage End Date [facility] [employer] [address] [place] [phone] [id number] KOMAL DURAN ANTONINA Self - patient is the insured Medical (General) History Medical History History ICD Code Colonoscopies in 1999 and 2005, with the removal of tubular adenomas He had a PR in 2007 with an angioplasty-he denies any subsequent cardiac problems COPD NIDDM Hypertension Sleep apnea for which he uses a CPAP mac mindy Hyperlipidemia Gout He denies any history of kidney disease Chest pain-hospitalized at [facility] in 11/2012-neg. cardiac cath; had a Barium [...] eye 09/23 019 Groin abscess-IV antibx at [facility] [place] in 8 Epididymitis IV antibx at [facility] in 08/2018 Transient elevated LFT's in [...] may be having a Watchman procedure at [facility] in March of 2019 Watchman procedure in 03/2019-Dr. Anand Maria in [place] Surgical History Surgery Date(Month/Year) Skin cancers Neck surgery--C-spine-Dr. Jackson 3 3 V-BYPASS SURGERY 12/2017 KNEE-RIGHT 07/2017 BACK SURGERY--DISC DISEASE-SCIATICA 06/24 ABSCESS RDJJT-Dryuvdw-ZR antibiotics [facility] 04/2018 INFECTION EPIDIDYMIS @ [facility] and [facility] ORAL AND IV ANTIBIOTICS 07/2018 Left inguinal hernia - Dr. Ordoñez 07/26 024
--- OUTSIDE RECORDS SUMMARY | 2025-03-06 07:49 | XMS_ITS | Clinical Summary ---
Author Organization [facility] Address [address] [place] [address] Care Team Providers Care Manager Brand Name Role Phone Anival Moody MD Primary [...] - 1-dose 75+ series) 10/10/2022 COVID-19 Vaccine ( - 2023-2 5 season) 2024 Depression Screening 07/25/2024 Influenza Vaccine (#1) 2025 HIB Vaccines Aged [...] age to complete this topic Care Teams Manager Brand Relationship Specialty Start Date End Date [facility]ival [facility] 12/30/17
--- NOTE | 2025-03-06 07:54 | CA_ITS ---
Transthoracic Echocardiogram Patient (Last, First, Middle): Mikal Khan L Gender: Male Date of : 1945 Age: 79 Procedure Date: 03/06/2025 Procedure Type: Transthoracic Echocardiogram Location: OP Height: 180.34 cm Weight: 127.01 kg BSA: 2.43 m2 Heart Rate: 73 bpm BP: 122 / [address] [employer]: [employer] Referring MD: Roberto Kemp MD [employer]: Roberto Kemp MD Symptoms: I48.0 - Paroxysmal atrial fibrillation Study Quality: Fair/adequate w Contast ECG Rhythm: Sinus Conclusions: - 1. Mildly reduced LV ejection fraction 45-50% with impaired relaxation filling pattern 2. Mildly dilated left atrium 3. Cardiac valvular Dopplers within normal limits 4. Upper limits of normal ascending aortic size at 3.7 cm 5. No gross pericardial effusion Findings Procedure Information Contrast agent, definity, is being given per protocol without apparent complications. The quality of the study was technically difficult. The study quality is limited by patients body habitus. Left Ventricle Normal left ventricular cavity size. There is normal left ventricular wall thickness. The left ventricular systolic function is mildly decreased. The visually estimated ejection fraction is between 45-50%. There is mild global hypokinesis. Spectral Doppler is indicative of an impaired relaxation filling pattern. E/E prime ratio is between 8 and 15 consistent with indeterminate filling pressures. Atria The left atrium is mildly dilated. There is lipomatous hypertrophy of the interatrial septum. Interatrial shunt cannot be excluded. The right atrium was not well visualized. Aortic Valve The aortic valve was not well visualized. There is no aortic valve stenosis. There is no aortic valve regurgitation. Mitral Valve Likely normal mitral valve structure and function. There is trace mitral valve regurgitation. There is no mitral valve stenosis. Pulmonic Valve The pulmonic valve was not well visualized. Tricuspid Valve Likely normal tricuspid valve structure and function. There is trace tricuspid valve regurgitation. The right ventricular systolic pressure is normal. The right ventricular systolic pressure is 19 mmHg. Normal right atrial pressure. There is no evidence of pulmonary hypertension. Great Vessels All visible segments of the aorta are normal in size. The pulmonary artery was not well visualized. There is no evidence of plaque in the aorta. Venous The inferior vena cava is normal in size and collapses greater than 50% with inspiration. Pericardium/Pleural There is no evidence of pericardial effusion. Measurements 2D Linear Measurements IVSd: 0.90 0.6-0.9/0.6-1.0 cm LVIDd: 5.90 3.9-5.3/4.2-5.9 cm LVIDd Index: 2.43 2.4-3.2/2.2-3.1 cm/m2 LVIDs: 4.43 2.0-3.6 cm LVPWd: 1.00 0.7-1.1 cm LA Diam: 5.00 2.7-3.8/3.0-4.0 cm LAIDs Index: 2.06 1.5-2.3 cm/m2 LV Mass: 280.32 67-162/88-224 g LV Mass Index: 115.36 43-95/49-115 g/m2 LVOT Diam: 2.70 3.0+(-)1.3 cm 2D Systolic Function EF 4C: 53.10 >55% EF 2C: 45.70 >55% EF BiP: 48.10 >55% Mitral Valve MV Pk E: 0.74 MV PK A: 0.84 MV Decel Time: 227.00 E/A: 0.90 E'Lateral: 9.03 E'Medial: 8.05 E/E' Med: 9.20 E/E' Lat: 8.20 PHT: 66.00 MVA PHT: 3.33 Decel [place]: 3.25 Aortic Valve AoV Pk Serge: 1.01 AoV Mn Serge: 0.83 AoV VTI: 0.22 AoV Pk Grad: 4.00 Aov Mn Grad: 3.00 EL Cont.VTI: 4.03 LVOT LVOT Pk Serge: 0.81 LVOT Mn Serge: 0.53 LVOT VTI: 0.16 LVOT Pk Grad: 3.00 LVOT Mn Grad: 2.00 LVOT Diam: 2.70 LVOT Area: 5.73 Diastolic Function MV Pk E: 0.74 MV Pk A: 0.84 E/A: 0.90 E'Medial: 8.05 E/E' Med: 9.20 E' Laterial: 9.03 E/E' Lat: 8.20 Right Ventricle TVS' Serge: 8.38 Tricuspid Valve TR Pk Serge: 2.00 TR Pk Grad: 16.00 RA Press: 3.00 RVSP: 19.00 Great Vessels Aorta Sinus of Valsalva: 3.80 2.0-3.5 cm Ao Asc: 3.70 2.1-3.4 cm Pulmonary Veins Pulm Vein S/D 1.50 Pulmonary Valve PV Pk Serge: 1.08 Peak PV Grad: 5.00 Updated in Other Vendor System with Status of Final Roberto Kemp MD electronically signed on 03/06/2025 3:15:26 PM with status of Final
== END ==
LOC: HO.CARD 07:46
PROVIDERS: PCP Internal Medicine; Visit Provider Internal Medicine Cardiovascular Disease
DX: I48.0 Paroxysmal atrial fibrillation (principal)
CPT/HCPCS: 93306; Q9957

== ENCOUNTER → 2025-03-06 07:54 | Outpatient (BNV) | payer OTHER, SELFPAY | PROVIDERS: PCP Internal Medicine; Visit Provider Internal Medicine Cardiovascular Disease | DX: I48.0 Paroxysmal atrial fibrillation (principal); I51.89 Other ill-defined heart diseases | CPT/HCPCS: 93306 ==

== ENCOUNTER → 2025-05-02 07:47 | Outpatient (REF) | payer OTHER, SELFPAY ==
--- NOTE | ~2025-05-02 | NM_ITS ---
Lexiscan Myocardial perfusion study Indication: Survellaince for myocardial ischemia in patient with remote coronary bypass grafting Technique: The patient was brought in for a Lexiscan perfusion study on May 02, 2025 and was injected 0.4 mg of Lexiscan intravenously. Within a minute of this injection 45 mCi of sestamibi was given intravenously. Images were obtained using the SPECT gamma camera interlaced with the gating device. Images were obtained in supine position. Resting perfusion study was performed on May 03, 2025. Patient was administered 45 mCi of sestamibi intravenously at rest. Images were then obtained in supine position. Images obtained without without CT attenuation. Total DLP 154 mGy-cm Images were processed with the software and compared side to side in short axis, horizontal long axis and vertical long axis views. Findings: The stress perfusion study showed nonattenuated images show moderate area of absent uptake in the inferior wall, basal and mid segment with mildly to moderately reduced uptake and inferolateral wall of the LV myocardium. Attenuated corrected images show mildly reduced uptake in the basal anterolateral wall of the LV myocardium. The gated study shows normal LV systolic function with calculated LVEF of 53%. LV cavity is normal in size. The gated study shows normal systolic wall thickening and contraction of segments. Resting study shows nontender images show moderate area of absent uptake in the inferior wall, basal and midportion with improved uptake in the inferolateral wall of the LV myocardium. Attenuated corrected images show improved uptake in the basal inferolateral wall of the myocardium. Gating at rest reveals normal systolic wall motion with ejection fraction at 53%. The findings are consistent with small area of mild intensity basal inferolateral wall ischemia in diagonal territory. NM/NM cardiolite stress test Impression: 1. Myocardial perfusion imaging study shows small area of mild intensity basal anterolateral ischemia in territory of the diagonal branch 2. Gated LVEF is 53% 3. Transient ischemic dilatation not present Nondiagnostic for ischemia on EKG. Electronically signed by: Roberto Kemp MD 05/03/2025 04:13 PM EDT
--- NOTE | 2025-05-02 07:50 | CA_ITS ---
Acquisition Time: 2025-05-02 08:12:29 Total Exercise Time: 00:02:00 Test Indications: Abnormal ECG AFIB Medications: SEE H&P Protocol: LEXISCAN Max HR: 99 BPM 69% of Pred: 143 BPM Max BP: 150/68 mmHG Max Work Load: 1.0 METS Pharmacological stress test with Lexiscan injection, while sitting and moving his legs, with mild sob, without arrythmia, with normotensive response to injection, with nondiagnostic EKG for ischemia. In recovery he was treatedf with aminophylline 75mg IVP to reverse Lexiscan. Nuclear images pending. Test reviewed with Dr Kemp Referred By: Roberto Kemp Electronically Signed By: MYRA RODRIGUEZ
== END ==
LOC: HO.CARD 07:47
PROVIDERS: PCP Internal Medicine; Visit Provider Internal Medicine Cardiovascular Disease
DX: I25.10 Atherosclerotic heart disease of native coronary artery without angina pectoris (principal); I48.0 Paroxysmal atrial fibrillation
CPT/HCPCS: 78452; 93017; A9500; J0280; J2785

== ENCOUNTER → 2025-05-02 07:50 | Outpatient (BNV) | payer OTHER, SELFPAY | PROVIDERS: PCP Internal Medicine; Visit Provider Nurse Practitioner Family | DX: I25.10 Atherosclerotic heart disease of native coronary artery without angina pectoris (principal); R06.02 Shortness of breath | CPT/HCPCS: 78452; 93016; 93018 ==